=== PATIENT | male | born 1945 | race Caucasian/White ===

== ENCOUNTER → 2018-01-29 08:01 | Outpatient (CLI) | payer MEDICARE, SELFPAY ==
[2018-01-29 08:28] LABS: Basophils % 0.7 % (0.1-2.0); Eosinophils # 0.2 K/mm3 (0.0-0.4); Eosinophils % 2.9 % (0.1-12.0); Hematocrit 43.2 % (42.0-52.0); Hemoglobin 14.4 g/dL (14.1-18.0); Lymphocytes # 2.5 K/mm3 (0.7-4.5); Lymphocytes % 45.7 K/mm3 (10-50); Mean Corpuscular HGB Conc 33.2 g/dL (31.8-35.4); Mean Corpuscular Hemoglobin 32.6 pg (27.0-31.2); Mean Platelet Volume 9.5 fl (7.4-10.4); Monocytes # 0.4 K/mm3 (0.1-1.0); Monocytes % 7.8 % (1.7-9.3); Neutrophils # 2.3 K/mm3 (1.8-7.8); Neutrophils % 42.8 % (37.0-80.0); Platelet Count 121 K/mm3 (142-424); Red Cell Distribution Width 12.7 % (11.5-17.5); White Blood Count 5.4 K/mm3 (4.8-10.8)
[2018-01-29 08:35] LABS: INR 0.96 (0.9-1.1); Prothrombin Time 10.4 seconds (9.4-11.8)
[2018-01-29 08:54] LABS: Ammonia < 10 umol/L (19-54)
[2018-01-29 10:23] LABS: Alanine Aminotransferase 22 U/L (12-78); Albumin Level 3.1 gm/dL (3.4-5.0); Albumin/Globulin Ratio 0.9 (1.1-1.8); Alkaline Phosphatase 100 U/L (46-116); Anion Gap 10.4 mEq/L (5-15); Aspartate Amino Transferase 27 U/L (15-37); Bilirubin,Total 0.5 mg/dL (0.2-1.0); Blood Urea Nitrogen 23 mg/dL (7-18); Calcium 9.2 mg/dL (8.5-10.1); Carbon Dioxide 29 mmol/L (21.0-32.0); Chloride 108 mmol/L (98-107); Creatinine,Serum 1.61 mg/dL (0.70-1.30); Estimated Glomerular Filt Rate 42 ml/min (>60); GFR (African American) 51 ML/MIN (>60); Globulin 3.5 gm/dl (1.3-3.2); Glucose 66 mg/dL (74-106); Potassium 4.4 mmoL/L (3.5-5.1); Sodium 143 mmol/L (136-145); Total Protein,Serum 6.6 gm/dL (6.4-8.2)
[2018-01-30 14:50] LABS: AFP, Tumor Marker 1.3 ng/mL (0.0-8.3)
== END ==
PROVIDERS: Visit Provider Nurse Practitioner Acute Care
DX: K74.3 Primary biliary cirrhosis (principal); K74.69 Other cirrhosis of liver
CPT/HCPCS: 36415; 80053; 82105; 82140; 85025; 85610

== ENCOUNTER → 2018-02-03 09:59 | Outpatient (POV) | payer MEDICARE, SELFPAY | PROVIDERS: Visit Provider Nurse Practitioner Acute Care | DX: Z00.00 Encounter for general adult medical examination without abnormal findings (principal) ==

== ENCOUNTER → 2018-06-07 08:34 | Outpatient (CLI) | payer MEDICARE, SELFPAY ==
--- NOTE | 2018-06-07 08:56 | XR_ITS ---
XR foot LT min 3V HISTORY: ITS.REASON: LEFT FOOT PAIN - ARCH ORDERING PHYSICIAN: Lorenzo Bird MD PATIENT AGE: 73 years COMPARISON: 11/23/2014 FINDINGS: No fracture or dislocation. No lytic or blastic change. There is normal mineralization.. The joint spaces are well-preserved. No significant degenerative/arthritic changes. No erosive changes evident. IMPRESSION: Negative, no change with no acute finding
== END ==
PROVIDERS: PCP Family Medicine; Visit Provider Family Medicine
DX: M79.672 Pain in left foot (principal)
CPT/HCPCS: 73630

== ENCOUNTER → 2018-08-04 09:03 | Outpatient (CLI) | payer MEDICARE, SELFPAY ==
[2018-08-04 09:28] LABS: INR 0.97 (0.9-1.1)
[2018-08-04 09:35] LABS: Ammonia 2 umol/L (19-54)
[2018-08-04 09:45] LABS: Basophils # 0.1 K/mm3 (0-0.2); Basophils % 1.3 % (0.1-2.0); Eosinophils # 0.2 K/mm3 (0.0-0.4); Hematocrit 45.3 % (42.0-52.0); Hemoglobin 14.5 g/dL (14.1-18.0); Lymphocytes # 2.4 K/mm3 (0.7-4.5); Mean Corpuscular Hemoglobin 32.8 pg (27.0-31.2); Mean Corpuscular Volume 102.5 fl (80-94); Mean Platelet Volume 9.3 fl (7.4-10.4); Monocytes # 0.3 K/mm3 (0.1-1.0); Monocytes % 5.8 % (1.7-9.3); Neutrophils # 2.2 K/mm3 (1.8-7.8); Neutrophils % 42.9 % (37.0-80.0); Platelet Count 128 K/mm3 (142-424); Red Blood Count 4.42 M/mm3 (4.60-6.20); Red Cell Distribution Width 13.4 % (11.5-17.5); White Blood Count 5.2 K/mm3 (4.8-10.8)
[2018-08-04 10:42] LABS: Alanine Aminotransferase 18 U/L (12-78); Albumin/Globulin Ratio 0.9 (1.1-1.8); Alkaline Phosphatase 94 U/L (46-116); Aspartate Amino Transferase 21 U/L (15-37); Bilirubin,Total 0.4 mg/dL (0.2-1.0); Blood Urea Nitrogen 22 mg/dL (7-18); Calcium 8.8 mg/dL (8.5-10.1); Carbon Dioxide 28 mmol/L (21.0-32.0); Chloride 107 mmol/L (98-107); Creatinine,Serum 1.61 mg/dL (0.70-1.30); Estimated Glomerular Filt Rate 42 ml/min (>60); GFR (African American) 51 ML/MIN (>60); Globulin 3.5 gm/dl (1.3-3.2); Glucose 81 mg/dL (74-106); Sodium 142 mmol/L (136-145); Total Protein,Serum 6.5 gm/dL (6.4-8.2)
[2018-08-06 12:37] LABS: AFP, Tumor Marker 1.1 ng/mL (0.0-8.3)
== END ==
PROVIDERS: Visit Provider Nurse Practitioner Acute Care
DX: K74.69 Other cirrhosis of liver (principal)
CPT/HCPCS: 36415; 80053; 82105; 82140; 85025; 85610

== ENCOUNTER → 2018-08-11 10:05 | Outpatient (POV) | payer MEDICARE, SELFPAY | PROVIDERS: Visit Provider Nurse Practitioner Acute Care | DX: Z00.00 Encounter for general adult medical examination without abnormal findings (principal) ==

== ENCOUNTER → 2018-08-19 07:41 | Outpatient (CLI) | payer MEDICARE, SELFPAY ==
--- NOTE | 2018-08-19 07:44 | US_ITS ---
US abdomen limited History:Cirrhosis Ordering Physician:Soha Vang Patient Age: 73 years Comparison:None Findings: Pancreas:Unremarkable. No obvious mass or abnormal fluid collection. No ductal dilatation Liver:The liver has a cirrhotic appearance with an irregular border with heterogeneous echogenicity. There is appropriate direction of blood flow within a nondilated portal vein. Right Kidney:There is cortical thinning with no evidence of hydronephrosis or renal mass. 16 mm right renal cyst Gallbladder:Status post cholecystectomy. Common bile duct is normal at 3 mm. Impression: 1. The findings are in keeping with cirrhosis. Normal sized portal vein appropriate direction of blood flow 2. Cortical scarring of the right kidney, right renal cyst
== END ==
PROVIDERS: PCP Family Medicine; Visit Provider Nurse Practitioner Acute Care
DX: K74.60 Unspecified cirrhosis of liver (principal); K74.3 Primary biliary cirrhosis
CPT/HCPCS: 76705

== ENCOUNTER → 2019-02-05 07:23 | Outpatient (CLI) | payer MEDICARE, SELFPAY ==
[2019-02-05 07:49] LABS: INR 0.98 (0.9-1.1); Prothrombin Time 10.1 seconds (9.4-11.8)
[2019-02-05 07:54] LABS: Ammonia < 10 umol/L (19-54)
--- NOTE | 2019-02-05 08:00 | US_ITS ---
US abdomen limited History: Ordering Physician:Jose Manuel Cruz MD Patient Age: 74 years Comparison:08/19/2018 Findings: Pancreas:Unremarkable. No obvious mass or abnormal fluid collection. No ductal dilatation Liver:There is coarse echogenicity of the liver with irregular liver margin consistent with(. There is appropriate direction of blood flow within a nondilated portal vein and portal vein which measures 12 mm. Right Kidney:Unremarkable. Normal size and echogenicity. No hydronephrosis. There is a 14 mm cyst in the upper pole the right kidney Gallbladder:Prior cholecystectomy Impression: Cirrhotic appearing liver with appropriate direction of blood flow within the portal vein which is nondilated
[2019-02-05 08:27] LABS: Basophils # 0.1 K/mm3 (0-0.2); Eosinophils # 0.2 K/mm3 (0.0-0.4); Eosinophils % 4.1 % (0.1-12.0); Hematocrit 40.1 % (42.0-52.0); Hemoglobin 13.3 g/dL (14.1-18.0); Lymphocytes # 2.6 K/mm3 (0.7-4.5); Lymphocytes % 51.5 % (10-50); Mean Corpuscular HGB Conc 33.3 g/dL (31.8-35.4); Mean Corpuscular Hemoglobin 32.4 pg (27.0-31.2); Mean Corpuscular Volume 97.3 fl (80-94); Mean Platelet Volume 9.4 fl (7.4-10.4); Monocytes # 0.4 K/mm3 (0.1-1.0); Neutrophils # 1.9 K/mm3 (1.8-7.8); Neutrophils % 36.3 % (37.0-80.0); Platelet Count 108 K/mm3 (142-424); Red Blood Count 4.12 M/mm3 (4.60-6.20); Red Cell Distribution Width 12.8 % (11.5-17.5); White Blood Count 5.1 K/mm3 (4.8-10.8)
[2019-02-05 08:29] LABS: MANUAL DIFFERENTIAL MANUAL DIFFERENTIAL (MANUAL DIFF)
[2019-02-05 09:00] LABS: Alanine Aminotransferase 20 U/L (12-78); Albumin Level 3.2 gm/dL (3.4-5.0); Albumin/Globulin Ratio 0.9 (1.1-1.8); Alkaline Phosphatase 99 U/L (46-116); Anion Gap 11.5 mEq/L (5-15); Aspartate Amino Transferase 21 U/L (15-37); Bilirubin,Total 0.5 mg/dL (0.2-1.0); Blood Urea Nitrogen 28 mg/dL (7-18); Calcium 8.8 mg/dL (8.5-10.1); Carbon Dioxide 27 mmol/L (21.0-32.0); Chloride 108 mmol/L (98-107); Creatinine,Serum 2.06 mg/dL (0.70-1.30); Estimated Glomerular Filt Rate 32 ml/min (>60); GFR (African American) 38 ML/MIN (>60); Globulin 3.7 gm/dl (1.3-3.2); Glucose 89 mg/dL (74-106); Potassium 4.5 mmoL/L (3.5-5.1); Sodium 142 mmol/L (136-145); Total Protein,Serum 6.9 gm/dL (6.4-8.2)
[2019-02-05 11:01] LABS: Eosinophils % 4 % (0-3); Lymphocytes % 53 % (10-50); Monocytes % 6 % (2-9); Neutrophils % 37 % (42-76); Total Cells Counted 100
[2019-02-05 11:02] LABS: Platelet Estimate Moderate Decrease
== END ==
PROVIDERS: Nurse Practitioner Acute Care; Visit Provider Internal Medicine Gastroenterology
DX: K74.60 Unspecified cirrhosis of liver (principal)
CPT/HCPCS: 36415; 76705; 80053; 82140; 85007; 85025; 85610

== ENCOUNTER → 2019-06-12 09:26 | Outpatient (CLI) | payer MEDICARE, SELFPAY ==
[2019-06-12 11:02] LABS: Ferritin 252 ng/mL (8-388)
[2019-06-13 08:13] LABS: Iron 92 ug/dL (38-169); Iron Saturation 33 % (15-55); UIBC 189 ug/dL (111-343)
[2019-06-14 04:21] LABS: Folate 15.6 ng/mL (>3.0)
== END ==
PROVIDERS: Visit Provider Nurse Practitioner Family
DX: D64.9 Anemia, unspecified (principal); K74.60 Unspecified cirrhosis of liver
CPT/HCPCS: 36415; 82652; 82728; 82746; 83540; 83550

== ENCOUNTER → 2019-07-27 07:52 | Outpatient (CLI) | payer MEDICARE, SELFPAY ==
--- NOTE | 2019-07-27 08:09 | US_ITS ---
PROCEDURE: US ABDOMEN LIMITED CLINICAL INDICATION: BILIARY CHOLANGITIS,CIRRHOSIS,ANEMIA Enciso COMPARISON: [facility] US abdomen limited from 02/05/2019 FINDINGS: PANCREAS: Unremarkable. No obvious mass or abnormal fluid collection. No ductal dilatation LIVER: Cirrhotic appearing liver once again noted. There is appropriate direction of blood flow within non dilated portal vein. No obvious hepatic mass or biliary dilatation. RIGHT KIDNEY: There is a small right renal cyst at 14 mm GALLBLADDER: Post cholecystectomy. Common bile duct is normal at 5 mm IMPRESSION: 1. No change in the cirrhotic appearing liver with heterogeneous coarse echogenicity 2. Post cholecystectomy with normal common bile duct Dictated by: Andres Garcia MD 07/27/2019 16:16 Electronically signed by Andres Garcia MD in [place] 07/27/2019 16:16
[2019-07-27 08:33] LABS: Basophils # 0.1 K/mm3 (0-0.2); Basophils % 1.1 % (0.1-2.0); Eosinophils # 0.2 K/mm3 (0.0-0.4); Hematocrit 40.6 % (42.0-52.0); Hemoglobin 13.3 g/dL (14.1-18.0); Lymphocytes # 2.5 K/mm3 (0.7-4.5); Lymphocytes % 46.9 % (10-50); Mean Corpuscular HGB Conc 32.8 g/dL (31.8-35.4); Mean Corpuscular Hemoglobin 32.7 pg (27.0-31.2); Mean Corpuscular Volume 99.9 fl (80-94); Mean Platelet Volume 9.1 fl (7.4-10.4); Monocytes # 0.4 K/mm3 (0.1-1.0); Monocytes % 6.6 % (1.7-9.3); Neutrophils # 2.2 K/mm3 (1.8-7.8); Neutrophils % 41.2 % (37.0-80.0); Platelet Count 130 K/mm3 (142-424); Red Blood Count 4.07 M/mm3 (4.60-6.20); White Blood Count 5.4 K/mm3 (4.8-10.8)
[2019-07-27 08:36] LABS: INR 0.96 (0.9-1.1)
[2019-07-27 11:12] LABS: Alanine Aminotransferase 15 U/L (12-78); Albumin Level 3.2 gm/dL (3.4-5.0); Albumin/Globulin Ratio 0.8 (1.1-1.8); Alkaline Phosphatase 107 U/L (46-116); Anion Gap 11.4 mEq/L (5-15); Aspartate Amino Transferase 16 U/L (15-37); Bilirubin,Total 0.5 mg/dL (0.2-1.0); Blood Urea Nitrogen 26 mg/dL (7-18); Calcium 9.1 mg/dL (8.5-10.1); Carbon Dioxide 27 mmol/L (21.0-32.0); Chloride 108 mmol/L (98-107); Creatinine,Serum 1.75 mg/dL (0.70-1.30); Estimated Glomerular Filt Rate 38 ml/min (>60); Ferritin 242 ng/mL (8-388); GFR (African American) 46 ML/MIN (>60); Globulin 3.8 gm/dl (1.3-3.2); Glucose 80 mg/dL (74-106); Potassium 4.4 mmoL/L (3.5-5.1); Sodium 142 mmol/L (136-145)
[2019-07-27 11:57] LABS: Ammonia < 10 umol/L (19-54)
[2019-07-28 04:15] LABS: Iron 99 ug/dL (38-169); UIBC 153 ug/dL (111-343)
[2019-07-28 13:00] LABS: AFP, Tumor Marker 0.9 ng/mL (0.0-8.3); Iron Saturation 39 % (15-55)
[2019-07-28 13:01] LABS: Vitamin B12 >2000 pg/mL (232-1245)
== END ==
PROVIDERS: Nurse Practitioner Family; PCP Family Medicine; Visit Provider Internal Medicine Gastroenterology
DX: K74.3 Primary biliary cirrhosis (principal); K74.60 Unspecified cirrhosis of liver; D64.9 Anemia, unspecified
CPT/HCPCS: 36415; 76705; 80053; 82105; 82140; 82607; 82728; 83540; 83550; 85025; 85610

== ENCOUNTER → 2019-08-03 09:58 | Outpatient (POV) | payer MEDICARE, SELFPAY | PROVIDERS: PCP Family Medicine; Visit Provider Nurse Practitioner Family | DX: Z00.00 Encounter for general adult medical examination without abnormal findings (principal) ==

== ENCOUNTER → 2020-01-26 07:45 | Outpatient (CLI) | payer MEDICARE, SELFPAY ==
--- NOTE | 2020-01-26 07:54 | US_ITS ---
PROCEDURE: US ABDOMEN LIMITED CLINICAL INDICATION: CIRRHOSIS,ANEMIA,BILLARY CHOLANGITIS COMPARISON: US ABDOMEN LIMITED from 07/27/2019 FINDINGS: PANCREAS: Unremarkable. No obvious mass or abnormal fluid collection. No ductal dilatation LIVER: Liver has a cirrhotic appearance with irregularity of the liver surface and heterogeneous echogenicity. Appropriate direction blood flow noted within non dilated portal vein. RIGHT KIDNEY: There is a 14 mm right renal cyst along the upper pole and there are scattered hyperechoic a colic foci with posterior acoustical shadowing consistent with kidney stones. No hydronephrosis. GALLBLADDER: Prior cholecystectomy. Common bile duct is normal at 2 mm. IMPRESSION: Prior cholecystectomy. Cirrhotic appearance of the liver not significantly changed Right nephrolithiasis with small right renal cyst Dictated by: Andres Garcia MD 01/26/2020 15:27 Electronically signed by Andres Garcia MD in [place] 01/26/2020 15:27
== END ==
PROVIDERS: PCP Family Medicine; Visit Provider Nurse Practitioner Family
DX: K74.3 Primary biliary cirrhosis (principal); K74.60 Unspecified cirrhosis of liver; D64.9 Anemia, unspecified
CPT/HCPCS: 76705

== ENCOUNTER → 2020-02-09 11:36 | Outpatient (CLI) | payer MEDICARE, SELFPAY ==
[2020-02-09 11:42] LABS: MANUAL DIFFERENTIAL MANUAL DIFFERENTIAL (MANUAL DIFF)
[2020-02-09 12:20] LABS: Ammonia < 9 umol/L (9-30)
[2020-02-09 12:38] LABS: Chloride 108 mmol/L (98-107); Potassium 4.6 mmoL/L (3.5-5.1)
[2020-02-09 12:39] LABS: Basophils # 0.1 K/mm3 (0-0.2); Basophils % 1.2 % (0.1-2.0); Eosinophils # 0.2 K/mm3 (0.0-0.4); Eosinophils % 3.6 % (0.1-12.0); Hematocrit 41.5 % (42.0-52.0); Hemoglobin 13.3 g/dL (14.1-18.0); Lymphocytes # 2.5 K/mm3 (0.7-4.5); Lymphocytes % 44.6 % (10-50); Mean Corpuscular HGB Conc 32.1 g/dL (31.8-35.4); Mean Corpuscular Hemoglobin 31.2 pg (27.0-31.2); Mean Corpuscular Volume 97.4 fl (80-94); Mean Platelet Volume 9.5 fl (7.4-10.4); Monocytes # 0.3 K/mm3 (0.1-1.0); Monocytes % 5.5 % (1.7-9.3); Neutrophils # 2.6 K/mm3 (1.8-7.8); Neutrophils % 45.1 % (37.0-80.0); Platelet Count 123 K/mm3 (142-424); Red Blood Count 4.26 M/mm3 (4.60-6.20); Red Cell Distribution Width 13.7 % (11.5-17.5); White Blood Count 5.7 K/mm3 (4.8-10.8)
[2020-02-09 12:40] LABS: Blood Urea Nitrogen 23 mg/dl (9-20); Estimated Glomerular Filt Rate 35 ml/min (>60); GFR (African American) 42 ML/MIN (>60)
[2020-02-09 12:41] LABS: Alanine Aminotransferase 17 U/L (12-78); Alkaline Phosphatase 99 U/L (38-126); Aspartate Amino Transferase 34 U/L (17-59); Bilirubin,Total 0.6 mg/dl (0.2-1.3); INR 0.98 (0.9-1.1); Prothrombin Time 10.2 seconds (9.4-11.8)
[2020-02-09 13:04] LABS: Anion Gap 9.6 mEq/L (5-15); Carbon Dioxide 25 mmol/L (22.0-30.0)
[2020-02-09 13:08] LABS: Sodium 138 mmol/L (136-145)
[2020-02-09 14:18] LABS: Glucose 127 mg/dl (74-100)
[2020-02-09 14:31] LABS: Calcium 9.3 mg/dl (8.4-10.2)
[2020-02-09 14:32] LABS: Albumin Level 3.7 g/dl (3.5-5.0); Albumin/Globulin Ratio 1.1 (1.1-1.8); Ferritin 143 ng/ml (17.9-464); Globulin 3.3 g/dL (1.3-3.2)
[2020-02-09 16:18] LABS: Eosinophils % 1 % (0-3); Lymphocytes % 39 % (10-50); Monocytes % 12 % (2-9); Neutrophils % 47 % (42-76); Platelet Estimate Normal; RBC Morphology Normal; Total Cells Counted 100
[2020-02-10 08:47] LABS: Iron 86 ug/dL (38-169); Iron Saturation 33 % (15-55); UIBC 171 ug/dL (111-343)
== END ==
PROVIDERS: PCP Family Medicine; Visit Provider Nurse Practitioner Family
DX: K74.3 Primary biliary cirrhosis (principal); K74.60 Unspecified cirrhosis of liver; D64.9 Anemia, unspecified
CPT/HCPCS: 36415; 80053; 82105; 82140; 82728; 83540; 83550; 85007; 85014; 85018; 85048; 85049; 85610

== ENCOUNTER → 2020-08-05 07:58 | Outpatient (CLI) | payer MEDICARE, SELFPAY ==
[2020-08-05 08:32] LABS: Ammonia < 9 umol/L (9-30)
[2020-08-05 08:58] LABS: Basophils % 0.7 % (0.1-2.0); Eosinophils # 0.2 K/mm3 (0.0-0.4); Hematocrit 44.5 % (42.0-52.0); Hemoglobin 14.5 g/dL (14.1-18.0); Lymphocytes # 2.2 K/mm3 (0.7-4.5); Lymphocytes % 38.7 % (10-50); Mean Corpuscular HGB Conc 32.5 g/dL (31.8-35.4); Mean Corpuscular Hemoglobin 32.3 pg (27.0-31.2); Mean Corpuscular Volume 99.3 fl (80-94); Mean Platelet Volume 9.6 fl (7.4-10.4); Monocytes # 0.4 K/mm3 (0.1-1.0); Monocytes % 6.5 % (1.7-9.3); Neutrophils # 2.9 K/mm3 (1.8-7.8); Neutrophils % 50.1 % (37.0-80.0); Platelet Count 114 K/mm3 (142-424); Red Blood Count 4.48 M/mm3 (4.60-6.20); Red Cell Distribution Width 13.8 % (11.5-17.5); White Blood Count 5.8 K/mm3 (4.8-10.8)
[2020-08-05 09:09] LABS: Chloride 108 mmol/L (98-107); Sodium 140 mmol/L (136-145)
[2020-08-05 09:10] LABS: Potassium 4.2 mmoL/L (3.5-5.1)
[2020-08-05 09:12] LABS: Alanine Aminotransferase 14 U/L (12-78); Albumin Level 3.6 g/dl (3.5-5.0); Albumin/Globulin Ratio 1.1 (1.1-1.8); Alkaline Phosphatase 98 U/L (38-126); Anion Gap 9.2 mEq/L (5-15); Aspartate Amino Transferase 31 U/L (17-59); Bilirubin,Total 0.7 mg/dl (0.2-1.3); Blood Urea Nitrogen 29 mg/dl (9-20); Calcium 9.2 mg/dl (8.4-10.2); Carbon Dioxide 27 mmol/L (22.0-30.0); Estimated Glomerular Filt Rate 33 ml/min (>60); GFR (African American) 40 ML/MIN (>60); Globulin 3.2 g/dL (1.3-3.2); Glucose 127 mg/dl (74-100); Iron 86 ug/dL (49-181); Total Protein,Serum 6.8 g/dl (6.3-8.2)
[2020-08-05 09:22] LABS: Total Iron Binding Capacity 294 ug/dL (261-462)
[2020-08-05 09:24] LABS: INR 0.98 (0.9-1.1); Prothrombin Time 10.8 seconds (9.4-11.8)
[2020-08-05 09:48] LABS: Ferritin 158 ng/ml (17.9-464)
== END ==
PROVIDERS: Visit Provider Nurse Practitioner Family
DX: K74.3 Primary biliary cirrhosis (principal); K74.60 Unspecified cirrhosis of liver; D64.9 Anemia, unspecified
CPT/HCPCS: 36415; 80053; 82105; 82140; 82728; 83540; 83550; 85025; 85610

== ENCOUNTER → 2020-08-08 08:58 | Outpatient (POV) | payer MEDICARE, SELFPAY | PROVIDERS: Visit Provider Nurse Practitioner Family | DX: Z00.00 Encounter for general adult medical examination without abnormal findings (principal) ==

== ENCOUNTER → 2021-01-24 07:41 | Outpatient (CLI) | payer MEDICARE, SELFPAY ==
--- NOTE | 2021-01-24 07:45 | US_ITS ---
PROCEDURE: US ABDOMEN LIMITED CLINICAL INDICATION: CIRRHOSIS,ANEMIA,FATIGUE,BRADYCARDIA,CHOLANGITIS COMPARISON: US US ABDOMEN LIMITED from 01/26/2020 FINDINGS: PANCREAS: Unremarkable. No obvious mass or abnormal fluid collection. No ductal dilatation LIVER: Liver margin is irregular with mild coarse echogenicity of the liver suggesting cirrhosis. Similar when compared to the previous exam. Appropriate direction of blood flow is noted within a non dilated portal vein. Common duct is normal 2 mm. RIGHT KIDNEY: 16 mm right renal cyst upper pole. 10 mm right renal cyst lower pole. Multiple right renal calculi are noted. No hydronephrosis GALLBLADDER: Prior cholecystectomy. Common bile duct normal at 2 mm. IMPRESSION: Findings compatible with cirrhosis overall not significantly changed. Appropriate direction of blood flow within non dilated portal vein. Right nephrolithiasis. Dictated by: Anrdes Garcia MD 01/24/2021 13:24 Andres Garcia MD in [place] 01/24/2021 13:24
== END ==
PROVIDERS: PCP Family Medicine; Visit Provider Nurse Practitioner Family
DX: R10.11 Right upper quadrant pain (principal); K74.60 Unspecified cirrhosis of liver; K74.3 Primary biliary cirrhosis; D64.9 Anemia, unspecified; R53.83 Other fatigue; R00.1 Bradycardia, unspecified
CPT/HCPCS: 76705

== ENCOUNTER → 2021-01-25 13:53 | Outpatient (POV) | payer MEDICARE, SELFPAY | DX: Z00.00 Encounter for general adult medical examination without abnormal findings (principal) ==

== ENCOUNTER → 2021-01-28 08:20 | Outpatient (CLI) | payer MEDICARE, SELFPAY ==
[2021-01-28 08:57] LABS: Basophils # 0.1 K/mm3 (0-0.2); Basophils % 1.1 % (0.1-2.0); Eosinophils # 0.3 K/mm3 (0.0-0.4); Eosinophils % 5.8 % (0.1-12.0); Hemoglobin 13.8 g/dL (14.1-18.0); Lymphocytes # 2.2 K/mm3 (0.7-4.5); Lymphocytes % 39.7 % (10-50); Mean Corpuscular HGB Conc 32.8 g/dL (31.8-35.4); Mean Corpuscular Hemoglobin 31.8 pg (27.0-31.2); Mean Corpuscular Volume 97.1 fl (80-94); Mean Platelet Volume 8.7 fl (7.4-10.4); Monocytes # 0.3 K/mm3 (0.1-1.0); Monocytes % 5.9 % (1.7-9.3); Neutrophils # 2.6 K/mm3 (1.8-7.8); Neutrophils % 47.4 % (37.0-80.0); Platelet Count 154 K/mm3 (142-424); Red Blood Count 4.32 M/mm3 (4.60-6.20); Red Cell Distribution Width 13.6 % (11.5-17.5); White Blood Count 5.5 K/mm3 (4.8-10.8)
[2021-01-28 09:09] LABS: INR 0.89 (0.9-1.1); Prothrombin Time 10.6 seconds (10.1-12.5)
[2021-01-28 09:37] LABS: Ammonia < 9 umol/L (9-30)
[2021-01-28 10:13] LABS: Chloride 108 mmol/L (98-107); Sodium 142 mmol/L (136-145)
[2021-01-28 10:16] LABS: Alanine Aminotransferase 14 U/L (12-78); Albumin Level 3.8 g/dl (3.5-5.0); Albumin/Globulin Ratio 1.1 (1.1-1.8); Alkaline Phosphatase 147 U/L (38-126); Aspartate Amino Transferase 35 U/L (17-59); Bilirubin,Total 0.6 mg/dl (0.2-1.3); Blood Urea Nitrogen 33 mg/dl (9-20); Calcium 9.7 mg/dl (8.4-10.2); Carbon Dioxide 24 mmol/L (22.0-30.0); Estimated Glomerular Filt Rate 29 ml/min (>60); GFR (African American) 35 ML/MIN (>60); Globulin 3.5 g/dL (1.3-3.2); Glucose 115 mg/dl (74-100); Iron 99 ug/dL (49-181); Total Protein,Serum 7.3 g/dl (6.3-8.2)
[2021-01-28 10:27] LABS: Total Iron Binding Capacity 274 ug/dL (261-462)
[2021-01-28 10:52] LABS: Ferritin 179 ng/ml (17.9-464)
[2021-01-29 16:39] LABS: AFP, Tumor Marker <0.9 ng/mL (0.0-8.3)
== END ==
PROVIDERS: Visit Provider Nurse Practitioner Family
DX: K74.60 Unspecified cirrhosis of liver (principal); K74.3 Primary biliary cirrhosis; D64.9 Anemia, unspecified; R53.83 Other fatigue; R00.1 Bradycardia, unspecified
CPT/HCPCS: 36415; 80053; 82105; 82140; 82728; 83540; 83550; 85025; 85610

== ENCOUNTER → 2021-01-30 08:07 | Outpatient (POV) | payer MEDICARE, SELFPAY | PROVIDERS: Visit Provider Nurse Practitioner Family | DX: Z00.00 Encounter for general adult medical examination without abnormal findings (principal) ==

== ENCOUNTER → 2021-06-16 13:29 | Outpatient (CLI) | payer MEDICARE, SELFPAY ==
--- NOTE | 2021-06-16 | CA_ITS ---
APPROVED REPORT Jacquard Loom Heddles Tier: CHELY Laterality: Bilateral Study Quality: Good Indications: santos-near syncope Risk Factors Diabetes History of smoking Doppler Spectral Velocity Analysis ECA (R) 68.10/9.70 cm/s ECA (L) 65.80/12.00 cm/s dICA (R) 66.80/21.80 cm/s dICA (L) 69.60/26.20 cm/s Glen (R) 62.30/17.30 cm/s Glen (L) 72.60/23.20 cm/s pICA (R) 82.30/13.50 cm/s pICA (L) 57.60/16.50 cm/s dCCA (R) 70.30/14.20 cm/s dCCA (L) 83.80/21.00 cm/s pCCA (R) 75.40/12.90 cm/s pCCA (L) 78.60/17.20 cm/s Vert (R) 31.00/6.40 cm/s Vert (L) 41.20/16.00 cm/s ICA/CCA 1.17 ICA/CCA 0.87 Findings Study suggests less than 20% stenosis of the right internal carotid artery. Study suggests less than 20% stenosis of the left internal carotid artery. Duplex evaluation demonstrates antegrade flow of the bilateral vertebral arteries. Conclusion Study suggests less than 20% stenosis of the right internal carotid artery. Study suggests less than 20% stenosis of the left internal carotid artery. Duplex evaluation demonstrates antegrade flow of the bilateral vertebral arteries. Electronically signed by : Andres Garcia MD 06/19/2021 16:22:04
--- NOTE | 2021-06-16 | CA_ITS ---
APPROVED REPORT EXAM: Comprehensive 2D, Doppler, and color-flow Echocardiogram Human Resources Representative: Marcelle Rob, RT(R) Ht: 5 ft 10 in Wt: 174lbs BSA: 1.97 BP: 130/84 mmHg Indications: murmur, ex smoker, syncope, HTN, MARLEY, chest tightness with exertion, hx CVA 2D Dimensions LVOT 2.03 cm (M/F) 1.5-2.5 LA Volume 87.60 mL LA Volume Index 44.69 mL/m2 (M/F) 16-34 M-Mode Dimensions RVDd 3.59 cm (0.9-2.6) LA Diam 3.54 cm (1.9-4.0) LVDd 5.66 cm (3.5-5.7) Ao Diam 2.64 cm (2.0-3.7) LVDs 4.35 cm (3.5-5.7) IVSd 0.85 cm (0.6-1.1) PWd 0.97 cm (0.6-1.1) EF (Teich) 45.80% FS 23.10% EDV (Teich) 157.50 mL ESV (Teich) 85.40 mL LV Diastology E Decel Time 317.00 (160-240 msec) E/A Ratio 1.0 MED E' 9.20 (< 7 cm/sec) E'/MED E' Ratio 5.07 (>14) LAT E' 6.90 (<10 cm/sec) E/LAT E' Ratio 6.75 (>14) Aortic Valve LVOT Max 84.00 (70-110 cm/s) LVOT VTI 22.95 cm AoV Peak Myron. 462.00 (50-130 cm/s) AO Peak GR. 85.40 mmHg AO Mean GR. 41.90 (<5 mmHg) AO VTI 105.47 (18-25 cm) RAMANA (VTI) 0.70 (2.5-4.5 cm2) Mitral Valve MV E Max Myron. 47.00 (40-130 cm/s) MV A Velocity 48.00 (40-130 cm/s) E/A Ratio 0.96 MV Decel. Time 317.00 (160-240 ms) MV PHT 93.00 ms Tricuspid Valve TR P. Velocity 308.00 cm/s Left Ventricle Left atrium is mildly enlarged, left ventricle is normal size, mild concentric left ventricular hypertrophy, visually estimated ejection fraction 55% with no regional wall motion abnormality, Doppler evidence of impaired LV relaxation seen, tissue Doppler is inconclusive. Right Ventricle Right atrium and right ventricle mildly enlarged with normal contractility. Aortic Valve Aortic valve is thickened and calcified with severe restriction in the leaflet mobility, the mean gradient across valve is 42 mmHg, valve area is 0.7 cm??? represents severe aortic stenosis, there is mild aortic insufficiency. Mitral Valve Mitral valve has mitral annular calcification, there is no mitral stenosis, there is mild mitral regurgitation. Tricuspid Valve Tricuspid valve is grossly normal, there is mild tricuspid regurgitation, calculated right ventricular systolic pressure 38 mmHg. Pulmonic Valve Pulmonic valve is poorly visualized. Great Vessels Aortic root is normal size. Inferior vena cava is poorly visualized. Pericardium No significant pericardial effusion noted. Conclusion 1. Biatrial enlargement, normal left ventricular size, mild concentric left ventricular hypertrophy, visually estimated ejection fraction 55% with no regional wall motion abnormality, Doppler evidence of impaired LV relaxation seen, tissue Doppler is inconclusive for left atrial pressure. 2. Thickened and calcified aortic valve is severe aortic stenosis, the valve area is 0.7 cm???, there is mild aortic insufficiency. 3. Mild mitral and tricuspid regurgitation, calculated right ventricular systolic pressure 38 mmHg. 4. No significant pericardial effusion noted. Electronically signed by : Eric Zurita MD 06/16/2021 18:55:08
== END ==
PROVIDERS: PCP Family Medicine; Visit Provider Family Medicine
DX: R55 Syncope and collapse (principal)
CPT/HCPCS: 93306; 93880

== ENCOUNTER → 2021-07-07 07:20 | Outpatient (CLI) | payer MEDICARE, SELFPAY ==
[2021-07-07 07:39] LABS: Basophils # 0.1 K/mm3 (0-0.2); Basophils % 1.1 % (0.1-2.0); Eosinophils # 0.3 K/mm3 (0.0-0.4); Eosinophils % 5.1 % (0.1-12.0); Hematocrit 41.9 % (42.0-52.0); Hemoglobin 13.4 g/dL (14.1-18.0); Lymphocytes # 2.7 K/mm3 (0.7-4.5); Lymphocytes % 41.2 % (10-50); Mean Corpuscular Hemoglobin 33.1 pg (27.0-31.2); Mean Corpuscular Volume 103.5 fl (80-94); Mean Platelet Volume 9.6 fl (7.4-10.4); Monocytes # 0.4 K/mm3 (0.1-1.0); Monocytes % 5.7 % (1.7-9.3); Neutrophils % 46.8 % (37.0-80.0); Platelet Count 159 K/mm3 (142-424); Red Blood Count 4.05 M/mm3 (4.60-6.20); Red Cell Distribution Width 14.1 % (11.5-17.5); White Blood Count 6.4 K/mm3 (4.8-10.8)
[2021-07-07 08:26] LABS: Chloride 107 mmol/L (98-107); Potassium 4.8 mmoL/L (3.5-5.1); Sodium 140 mmol/L (136-145)
[2021-07-07 08:29] LABS: Anion Gap 10.8 mEq/L (5-15); Blood Urea Nitrogen 27 mg/dl (9-20); Carbon Dioxide 27 mmol/L (22.0-30.0); Estimated Glomerular Filt Rate 33 ml/min (>60); GFR (African American) 39 ML/MIN (>60); Glucose 138 mg/dl (74-100)
== END ==
PROVIDERS: Visit Provider Nurse Practitioner Family
DX: I20.9 Angina pectoris, unspecified (principal); Z01.810 Encounter for preprocedural cardiovascular examination; R06.00 Dyspnea, unspecified; Z11.52 Encounter for screening for COVID-19
CPT/HCPCS: 36415; 80048; 85025; C9803; U0003; U0005

== ENCOUNTER 2021-07-10 08:22 | Day surgery (SDC) | payer MEDICARE, SELFPAY ==
[2021-07-10] VITALS (11 sets, daily range): BP systolic 110–167; BP diastolic 62–85; PULSE 44–53; RESP 18–20; TEMP 36.6; O2SAT 92–98; BMI 25.1
--- NOTE | 2021-07-10 07:24 | IR_ITS ---
APPROVED REPORT Patient Location: Outpatient [place] Operator: NIMESH Moon RT (R) PROCEDURES Selective coronary angiogram INDICATION Severe aortic stenosis, Preoperative evaluation for impending cardiac surgery Informed consent was obtained prior to the procedure. COMPLICATIONS NONE Estimated Blood Loss: LESS THAN 10 ML TECHNIQUE One percent lidocaine used to anesthetize the right anterior aspect of the wrist. The right radial artery was accessed via the Seldinger technique. A 6 Latvian sheath was placed in the right radial artery. 2.5 mg of verapamil, 800 mcg of nitroglycerin, 1mg Lidocaine and 5000 U Heparin were given through the arterial sheath. The trap catheter was also used to perform left heart catheterization, left ventriculogram and selective coronary angiogram. At the end of the procedure the sheath was removed good hemostasis was achieved using Traclet band, patient was transferred to the postop holding area in stable condition. ANGIOGRAPHIC RESULTS The left main artery Normal The left anterior descending artery Has proximal and mid vessel 20 to 30% calcified stenoses. A large first diagonal artery has a smooth ostial proximal 40 to 50% stenosis The circumflex artery Gives rise to a large ramus intermedius which has mild 10% luminal irregularities. The circumflex artery itself is a large nondominant has mild 10% luminal irregularities The right coronary artery Is a dominant vessel and has proximal eccentric 30% tandem stenoses The GLASS ventriculogram reveals Not performed The left ventricular end-diastolic pressure Not measured IMPRESSION Mild to moderate nonflow limiting coronary disease as described above PLAN 1. Plans for aortic valve replacement per primary cardiology team Electronically signed by : Franck Lopez MD 07/10/2021 11:31:47
== END 2021-07-10 13:34 | disposition home or self-care (01) ==
LOC: CATHLAB 08:24
PROVIDERS: PCP Family Medicine; Visit Provider Internal Medicine
DX: Z01.810 Encounter for preprocedural cardiovascular examination (principal); I35.0 Nonrheumatic aortic (valve) stenosis; I20.9 Angina pectoris, unspecified; Z79.899 Other long term (current) drug therapy; I10 Essential (primary) hypertension; Z82.49 Family history of ischemic heart disease and other diseases of the circulatory system
CPT/HCPCS: 93458; 99152; C1769; J1644; Q9967

== ENCOUNTER → 2021-07-25 07:16 | Outpatient (CLI) | payer MEDICARE, SELFPAY ==
--- NOTE | 2021-07-25 07:32 | US_ITS ---
PROCEDURE: US ABDOMEN LIMITED CLINICAL INDICATION: CIRRHOSIS..PORTAL HYPERTENSION..PRIMARY BILIARY CHOLANGITIS COMPARISON: US US ABDOMEN LIMITED from 01/24/2021 FINDINGS: Visualized extent of the pancreas appears unremarkable. There is nodular hepatic contour consistent with cirrhosis. There is coarse hepatic echogenicity consistent with cirrhosis. Hepatic veins are patent. Main right and left portal veins are patent with appropriate direction of flow. The kidneys are poorly visualized. Both kidneys appear echogenic with significant renal cortical thinning consistent with chronic medical renal disease. IMPRESSION: 1. Nodular hepatic contour and coarse hepatic echogenicity consistent with cirrhosis. 2. Appropriate direction of flow in the portal veins. 3. No definite hepatic lesions visualized. 4. Chronic medical renal disease. Dictated by: Zandra Buckner MD 07/25/2021 10:41 Zandra Buckner MD in [place] 07/25/2021 10:41
[2021-07-25 07:45] LABS: Basophils # 0.1 K/mm3 (0-0.2); Basophils % 1.4 % (0.1-2.0); Eosinophils # 0.3 K/mm3 (0.0-0.4); Eosinophils % 6.5 % (0.1-12.0); Hematocrit 42.4 % (42.0-52.0); Hemoglobin 13.9 g/dL (14.1-18.0); Lymphocytes # 2.5 K/mm3 (0.7-4.5); Lymphocytes % 49.7 % (10-50); Mean Corpuscular HGB Conc 32.8 g/dL (31.8-35.4); Mean Corpuscular Hemoglobin 33.1 pg (27.0-31.2); Mean Corpuscular Volume 100.9 fl (80-94); Mean Platelet Volume 9.3 fl (7.4-10.4); Monocytes # 0.3 K/mm3 (0.1-1.0); Monocytes % 5.7 % (1.7-9.3); Neutrophils # 1.8 K/mm3 (1.8-7.8); Neutrophils % 36.7 % (37.0-80.0); Platelet Count 140 K/mm3 (142-424); Red Cell Distribution Width 13.3 % (11.5-17.5)
[2021-07-25 07:58] LABS: Ammonia < 9 umol/L (9-30)
[2021-07-25 07:59] LABS: INR 0.95 (0.9-1.1); Prothrombin Time 10.8 seconds (10.1-12.5)
[2021-07-25 08:01] LABS: Chloride 106 mmol/L (98-107)
[2021-07-25 08:02] LABS: Potassium 4.5 mmoL/L (3.5-5.1); Sodium 142 mmol/L (136-145)
[2021-07-25 08:04] LABS: Alanine Aminotransferase 13 U/L (12-78); Alkaline Phosphatase 112 U/L (38-126); Aspartate Amino Transferase 33 U/L (17-59); Bilirubin,Total 0.5 mg/dl (0.2-1.3); Blood Urea Nitrogen 24 mg/dl (9-20); Estimated Glomerular Filt Rate 33 ml/min (>60); GFR (African American) 39 ML/MIN (>60)
[2021-07-25 08:05] LABS: Albumin Level 3.6 g/dl (3.5-5.0); Anion Gap 13.5 mEq/L (5-15); Calcium 9.1 mg/dl (8.4-10.2); Carbon Dioxide 27 mmol/L (22.0-30.0); Globulin 3.6 g/dL (1.3-3.2); Glucose 92 mg/dl (74-100); Iron 105 ug/dL (49-181); Total Protein,Serum 7.2 g/dl (6.3-8.2)
[2021-07-25 08:14] LABS: Total Iron Binding Capacity 288 ug/dL (261-462)
[2021-07-25 08:40] LABS: Ferritin 159 ng/ml (17.9-464)
[2021-07-26 10:12] LABS: AFP, Tumor Marker <0.9 ng/mL (0.0-8.3)
== END ==
PROVIDERS: PCP Family Medicine; Visit Provider Nurse Practitioner Family
DX: K74.3 Primary biliary cirrhosis (principal); K74.60 Unspecified cirrhosis of liver; K76.6 Portal hypertension; R00.1 Bradycardia, unspecified; R53.83 Other fatigue
CPT/HCPCS: 36415; 76705; 80053; 82105; 82140; 82728; 83540; 83550; 85025; 85610

== ENCOUNTER → 2021-09-04 08:18 | Outpatient (CLI) | payer MEDICARE, SELFPAY | PROVIDERS: PCP Family Medicine; Visit Provider Nurse Practitioner | DX: Z20.822 Contact with and (suspected) exposure to COVID-19 (principal) | CPT/HCPCS: C9803; U0003; U0005 ==

== ENCOUNTER → 2021-11-15 07:17 | Outpatient (CLI) | payer MEDICARE, SELFPAY ==
--- NOTE | 2021-11-15 07:33 | CT_ITS ---
FINAL REPORT CLINICAL HISTORY: HEMAATURIA,H/O KIDNEY STONES FINDINGS: Axial CT images of the abdomen and pelvis were obtained without intravenous contrast. Coronal reformatted images were also obtained.This study was performed with techniques to keep radiation doses as low as reasonably achievable (ALARA). Individualized dose reduction techniques using automated exposure control or adjustment of mA and/or kV according to the patient's size were employed. Abdomen: There is a small right pleural effusion. There is mild bibasilar atelectasis or scarring. There are numerous stones throughout both kidneys. One of the largest in the right kidney is in the upper pole measuring 12 mm. The largest in the mid left kidney measures 17 mm. There is no hydronephrosis. There are bilateral low-attenuation renal masses which cannot be accurately characterized without contrast. At least 1 mass in the left kidney does not appear to be simple cyst. The liver has a lobular contour consistent with cirrhosis. There are postoperative changes from cholecystectomy. The spleen and pancreas have an unremarkable, unenhanced appearance. No adenopathy is seen. No inflammatory process is identified. Pelvis: The appendix is normal. There is no evidence of ureteral dilation or ureteral stone. There are several diverticula without diverticulitis. There is a small left inguinal hernia containing fat. There are multiple phleboliths in pelvis. IMPRESSION: Bilateral nephrolithiasis measuring up to 12 mm on the right and up to 17 mm on the left. Bilateral renal masses which cannot be accurately characterized without contrast. Reviewed, Interpreted and Dictated by Vicente Linn III, MD Transcribed by Asia Epperson Authenticated by Vicente Linn III, MD on 11/15/2021 09:35:17 AM [facility]
== END ==
PROVIDERS: PCP Family Medicine; Visit Provider Family Medicine
DX: R31.9 Hematuria, unspecified (principal); Z87.442 Personal history of urinary calculi
CPT/HCPCS: 74176

== ENCOUNTER → 2021-11-27 07:49 | Outpatient (CLI) | payer MEDICARE, SELFPAY | PROVIDERS: Visit Provider Obstetrics & Gynecology Gynecology | DX: Z01.812 Encounter for preprocedural laboratory examination (principal); Z11.52 Encounter for screening for COVID-19 | CPT/HCPCS: C9803; U0003; U0005 ==

== ENCOUNTER → 2021-12-22 08:13 | Outpatient (CLI) | payer MEDICARE, SELFPAY ==
--- NOTE | 2021-12-22 08:16 | US_ITS ---
FINAL REPORT CLINICAL HISTORY: cirrhosis FINDINGS: Sonographic images of the abdomen were obtained. The liver has a coarsened echotexture which may be due to underlying cirrhosis. The gallbladder is surgically absent. There is no evidence of biliary ductal dilatation. The common hepatic duct is within normal limits. Limited images of the pancreas are unremarkable. The spleen size is normal. The right kidney measures 9.5 cm in length. The left kidney measures 10.2 cm in length. There are multiple echogenic shadowing stones present in both kidneys measuring up to 7 mm. There are a multitude of benign-appearing cysts in both kidneys measuring up to 2.1 cm. There is no evidence of hydronephrosis. The aorta has an unremarkable appearance. Limited images of the inferior vena cava are unremarkable. IMPRESSION: Liver has a coarsened echotexture which may be due to underlying cirrhosis. Multiple bilateral renal stones. Multiple bilateral benign-appearing renal cysts Reviewed, Interpreted and Dictated by Alexandru Maya MD Transcribed by Asia Epperson Authenticated by Alexandru Maya MD on 12/22/2021 10:56:32 AM [facility]
== END ==
PROVIDERS: PCP Family Medicine; Visit Provider Family Medicine
DX: K74.3 Primary biliary cirrhosis (principal)
CPT/HCPCS: 93975

== ENCOUNTER → 2022-02-09 11:12 | Outpatient (CLI) | payer MEDICARE, SELFPAY ==
[2022-02-09 11:50] LABS: Basophils # 0.2 K/mm3 (0-0.2); Basophils % 2.2 % (0.1-2.0); Eosinophils # 0.2 K/mm3 (0.0-0.4); Eosinophils % 3.1 % (0.1-12.0); Hematocrit 42.7 % (42.0-52.0); Hemoglobin 13.6 g/dL (14.1-18.0); Lymphocytes # 2.4 K/mm3 (0.7-4.5); Mean Corpuscular HGB Conc 31.9 g/dL (31.8-35.4); Mean Corpuscular Hemoglobin 32.2 pg (27.0-31.2); Mean Corpuscular Volume 100.9 fl (80-94); Monocytes # 0.5 K/mm3 (0.1-1.0); Neutrophils # 3.4 K/mm3 (1.8-7.8); Neutrophils % 51.7 % (37.0-80.0); Platelet Count 141 K/mm3 (142-424); Red Blood Count 4.23 M/mm3 (4.60-6.20); Red Cell Distribution Width 14.3 % (11.5-17.5); White Blood Count 6.6 K/mm3 (4.8-10.8)
[2022-02-09 12:54] LABS: Free Thyroxine Index 3.9 ug/dL (5.93-13.13); T4 (Thyroxine) 10.7 ug/dl (5.53-11.0); Triiodothryronine (T3) Uptake 36 % (23.5-40.5)
[2022-02-09 13:07] LABS: Thyroid Stimulating Hormone 3.05 uIU/mL (0.465-4.68)
== END ==
PROVIDERS: PCP Family Medicine; Visit Provider Internal Medicine Cardiovascular Disease
DX: I10 Essential (primary) hypertension (principal); I25.10 Atherosclerotic heart disease of native coronary artery without angina pectoris; I35.0 Nonrheumatic aortic (valve) stenosis; I48.0 Paroxysmal atrial fibrillation; R00.1 Bradycardia, unspecified; R06.00 Dyspnea, unspecified; Z95.2 Presence of prosthetic heart valve
CPT/HCPCS: 36415; 84436; 84443; 84479; 85025; 93225

== ENCOUNTER → 2022-08-25 08:03 | Outpatient (CLI) | payer MEDICARE, SELFPAY ==
[2022-08-25 08:11] LABS: Microscopic, Urine URINE MICROSCOPIC (MICROSCOPIC)
[2022-08-25 08:36] LABS: Basophils # 0.1 K/mm3 (0-0.2); Basophils % 0.9 % (0.1-2.0); Eosinophils # 0.3 K/mm3 (0.0-0.4); Eosinophils % 5.5 % (0.1-12.0); Hematocrit 38.4 % (42.0-52.0); Hemoglobin 12.5 g/dL (14.1-18.0); Lymphocytes % 37.4 % (10-50); Mean Corpuscular HGB Conc 32.5 g/dL (31.8-35.4); Mean Corpuscular Hemoglobin 31.9 pg (27.0-31.2); Mean Corpuscular Volume 98.3 fl (80-94); Mean Platelet Volume 9.3 fl (7.4-10.4); Monocytes # 0.4 K/mm3 (0.1-1.0); Monocytes % 6.9 % (1.7-9.3); Neutrophils # 2.6 K/mm3 (1.8-7.8); Neutrophils % 49.4 % (37.0-80.0); Platelet Count 140 K/mm3 (142-424); Red Blood Count 3.91 M/mm3 (4.60-6.20); Red Cell Distribution Width 13.7 % (11.5-17.5); White Blood Count 5.4 K/mm3 (4.8-10.8)
[2022-08-25 09:40] LABS: Appearance,Urine CLEAR (Clear); Bilirubin,Urine Negative (Negative); Blood, Urine 3+ (Negative); Color,Urine YELLOW (Yellow); Glucose,Urine (UA) Negative (Negative); Ketones,Urine Negative (Negative); Leukocyte Esterase,Urine Negative (Negative); Nitrate,Urine Negative (Negative); Protein,Urine 2+ (Negative); Specific Gravity, Urine 1.025 (1.005-1.030); Urobilinogen,Urine 0.2 EU/dl (0.2)
[2022-08-25 09:43] LABS: Albumin Level 3.6 g/dl (3.5-5.0); Anion Gap 18.8 mEq/L (5-15); Blood Urea Nitrogen 39 mg/dl (9-20); Calcium 9.3 mg/dl (8.4-10.2); Carbon Dioxide 26 mmol/L (22.0-30.0); Chloride 100 mmol/L (98-107); Estimated Glomerular Filt Rate 18 ml/min (>60); GFR (African American) 21 ML/MIN (>60); Glucose 94 mg/dl (74-100); Phosphorous 3.6 mg/dl (2.5-4.5); Potassium 3.8 mmoL/L (3.5-5.1); Sodium 141 mmol/L (136-145)
[2022-08-25 09:55] LABS: Intact Parathyroid Hormone 132.6 pg/mL (7.5-53.5)
[2022-08-25 10:01] LABS: 25-OH Vitamin D, Total 33.3 ng/mL (30-100)
[2022-08-25 10:19] LABS: Creatinine,Urine Random 176 mg/dL (Not Estab.)
[2022-08-25 11:15] LABS: Bacteria,Urine Trace /lpf; RBC,Urine 20-50 #/hpf (0-3); Squamous Epithelial Cell,Urine Occasional #/hpf (0-5)
== END ==
PROVIDERS: PCP Family Medicine; Visit Provider Internal Medicine Nephrology
DX: N28.9 Disorder of kidney and ureter, unspecified (principal); E55.9 Vitamin D deficiency, unspecified
CPT/HCPCS: 36415; 80069; 81001; 82306; 82570; 83970; 84155; 85025

== ENCOUNTER → 2022-08-30 14:56 | Outpatient (POV) | payer MEDICARE, SELFPAY | PROVIDERS: Visit Provider Internal Medicine Nephrology | DX: Z00.00 Encounter for general adult medical examination without abnormal findings (principal) ==

== ENCOUNTER → 2022-09-01 08:13 | Outpatient (CLI) | payer MEDICARE, SELFPAY ==
[2022-09-02 09:20] LABS: Complement C3 124 mg/dL (82-167)
[2022-09-03 17:32] LABS: Albumin 3.2 g/dL (2.9-4.4); Alpha-1-Globulin 0.2 g/dL (0.0-0.4); Alpha-2-Globulin 0.8 g/dL (0.4-1.0); Gamma Globulin 1.2 g/dL (0.4-1.8); Immunoglobulin A, Qn 513 mg/dL (61-437); Immunoglobulin G, Qn 972 mg/dL (603-1613); Immunoglobulin M, Qn 209 mg/dL (15-143); Protein, Total 6.4 g/dL (6.0-8.5)
[2022-09-15 22:17] LABS: Free Kappa Lt Chains 108.2; Free Lambda Lt Chains 77.9; Hep A Ab, IgM NEGATIVE; Hepatitis B Core Antibody IgM NEGATIVE; Hepatitis B Surface Antigen NEGATIVE; Hepatitis C Antibody <0.1
== END ==
PROVIDERS: PCP Family Medicine; Visit Provider Internal Medicine Nephrology
DX: N28.9 Disorder of kidney and ureter, unspecified (principal); Z79.899 Other long term (current) drug therapy; K74.60 Unspecified cirrhosis of liver
CPT/HCPCS: 36415; 80074; 82784; 83883; 84155; 84165; 86038; 86161; 86334

== ENCOUNTER → 2022-09-22 09:15 | Outpatient (CLI) | payer MEDICARE, SELFPAY ==
[2022-09-22 09:50] LABS: Microscopic, Urine URINE MICROSCOPIC (MICROSCOPIC)
[2022-09-22 10:11] LABS: Hematocrit 37.4 % (42.0-52.0); Hemoglobin 12.2 g/dL (14.1-18.0); Mean Corpuscular HGB Conc 32.7 g/dL (31.8-35.4); Mean Corpuscular Hemoglobin 32.4 pg (27.0-31.2); Mean Corpuscular Volume 99.1 fl (80-94); Platelet Count 137 K/mm3 (142-424); Red Blood Count 3.78 M/mm3 (4.60-6.20); Red Cell Distribution Width 14.1 % (11.5-17.5); White Blood Count 5.3 K/mm3 (4.8-10.8)
[2022-09-22 12:13] LABS: Chloride 108 mmol/L (98-107)
[2022-09-22 12:14] LABS: Albumin Level 3.7 g/dl (3.5-5.0); Potassium 4.8 mmoL/L (3.5-5.1); Sodium 140 mmol/L (136-145)
[2022-09-22 12:16] LABS: Blood Urea Nitrogen 31 mg/dl (9-20); Estimated Glomerular Filt Rate 20 ml/min (>60); GFR (African American) 24 ML/MIN (>60)
[2022-09-22 12:17] LABS: Anion Gap 11.8 mEq/L (5-15); Calcium 9.2 mg/dl (8.4-10.2); Carbon Dioxide 25 mmol/L (22.0-30.0); Glucose 75 mg/dl (74-100); Phosphorous 3.4 mg/dl (2.5-4.5)
[2022-09-22 14:09] LABS: Creatinine,Urine Random 162 mg/dL (Not Estab.)
[2022-09-22 15:40] LABS: Appearance,Urine CLEAR (Clear); Bilirubin,Urine Negative (Negative); Blood, Urine 2+ (Negative); Color,Urine YELLOW (Yellow); Glucose,Urine (UA) Negative (Negative); Ketones,Urine Negative (Negative); Leukocyte Esterase,Urine Negative (Negative); Nitrate,Urine Negative (Negative); PH,Urine 6.5 (5.0-8.5); Protein,Urine 2+ (Negative); Urobilinogen,Urine 0.2 EU/dl (0.2)
[2022-09-22 16:16] LABS: RBC,Urine Occasional #/hpf (0-3); Squamous Epithelial Cell,Urine Occasional #/hpf (0-5)
[2022-10-01 21:42] LABS: Myeloperoxidase Antibody <0.2
[2022-10-01 21:43] LABS: Antiproteinase 3 (PR-3) Abs <0.2
== END ==
PROVIDERS: PCP Family Medicine; Visit Provider Internal Medicine Nephrology
DX: N17.9 Acute kidney failure, unspecified (principal); R80.9 Proteinuria, unspecified; R31.29 Other microscopic hematuria
CPT/HCPCS: 36415; 80069; 81001; 82570; 83520; 84155; 85014; 85018; 85048; 85049

== ENCOUNTER → 2022-10-08 15:01 | Outpatient (POV) | payer MEDICARE, SELFPAY | PROVIDERS: Visit Provider Internal Medicine Nephrology | DX: Z00.00 Encounter for general adult medical examination without abnormal findings (principal) ==

== ENCOUNTER → 2022-12-10 08:04 | Outpatient (CLI) | payer MEDICARE, SELFPAY ==
--- NOTE | 2022-12-10 08:09 | US_ITS ---
FINAL REPORT CLINICAL HISTORY: CIRRHOSIS FINDINGS: ABDOMINAL ULTRASOUND COMPLETE: TECHNIQUE: Ultrasound images of the abdomen were obtained. FINDINGS: The liver has a coarsened echotexture with a lobular contour consistent with history of cirrhosis. The portal vein is patent with normal directional flow. The gallbladder is normal. The common duct is normal. The pancreas is partially obscured. The kidneys are somewhat small measuring 8.9 cm on the right and 8.8 cm on the left. There is increased renal echogenicity likely medical renal disease. Bilateral renal cysts measure up to 2.1 cm on the right and 1.4 cm on the left. There are presumed bilateral renal stones. If indicated, renal stone protocol CT. The spleen is unremarkable. The aorta is normal in caliber. The vena cava is unremarkable. IMPRESSION: Somewhat small kidneys with increased echogenicity consistent with medical renal disease. Presumed bilateral nephrolithiasis. If indicated, renal stone protocol CT. Cirrhosis. Bilateral renal cysts. Reviewed, Interpreted and Dictated by Vicente Linn III, MD Transcribed by Fredis Noel Authenticated and [facility]
== END ==
PROVIDERS: PCP Family Medicine; Visit Provider Family Medicine
DX: K74.3 Primary biliary cirrhosis (principal)
CPT/HCPCS: 76700

== ENCOUNTER 2022-12-27 10:34 | Day surgery (SDC) | payer MEDICARE, SELFPAY ==
[2022-12-24 09:01] VITALS: BMI 25.8
[2022-12-27 10:52] VITALS: BP 162/83; PULSE 61; RESP 18; TEMP 36.6; O2SAT 99
--- NOTE | 2022-12-27 11:50 | P.PN_ITS ---
[facility] Disclaimer: The information contained in this section may have been updated after the patient was seen, as this information can be updated by other users. Medical History PAF (paroxysmal atrial fibrillation) Surgical History History of heart valve replacement Hx of cardiac cath Family History Other No significant family history Social History Smoking Status: Former smoker alcohol intake: never substance use type: denies use current occupational status: retired Travel in the last 8 weeks: None household members: spouse housing: house marital status: current occupational exposures/hazards: No caffeine: Yes special alf needs: No agree to transfusion: No do you feel safe at home: Yes victim of physical abuse: No victim of emotional abuse: No victim of sexual abuse: No would you like helpful sources: No [facility] Anesthesia Checklist Patient Identification Patient Identification: Arm Band Structural Data Admitted From: Home Planned Operative Procedure/s: EGD Consent for Planned Operative Procedure(s) Verified: Yes Verified Documents: Surgical Consent and History and Physical NPO Status Verified Time NPO: 00:00 Additional verifications Anesthesia Reactions: No Airway Assessment C-Spine Mobility Assessed: Yes TMJ Mobility Assessed: Yes Dentition: Edentulous Neurological Assessment Level of Consciousness: Awake and Alert Anesthesia Plan Anesthesia Risk discussed: Yes Anesthesia Plan: Verified ASA Class: III Anesthesia Type: MAC
[2022-12-27 11:53] VITALS: O2SAT 99
--- NOTE | 2022-12-27 12:06 | HMH.SCOPE ---
Procedure: Date: 12/27/22 Patient Date of :: 1945 Procedure Performed:: Diagnostic EGD Indications:: Melena, Guaiac+ stools Performing Provider:: Sterling Araujo MD Referring Provider:: Solo Bird MD Sedation:: Propofol Procedure:: The gastroscope was gently passed through the incisoral orifice into the oral cavity and under direct visualization the esophagus was intubated. The endoscope was passed down the esophagus, through the stomach, and into the duodenum. Color, texture, mucosa, and anatomy of the esophagus, stomach, and duodenum were carefully examined with the scope. Findings:: Oropharynx: normal Esophagus: Grade B distal esophageal varices w/o evidence of recent bleed EG Junction: intact at 40 cm Cardia: normal Fundus: normal Body: normal Antrum: normal, mild gastritis Duodenal bulb: normal Duodenum (second and third portion): normal Impression: Grade B distal esophageal varices No current evidence of GI bleed Blood loss most likely related to use of anticoagulants Recommendations:: Consider brief medication holiday from anticoagulants if clinically stable Complications:: None Estimated blood obtained (mL): 0
[2022-12-27 12:07] VITALS: BP 123/78; PULSE 62; RESP 17; TEMP 36.1; O2SAT 95
[2022-12-27 12:17] VITALS: BP 126/72; PULSE 64; RESP 18; O2SAT 96
[2022-12-27 12:27] VITALS: BP 123/80; PULSE 61; RESP 17; O2SAT 97
[2022-12-27 12:37] VITALS: BP 132/77; PULSE 68; RESP 18; O2SAT 97
== END 2022-12-27 10:37 | disposition home or self-care (01) ==
PROVIDERS: PCP Family Medicine; Visit Provider Internal Medicine Gastroenterology
PROC: 0DJ08ZZ Inspection of Upper Intestinal Tract, Via Natural or Artificial Opening Endoscopic (ICD-10-PCS; CPT 43235; principal; 2022-12-27 12:00)
DX: K92.1 Melena (principal); Z79.899 Other long term (current) drug therapy; K29.70 Gastritis, unspecified, without bleeding
CPT/HCPCS: 43235

== ENCOUNTER → 2022-12-29 08:23 | Outpatient (CLI) | payer MEDICARE, SELFPAY ==
[2022-12-29 08:40] LABS: Microscopic, Urine URINE MICROSCOPIC (MICROSCOPIC)
[2022-12-29 09:08] LABS: Basophils # 0.1 K/mm3 (0-0.2); Basophils % 1.1 % (0.1-2.0); Eosinophils # 0.3 K/mm3 (0.0-0.4); Eosinophils % 5.5 % (0.1-12.0); Hematocrit 32.4 % (42.0-52.0); Hemoglobin 9.6 g/dL (14.1-18.0); Lymphocytes % 40.9 % (10-50); Mean Corpuscular HGB Conc 29.8 g/dL (31.8-35.4); Mean Corpuscular Hemoglobin 30.2 pg (27.0-31.2); Mean Corpuscular Volume 101.6 fl (80-94); Mean Platelet Volume 9.1 fl (7.4-10.4); Monocytes # 0.3 K/mm3 (0.1-1.0); Monocytes % 5.9 % (1.7-9.3); Neutrophils # 2.2 K/mm3 (1.8-7.8); Neutrophils % 46.5 % (37.0-80.0); Platelet Count 154 K/mm3 (142-424); Red Blood Count 3.19 M/mm3 (4.60-6.20); White Blood Count 4.8 K/mm3 (4.8-10.8)
[2022-12-29 09:24] LABS: Appearance,Urine CLEAR (Clear); Bilirubin,Urine Negative (Negative); Blood, Urine 3+ (Negative); Color,Urine YELLOW (Yellow); Glucose,Urine (UA) Negative (Negative); Ketones,Urine Negative (Negative); Leukocyte Esterase,Urine Negative (Negative); Nitrate,Urine Negative (Negative); Protein,Urine 3+ (Negative); Specific Gravity, Urine 1.025 (1.005-1.030); Urobilinogen,Urine 0.2 EU/dl (0.2)
[2022-12-29 09:41] LABS: Creatinine,Urine Random 157 mg/dL (Not Estab.)
[2022-12-29 09:46] LABS: Chloride 111 mmol/L (98-107)
[2022-12-29 09:47] LABS: Albumin Level 3.1 g/dl (3.5-5.0); Potassium 4.6 mmoL/L (3.5-5.1); Sodium 141 mmol/L (136-145)
[2022-12-29 09:49] LABS: Blood Urea Nitrogen 31 mg/dl (9-20); Estimated Glomerular Filt Rate 18 ml/min (>60); GFR (African American) 22 ML/MIN (>60)
[2022-12-29 09:50] LABS: Anion Gap 10.6 mEq/L (5-15); Calcium 8.2 mg/dl (8.4-10.2); Carbon Dioxide 24 mmol/L (22.0-30.0); Glucose 127 mg/dl (74-100); Phosphorous 3.8 mg/dl (2.5-4.5)
[2022-12-29 10:15] LABS: Squamous Epithelial Cell,Urine Occasional #/hpf (0-5); WBC,Urine Occasional #/hpf (0-3)
== END ==
PROVIDERS: PCP Family Medicine; Visit Provider Internal Medicine Nephrology
DX: N28.9 Disorder of kidney and ureter, unspecified (principal); R80.9 Proteinuria, unspecified
CPT/HCPCS: 36415; 80069; 81001; 82570; 84155; 85025

== ENCOUNTER → 2023-01-03 13:01 | Outpatient (POV) | payer MEDICARE, SELFPAY | PROVIDERS: Visit Provider Internal Medicine Nephrology | DX: Z00.00 Encounter for general adult medical examination without abnormal findings (principal) ==

== ENCOUNTER → 2023-01-25 07:46 | Outpatient (CLI) | payer MEDICARE, SELFPAY | PROVIDERS: PCP Family Medicine; Visit Provider Physician Assistant | DX: I10 Essential (primary) hypertension (principal); I25.10 Atherosclerotic heart disease of native coronary artery without angina pectoris; I35.0 Nonrheumatic aortic (valve) stenosis; I48.0 Paroxysmal atrial fibrillation; R00.1 Bradycardia, unspecified; Z95.2 Presence of prosthetic heart valve | CPT/HCPCS: 93306 ==

== ENCOUNTER 2023-02-05 07:16 | Day surgery (SDC) | payer MEDICARE, SELFPAY ==
[2023-02-05 07:32] VITALS: BMI 27.2
[2023-02-05 07:51] VITALS: BP 160/121; PULSE 109; RESP 14; TEMP 36.9; O2SAT 98
[2023-02-05 07:58] VITALS: PULSE 117
--- NOTE | 2023-02-05 08:17 | ECG_ITS ---
APPROVED REPORT Exam: Resting ECG HR:46 bpm ECG Measurements Heart Rate 46 AXES NJ 250 P 72 QRSd 97 QRS 20 QT 477 T 24 QTc 435 Conclusion SINUS BRADYCARDIA WITH FIRST DEGREE AV BLOCK MINIMAL ST DEPRESSION [0.025+ mV ST DEPRESSION] ABNORMAL ECG UNCONFIRMED REPORT Electronically signed by : Agustín Peterson MD 02/05/2023 22:04:09
[2023-02-05 08:18] VITALS: BP 117/81; PULSE 46; RESP 16; TEMP 37; O2SAT 96
--- NOTE | 2023-02-05 08:22 | P.PN_ITS ---
[facility] Disclaimer: The information contained in this section may have been updated after the patient was seen, as this information can be updated by other users. Medical History PAF (paroxysmal atrial fibrillation) Surgical History History of heart valve replacement Hx of cardiac cath Family History Other No significant family history Social History Smoking Status: Former smoker alcohol intake: never substance use type: denies use current occupational status: retired Travel in the last 8 weeks: None household members: spouse housing: house marital status: current occupational exposures/hazards: No caffeine: Yes special alf needs: No agree to transfusion: No do you feel safe at home: Yes victim of physical abuse: No victim of emotional abuse: No victim of sexual abuse: No would you like helpful sources: No [facility] Anesthesia Checklist Patient Identification Patient Identification: Arm Band and Verbal (Name & ) Structural Data Admitted From: Home Planned Operative Procedure/s: Cardioversion Consent for Planned Operative Procedure(s) Verified: Yes Verified Documents: Surgical Consent NPO Status Verified Time NPO: 00:00 Chart Verification Results Verified: CBC and BMP Additional verifications Anesthesia Reactions: No Airway Assessment C-Spine Mobility Assessed: Yes TMJ Mobility Assessed: Yes Dentition: Edentulous Neurological Assessment Level of Consciousness: Awake, Alert and Appropriate Anesthesia Plan Anesthesia Risk discussed: Yes ASA Class: III Anesthesia Type: MAC
[2023-02-05 08:24] VITALS: BP 112/77; PULSE 45; RESP 16; O2SAT 100
--- NOTE | 2023-02-05 08:33 | EXP.CARDIOVE ---
[facility] Cardioversion Cardioversion Date: 02/05/23 Provider:: BENSON Crenshaw Procedure Performed:: Synchronized electrical cardioversion Diagnosis:: Atrial fibrillation Procedure Summary:: Patient was brought to the cardiac [employer] Technician as an outpatient. After informed consent was obtained, anesthesia provided sedation during which the patient received a single 200 J synchronized shock which converted him from atrial fibrillation to sinus bradycardia. There were several seconds of asystole prior to return of sinus rhythm. Patient tolerated procedure without complications. Complications:: None Conculsion:: Successful electrical cardioversion from atrial fibrillation to sinus bradycardia
[2023-02-05 08:53] VITALS: BP 120/79; PULSE 45; RESP 16; O2SAT 95
== END 2023-02-05 10:28 | disposition home or self-care (01) ==
PROVIDERS: PCP Family Medicine; Visit Provider Internal Medicine
DX: I48.0 Paroxysmal atrial fibrillation (principal); I25.10 Atherosclerotic heart disease of native coronary artery without angina pectoris; I35.0 Nonrheumatic aortic (valve) stenosis; I11.0 Hypertensive heart disease with heart failure; E03.9 Hypothyroidism, unspecified; Z79.899 Other long term (current) drug therapy; Z79.01 Long term (current) use of anticoagulants; Z95.2 Presence of prosthetic heart valve
CPT/HCPCS: 92960; 93005

== ENCOUNTER → 2023-02-07 11:14 | Outpatient (CLI) | payer MEDICARE, SELFPAY ==
--- NOTE | 2023-02-07 11:21 | XR_ITS ---
FINAL REPORT CLINICAL HISTORY: acute cough FINDINGS: There is no evidence of effusion or other pleural disease. There are changes from emphysema. The mediastinum has a normal appearance. The cardiac silhouette is unremarkable. Postoperative changes are seen from aortic valve repair IMPRESSION: No acute process. Reviewed, Interpreted and Dictated by Santos Perez MD Transcribed by Belle Dcikens Authenticated and [facility]
== END ==
PROVIDERS: PCP Family Medicine; Visit Provider Family Medicine
DX: R05.9 Cough, unspecified (principal)
CPT/HCPCS: 71046

== ENCOUNTER → 2023-04-11 07:27 | Outpatient (CLI) | payer MEDICARE, SELFPAY ==
[2023-04-11 08:02] LABS: Microscopic, Urine URINE MICROSCOPIC (MICROSCOPIC)
[2023-04-11 08:06] LABS: Appearance,Urine CLEAR (Clear); Bilirubin,Urine Negative (Negative); Blood, Urine 3+ (Negative); Color,Urine YELLOW (Yellow); Glucose,Urine (UA) Negative (Negative); Ketones,Urine Negative (Negative); Leukocyte Esterase,Urine TRACE (Negative); Nitrate,Urine Negative (Negative); PH,Urine 5.5 (5.0-8.5); Protein,Urine 3+ (Negative); Specific Gravity, Urine 1.025 (1.005-1.030); Urobilinogen,Urine 0.2 EU/dl (0.2)
[2023-04-11 08:06] LABS: Hematocrit 34.8 % (42.0-52.0); Hemoglobin 10.9 g/dL (14.1-18.0); Mean Corpuscular HGB Conc 31.2 g/dL (31.8-35.4); Mean Corpuscular Hemoglobin 30.1 pg (27.0-31.2); Mean Corpuscular Volume 96.3 fl (80-94); Platelet Count 99 K/mm3 (142-424); Red Blood Count 3.61 M/mm3 (4.60-6.20); White Blood Count 5.6 K/mm3 (4.8-10.8)
[2023-04-11 09:05] LABS: Creatinine,Urine Random 202 mg/dL (Not Estab.)
[2023-04-11 11:16] LABS: Albumin Level 3.3 g/dl (3.5-5.0); Anion Gap 11.8 mEq/L (5-15); Blood Urea Nitrogen 40 mg/dl (9-20); Calcium 8.4 mg/dl (8.4-10.2); Carbon Dioxide 23 mmol/L (22.0-30.0); Chloride 109 mmol/L (98-107); Estimated Glomerular Filt Rate 21 ml/min (>60); GFR (African American) 26 ML/MIN (>60); Glucose 159 mg/dl (74-100); Potassium 4.8 mmoL/L (3.5-5.1); Sodium 139 mmol/L (136-145)
== END ==
PROVIDERS: PCP Family Medicine; Visit Provider Internal Medicine Nephrology
DX: N18.4 Chronic kidney disease, stage 4 (severe) (principal)
CPT/HCPCS: 36415; 80069; 81001; 82570; 84155; 85014; 85018; 85048; 85049

== ENCOUNTER → 2023-04-15 15:35 | Outpatient (POV) | payer MEDICARE, SELFPAY | PROVIDERS: Visit Provider Internal Medicine Nephrology | DX: Z00.00 Encounter for general adult medical examination without abnormal findings (principal) ==

== ENCOUNTER → 2023-07-26 07:19 | Outpatient (CLI) | payer MEDICARE, SELFPAY ==
[2023-07-26 07:27] LABS: Microscopic, Urine URINE MICROSCOPIC (MICROSCOPIC)
[2023-07-26 07:54] LABS: Hematocrit 29.2 % (42.0-52.0); Hemoglobin 9.4 g/dL (14.1-18.0); Mean Corpuscular HGB Conc 32.3 g/dL (31.8-35.4); Mean Corpuscular Hemoglobin 33.3 pg (27.0-31.2); Mean Corpuscular Volume 103.3 fl (80-94); Platelet Count 93 K/mm3 (142-424); Red Blood Count 2.83 M/mm3 (4.60-6.20); Red Cell Distribution Width 14.4 % (11.5-17.5); White Blood Count 4.6 K/mm3 (4.8-10.8)
[2023-07-26 09:48] LABS: Appearance,Urine CLEAR (Clear); Bilirubin,Urine Negative (Negative); Blood, Urine 2+ (Negative); Color,Urine YELLOW (Yellow); Glucose,Urine (UA) Negative (Negative); Ketones,Urine Negative (Negative); Leukocyte Esterase,Urine TRACE (Negative); Nitrate,Urine Negative (Negative); Protein,Urine 2+ (Negative); Urobilinogen,Urine 0.2 EU/dl (0.2)
[2023-07-26 10:15] LABS: Creatinine,Urine Random 96 mg/dL (Not Estab.)
[2023-07-26 10:41] LABS: Bacteria,Urine Trace /lpf; Squamous Epithelial Cell,Urine Occasional #/hpf (0-5)
[2023-07-26 11:06] LABS: Chloride 109 mmol/L (98-107)
[2023-07-26 11:07] LABS: Albumin Level 3.3 g/dl (3.5-5.0); Potassium 4.3 mmoL/L (3.5-5.1); Sodium 139 mmol/L (136-145)
[2023-07-26 11:09] LABS: Blood Urea Nitrogen 33 mg/dl (9-20); Estimated Glomerular Filt Rate 21 ml/min (>60); GFR (African American) 26 ML/MIN (>60)
[2023-07-26 11:10] LABS: Anion Gap 9.3 mEq/L (5-15); Calcium 8.2 mg/dl (8.4-10.2); Carbon Dioxide 25 mmol/L (22.0-30.0); Glucose 141 mg/dl (74-100); Phosphorous 3.3 mg/dl (2.5-4.5)
[2023-07-26 12:12] LABS: Intact Parathyroid Hormone 135.3 pg/mL (7.5-53.5)
[2023-07-26 12:16] LABS: 25-OH Vitamin D, Total 44.7 ng/mL (30-100)
== END ==
PROVIDERS: PCP Family Medicine; Visit Provider Internal Medicine Nephrology
DX: N18.4 Chronic kidney disease, stage 4 (severe) (principal)
CPT/HCPCS: 36415; 80069; 81001; 82306; 82570; 83970; 84155; 85014; 85018; 85048; 85049

== ENCOUNTER → 2023-08-01 15:49 | Outpatient (POV) | payer MEDICARE, SELFPAY | PROVIDERS: Visit Provider Internal Medicine Nephrology | DX: Z00.00 Encounter for general adult medical examination without abnormal findings (principal) ==

== ENCOUNTER 2023-08-13 07:41 | Day surgery (SDC) | payer MEDICARE, SELFPAY ==
[2023-08-09 13:21] VITALS: BMI 25.5
[2023-08-13 08:05] VITALS: BP 189/100; PULSE 55; RESP 18; TEMP 36.3; O2SAT 98
== END 2023-08-13 09:59 | disposition home or self-care (01) ==
LOC: OUTP 07:43
PROVIDERS: PCP Family Medicine; Visit Provider Ophthalmology
PROC: (CPT 66821; principal; 2023-08-13 11:00)
DX: H26.40 Unspecified secondary cataract (principal)
CPT/HCPCS: 66821; 71046

== ENCOUNTER → 2023-08-13 14:52 | Outpatient (CLI) | payer MEDICARE, SELFPAY ==
--- NOTE | 2023-08-13 14:57 | XR_ITS ---
FINAL REPORT CLINICAL HISTORY: DYSPNEA COMPARISON: 02/07/2023 FINDINGS: TWO-VIEW CHEST There is mild cardiomegaly. The mediastinum is normal. There is minimal basilar atelectasis. The lungs are otherwise clear. There is no pneumothorax. IMPRESSION: Minimal basilar atelectasis. Reviewed, Interpreted and Dictated by Alexandru Maya MD Transcribed by Mera Castillo Authenticated and [facility]
== END ==
PROVIDERS: PCP Family Medicine; Visit Provider Family Medicine
DX: R06.00 Dyspnea, unspecified (principal)
CPT/HCPCS: 71046

== ENCOUNTER → 2023-09-04 09:03 | Outpatient (CLI) | payer MEDICARE, SELFPAY ==
--- NOTE | 2023-09-04 09:03 | CA_ITS ---
APPROVED REPORT EXAM: Comprehensive 2D, Doppler, and color-flow Echocardiogram [employer]or: Marcelle Rob, RT(R) Ht: 5 ft 10 in Wt: 178lbs BSA: 1.99 BP: 190/110 mmHg Indications: SOB, HTN, PAF, AVR bioprosthetic 2 years ago, ASCVD, hx of 2D Dimensions Left Atrium 5.45 cm M: 3.0 - 4.0 LA Volume 82.90 mL LVOT 2.01 cm (M/F) 1.5-2.5 LA Volume Index 41.66 mL/m2 (M/F) 16-34 EF AP4 30.10 % GL Strain -11.8 % M-Mode Dimensions RVDd 3.30 cm (0.9-2.6) LVDd 6.31 cm (3.5-5.7) Ao Diam 2.56 cm (2.0-3.7) LVDs 5.55 cm (3.5-5.7) IVSd 0.85 cm (0.6-1.1) PWd 1.02 cm (0.6-1.1) EF (Teich) 25.50% FS 12.00% EDV (Teich) 201.90 mL ESV (Teich) 150.50 mL Aortic Valve LVOT Max 157.0 (70-110 cm/s) RAMANA Index 1.21 cm2/m2 LVOT VTI 24.20 cm AoV Peak Myron. 191.0 (50-130 cm/s) AO Mean GR. 7.20 (<5 mmHg) AO VTI 31.8 (18-25 cm) RAMANA (VTI) 2.41 (2.5-4.5 cm2) Tricuspid Valve TR P. Velocity 426.00 cm/s RAP Estimate 15.00 mmHg RVSP 87.50 mmHg Left Ventricle The left ventricle is normal size. Left ventricular systolic function is mildly decreased. Proximal septal thickening is noted. There is mild global hypokinesis present. There is severe hypokinesis of the septal and anteroseptal LV alba. Grade 3 diastolic dysfunction is present. LVEF is 45%. Right Ventricle The right ventricle is normal in size. Right ventricle is mildly hypokinetic. There is a device lead present in the right ventricle. Atria The left atrium is moderately dilated. The right atrium is moderately dilated. There is no Doppler evidence of interatrial shunt. Aortic Valve s/p bioprosthetic AVR. The AVR is well-seated. Peak velocity 1.9 m/s. Mean AV gradient 8 mmHg. Max AV gradient 14 mmHg. Trace central aortic regurgitation. No paravalvular regurgitation. Mitral Valve There is moderate mitral annular calcification. The mitral valve leaflets are mildly thickened. No evidence of mitral valve stenosis. Moderate mitral regurgitation. Tricuspid Valve The tricuspid valve leaflets are thin and mobile. Moderate tricuspid regurgitation. RVSP > 60 mmHg. Pulmonic Valve The pulmonary valve is normal in structure. Mild pulmonic regurgitation. Great Vessels The aortic root is normal in size. The ascending aorta is normal in size. IVC is normal in size and collapses >50% with inspiration. Pericardium There is no pericardial effusion. Other Information Study Quality: Fair Conclusion Mild reduction in LV systolic function (LVEF 45%). Severe hypokinesis of the basal septal and anterior septal LV alba. Grade 3 diastolic dysfunction. Mild reduction in LV systolic function. Moderate MR. Moderate TR. s/p AVR. No significant AVR stenosis or regurgitation. Markedly elevated RVSP > 60 mmHg. Electronically signed by : Rosio Garcia MD 09/07/2023 21:55:48
== END ==
PROVIDERS: PCP Family Medicine; Visit Provider Physician Assistant
DX: I10 Essential (primary) hypertension (principal); I25.10 Atherosclerotic heart disease of native coronary artery without angina pectoris; I35.0 Nonrheumatic aortic (valve) stenosis; I48.0 Paroxysmal atrial fibrillation; R06.00 Dyspnea, unspecified; Z95.2 Presence of prosthetic heart valve
CPT/HCPCS: 93306

== ENCOUNTER → 2023-09-11 10:14 | Outpatient (CLI) | payer MEDICARE, SELFPAY ==
--- NOTE | 2023-09-11 10:41 | CT_ITS ---
FINAL REPORT TECHNIQUE: Axial images were obtained from the lung apex to the mid abdomen by computed tomography. Coronal and sagittal reformatted images were obtained. This study was performed with techniques to keep radiation doses as low as reasonably achievable, (ALARA). Individualized dose reduction techniques using automated exposure control or adjustment of mA and/or kV according to the patient''s size were employed. CLINICAL HISTORY: Shortness of breath, cough COMPARISON: None FINDINGS: There is no axillary adenopathy. There are small scattered mediastinal lymph nodes. Individual nodes measure up to 1.4 cm in greatest dimension. Heart size is normal. There are dense coronary artery calcifications. There is a prosthetic aortic valve. Pericardial effusion layers to a depth of 1.3 cm. There is a small right pleural effusion layering to a depth of 1.9 cm. There is scarring in the right mid lung, lingula, and both lower lobes. Limited images of the upper abdomen demonstrate marked nodularity and cirrhosis of the liver. There are bulky large bilateral nonobstructing kidney stones measuring up to 2.0 cm. IMPRESSION: Nonspecific mediastinal adenopathy. Follow-up CT recommended in 3-6 months. Pericardial effusion right pleural effusion. Cirrhosis. Extensive bilateral kidney stones. Reviewed, Interpreted and Dictated by Alexandru Maay MD Transcribed by Catherine Whatley Authenticated and [facility]
[2023-09-11 12:01] LABS: Chloride 111 mmol/L (98-107); Sodium 140 mmol/L (136-145)
[2023-09-11 12:02] LABS: Potassium 5.1 mmoL/L (3.5-5.1)
[2023-09-11 12:04] LABS: Blood Urea Nitrogen 53 mg/dl (9-20); Estimated Glomerular Filt Rate 14 ml/min (>60); GFR (African American) 17 ML/MIN (>60)
[2023-09-11 12:05] LABS: Anion Gap 9.1 mEq/L (5-15); Calcium 8.1 mg/dl (8.4-10.2); Carbon Dioxide 25 mmol/L (22.0-30.0); Glucose 123 mg/dl (74-100)
== END ==
PROVIDERS: PCP Family Medicine; Visit Provider Physician Assistant
DX: I10 Essential (primary) hypertension (principal); I25.10 Atherosclerotic heart disease of native coronary artery without angina pectoris; I35.0 Nonrheumatic aortic (valve) stenosis; I48.0 Paroxysmal atrial fibrillation; R06.00 Dyspnea, unspecified; Z95.2 Presence of prosthetic heart valve
CPT/HCPCS: 36415; 71250; 80048

== ENCOUNTER → 2023-09-13 08:17 | Outpatient (CLI) | payer MEDICARE, SELFPAY ==
[2023-09-13 09:33] LABS: Chloride 110 mmol/L (98-107); Potassium 4.6 mmoL/L (3.5-5.1); Sodium 140 mmol/L (136-145)
[2023-09-13 09:36] LABS: Anion Gap 11.6 mEq/L (5-15); Blood Urea Nitrogen 51 mg/dl (9-20); Carbon Dioxide 23 mmol/L (22.0-30.0); Estimated Glomerular Filt Rate 15 ml/min (>60); GFR (African American) 19 ML/MIN (>60)
[2023-09-13 09:37] LABS: Calcium 7.9 mg/dl (8.4-10.2); Glucose 119 mg/dl (74-100)
[2023-09-16 13:11] LABS: Anti-Centromere B Antibodies <0.2 AI (0.0-0.9); Anti-DNA (DS) Ab Qn <1 IU/mL (0-9); Anti-Jo-1 <0.2 AI (0.0-0.9); Antichromatin Antibodies 1.6 AI (0.0-0.9); Antiscleroderma-70 Antibodies <0.2 AI (0.0-0.9); RNP Antibodies >8.0 AI (0.0-0.9); Sjogren's Anti-SS-A <0.2 AI (0.0-0.9); Sjogren's Anti-SS-B <0.2 AI (0.0-0.9)
[2023-09-17 23:21] LABS: Anti-Centromere B Abs Charge YES; Anti-DNA (DS) Ab Charge YES; Anti-Jo-1 Charge YES; Antichromatin Abs Charge YES; Antinuclear Antibodies (ANA) Positive; Antiscleroderma-70 Abs Charge YES; RNP Antibodies Charge YES; Sjogren's Anti-SS-A Ab Charge YES; Sjogren's Anti-SS-B Ab Charge YES; Smith Antibodies Charge YES
== END ==
PROVIDERS: PCP Family Medicine; Visit Provider Physician Assistant
DX: N17.9 Acute kidney failure, unspecified (principal); N18.9 Chronic kidney disease, unspecified; R07.89 Other chest pain
CPT/HCPCS: 36415; 80048; 86038; 86225; 86235

== ENCOUNTER 2023-10-03 10:46 | Observation (INO) | payer MEDICARE, SELFPAY ==
[2023-10-03] VITALS (9 sets, daily range): BP systolic 131–160; BP diastolic 84–117; PULSE 71–140; RESP 16–21; TEMP 36.5–36.9; O2SAT 96–100; BMI 27.8
--- NOTE | 2023-10-03 11:15 | PC.NURSE ---
pt admitted as direct admit via wheelchair
--- NOTE | 2023-10-03 11:54 | PC.NURSE ---
after completed admission and placed pt's IV, notified MD Yang that pt is here in room 217 and needs orders placed
--- NOTE | 2023-10-03 12:05 | PC.NURSE ---
pt with afib on tele monitor, switches from controlled to uncontrolled moment to moment, HR 80's-120's
--- NOTE | 2023-10-03 12:13 | PC.NURSE ---
notified BRONSON Grande on unit of pt's arrival to [facility] and no orders currently in place and that this RN has notified MD Yang of need for orders, BRONSON Grande stated pt was seen in office today and is on eliquis
--- NOTE | 2023-10-03 12:15 | XR_ITS ---
FINAL REPORT CLINICAL HISTORY: SOA, CHF COMPARISON: 08/13/2023 FINDINGS: SINGLE-VIEW CHEST There is cardiomegaly with mild pulmonary vascular congestion. The mediastinum is normal. There are mild bibasilar opacities, favor atelectasis. There is no pneumothorax. IMPRESSION: Mild bibasilar atelectasis. Reviewed, Interpreted and Dictated by Vicente Linn III, MD Transcribed by Mera Castillo Authenticated and [facility]
--- NOTE | 2023-10-03 12:16 | PC.NURSE ---
pt not actually allergic to coreg, but pt and told this RN thought what was happening to him with the swelling and not feeling well over the last several days was due to the coreg so pt did not take it today/prior to arrival
--- NOTE | 2023-10-03 12:19 | CA_ITS ---
APPROVED REPORT EXAM: Comprehensive 2D, Doppler, and color-flow Echocardiogram [employer] Supervisor: JERICA Torres, RVS Ht: 5 ft 10 in Wt: 194lbs BSA: 2.06 BP: 143/117 mmHg Indications: CM, PAF, CHF, Pedal edema, SOA 2D Dimensions LVDd 4.71 cm M: 4.2 - 5.9 LVEF (Visual) 17.00 % LVDs 4.35 cm M: 2.5 - 4.0 LA Volume 153.00 mL LA Volume Index 74.002002 mL/m2 (M/F) 16-34 M-Mode Dimensions RVDd 2.70 cm (0.9-2.6) LVDd 6.08 cm (3.5-5.7) LVDs 5.15 cm (3.5-5.7) IVSd 0.97 cm (0.6-1.1) PWd 1.09 cm (0.6-1.1) EF (Teich) 31.80% FS 15.30% EDV (Teich) 185.50 mL ESV (Teich) 126.60 mL Other Information Study Quality: Fair Conclusion This is a limited TTE to evaluate for LVEF. Limited windows were obtained. The left ventricle is normal in size. There is increased LV wall thickness. Proximal septal thickening is noted. There is severe hypokineiss of the septal, anteroseptal, and inferoseptal LV alba. LVEF is 35-40%. The RV is mildly dilated with mild reduction in RV systolic function. A small-sized pericardial effusion is present, mostly noted posteriorly and along the distal RV free wall anteriorly. No echo indications of tamponade. Compared to prior study from 08/2023, the LVEF is now worse. The pericardial effusion is new. Electronically signed by : Rosio Garcia MD 10/05/2023 17:11:14
[2023-10-03] MEDS: FUROSEMIDE 100MG/10ML VIAL 80 MG IV (12:45)
--- NOTE | 2023-10-03 12:46 | P.HP_ITS ---
History of Present Illness *Admission Date: 10/03/23 *Reason for visit:: SOA *History of present illness: Mr. Glass is a 78yo male with a history of CHF and A-fib with RVR. He did see Dr. Bird on 09/26/2023 due to increasing dyspnea on exertion and decreased stamina. He had developed some fluid pockets under both eyes and had gained 14 pounds since his previous office visit. He had recently been seen by cardiology and his diuretic was discontinued because of further elevation of his creatinine. Dr. Bird wanted him to restart his Lasix 20 mg every other day and monitor labs. The patient was seen in the cardiology office today and was felt to have a CHF exacerbation and also had atrial fib with RVR. He was admitted for further evaluation and treatment. [facility] Disclaimer: The information contained in this section may have been updated after the patient was seen, as this information can be updated by other users. Medical History (Updated 10/03/23 @ 13:24 by BENSON Sinha) Aortic stenosis Atrial fibrillation with RVR Cirrhosis CKD (chronic kidney disease) Coronary artery disease GERD (gastroesophageal reflux disease) HTN (hypertension) Hypothyroidism Kidney stones PAF (paroxysmal atrial fibrillation) Surgical History (Updated 10/03/23 @ 13:24 by BENSON Sinha) History of cataract surgery History of cholecystectomy History of colonoscopy History of esophagogastroduodenoscopy (EGD) History of heart valve replacement Hx of aortic valve replacement Hx of cardiac cath Family History (Updated 10/03/23 @ 13:21 by BENSON Sinha) No significant family history Cancer Hypertension Social History (Updated 10/03/23 @ 11:49 by Yovana Quezada RN) Smoking Status: Former smoker alcohol intake: never substance use type: denies use current occupational status: retired Travel in the last 8 weeks: None household members: spouse housing: house marital status: current occupational exposures/hazards: No caffeine: Yes special alf needs: No agree to transfusion: No do you feel safe at home: Yes victim of physical abuse: No victim of emotional abuse: No victim of sexual abuse: No would you like helpful sources: No Review of Systems Constitutional Constitutional: Denies body ache(s), Denies chills, Reports fatigue, Denies fever(s), Denies headache(s) and Reports weakness Eyes Eyes: Denies blurry vision and Denies diplopia ENT Ears, Nose, Mouth, and Throat: Denies headache(s), Denies nasal congestion, Denies sore throat and Reports vertigo *Cardiovascular Cardiovascular: Denies chest pain, Reports dyspnea, Reports dyspnea on exertion, Reports leg edema and Reports palpitations *Respiratory Respiratory: Reports dyspnea and Reports dyspnea on exertion *Gastrointestinal Gastrointestinal: Denies abdominal pain, Denies loose stools, Denies nausea and Denies vomiting *Genitourinary Genitourinary: Denies difficulty urinating and Denies dysuria *Musculoskeletal Musculoskeletal: Denies arthralgias and Denies myalgias *Neurologic Neurologic: Denies headache(s), Reports vertigo and Reports weakness Endocrine Endocrine: Reports fatigue and Reports palpitations Meds Home Medications and Allergies Home Medications Medication Instructions Recorded Confirmed Type metoclopramide HCl 10 mg tablet 10 mg PO DAILY 07/03/21 10/03/23 History (Reglan) [id number] acid-vit 1 tab PO DAILY Supplement 07/03/21 10/03/23 History K-lycop 400 mcg-20 mcg-370 mcg tablet (One-A-Day Men's 50 Plus (with vitamin K)) psyllium seed (sugar) oral powder 1 tbsp PO DAILY . 07/03/21 10/03/23 History (Metamucil (sugar) oral powder) ursodiol 500 mg tablet 500 mg PO BID . 07/03/21 10/03/23 History apixaban 5 mg tablet (Eliquis) 5 mg PO BID Blood thinner 02/07/22 10/03/23 History cyclobenzaprine 10 mg tablet 10 mg PO DAILYP PRN Muscle Pain 02/11/23 10/03/23 History levothyroxine 50 mcg tablet 50 mcg PO DAILY 02/11/23 10/03/23 History sacubitril 97 mg-valsartan 103 mg 1 tab PO BID #60 tabs 09/04/23 10/03/23 Rx tablet (Entresto) carvedilol 12.5 mg tablet 12.5 mg PO BID #60 tabs 09/17/23 10/03/23 Rx furosemide 20 mg tablet 20 mg PO NEEDED PRN Edema 10/03/23 10/03/23 History polyethylene glycol 3350 17 gram 17 g PO DAILY 10/03/23 10/03/23 History oral powder packet (Miralax) vitamins A,C,D-hpni-plykfe 2,148 1 tab PO BID 10/03/23 10/03/23 History mcg-113 mg-45 mg-17.4 mg tablet (PreserVision AREDS) New Prescriptions to Start Prescriptions: Allergies Allergy/AdvReac Type Severity Reaction Status Date / Time No Known Allergies Allergy Unverified 10/03/23 14:33 Exam Data for Last 24 hours Vital signs and Labs for Last 24 Hours: Pulse Resp BP Pulse Ox O2 Del Method 109 H 19 160/102 H 100 Room Air 10/03/23 11:25 10/03/23 11:25 10/03/23 11:25 10/03/23 11:59 10/03/23 11:59 I & O for Last 24 hours: Intake & Output 10/01/23 10/02/23 10/03/23 10/04/23 11:59 11:59 11:59 11:59 Weight 194 lb 6 oz Constitutional Constitutional: no acute distress *Routine HEENT Exam Head: Present normocephalic and atraumatic Eye: Present EOMI, PERRL and other (fluid pockets under each eye) ENT: Present mucous membranes moist *Routine Neck Exam Neck: Present supple and full ROM *Routine Respiratory Exam Respiratory: Present CTA bilaterally *Routine Cardiovascular Exam Cardiovascular: Present tachycardia and irregularly irregular *Routine Abdominal Exam Abdominal: Present soft and normoactive bowel sounds; Absent tenderness *Routine Rectal Exam Rectal:: deferred *Routine Genitalia Exam Genitalia:: deferred *Routine Extremities Exam Extremities: Present edema (2+ edema bilaterally); Absent cyanosis or clubbing *Routine Skin Exam Skin: Present intact; Absent erythema *Routine Neurological Exam Neurological: Present alert and oriented X3 Assessment and Plan *Assessment and plan (1) Acute on chronic left systolic heart failure: Status: Acute Category: Medical Code(s): I50.23 - Acute on chronic systolic (congestive) heart failure (2) Atrial fibrillation with RVR: Status: Acute Category: Medical Code(s): I48.91 - Unspecified atrial fibrillation (3) Coronary artery disease: Status: Chronic Qualifiers: Associated angina: without angina Coronary Disease-Associated Artery/Lesion type: [place] artery [place] vs. transplanted heart: [place] heart Qualified Code(s): I25.10 - Atherosclerotic heart disease of [place] coronary artery without angina pectoris Category: Medical Code(s): I25.10 - Atherosclerotic heart disease of [place] coronary artery without angina pectoris (4) HTN (hypertension): Status: Chronic Qualifiers: Hypertension type: primary hypertension Qualified Code(s): I10 - Essential (primary) hypertension Category: Medical Code(s): I10 - Essential (primary) hypertension (5) Hx of aortic valve replacement: Status: Chronic Category: Surgical Code(s): Z95.2 - Presence of prosthetic heart valve (6) Aortic stenosis: Status: Chronic Qualifiers: Cardiac valve disease etiology: etiology unspecified Qualified Code(s): I35.0 - Nonrheumatic aortic (valve) stenosis Category: Medical Code(s): I35.0 - Nonrheumatic aortic (valve) stenosis (7) CKD (chronic kidney disease): Status: Chronic Category: Medical Code(s): N18.9 - Chronic kidney disease, unspecified (8) Cirrhosis: Status: Chronic Category: Medical Code(s): K74.60 - Unspecified cirrhosis of liver (9) PAF (paroxysmal atrial fibrillation): Status: Chronic Category: Medical Code(s): I48.0 - Paroxysmal atrial fibrillation Plan Patient is currently getting an echo. Strict I&O's. Will start on diuretics. Cardiology to follow. Dr. Doty entry - Saw patient, agree with above note.
[2023-10-03] MEDS: METOCLOPRAMIDE 10MG TABLET 10 MG PO ×3 (12:48→20:33)
[2023-10-03 13:00] LABS: Alanine Aminotransferase 16 U/L (12-78); Albumin Level 3.6 g/dl (3.5-5.0); Alkaline Phosphatase 96 U/L (38-126); Aspartate Amino Transferase 31 U/L (17-59); Basophils % 0.7 % (0.1-2.0); Bilirubin,Direct 0.1 mg/dl (0.0-0.4); Bilirubin,Indirect 0.3 mg/dL (0.0-0.9); Bilirubin,Total 0.4 mg/dl (0.2-1.3); Bilirubin,Unconjugated 0.3 mg/dL (0.0-1.1); Blood Urea Nitrogen 55 mg/dl (9-20); Calcium 8.1 mg/dl (8.4-10.2); Carbon Dioxide 22 mmol/L (22.0-30.0); Chloride 111 mmol/L (98-107); Creatinine Clearance Estimated 16 mL/min (50-200); Eosinophils # 0.2 K/mm3 (0.0-0.4); Eosinophils % 3.8 % (0.1-12.0); Estimated Glomerular Filt Rate 12 ml/min (>60); GFR (African American) 15 ML/MIN (>60); Glucose 90 mg/dl (74-100); Hematocrit 27.2 % (42.0-52.0); Hemoglobin 8.2 g/dL (14.1-18.0); Lymphocytes # 1.4 K/mm3 (0.7-4.5); Lymphocytes % 36.1 % (10-50); Mean Corpuscular HGB Conc 30.2 g/dL (31.8-35.4); Mean Corpuscular Hemoglobin 31.2 pg (27.0-31.2); Mean Corpuscular Volume 103.2 fl (80-94); Mean Platelet Volume 10.2 fl (7.4-10.4); Monocytes # 0.3 K/mm3 (0.1-1.0); Monocytes % 6.9 % (1.7-9.3); Neutrophils # 2.1 K/mm3 (1.8-7.8); Neutrophils % 52.5 % (37.0-80.0); Platelet Count 121 K/mm3 (142-424); Red Blood Count 2.64 M/mm3 (4.60-6.20); Red Cell Distribution Width 15.3 % (11.5-17.5); Sodium 137 mmol/L (136-145); Total Protein,Serum 6.7 g/dl (6.3-8.2)
--- NOTE | 2023-10-03 13:06 | EXP.ACUTE.PN ---
Subjective *Date: 10/03/23 *Time: 13:06 Interval history: Called today to admit patient from [facility] cardiology office due to shortness of breath, peripheral edema/chf exacerbation Medical Exam Vital signs and Labs for Last 24 Hours: Vital Signs Pulse Resp BP Pulse Ox O2 Del Method 10/03/23 11:59 100 Room Air 10/03/23 11:50 Room Air 10/03/23 11:19 118 H 21 160/102 H 100 Room Air 10/03/23 11:25 109 H 19 160/102 H 100 Room Air Intake and Output 10/02/23 10/03/23 10/03/23 23:59 07:59 15:59 Other: Weight 194 lb 6 oz Patient Weight 10/03/23 23:59 Weight 194 lb 6 oz Laboratory Results - last 24 hr 10/03/23 12:30: WBC 4.0 L, RBC 2.64 L, Hgb 8.2 L, Hct 27.2 L, MCV 103.2 H, MCH 31.2, MCHC 30.2 L, RDW 15.3, Plt Count 121 L, MPV 10.2, Neut % (Auto) 52.5, Lymph % (Auto) 36.1, [place] % (Auto) 6.9, Eos % (Auto) 3.8, Baso % (Auto) 0.7, Neut # (Auto) 2.1, Lymph # (Auto) 1.4, [place] # (Auto) 0.3, Eos # (Auto) 0.2, Baso # (Auto) 0.0 I & O for Labs for Last 24 Hours: Intake & Output 09/30/23 10/01/23 10/02/23 10/03/23 23:59 23:59 23:59 23:59 Weight 194 lb 6 oz Constitutional: Present no acute distress Extremities: Present edema Assessment and Plan *Assessment and plan (1) Acute on chronic left systolic heart failure: Status: Acute Category: Medical Code(s): I50.23 - Acute on chronic systolic (congestive) heart failure (2) Cirrhosis: Status: Acute Category: Medical Code(s): K74.60 - Unspecified cirrhosis of liver (3) CKD (chronic kidney disease): Status: Acute Category: Medical Code(s): N18.9 - Chronic kidney disease, unspecified (4) Acute on chronic renal failure: Status: Acute Category: Medical Code(s): N17.9 - Acute kidney failure, unspecified; N18.9 - Chronic kidney disease, unspecified (5) Hx of aortic valve replacement: Status: Acute Category: Surgical Code(s): Z95.2 - Presence of prosthetic heart valve (6) HTN (hypertension): Status: Chronic Qualifiers: Hypertension type: primary hypertension Qualified Code(s): I10 - Essential (primary) hypertension Category: Medical Code(s): I10 - Essential (primary) hypertension (7) Dyspnea: Status: Acute Qualifiers: Dyspnea type: dyspnea on exertion Qualified Code(s): R06.00 - Dyspnea, unspecified Category: Medical Code(s): R06.00 - Dyspnea, unspecified (8) Coronary artery disease: Status: Chronic Qualifiers: Coronary Disease-Associated Artery/Lesion type: [place] artery [place] vs. transplanted heart: [place] heart Associated angina: without angina Qualified Code(s): I25.10 - Atherosclerotic heart disease of [place] coronary artery without angina pectoris Category: Medical Code(s): I25.10 - Atherosclerotic heart disease of [place] coronary artery without angina pectoris (9) PAF (paroxysmal atrial fibrillation): Status: Acute Category: Medical Code(s): I48.0 - Paroxysmal atrial fibrillation Plan See Admission orders, H&P to follow, echo being done now, strict I/O's
[2023-10-03 13:09] LABS: NT Pro Brain Natriuretic Pep. 25000 pg/mL (0-450)
[2023-10-03 13:55] LABS: Triiodothryronine (T3) Uptake 42 % (23.5-40.5)
[2023-10-03 14:10] LABS: Thyroid Stimulating Hormone 4.85 uIU/mL (0.465-4.68)
--- NOTE | 2023-10-03 14:42 | HMH.PHAINT1 ---
Pharmacy Intervention Comments: Home med list verified with patient and spouse at bedside who brought Rx bottles into room, and external pharmacy list.
[2023-10-03 14:56] LABS: Free Thyroxine Index 3.4 ug/dL (5.93-13.13); T4 (Thyroxine) 8.2 ug/dl (5.53-11.0)
[2023-10-03] MEDS: CARVEDILOL 12.5MG TABLET 12.5 MG PO ×2 (15:05→20:33)
[2023-10-03] MEDS: MULTIVITAMIN TABLET 1 EACH PO (16:36)
--- NOTE | 2023-10-03 16:56 | EXP.CARD.PN ---
Subjective Subjective Date: 10/03/23 Time: 16:56 Principal diagnosis: CHF Interval history: Patient seen in the office today admitted for congestive heart failure Office note today: Pt is here for reaction to meds 78-year-old white male with extensive past medical history including nonobstructive CAD, ischemic cardiomyopathy EF 45%, grade 3 diastolic dysfunction, status post aortic valve replacement, atrial fibrillation, recent mild pericardial effusion, CKD 3?4, BEST cirrhosis. Baseline functional capacity was good. States early part of this year he was building a house with his son. In late June he received COVID shot and states that approximately 10 days later began developing worsening shortness of breath and mild fluid retention. This is continued for the past 2 months. He is now [address] chest showed scattered mediastinal adenopathy but no mention of masses. He has bilateral 2 cm kidney stones and severe cirrhosis. He is awaiting cardiac MRI tomorrow. Last visit we changed nadolol to carvedilol. Patient called yesterday stating his tongue was swollen and his symptoms were worsening. In clinic today he states that he is dying. He does not have energy to even get out of the car much less walk through his house without severe dyspnea. He has pitting edema thigh-high bilaterally and severe periorbital edema. He is short of breath at rest, O2 is 93%. Blood pressure 153/117. EKG shows A-fib RVR 120 bpm. CAD-Medical mgt JUN 2021. Hypertension-BP elevated. weight is 197lbs; 7lbs more than last visit Pulmonary HTN-RVSP>60mmHG (AUG 2023) HFrEF-ECHO preliminary showed EF 45% (AUG 2023) Cardiac MRI pending 10/04/22 PAF after AVR, rapid ventricular response 120 bpm today,a/c eliquis , denies bleeding. Diastolic dysfunction-Grade 3, dyspnea,edema, worsening. Aortic valve replacement in 08/2021. 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 Hyperlipidemia-LDL goal is < 100. No readings in chart. Managed by PCP. CKD III-IV with anemia Creatinine 3.8 (AUG 2023), down from 4.20 Hgb 9-10 chronically Followed by nephrology BEST Cirrhosis, follows GI. Former smoker, stopped [address] chest showing adenopathy, recommend repeat scan 3-6 months, large bilateral 2cm kidney stones.(AUG 2023) Plan: Acute on chronic heart failure with 20lb weight gain, severe periorbital edema, A-fib RVR in setting of stage III-IV CKD and severe cirrhosis. Recommend inpatient admission for dieuresis. close monitoring of labs/vitals, and further diagnostic workup. Pt and his agreeable. Exam Data for Last 24 hours Vital signs and Labs for Last 24 Hours: Pulse Resp BP Pulse Ox O2 Del Method 90 19 160/102 H 100 Room Air 10/03/23 12:00 10/03/23 11:25 10/03/23 11:25 10/03/23 11:59 10/03/23 11:59 Laboratory Results - last 24 hr 10/03/23 12:30: WBC 4.0 L, RBC 2.64 L, Hgb 8.2 L, Hct 27.2 L, MCV 103.2 H, MCH 31.2, MCHC 30.2 L, RDW 15.3, Plt Count 121 L, MPV 10.2, Neut % (Auto) 52.5, Lymph % (Auto) 36.1, [place] % (Auto) 6.9, Eos % (Auto) 3.8, Baso % (Auto) 0.7, Neut # (Auto) 2.1, Lymph # (Auto) 1.4, [place] # (Auto) 0.3, Eos # (Auto) 0.2, Baso # (Auto) 0.0, Sodium 137, Potassium 5.0, Chloride 111 H, Carbon Dioxide 22, Anion Gap 9.0, BUN 55 H, Creatinine 4.60 H, Estimated Creat Clear 16, Estimated GFR 12 L*, Est GFR ( Amer) 15 L*, Glucose 90, Calcium 8.1 L, Total Bilirubin 0.4, Direct Bilirubin 0.1, Conjugated Bilirubin 0.0, Indirect Bilirubin 0.3, Unconjugated Bilirubin 0.3, AST 31, ALT 16, Alkaline Phosphatase 96, NT-Pro-B Natriuret Pep 19689 H, Total Protein 6.7, Albumin 3.6, TSH 4.85 H, Free T4 Index 3.4 L, Thyroxine (T4) 8.2, T3 Uptake 42 H I & O for Last 24 hours: Intake & Output 10/01/23 10/02/23 10/03/23/05/24 11:59 11:59 11:59 11:59 Intake Total 360 / 360 Output Total 400 / 400 Balance -40 / -40 Weight 194 lb 6 oz Constitutional Constitutional: no acute distress *Routine HEENT Exam Eye: Present periorbital swelling *Routine Respiratory Exam Respiratory: Present decreased breath sounds and rales *Routine Cardiovascular Exam Cardiovascular: Present tachycardia and irregularly irregular *Routine Extremities Exam Extremities: Present edema *Routine Neurological Exam Neurological: Present alert and oriented X3 Progress Note: A&P Assessment and plan (1) Acute on chronic left systolic heart failure: Status: Acute (2) Atrial fibrillation with RVR: Status: Acute (3) Coronary artery disease: Status: Chronic (4) HTN (hypertension): Status: Chronic (5) Hx of aortic valve replacement: Status: Chronic (6) Aortic stenosis: Status: Chronic (7) CKD (chronic kidney disease): Status: Chronic (8) Cirrhosis: Status: Chronic (9) PAF (paroxysmal atrial fibrillation): Status: Chronic (10) Dyspnea: Status: Acute (11) Acute on chronic renal failure: Status: Acute Assessment and Plan Assessment and Plan for All Diagnoses:: Admitted for IV diuresis. Will give IV iron in setting of CHF and anemia. Increase coreg to 12.5 mg BID for increased HR and BP.
[2023-10-03] MEDS: SACUBITRIL/VALSARTAN 24-26MG TABLET 4 EACH PO (20:33)
[2023-10-03] MEDS: ursodioL 300 MG CAPSULE PO (20:33)
[2023-10-03] MEDS: APIXABAN 5MG TABLET 5 MG PO (20:33)
[2023-10-04] VITALS (34 sets, daily range): BP systolic 133–166; BP diastolic 74–116; PULSE 74–144; RESP 18–24; TEMP 36.4–36.9; O2SAT 92–99; BMI 27.4
--- NOTE | 2023-10-04 05:08 | PC.NURSE ---
Shift summary: Pt AOx4, awake for most of night, able to shift independently in bed. VSS with mild hypertension, on RA. pt remains in afib (70-130's) throughout shift, denies any S/Sx. Updated pt on current POC. No acute events or issues overnight. Fall precautions in place, call light within reach.
[2023-10-04] MEDS: METOCLOPRAMIDE 10MG TABLET 10 MG PO ×4 (05:49→20:35)
[2023-10-04] MEDS: LEVOTHYROXINE 50MCG (0.05MG) TAB 50 MCG PO (06:00)
[2023-10-04 06:53] LABS: Basophils % 0.6 % (0.1-2.0); Eosinophils # 0.2 K/mm3 (0.0-0.4); Eosinophils % 4.2 % (0.1-12.0); Hematocrit 24.7 % (42.0-52.0); Hemoglobin 7.5 g/dL (14.1-18.0); Lymphocytes # 1.4 K/mm3 (0.7-4.5); Lymphocytes % 35.4 % (10-50); Mean Corpuscular HGB Conc 30.5 g/dL (31.8-35.4); Mean Corpuscular Volume 101.5 fl (80-94); Mean Platelet Volume 9.7 fl (7.4-10.4); Monocytes # 0.3 K/mm3 (0.1-1.0); Monocytes % 7.7 % (1.7-9.3); Neutrophils % 52.1 % (37.0-80.0); Platelet Count 99 K/mm3 (142-424); Red Blood Count 2.43 M/mm3 (4.60-6.20); Red Cell Distribution Width 15.3 % (11.5-17.5); White Blood Count 3.9 K/mm3 (4.8-10.8)
--- NOTE | 2023-10-04 06:59 | PC.NURSE ---
Called radiology to discuss cardiac MRI. Radiology stated pt already on schedule, needed to verify a.m. labs and with care management. Radiology stated they will call when MRI scheduled.
[2023-10-04 07:18] LABS: Anion Gap 11.9 mEq/L (5-15); Blood Urea Nitrogen 58 mg/dl (9-20); Calcium 7.9 mg/dl (8.4-10.2); Carbon Dioxide 20 mmol/L (22.0-30.0); Chloride 110 mmol/L (98-107); Creatinine Clearance Estimated 15 mL/min (50-200); Estimated Glomerular Filt Rate 12 ml/min (>60); GFR (African American) 14 ML/MIN (>60); Glucose 83 mg/dl (74-100); Potassium 4.9 mmoL/L (3.5-5.1); Sodium 137 mmol/L (136-145)
--- NOTE | 2023-10-04 08:49 | EXP.ACUTE.PN ---
Subjective *Date: 10/04/23 *Time: 09:00 Interval history: Patient is feeling a little better this am. His swelling has improved. He is still weak and SOA. He denies any pain. Medical Exam Vital signs and Labs for Last 24 Hours: Vital Signs Temp Pulse Pulse Pulse Resp BP Pulse Ox 10/04/23 08:00 97.9 F 10/04/23 06:44 10/04/23 06:00 120 H 18 155/113 H 97 10/04/23 04:00 110 H 10/04/23 00:00 110 H 10/04/23 05:00 74 152/99 H 10/04/23 05:00 10/04/23 04:00 98.2 F 102 H 18 145/105 H 99 10/04/23 04:00 102 H 98 10/04/23 03:00 10/04/23 02:00 88 18 147/77 H 94 L 10/04/23 01:00 10/04/23 00:00 98.5 F 114 H 18 144/110 H 96 10/03/23 23:00 10/03/23 22:00 120 H 18 133/86 99 10/03/23 20:00 120 H 10/03/23 21:00 10/03/23 20:00 98.4 F 88 18 157/84 H 100 10/03/23 20:00 80 100 10/03/23 16:00 97.7 F 10/03/23 18:55 10/03/23 18:00 72 18 131/86 96 10/03/23 16:00 71 16 145/105 H 99 10/03/23 16:00 100 H 10/03/23 16:00 100 10/03/23 14:00 140 H 17 143/103 H 100 10/03/23 12:00 96 H 16 143/117 H 99 10/03/23 17:00 10/03/23 15:00 10/03/23 13:00 10/03/23 12:00 90 10/03/23 11:59 100 10/03/23 11:50 10/03/23 11:19 118 H 21 160/102 H 100 10/03/23 11:25 109 H 19 160/102 H 100 O2 Del Method 10/04/23 08:00 10/04/23 06:44 Room Air 10/04/23 06:00 Room Air 10/04/23 04:00 10/04/23 00:00 10/04/23 05:00 10/04/23 05:00 Room Air 10/04/23 04:00 Room Air 10/04/23 04:00 Room Air 10/04/23 03:00 Room Air 10/04/23 02:00 Room Air 10/04/23 01:00 Room Air 10/04/23 00:00 Room Air 10/03/23 23:00 Room Air 10/03/23 22:00 Room Air 10/03/23 20:00 10/03/23 21:00 Room Air 10/03/23 20:00 Room Air 10/03/23 20:00 Room Air 10/03/23 16:00 10/03/23 18:55 Room Air 10/03/23 18:00 Room Air 10/03/23 16:00 Room Air 10/03/23 16:00 10/03/23 16:00 Room Air 10/03/23 14:00 Room Air 10/03/23 12:00 Room Air 10/03/23 17:00 Room Air 10/03/23 15:00 Room Air 10/03/23 13:00 Room Air 10/03/23 12:00 10/03/23 11:59 Room Air 10/03/23 11:50 Room Air 10/03/23 11:19 Room Air 10/03/23 11:25 Room Air Intake and Output 10/03/23 10/04/23 10/04/23 19:59 03:59 11:59 Intake Total 990 / 1040 50 / 1040 Output Total 825 / 1700 700 / 1700 175 / 1700 Balance 165 / -660 -650 / -660 -175 / -660 Intake: Intake, Oral Amount 990 / 1040 50 / 1040 Output: Output, Urine Amount 825 / 1700 700 / 1700 175 / 1700 Other: Number of Unmeasured Voids 1 Number of Bowel Movements 1 1 Weight 191 lb 12.8 oz Patient Weight 10/04/23 11:59 Weight 191 lb 12.8 oz Laboratory Results - last 24 hr 10/03/23 12:30: WBC 4.0 L, RBC 2.64 L, Hgb 8.2 L, Hct 27.2 L, MCV 103.2 H, MCH 31.2, MCHC 30.2 L, RDW 15.3, Plt Count 121 L, MPV 10.2, Neut % (Auto) 52.5, Lymph % (Auto) 36.1, [place] % (Auto) 6.9, Eos % (Auto) 3.8, Baso % (Auto) 0.7, Neut # (Auto) 2.1, Lymph # (Auto) 1.4, [place] # (Auto) 0.3, Eos # (Auto) 0.2, Baso # (Auto) 0.0, Sodium 137, Potassium 5.0, Chloride 111 H, Carbon Dioxide 22, Anion Gap 9.0, BUN 55 H, Creatinine 4.60 H, Estimated Creat Clear 16, Estimated GFR 12 L*, Est GFR ( Amer) 15 L*, Glucose 90, Calcium 8.1 L, Total Bilirubin 0.4, Direct Bilirubin 0.1, Conjugated Bilirubin 0.0, Indirect Bilirubin 0.3, Unconjugated Bilirubin 0.3, AST 31, ALT 16, Alkaline Phosphatase 96, NT-Pro-B Natriuret Pep 77948 H, Total Protein 6.7, Albumin 3.6, TSH 4.85 H, Free T4 Index 3.4 L, Thyroxine (T4) 8.2, T3 Uptake 42 H 10/04/23 05:50: WBC 3.9 L, RBC 2.43 L, Hgb 7.5 L, Hct 24.7 L, MCV 101.5 H, MCH 31.0, MCHC 30.5 L, RDW 15.3, Plt Count 99 L, MPV 9.7, Neut % (Auto) 52.1, Lymph % (Auto) 35.4, [place] % (Auto) 7.7, Eos % (Auto) 4.2, Baso % (Auto) 0.6, Neut # (Auto) 2.0, Lymph # (Auto) 1.4, [place] # (Auto) 0.3, Eos # (Auto) 0.2, Baso # (Auto) 0.0, Sodium 137, Potassium 4.9, Chloride 110 H, Carbon Dioxide 20 L, Anion Gap 11.9, BUN 58 H, Creatinine 4.80 H, Estimated Creat Clear 15, Estimated GFR 12 L*, Est GFR ( Amer) 14 L*, Glucose 83, Calcium 7.9 L 10/04/23 07:23: Blood Type O Negative, Antibody Screen Negative, Crossmatch (AHG) See Detail I & O for Labs for Last 24 Hours: Intake & Output 10/01/23 10/02/23 10/03/23 10/04/23 11:59 11:59 11:59 11:59 Intake Total 1040 / 1040 Output Total 1700 / 1700 Balance -660 / -660 Weight 194 lb 6 oz 191 lb 12.8 oz Constitutional: Present no acute distress Respiratory: Present decreased breath sounds and CTA bilaterally Cardiac: Present Irregularly Regular and Tachycardia GI: Present soft; Absent distention or tenderness Extremities: Present edema (improved LE edema) Skin: Present intact Neuro: Present alert, awake and oriented x 3 Assessment and Plan *Assessment and plan (1) Acute on chronic left systolic heart failure: Status: Acute Category: Medical Code(s): I50.23 - Acute on chronic systolic (congestive) heart failure (2) Atrial fibrillation with RVR: Status: Acute Category: Medical Code(s): I48.91 - Unspecified atrial fibrillation (3) Coronary artery disease: Status: Chronic Qualifiers: Associated angina: without angina Coronary Disease-Associated Artery/Lesion type: [place] artery [place] vs. transplanted heart: [place] heart Qualified Code(s): I25.10 - Atherosclerotic heart disease of [place] coronary artery without angina pectoris Category: Medical Code(s): I25.10 - Atherosclerotic heart disease of [place] coronary artery without angina pectoris (4) HTN (hypertension): Status: Chronic Qualifiers: Hypertension type: primary hypertension Qualified Code(s): I10 - Essential (primary) hypertension Category: Medical Code(s): I10 - Essential (primary) hypertension (5) Hx of aortic valve replacement: Status: Chronic Category: Surgical Code(s): Z95.2 - Presence of prosthetic heart valve (6) Aortic stenosis: Status: Chronic Qualifiers: Cardiac valve disease etiology: etiology unspecified Qualified Code(s): I35.0 - Nonrheumatic aortic (valve) stenosis Category: Medical Code(s): I35.0 - Nonrheumatic aortic (valve) stenosis (7) CKD (chronic kidney disease): Status: Chronic Qualifiers: Chronic kidney disease stage: stage 4 (severe) Qualified Code(s): N18.4 - Chronic kidney disease, stage 4 (severe) Category: Medical Code(s): N18.9 - Chronic kidney disease, unspecified (8) Cirrhosis: Status: Chronic Category: Medical Code(s): K74.60 - Unspecified cirrhosis of liver (9) PAF (paroxysmal atrial fibrillation): Status: Chronic Category: Medical Code(s): I48.0 - Paroxysmal atrial fibrillation (10) EUGENIO (acute kidney injury): Status: Acute Category: Medical Code(s): N17.9 - Acute kidney failure, unspecified (11) Anemia: Status: Acute Category: Medical Code(s): D64.9 - Anemia, unspecified Plan Has diuresed well. Prelim Echo report shows EF of 25%. Cardiology has discussed the possibility of dialysis with the patient. He is still in afib with a rapid rate. Cardiology to follow. Dr. Doty entry - Saw patient, agree with above note. Will give blood today, monitor labs and HR.
[2023-10-04] MEDS: PSYLLIUM UD PACKET 1 EACH PO (08:54)
[2023-10-04] MEDS: APIXABAN 5MG TABLET 5 MG PO ×2 (08:55→20:35)
[2023-10-04] MEDS: CYCLOBENZAPRINE 10MG TABLET 10 MG PO (08:55)
[2023-10-04] MEDS: CARVEDILOL 12.5MG TABLET 12.5 MG PO ×2 (08:55→15:36)
[2023-10-04] MEDS: SACUBITRIL/VALSARTAN 24-26MG TABLET 4 EACH PO ×2 (08:56→20:35)
[2023-10-04] MEDS: IRON SUCROSE COMPLEX 200 MG in 0.9 % SODIUM CHLORIDE 100 ML 220 MG IV (08:57)
[2023-10-04] MEDS: ursodioL 300 MG CAPSULE PO ×2 (09:03→20:35)
--- NOTE | 2023-10-04 09:57 | EXP.CARD.PN ---
Subjective Subjective Date: 10/04/23 Time: 09:57 Principal diagnosis: CHF Interval history: 78 yo WM in bed in NAD. Periorbital edema has resolved. Patient put out about 2 and half liters of fluid last evening in response to 80 mg of Lasix IV. Despite significant diuresis patient's hemoglobin dropped from 8.2-7.5 this morning Telemetry continues to show atrial fibrillation with variable rate up to the 120 bpm range Creatinine is increased from 4.6-4.[address] Garcia and in light of increasing creatinine and inability to give contrast with the MRI we will cancel it for now. Exam Data for Last 24 hours Vital signs and Labs for Last 24 Hours: Temp Pulse Resp BP Pulse Ox O2 Del Method 97.8 F 120 H 20 135/74 96 Room Air 10/04/23 09:53 10/04/23 09:53 10/04/23 09:53 10/04/23 09:53 10/04/23 09:53 10/04/23 06:44 Laboratory Results - last 24 hr 10/03/23 12:30: WBC 4.0 L, RBC 2.64 L, Hgb 8.2 L, Hct 27.2 L, MCV 103.2 H, MCH 31.2, MCHC 30.2 L, RDW 15.3, Plt Count 121 L, MPV 10.2, Neut % (Auto) 52.5, Lymph % (Auto) 36.1, [place] % (Auto) 6.9, Eos % (Auto) 3.8, Baso % (Auto) 0.7, Neut # (Auto) 2.1, Lymph # (Auto) 1.4, [place] # (Auto) 0.3, Eos # (Auto) 0.2, Baso # (Auto) 0.0, Sodium 137, Potassium 5.0, Chloride 111 H, Carbon Dioxide 22, Anion Gap 9.0, BUN 55 H, Creatinine 4.60 H, Estimated Creat Clear 16, Estimated GFR 12 L*, Est GFR ( Amer) 15 L*, Glucose 90, Calcium 8.1 L, Total Bilirubin 0.4, Direct Bilirubin 0.1, Conjugated Bilirubin 0.0, Indirect Bilirubin 0.3, Unconjugated Bilirubin 0.3, AST 31, ALT 16, Alkaline Phosphatase 96, NT-Pro-B Natriuret Pep 18732 H, Total Protein 6.7, Albumin 3.6, TSH 4.85 H, Free T4 Index 3.4 L, Thyroxine (T4) 8.2, T3 Uptake 42 H 10/04/23 05:50: WBC 3.9 L, RBC 2.43 L, Hgb 7.5 L, Hct 24.7 L, MCV 101.5 H, MCH 31.0, MCHC 30.5 L, RDW 15.3, Plt Count 99 L, MPV 9.7, Neut % (Auto) 52.1, Lymph % (Auto) 35.4, [place] % (Auto) 7.7, Eos % (Auto) 4.2, Baso % (Auto) 0.6, Neut # (Auto) 2.0, Lymph # (Auto) 1.4, [place] # (Auto) 0.3, Eos # (Auto) 0.2, Baso # (Auto) 0.0, Sodium 137, Potassium 4.9, Chloride 110 H, Carbon Dioxide 20 L, Anion Gap 11.9, BUN 58 H, Creatinine 4.80 H, Estimated Creat Clear 15, Estimated GFR 12 L*, Est GFR ( Amer) 14 L*, Glucose 83, Calcium 7.9 L, Blood Type Confirm O Negative 10/04/23 07:23: Blood Type O Negative, Antibody Screen Negative, Crossmatch (AHG) See Detail I & O for Last 24 hours: Intake & Output 10/01/23 10/02/23 10/03/23 10/04/23 11:59 11:59 11:59 11:59 Intake Total 1340 / 1340 Output Total 1700 / 1700 Balance -360 / -360 Weight 194 lb 6 oz 191 lb 12.8 oz Constitutional Constitutional: no acute distress *Routine Respiratory Exam Respiratory: Present decreased breath sounds and crackles *Routine Cardiovascular Exam Cardiovascular: Present irregularly irregular *Routine Extremities Exam Extremities: Present edema Progress Note: A&P Assessment and plan (1) Acute on chronic left systolic heart failure: Status: Acute (2) Atrial fibrillation with RVR: Status: Acute (3) Coronary artery disease: Status: Chronic (4) HTN (hypertension): Status: Chronic (5) Hx of aortic valve replacement: Status: Chronic (6) Aortic stenosis: Status: Chronic (7) CKD (chronic kidney disease): Status: Chronic (8) Cirrhosis: Status: Chronic (9) PAF (paroxysmal atrial fibrillation): Status: Chronic (10) EUGENIO (acute kidney injury): Status: Acute (11) Anemia: Status: Acute Assessment and Plan Assessment and Plan for All Diagnoses:: Continue IV diuresis. Will give IV iron in setting of CHF and anemia. Increased coreg to 12.5 mg BID for increased HR and BP. Transfuse due to worsening anemia in setting of CHF, CM and CAD. CKD stage 5, will need to see [employer] Intern to discuss dialysis. If continues to improve then likely ok for discharge in AM. Recommend home dose of lasix 20 mg daily with metolazone 2.5 mg twice weekly Follow up in our office next week.
[2023-10-04] MEDS: FUROSEMIDE 100MG/10ML VIAL 80 MG IV (12:21)
--- NOTE | 2023-10-04 13:18 | PC.NURSE ---
All care charting and care completed by Deloris Napier was done under the direct supervision of myself.
[2023-10-04] MEDS: MULTIVITAMIN TABLET 1 EACH PO (17:09)
--- NOTE | 2023-10-04 17:34 | PC.NURSE ---
pt stated he had a bm previously in [place]
[2023-10-04 18:24] LABS: Hemoglobin 10.2 g/dL (14.1-18.0)
[2023-10-04] MEDS: CARVEDILOL 25MG TABLET 25 MG PO (20:35)
[2023-10-05] VITALS (12 sets, daily range): BP systolic 126–167; BP diastolic 62–109; PULSE 86–130; RESP 18–20; TEMP 36.6–36.9; O2SAT 94–98; BMI 27.9
[2023-10-05] MEDS: LEVOTHYROXINE 50MCG (0.05MG) TAB 50 MCG PO (06:22)
[2023-10-05] MEDS: METOCLOPRAMIDE 10MG TABLET 10 MG PO (06:22)
[2023-10-05 06:57] LABS: Anion Gap 10.7 mEq/L (5-15); Blood Urea Nitrogen 60 mg/dl (9-20); Calcium 8.3 mg/dl (8.4-10.2); Carbon Dioxide 23 mmol/L (22.0-30.0); Chloride 107 mmol/L (98-107); Creatinine Clearance Estimated 16 mL/min (50-200); Estimated Glomerular Filt Rate 12 ml/min (>60); GFR (African American) 14 ML/MIN (>60); Glucose 87 mg/dl (74-100); Potassium 4.7 mmoL/L (3.5-5.1); Sodium 136 mmol/L (136-145)
[2023-10-05 07:11] LABS: Basophils % 0.6 % (0.1-2.0); Eosinophils # 0.1 K/mm3 (0.0-0.4); Eosinophils % 3.4 % (0.1-12.0); Hematocrit 30.4 % (42.0-52.0); Hemoglobin 9.4 g/dL (14.1-18.0); Lymphocytes # 1.1 K/mm3 (0.7-4.5); Lymphocytes % 29.8 % (10-50); Mean Corpuscular Hemoglobin 30.2 pg (27.0-31.2); Mean Corpuscular Volume 97.7 fl (80-94); Mean Platelet Volume 9.5 fl (7.4-10.4); Monocytes # 0.3 K/mm3 (0.1-1.0); Monocytes % 6.9 % (1.7-9.3); Neutrophils # 2.3 K/mm3 (1.8-7.8); Neutrophils % 59.3 % (37.0-80.0); Platelet Count 87 K/mm3 (142-424); Red Blood Count 3.11 M/mm3 (4.60-6.20); Red Cell Distribution Width 15.6 % (11.5-17.5); White Blood Count 3.8 K/mm3 (4.8-10.8)
[2023-10-05] MEDS: ursodioL 300 MG CAPSULE PO (08:50)
[2023-10-05] MEDS: CARVEDILOL 25MG TABLET 25 MG PO (08:50)
[2023-10-05] MEDS: APIXABAN 5MG TABLET 5 MG PO (08:50)
[2023-10-05] MEDS: CYCLOBENZAPRINE 10MG TABLET 10 MG PO (08:50)
[2023-10-05] MEDS: SACUBITRIL/VALSARTAN 24-26MG TABLET 4 EACH PO (08:51)
--- NOTE | 2023-10-05 10:12 | EXP.ACUTE.PN ---
Subjective *Date: 10/05/23 *Time: 10:12 Interval history: Patient feels better today, less edema, anxious to go home. Medical Exam Vital signs and Labs for Last 24 Hours: Vital Signs Temp Pulse Pulse Pulse Pulse Resp BP 10/05/23 08:50 130 H 10/05/23 08:50 10/05/23 07:48 97.9 F 10/05/23 06:46 10/05/23 06:00 88 18 10/05/23 05:00 98 H 18 10/05/23 05:00 10/05/23 04:00 110 H 10/05/23 04:00 98.5 F 110 H 18 10/05/23 04:00 110 H 10/05/23 03:00 86 18 10/05/23 03:00 10/05/23 02:05 102 H 20 10/05/23 02:00 10/05/23 01:00 10/05/23 00:00 110 H 10/05/23 00:00 97.8 F 106 H 18 10/04/23 22:59 10/04/23 22:00 110 H 18 10/04/23 20:00 110 H 10/04/23 21:00 10/04/23 20:30 98.1 F 82 18 10/04/23 20:30 120 H 10/04/23 18:48 10/04/23 18:00 140 H 20 10/04/23 17:45 97.7 F 128 H 20 155/89 H 10/04/23 17:00 10/04/23 16:45 98.0 F 132 H 20 145/114 H 10/04/23 16:05 98.0 F 120 H 24 160/113 H 10/04/23 15:05 98.5 F 144 H 20 146/102 H 10/04/23 14:50 97.7 F 135 H 20 166/100 H 10/04/23 14:35 97.6 F 109 H 20 155/114 H 10/04/23 16:00 110 H 10/04/23 16:00 129 H 10/04/23 15:00 10/04/23 12:00 110 H 10/04/23 14:20 97.8 F 104 H 20 159/116 H 10/04/23 14:15 98.1 F 126 H 20 150/111 H 10/04/23 14:10 98.2 F 120 H 20 150/87 H 10/04/23 14:05 98.2 F 117 H 22 138/91 H 10/04/23 13:57 98.2 F 120 H 18 136/100 H 10/04/23 13:32 98.5 F 95 H 20 133/89 10/04/23 13:00 10/04/23 12:00 98.2 F 10/04/23 12:32 97.7 F 105 H 22 147/97 H 10/04/23 11:45 97.8 F 112 H 20 150/83 H 10/04/23 11:00 10/04/23 10:45 98.0 F 126 H 20 143/105 H 10/04/23 10:30 98.3 F 125 H 20 141/100 H 10/04/23 10:13 97.7 F 115 H 20 134/89 BP Pulse Ox O2 Del Method 10/05/23 08:50 94 L Room Air 10/05/23 08:50 Room Air 10/05/23 07:48 10/05/23 06:46 Room Air 10/05/23 06:00 143/95 H 96 Room Air 10/05/23 05:00 167/78 H 10/05/23 05:00 Room Air 10/05/23 04:00 10/05/23 04:00 156/109 H 98 Room Air 10/05/23 04:00 98 Room Air 10/05/23 03:00 139/62 96 Room Air 10/05/23 03:00 Room Air 10/05/23 02:05 140/109 H 97 Room Air 10/05/23 02:00 140/109 H 10/05/23 01:00 Room Air 10/05/23 00:00 10/05/23 00:00 156/95 H 96 Room Air 10/04/23 22:59 Room Air 10/04/23 22:00 133/82 94 L Room Air 10/04/23 20:00 10/04/23 21:00 Room Air 10/04/23 20:30 137/101 H 96 Room Air 10/04/23 20:30 96 Room Air 10/04/23 18:48 Room Air 10/04/23 18:00 142/93 H 97 Room Air 10/04/23 17:45 99 10/04/23 17:00 Room Air 10/04/23 16:45 97 10/04/23 16:05 98 10/04/23 15:05 95 10/04/23 14:50 96 10/04/23 14:35 96 10/04/23 16:00 10/04/23 16:00 95 Room Air 10/04/23 15:00 Room Air 10/04/23 12:00 10/04/23 14:20 97 10/04/23 14:15 97 10/04/23 14:10 97 10/04/23 14:05 97 10/04/23 13:57 98 10/04/23 13:32 96 10/04/23 13:00 Room Air 10/04/23 12:00 10/04/23 12:32 92 L 10/04/23 11:45 97 10/04/23 11:00 Room Air 10/04/23 10:45 97 10/04/23 10:30 97 10/04/23 10:13 98 Intake and Output 10/04/23 10/05/23 10/05/23 23:59 07:59 15:59 Intake Total 480 / 1536 480 / 480 Output Total 650 / 2075 200 / 400 200 / 400 Balance -170 / -539 280 / 80 -200 / 80 Intake: Intake, Oral Amount 200 / 990 480 / 480 Intake, Other Amount 30 / 46 Red Blood Cells Unit 30 / 30 [id number] Intake (Blood Product) Amt 250 / 500 Red Blood Cells Unit 250 / 250 [id number] Output: Output, Urine Amount 650 / 2075 200 / 400 200 / 400 Other: Number of Unmeasured Voids 0 1 Number of Bowel Movements 1 1 Weight 195 lb 3.509 oz Patient Weight 10/05/23 23:59 Weight 195 lb 3.509 oz Laboratory Results - last 24 hr 10/04/23 07:23: Blood Type O Negative, Antibody Screen Negative, Crossmatch (AHG) See Detail 10/04/23 17:40: Hgb 10.2 L D, Hct 32.0 L 10/05/23 06:17: WBC 3.8 L, RBC 3.11 L D, Hgb 9.4 L, Hct 30.4 L, MCV 97.7 H, MCH 30.2, MCHC 31.0 L, RDW 15.6, Plt Count 87 L, MPV 9.5, Neut % (Auto) 59.3, Lymph % (Auto) 29.8, [place] % (Auto) 6.9, Eos % (Auto) 3.4, Baso % (Auto) 0.6, Neut # (Auto) 2.3, Lymph # (Auto) 1.1, [place] # (Auto) 0.3, Eos # (Auto) 0.1, Baso # (Auto) 0.0, Sodium 136, Potassium 4.7, Chloride 107, Carbon Dioxide 23, Anion Gap 10.7, BUN 60 H, Creatinine 4.80 H, Estimated Creat Clear 16, Estimated GFR 12 L*, Est GFR ( Amer) 14 L*, Glucose 87, Calcium 8.3 L I & O for Labs for Last 24 Hours: Intake & Output 10/02/23 10/03/23 10/04/23 10/05/23 23:59 23:59 23:59 23:59 Intake Total 990 / 1040 1296 / 1536 480 / 480 Output Total 1125 / 1425 2075 / 2075 400 / 400 Balance -135 / -385 -779 / -539 80 / 80 Weight 194 lb 6 oz 191 lb 12.482 oz 195 lb 3.509 oz Constitutional: Present no acute distress Respiratory: Present decreased breath sounds and CTA bilaterally Cardiac: Present Irregularly Regular and Tachycardia GI: Present soft; Absent distention or tenderness Extremities: Present edema (improved LE edema) Skin: Present intact Neuro: Present alert, awake and oriented x 3 Assessment and Plan *Assessment and plan (1) Acute on chronic left systolic heart failure: Status: Acute Category: Medical Code(s): I50.23 - Acute on chronic systolic (congestive) heart failure (2) Atrial fibrillation with RVR: Status: Acute Category: Medical Code(s): I48.91 - Unspecified atrial fibrillation (3) Coronary artery disease: Status: Chronic Qualifiers: Coronary Disease-Associated Artery/Lesion type: [place] artery [place] vs. transplanted heart: [place] heart Associated angina: without angina Qualified Code(s): I25.10 - Atherosclerotic heart disease of [place] coronary artery without angina pectoris Category: Medical Code(s): I25.10 - Atherosclerotic heart disease of [place] coronary artery without angina pectoris (4) HTN (hypertension): Status: Chronic Qualifiers: Hypertension type: primary hypertension Qualified Code(s): I10 - Essential (primary) hypertension Category: Medical Code(s): I10 - Essential (primary) hypertension (5) Hx of aortic valve replacement: Status: Chronic Category: Surgical Code(s): Z95.2 - Presence of prosthetic heart valve (6) Aortic stenosis: Status: Chronic Qualifiers: Cardiac valve disease etiology: etiology unspecified Qualified Code(s): I35.0 - Nonrheumatic aortic (valve) stenosis Category: Medical Code(s): I35.0 - Nonrheumatic aortic (valve) stenosis (7) CKD (chronic kidney disease): Status: Chronic Qualifiers: Chronic kidney disease stage: stage 4 (severe) Qualified Code(s): N18.4 - Chronic kidney disease, stage 4 (severe) Category: Medical Code(s): N18.9 - Chronic kidney disease, unspecified (8) Cirrhosis: Status: Chronic Category: Medical Code(s): K74.60 - Unspecified cirrhosis of liver (9) PAF (paroxysmal atrial fibrillation): Status: Chronic Category: Medical Code(s): I48.0 - Paroxysmal atrial fibrillation (10) EUGENIO (acute kidney injury): Status: Acute Category: Medical Code(s): N17.9 - Acute kidney failure, unspecified (11) Anemia: Status: Acute Category: Medical Code(s): D64.9 - Anemia, unspecified Plan HR has improved with higher dose of Coreg, OK to discharge home today. He will need follow up with nephrology soon due to declining renal function.
--- NOTE | 2023-10-07 14:58 | CARE MANAGER ---
Contacted patient related to hospital discharge. He states he picked up his new medicine and has touched base with all doctors to make follow up appointments. He denies questions or concerns. JASMYN Randall
--- NOTE | 2023-10-15 21:47 | P.DS_ITS ---
General Admission date:: 10/03/23 Discharge date: 10/05/23 HPI HPI HPI: Mr. Glass is a 78yo male with a history of CHF and A-fib with RVR. He did see Dr. Bird on 09/26/2023 due to increasing dyspnea on exertion and decreased stamina. He had developed some fluid pockets under both eyes and had gained 14 pounds since his previous office visit. He had recently been seen by cardiology and his diuretic was discontinued because of further elevation of his creatinine. Dr. Bird wanted him to restart his Lasix 20 mg every other day and monitor labs. The patient was seen in the cardiology office today and was felt to have a CHF exacerbation and also had atrial fib with RVR. He was admitted for further evaluation and treatment. Hospital Course Hospital Course Hospital Course: Patient was admitted and started on diuretics. An echo was ordered. His Coreg was increased to 12.5 mg twice daily for heart rate and blood pressures. By 10/04/2023, he was feeling better and his swelling had improved. He was still weak and had shortness of air. He diuresed well and his preliminary echo showed an EF of 25%. Cardiology did discuss the possibility of dialysis with the patient. He remained in A-fib with a rapid rate. His H&H was low and he was given blood. His H&H improved with transfusion. His heart rate improved with the increased dose of Coreg. It was felt he would need to follow-up with nephrology due to declining renal function. He was stable to be discharged home and will follow-up with cardiology as well. Exam Data for Last 24 hours Vital signs and Labs for Last 24 Hours: Temp Pulse Resp BP Pulse Ox O2 Del Method 97.9 F 127 H 20 126/89 97 Room Air 10/05/23 07:48 10/05/23 10:00 10/05/23 10:00 10/05/23 10:00 10/05/23 10:00 10/05/23 10:00 Narrative: Constitutional Constitutional: no acute distress *Routine HEENT Exam Head: Present normocephalic and atraumatic Eye: Present EOMI, PERRL and other (fluid pockets under each eye) ENT: Present mucous membranes moist *Routine Neck Exam Neck: Present supple and full ROM *Routine Respiratory Exam Respiratory: Present CTA bilaterally *Routine Cardiovascular Exam Cardiovascular: Present tachycardia and irregularly irregular *Routine Abdominal Exam Abdominal: Present soft and normoactive bowel sounds; Absent tenderness *Routine Rectal Exam Rectal:: deferred *Routine Genitalia Exam Genitalia:: deferred *Routine Extremities Exam Extremities: Present edema (2+ edema bilaterally); Absent cyanosis or clubbing *Routine Skin Exam Skin: Present intact; Absent erythema *Routine Neurological Exam Neurological: Present alert and oriented X3 DS: Diagnosis Discharge Diagnosis (1) Acute on chronic left systolic heart failure: Status: Acute Code(s): I50.23 - Acute on chronic systolic (congestive) heart failure (2) Atrial fibrillation with RVR: Status: Acute Code(s): I48.91 - Unspecified atrial fibrillation (3) Coronary artery disease: Status: Chronic Code(s): I25.10 - Atherosclerotic heart disease of [place] coronary artery without angina pectoris Qualifiers: Coronary Disease-Associated Artery/Lesion type: [place] artery [place] vs. transplanted heart: [place] heart Associated angina: without angina Qualified Code(s): I25.10 - Atherosclerotic heart disease of [place] coronary artery without angina pectoris (4) HTN (hypertension): Status: Chronic Code(s): I10 - Essential (primary) hypertension Qualifiers: Hypertension type: primary hypertension Qualified Code(s): I10 - Essential (primary) hypertension (5) Hx of aortic valve replacement: Status: Chronic Code(s): Z95.2 - Presence of prosthetic heart valve (6) Aortic stenosis: Status: Chronic Code(s): I35.0 - Nonrheumatic aortic (valve) stenosis Qualifiers: Cardiac valve disease etiology: etiology unspecified Qualified Code(s): I35.0 - Nonrheumatic aortic (valve) stenosis (7) CKD (chronic kidney disease): Status: Chronic Code(s): N18.9 - Chronic kidney disease, unspecified Qualifiers: Chronic kidney disease stage: stage 4 (severe) Qualified Code(s): N18.4 - Chronic kidney disease, stage 4 (severe) (8) Cirrhosis: Status: Chronic Code(s): K74.60 - Unspecified cirrhosis of liver Qualifiers: Hepatic cirrhosis type: unspecified hepatic cirrhosis Ascites presence: unspecified Qualified Code(s): K74.60 - Unspecified cirrhosis of liver (9) PAF (paroxysmal atrial fibrillation): Status: Chronic Code(s): I48.0 - Paroxysmal atrial fibrillation (10) EUGENIO (acute kidney injury): Status: Acute Code(s): N17.9 - Acute kidney failure, unspecified (11) Anemia: Status: Acute Code(s): D64.9 - Anemia, unspecified Meds Home Medications and Allergies Home Medications Medication Instructions Recorded Confirmed Type metoclopramide HCl 10 mg tablet 10 mg PO DAILY 07/03/21 10/15/23 History (Reglan) [id number] acid-vit 1 tab PO DAILY Supplement 07/03/21 10/15/23 History K-lycop 400 mcg-20 mcg-370 mcg tablet (One-A-Day Men's 50 Plus (with vitamin K)) psyllium seed (sugar) oral powder 1 tbsp PO DAILY . 07/03/21 10/15/23 History (Metamucil (sugar) oral powder) ursodiol 500 mg tablet 500 mg PO BID . 07/03/21 10/15/23 History apixaban 5 mg tablet (Eliquis) 5 mg PO BID Blood thinner 02/07/22 10/15/23 History cyclobenzaprine 10 mg tablet 10 mg PO DAILYP PRN Muscle Pain 02/11/23 10/15/23 History levothyroxine 50 mcg tablet 50 mcg PO DAILY 02/11/23 10/15/23 History polyethylene glycol 3350 17 gram 17 g PO DAILY 10/03/23 10/15/23 History oral powder packet (Miralax) vitamins A,C,U-ysbw-rsbzri 2,148 1 tab PO BID 10/03/23 10/15/23 History mcg-113 mg-45 mg-17.4 mg tablet (PreserVision AREDS) albuterol sulfate 90 mcg/actuation 1 inh inhalation ONCE PRN 10/09/23 10/15/23 History aerosol inhaler furosemide 40 mg tablet (Lasix) 40 mg PO DAILY PRN edema #45 tabs 10/09/23 10/15/23 Rx metolazone 2.5 mg tablet 2.5 mg PO Q OTHER DAY #15 tabs 10/09/23 10/15/23 Rx carvedilol 12.5 mg tablet (Coreg) 12.5 mg PO BID #60 tabs 10/15/23 10/15/23 Rx sacubitril 49 mg-valsartan 51 mg 1 tab PO BID #60 tabs 10/15/23 10/15/23 Rx tablet (Entresto) New Prescriptions to Start Prescriptions: Allergies Allergy/AdvReac Type Severity Reaction Status Date / Time No Known Allergies Allergy Unverified 10/15/23 09:02 Discharge Plan Disposition Patient Disposition: Home, Self-Care Condition: Fair Follow up Plan Follow up with: Lorenzo Bird MD [Staff Physician] - 10/24/23 Aneudy Anand MD [Referring] - Enter time for follow up (At next clinic date at [facility]) Ravindra Garcia MD [Staff Physician] - 10/15/23 Prescriptions/Medication Reconciliation: Continued metoclopramide HCl [Reglan] 10 mg tablet 10 mg PO DAILY ursodiol 500 mg tablet 500 mg PO BID Metamucil (sugar) Powder 1 tbsp PO DAILY One-A-Day Men's 50 Plus(vit K) 400-20-370 mcg tablet 1 tab PO DAILY Eliquis 5 mg tablet 5 mg PO BID cyclobenzaprine 10 mg tablet 10 mg PO DAILYP PRN (Reason: Muscle Pain) levothyroxine 50 mcg tablet 50 mcg PO DAILY PreserVision AREDS 2,148 mcg-113 mg-45 mg-17.4mg Tablet 1 tab PO BID polyethylene glycol 3350 [Miralax] 17 gram Powder In Packet 17 g PO DAILY Discontinued carvedilol 12.5 mg tablet 12.5 mg PO BID Qty: 60 5RF Rx Instructions: must administer with a meal/food No Action Entresto 49-51 mg tablet 1 tab PO BID Qty: 60 2RF carvedilol [Coreg] 12.5 mg tablet 12.5 mg PO BID Qty: 60 2RF Rx Instructions: must administer with a meal/food albuterol sulfate 90 mcg/actuation HFA aerosol inhaler 1 inh inhalation ONCE PRN metolazone 2.5 mg tablet 2.5 mg PO Q OTHER DAY Qty: 15 2RF furosemide [Lasix] 40 mg tablet 40 mg PO DAILY PRN (Reason: edema) Qty: 45 2RF Problem Reconciliation Problems Reviewed?: Yes Patient Discharge Instructions ACTIVITY: Continue current activity DIET: low salt diet and cardiac Patient Instructions: Cirrhosis, Coronary Artery Disease, Atrial Fibrillation, Aortic Stenosis -- Adult, Anemia, Essential Hypertension, DI for Heart Failure, Chronic Kidney Disease, Low-Sodium Diet Providers Primary Care Provider: Avi Doty Admit Provider: Santos Yang Attending Provider: Avi Doty
== END 2023-10-05 11:05 | disposition home or self-care (01) ==
PROVIDERS: Physician Assistant; Admitting Provider Family Medicine; PCP Family Medicine; Visit Provider Family Medicine
DX: I50.23 Acute on chronic systolic (congestive) heart failure (principal); K74.60 Unspecified cirrhosis of liver; N17.9 Acute kidney failure, unspecified; Z95.2 Presence of prosthetic heart valve; I25.10 Atherosclerotic heart disease of native coronary artery without angina pectoris; I48.0 Paroxysmal atrial fibrillation; I35.0 Nonrheumatic aortic (valve) stenosis; N18.4 Chronic kidney disease, stage 4 (severe); D64.9 Anemia, unspecified; I13.0 Hypertensive heart and chronic kidney disease with heart failure and stage 1 through stage 4 chronic kidney disease, or unspecified chronic kidney disease; Z79.899 Other long term (current) drug therapy
CPT/HCPCS: G0379; 36415; 71045; 80048; 80076; 83880; 84436; 84443; 84479; 85014; 85018; 85025; 86850; 93308; G0378; J1756; P9016

== ENCOUNTER 2023-10-11 08:28 | Outpatient (CLI) | payer MEDICARE, SELFPAY ==
[2023-10-11 08:45] LABS: Hematocrit 30.2 % (42.0-52.0); Hemoglobin 9.6 g/dL (14.1-18.0); Mean Corpuscular HGB Conc 31.7 g/dL (31.8-35.4); Mean Corpuscular Hemoglobin 31.6 pg (27.0-31.2); Mean Corpuscular Volume 99.8 fl (80-94); Platelet Count 60 K/mm3 (142-424); Red Blood Count 3.02 M/mm3 (4.60-6.20); Red Cell Distribution Width 15.8 % (11.5-17.5); White Blood Count 3.8 K/mm3 (4.8-10.8)
[2023-10-11 09:28] LABS: Albumin Level 3.2 g/dl (3.5-5.0); Chloride 105 mmol/L (98-107); Potassium 4.6 mmoL/L (3.5-5.1); Sodium 140 mmol/L (136-145)
[2023-10-11 09:31] LABS: Anion Gap 12.6 mEq/L (5-15); Blood Urea Nitrogen 67 mg/dl (9-20); Carbon Dioxide 27 mmol/L (22.0-30.0); Estimated Glomerular Filt Rate 14 ml/min (>60); GFR (African American) 17 ML/MIN (>60)
[2023-10-11 09:32] LABS: Calcium 8.4 mg/dl (8.4-10.2); Glucose 148 mg/dl (74-100); Phosphorous 4.9 mg/dl (2.5-4.5)
== END 2023-10-11 23:59 ==
LOC: LAB 08:30
PROVIDERS: PCP Family Medicine; Visit Provider Internal Medicine Nephrology
DX: N18.4 Chronic kidney disease, stage 4 (severe) (principal)
CPT/HCPCS: 36415; 80069; 85014; 85018; 85048; 85049

== ENCOUNTER 2023-10-25 08:16 | Outpatient (CLI) | payer MEDICARE, SELFPAY ==
[2023-10-25 08:29] LABS: Microscopic, Urine URINE MICROSCOPIC (MICROSCOPIC)
[2023-10-25 08:55] LABS: Hematocrit 29.6 % (42.0-52.0); Hemoglobin 9.8 g/dL (14.1-18.0); Mean Corpuscular HGB Conc 33.2 g/dL (31.8-35.4); Mean Corpuscular Hemoglobin 31.9 pg (27.0-31.2); Mean Corpuscular Volume 96.1 fl (80-94); Platelet Count 86 K/mm3 (142-424); Red Blood Count 3.08 M/mm3 (4.60-6.20); Red Cell Distribution Width 15.6 % (11.5-17.5); White Blood Count 3.8 K/mm3 (4.8-10.8)
[2023-10-25 09:19] LABS: Albumin Level 3.2 g/dl (3.5-5.0); Anion Gap 12.4 mEq/L (5-15); Blood Urea Nitrogen 68 mg/dl (9-20); Carbon Dioxide 25 mmol/L (22.0-30.0); Chloride 107 mmol/L (98-107); Estimated Glomerular Filt Rate 15 ml/min (>60); GFR (African American) 18 ML/MIN (>60); Glucose 132 mg/dl (74-100); Phosphorous 3.7 mg/dl (2.5-4.5); Potassium 4.4 mmoL/L (3.5-5.1); Sodium 140 mmol/L (136-145)
[2023-10-25 13:38] LABS: Appearance,Urine CLEAR (Clear); Bilirubin,Urine Negative (Negative); Blood, Urine 1+ (Negative); Color,Urine YELLOW (Yellow); Glucose,Urine (UA) Negative (Negative); Ketones,Urine Negative (Negative); Leukocyte Esterase,Urine 1+ (Negative); Nitrate,Urine Negative (Negative); Protein,Urine 1+ (Negative); Urobilinogen,Urine 0.2 EU/dl (0.2)
[2023-10-25 15:31] LABS: Bacteria,Urine Trace /lpf
[2023-10-25 15:34] LABS: Creatinine,Urine Random 121 mg/dL (Not Estab.)
== END 2023-10-25 23:59 ==
LOC: LAB 08:18
PROVIDERS: PCP Family Medicine; Visit Provider Internal Medicine Nephrology
DX: N18.4 Chronic kidney disease, stage 4 (severe) (principal); R82.90 Unspecified abnormal findings in urine
CPT/HCPCS: 36415; 80069; 81001; 82570; 84155; 85014; 85018; 85048; 85049; 87086

== ENCOUNTER 2023-11-29 07:42 | Outpatient (CLI) | payer MEDICARE, SELFPAY ==
[2023-11-29 07:58] LABS: Microscopic, Urine URINE MICROSCOPIC (MICROSCOPIC)
[2023-11-29 08:13] LABS: Hematocrit 28.8 % (42.0-52.0); Hemoglobin 8.8 g/dL (14.1-18.0); Mean Corpuscular HGB Conc 30.4 g/dL (31.8-35.4); Mean Corpuscular Hemoglobin 31.4 pg (27.0-31.2); Mean Corpuscular Volume 103.2 fl (80-94); Platelet Count 95 K/mm3 (142-424); Red Blood Count 2.79 M/mm3 (4.60-6.20); Red Cell Distribution Width 17.1 % (11.5-17.5); White Blood Count 4.6 K/mm3 (4.8-10.8)
[2023-11-29 08:42] LABS: Appearance,Urine CLEAR (Clear); Bilirubin,Urine Negative (Negative); Blood, Urine 1+ (Negative); Color,Urine YELLOW (Yellow); Glucose,Urine (UA) Negative (Negative); Ketones,Urine Negative (Negative); Leukocyte Esterase,Urine 1+ (Negative); Nitrate,Urine Negative (Negative); PH,Urine 6.5 (5.0-8.5); Protein,Urine 1+ (Negative); Urobilinogen,Urine 0.2 EU/dl (0.2)
[2023-11-29 09:33] LABS: Albumin Level 3.2 g/dl (3.5-5.0); Anion Gap 13.3 mEq/L (5-15); Blood Urea Nitrogen 71 mg/dl (9-20); Calcium 8.8 mg/dl (8.4-10.2); Carbon Dioxide 23 mmol/L (22.0-30.0); Chloride 108 mmol/L (98-107); Estimated Glomerular Filt Rate 12 ml/min (>60); GFR (African American) 15 ML/MIN (>60); Glucose 138 mg/dl (74-100); Phosphorous 4.4 mg/dl (2.5-4.5); Potassium 5.3 mmoL/L (3.5-5.1); Sodium 139 mmol/L (136-145)
[2023-11-29 11:45] LABS: RBC,Urine Occasional #/hpf (0-3); Squamous Epithelial Cell,Urine Occasional #/hpf (0-5); WBC,Urine Occasional #/hpf (0-3)
[2023-11-29 13:36] LABS: Creatinine,Urine Random 116 mg/dL (Not Estab.)
== END 2023-11-29 23:59 ==
LOC: LAB 07:43
PROVIDERS: PCP Family Medicine; Visit Provider Internal Medicine Nephrology
DX: N18.4 Chronic kidney disease, stage 4 (severe) (principal); R82.90 Unspecified abnormal findings in urine
CPT/HCPCS: 36415; 80069; 81001; 82570; 84155; 85014; 85018; 85048; 85049; 87086

== ENCOUNTER 2023-12-05 15:54 | Outpatient (POV) | payer MEDICARE, SELFPAY | END 2023-12-05 23:59 | disposition home or self-care (01) | LOC: SC 15:55 | PROVIDERS: Visit Provider Internal Medicine Nephrology | DX: Z00.00 Encounter for general adult medical examination without abnormal findings (principal) ==

== ENCOUNTER 2023-12-10 08:11 | Outpatient (CLI) | payer MEDICARE, SELFPAY ==
[2023-12-10 08:18] LABS: Microscopic, Urine URINE MICROSCOPIC (MICROSCOPIC)
[2023-12-10 08:48] LABS: Appearance,Urine CLEAR (Clear); Bilirubin,Urine Negative (Negative); Blood, Urine 1+ (Negative); Color,Urine YELLOW (Yellow); Glucose,Urine (UA) Negative (Negative); Ketones,Urine Negative (Negative); Leukocyte Esterase,Urine 1+ (Negative); Nitrate,Urine Negative (Negative); Protein,Urine 1+ (Negative); Specific Gravity, Urine 1.015 (1.005-1.030); Urobilinogen,Urine 0.2 EU/dl (0.2)
[2023-12-10 08:51] LABS: Hemoglobin 9.4 g/dL (14.1-18.0); Mean Corpuscular HGB Conc 31.5 g/dL (31.8-35.4); Mean Corpuscular Hemoglobin 32.8 pg (27.0-31.2); Mean Corpuscular Volume 104.2 fl (80-94); Platelet Count 129 K/mm3 (142-424); Red Blood Count 2.88 M/mm3 (4.60-6.20); Red Cell Distribution Width 17.2 % (11.5-17.5); White Blood Count 4.1 K/mm3 (4.8-10.8)
[2023-12-10 10:01] LABS: Albumin Level 3.5 g/dl (3.5-5.0); Blood Urea Nitrogen 71 mg/dl (9-20); Calcium 8.9 mg/dl (8.4-10.2); Carbon Dioxide 23 mmol/L (22.0-30.0); Chloride 107 mmol/L (98-107); Estimated Glomerular Filt Rate 11 ml/min (>60); GFR (African American) 13 ML/MIN (>60); Glucose 115 mg/dl (74-100); Phosphorous 4.9 mg/dl (2.5-4.5); Sodium 139 mmol/L (136-145)
[2023-12-10 10:16] LABS: Bacteria,Urine Trace /lpf; Squamous Epithelial Cell,Urine Occasional #/hpf (0-5)
[2023-12-10 10:49] LABS: Creatinine,Urine Random 111 mg/dL (Not Estab.)
[2023-12-10 12:37] LABS: Iron 51 ug/dL (49-181)
[2023-12-10 12:46] LABS: Total Iron Binding Capacity 321 ug/dL (261-462)
[2023-12-10 15:13] LABS: Ferritin 39.2 ng/ml (17.9-464)
== END 2023-12-10 23:59 ==
LOC: LAB 08:13
PROVIDERS: PCP Family Medicine; Visit Provider Internal Medicine Nephrology
DX: N18.4 Chronic kidney disease, stage 4 (severe) (principal); B95.2 Enterococcus as the cause of diseases classified elsewhere; Z79.899 Other long term (current) drug therapy
CPT/HCPCS: 36415; 80069; 81001; 82570; 82728; 83540; 83550; 84155; 85014; 85018; 85048; 85049; 87086

== ENCOUNTER 2023-12-25 08:17 | Outpatient (CLI) | payer MEDICARE, SELFPAY ==
[2023-12-25 08:25] LABS: Microscopic, Urine URINE MICROSCOPIC (MICROSCOPIC)
[2023-12-25 08:41] LABS: Hematocrit 30.2 % (42.0-52.0); Hemoglobin 9.1 g/dL (14.1-18.0); Mean Corpuscular Hemoglobin 31.9 pg (27.0-31.2); Mean Corpuscular Volume 106.1 fl (80-94); Platelet Count 88 K/mm3 (142-424); Red Blood Count 2.85 M/mm3 (4.60-6.20); Red Cell Distribution Width 17.7 % (11.5-17.5); White Blood Count 3.9 K/mm3 (4.8-10.8)
[2023-12-25 08:49] LABS: Appearance,Urine CLEAR (Clear); Bilirubin,Urine Negative (Negative); Blood, Urine TRACE-I (Negative); Color,Urine YELLOW (Yellow); Glucose,Urine (UA) Negative (Negative); Ketones,Urine Negative (Negative); Leukocyte Esterase,Urine 1+ (Negative); Nitrate,Urine Negative (Negative); Protein,Urine 1+ (Negative); Specific Gravity, Urine 1.015 (1.005-1.030); Urobilinogen,Urine 0.2 EU/dl (0.2)
[2023-12-25 09:02] LABS: Creatinine,Urine Random 115 mg/dL (Not Estab.)
[2023-12-25 09:41] LABS: WBC,Urine 20-50 #/hpf (0-3)
[2023-12-25 09:42] LABS: Bacteria,Urine Trace /lpf; Squamous Epithelial Cell,Urine Occasional #/hpf (0-5)
[2023-12-25 10:24] LABS: Chloride 110 mmol/L (98-107); Sodium 140 mmol/L (136-145)
[2023-12-25 10:25] LABS: Albumin Level 3.4 g/dl (3.5-5.0); Potassium 4.7 mmoL/L (3.5-5.1)
[2023-12-25 10:27] LABS: Blood Urea Nitrogen 78 mg/dl (9-20); Estimated Glomerular Filt Rate 12 ml/min (>60); GFR (African American) 14 ML/MIN (>60)
[2023-12-25 10:28] LABS: Anion Gap 12.7 mEq/L (5-15); Carbon Dioxide 22 mmol/L (22.0-30.0); Glucose 133 mg/dl (74-100); Phosphorous 5.4 mg/dl (2.5-4.5)
== END 2023-12-25 23:59 ==
LOC: LAB 08:18
PROVIDERS: PCP Family Medicine; Visit Provider Internal Medicine Nephrology
DX: N18.5 Chronic kidney disease, stage 5 (principal); B95.2 Enterococcus as the cause of diseases classified elsewhere; Z79.899 Other long term (current) drug therapy
CPT/HCPCS: 36415; 80069; 81001; 82570; 84156; 85014; 85018; 85048; 85049; 87086

== ENCOUNTER 2023-12-26 08:43 | Day surgery (SDC) | payer MEDICARE, SELFPAY ==
[2023-12-26] VITALS (11 sets, daily range): BP systolic 159–181; BP diastolic 94–141; PULSE 95–124; RESP 17–24; TEMP 36.8; O2SAT 90–100; BMI 25.0
--- NOTE | 2023-12-26 07:13 | IR_ITS ---
APPROVED REPORT Patient Location: Outpatient PROCEDURES Right heart catheterization INDICATION Pulmonary hypertension Informed consent was obtained prior to the procedure. COMPLICATIONS NONE Estimated Blood Loss: LESS THAN 10 ML TECHNIQUE One percent lidocaine was used to anesthetize the right anterior aspect of the neck. A orthopedics teacher needle was used to identify the right internal jugular vein. Following this a larger cannulation needle was used to cannulate the right internal jugular vein and a wire was passed into the vein. Prior to the 7 [place] sheath being inserted the wire was confirmed under fluoroscopic guidance to be in the inferior vena cava. A 7 [place] sheath was introduced and a [place] catheter was floated using hemodynamic waveforms in the pulmonary artery, right ventricle , and right atrium. Saturations were obtained in the pulmonary artery and the right atrium. At the end of the procedure the patient was transferred to the postop holding area in stable condition for sheath removal. ANGIOGRAPHIC RESULTS Right atrial pressure 20 mmHg Pulmonary artery pressure 50/35 mmHg Pulmonary artery occlusion pressure 27 mmHg Right atrial saturation 53% Pulmonary artery saturation 52% Aortic saturation 98% Hemoglobin 10.1 Cardiac output 3.9 L/min IMPRESSION Elevated left-sided filling pressures accompanied by moderate pulmonary hypertension PLAN 1. Recommend increasing the removal of free water from patient during dialysis. Dry weight needs to be lower Electronically signed by : Franck Lopez MD 12/26/2023 11:01:28
[2023-12-26 09:16] LABS: Basophils # 0.1 K/mm3 (0-0.2); Basophils % 1.1 % (0.1-2.0); Eosinophils # 0.2 K/mm3 (0.0-0.4); Eosinophils % 4.5 % (0.1-12.0); Hematocrit 34.3 % (42.0-52.0); Hemoglobin 10.1 g/dL (14.1-18.0); Lymphocytes # 1.2 K/mm3 (0.7-4.5); Lymphocytes % 25.9 % (10-50); Mean Corpuscular HGB Conc 29.5 g/dL (31.8-35.4); Mean Corpuscular Hemoglobin 32.1 pg (27.0-31.2); Mean Corpuscular Volume 108.6 fl (80-94); Mean Platelet Volume 9.9 fl (7.4-10.4); Monocytes # 0.2 K/mm3 (0.1-1.0); Monocytes % 5.3 % (1.7-9.3); Neutrophils # 2.9 K/mm3 (1.8-7.8); Neutrophils % 63.2 % (37.0-80.0); Platelet Count 107 K/mm3 (142-424); Red Blood Count 3.16 M/mm3 (4.60-6.20); Red Cell Distribution Width 17.7 % (11.5-17.5); White Blood Count 4.6 K/mm3 (4.8-10.8)
[2023-12-26 09:26] LABS: Anion Gap 18.4 mEq/L (5-15); Blood Urea Nitrogen 75 mg/dl (9-20); Calcium 9.1 mg/dl (8.4-10.2); Carbon Dioxide 20 mmol/L (22.0-30.0); Chloride 106 mmol/L (98-107); Creatinine Clearance Estimated 13 mL/min (50-200); Estimated Glomerular Filt Rate 11 ml/min (>60); GFR (African American) 13 ML/MIN (>60); Glucose 93 mg/dl (74-100); Potassium 4.4 mmoL/L (3.5-5.1); Sodium 140 mmol/L (136-145)
[2023-12-26] MEDS: diphenhydrAMINE 50MG/ML VIAL 50 MG IV (10:40)
[2023-12-26] MEDS: HEPARIN 1,000 UNITS/500ML NS (CATH LAB) 3000 UNIT IV (10:40)
[2023-12-26] MEDS: LIDOCAINE 1% 10ML MDV 20 ML IJ (10:40)
[2023-12-26] MEDS: NITROGLYCERIN 800MCG/8ML SYR (CATH LAB) 800 MCG IA (10:40)
[2023-12-26] MEDS: 0.9 % SODIUM CHLORIDE 500 ML 25 ML IV (10:40)
[2023-12-26] MEDS: MIDAZOLAM HCL 1MG/1ML 5ML VIAL 1 MG IV (10:58)
[2023-12-26] MEDS: FENTANYL 100MCG/2ML VIAL 50 MCG IV (10:59)
[2023-12-26 12:05] LABS: CATHL Arterial O2 SAT 52.6 % (90-100); CATHL Venous O2 SAT 53.2 % (75-80)
== END 2023-12-26 13:08 | disposition home or self-care (01) ==
PROVIDERS: PCP Family Medicine; Visit Provider Internal Medicine
DX: I50.23 Acute on chronic systolic (congestive) heart failure (principal); N18.4 Chronic kidney disease, stage 4 (severe); I48.0 Paroxysmal atrial fibrillation; I42.9 Cardiomyopathy, unspecified; Z95.2 Presence of prosthetic heart valve; N17.9 Acute kidney failure, unspecified; I13.0 Hypertensive heart and chronic kidney disease with heart failure and stage 1 through stage 4 chronic kidney disease, or unspecified chronic kidney disease; Z79.899 Other long term (current) drug therapy; Z79.01 Long term (current) use of anticoagulants; Z87.891 Personal history of nicotine dependence; I35.0 Nonrheumatic aortic (valve) stenosis; K74.60 Unspecified cirrhosis of liver; I27.20 Pulmonary hypertension, unspecified
CPT/HCPCS: 80048; 82810; 85025; 93451; 99152; C1894; J1644

== ENCOUNTER 2023-12-27 06:38 | Day surgery (SDC) | payer MEDICARE, SELFPAY ==
[2023-12-27 07:13] VITALS: BMI 25.0
[2023-12-27 07:22] VITALS: BP 160/106; PULSE 107; RESP 17; TEMP 36.7; O2SAT 94
[2023-12-27] MEDS: HEPARIN 1,000 UNITS/500ML NS (CATH LAB) 3000 UNIT IV (08:33)
[2023-12-27] MEDS: LIDOCAINE 1% W/EPI 1:100,000 20ML VIAL 20 ML SQ (08:33)
[2023-12-27] MEDS: 0.9 % SODIUM CHLORIDE 500 ML 25 ML IV (08:33)
[2023-12-27] MEDS: diphenhydrAMINE 50MG/ML VIAL 50 MG IV (08:54)
[2023-12-27] MEDS: FENTANYL 100MCG/2ML VIAL 50 MCG IV (09:09)
[2023-12-27] MEDS: MIDAZOLAM HCL 1MG/1ML 5ML VIAL 1 MG IV (09:09)
[2023-12-27 09:20] VITALS: BP 153/89; PULSE 115; RESP 15; TEMP 36.6; O2SAT 96
[2023-12-27 09:30] VITALS: BP 147/112; PULSE 113; RESP 18; O2SAT 100
[2023-12-27 09:45] VITALS: BP 155/101; PULSE 119; RESP 18; O2SAT 100
[2023-12-27 10:00] VITALS: BP 185/92; PULSE 117; RESP 17; O2SAT 100
[2023-12-27 10:07] VITALS: BP 185/92; PULSE 92; RESP 17; O2SAT 100
== END 2023-12-27 10:21 | disposition home or self-care (01) ==
PROVIDERS: PCP Family Medicine; Visit Provider Internal Medicine
DX: I13.0 Hypertensive heart and chronic kidney disease with heart failure and stage 1 through stage 4 chronic kidney disease, or unspecified chronic kidney disease (principal); N18.4 Chronic kidney disease, stage 4 (severe); Z49.01 Encounter for fitting and adjustment of extracorporeal dialysis catheter; I48.0 Paroxysmal atrial fibrillation; I50.23 Acute on chronic systolic (congestive) heart failure; K74.60 Unspecified cirrhosis of liver; Z79.899 Other long term (current) drug therapy; I27.20 Pulmonary hypertension, unspecified
CPT/HCPCS: 36558; 99152; C1750; J1644

== ENCOUNTER 2023-12-30 10:59 | Outpatient (CLI) | payer MEDICARE, SELFPAY ==
[2023-12-30 11:05] VITALS: BMI 24.0
[2023-12-30 11:24] LABS: Eosinophils # 0.2 K/mm3 (0.0-0.4); Eosinophils % 4.6 % (0.1-12.0); Hematocrit 32.1 % (42.0-52.0); Hemoglobin 9.7 g/dL (14.1-18.0); Lymphocytes # 1.4 K/mm3 (0.7-4.5); Lymphocytes % 30.6 % (10-50); Mean Corpuscular HGB Conc 30.3 g/dL (31.8-35.4); Mean Corpuscular Hemoglobin 31.4 pg (27.0-31.2); Mean Corpuscular Volume 103.7 fl (80-94); Mean Platelet Volume 9.6 fl (7.4-10.4); Monocytes # 0.4 K/mm3 (0.1-1.0); Monocytes % 8.5 % (1.7-9.3); Neutrophils # 2.5 K/mm3 (1.8-7.8); Neutrophils % 55.3 % (37.0-80.0); Platelet Count 100 K/mm3 (142-424); White Blood Count 4.5 K/mm3 (4.8-10.8)
[2023-12-30] MEDS: ferumoxytoL 510 MG in 0.9 % SODIUM CHLORIDE 50 ML 268 MG IV (11:30)
[2023-12-30] MEDS: 0.9 % SODIUM CHLORIDE 50 ML 25 ML IV (11:30)
[2023-12-30 11:47] VITALS: BP 109/69; PULSE 80; RESP 16; TEMP 36.3
== END 2023-12-30 11:56 | disposition home or self-care (01) ==
LOC: INF 11:00
PROVIDERS: PCP Family Medicine; Visit Provider Internal Medicine Nephrology
DX: N18.4 Chronic kidney disease, stage 4 (severe) (principal); D63.1 Anemia in chronic kidney disease
CPT/HCPCS: 85025; 96374; Q0138

== ENCOUNTER 2023-12-30 13:01 | Outpatient (POV) | payer MEDICARE, SELFPAY | END 2023-12-30 23:59 | disposition home or self-care (01) | LOC: SC 13:01 | PROVIDERS: Visit Provider Internal Medicine Nephrology | DX: Z00.00 Encounter for general adult medical examination without abnormal findings (principal) ==

== ENCOUNTER 2023-12-31 07:52 | Outpatient (CLI) | payer MEDICARE, SELFPAY ==
[2023-12-31 10:43] LABS: Microscopic, Urine URINE MICROSCOPIC (MICROSCOPIC)
[2023-12-31 10:58] LABS: Appearance,Urine CLEAR (Clear); Bilirubin,Urine Negative (Negative); Blood, Urine 1+ (Negative); Color,Urine YELLOW (Yellow); Glucose,Urine (UA) Negative (Negative); Hematocrit 29.6 % (42.0-52.0); Ketones,Urine Negative (Negative); Leukocyte Esterase,Urine 1+ (Negative); Mean Corpuscular Hemoglobin 31.2 pg (27.0-31.2); Nitrate,Urine Negative (Negative); Platelet Count 98 K/mm3 (142-424); Protein,Urine Negative (Negative); Red Blood Count 2.84 M/mm3 (4.60-6.20); Specific Gravity, Urine 1.015 (1.005-1.030); Urobilinogen,Urine 0.2 EU/dl (0.2); White Blood Count 4.2 K/mm3 (4.8-10.8)
[2023-12-31 11:08] LABS: Hemoglobin 8.9 g/dL (14.1-18.0)
[2023-12-31 11:44] LABS: Albumin Level 3.2 g/dl (3.5-5.0); Anion Gap 12.5 mEq/L (5-15); Bacteria,Urine Trace /lpf; Blood Urea Nitrogen 72 mg/dl (9-20); Calcium 9.1 mg/dl (8.4-10.2); Carbon Dioxide 24 mmol/L (22.0-30.0); Chloride 106 mmol/L (98-107); Estimated Glomerular Filt Rate 12 ml/min (>60); GFR (African American) 15 ML/MIN (>60); Glucose 124 mg/dl (74-100); Phosphorous 4.7 mg/dl (2.5-4.5); Potassium 4.5 mmoL/L (3.5-5.1); Sodium 138 mmol/L (136-145); Squamous Epithelial Cell,Urine Occasional #/hpf (0-5); WBC,Urine TNTC #/hpf (0-3)
[2024-01-01 06:12] LABS: Hep B Surface Ab, Qual Non Reactive (.)
[2024-01-01 07:34] LABS: HBsAg Screen Negative (Negative); HCV Ab Non Reactive (Non Reactive); Hep A Ab, IGM Negative (Negative); Hep B Core Ab, IgM Negative (Negative)
[2024-01-02 21:08] LABS: QuantiFERON-TB Gold Plus Negative (Negative)
== END 2023-12-31 23:59 ==
LOC: LAB 07:53
PROVIDERS: PCP Family Medicine; Visit Provider Internal Medicine Nephrology
DX: N18.5 Chronic kidney disease, stage 5 (principal); K74.60 Unspecified cirrhosis of liver; Z79.899 Other long term (current) drug therapy; B95.2 Enterococcus as the cause of diseases classified elsewhere
CPT/HCPCS: 36415; 80069; 80074; 81001; 85014; 85018; 85048; 85049; 86480; 86706; 87086

== ENCOUNTER 2024-01-02 12:39 | Outpatient (CLI) | payer MEDICARE, SELFPAY ==
--- NOTE | 2024-01-02 12:40 | CA_ITS ---
APPROVED REPORT EXAM: Limited 2D Echocardiogram Pharmacovigilance Specialist: Charlette Cotton RVT Ht: 5 ft 10 in Wt: 174lbs BSA: 1.97 BP: 130/96 mmHg Indications: EF CHECK, EF OF 45% 09/04/23,RECHECK PERICARDIAL EFFUSION,A-FIB,HTN,MARLEY,CIRRHOSIS,CKD 2D Dimensions IVSd 1.94 cm M: 0.6-1.2 PWd 1.15 cm M: 0.6 - 1.2 LVDd 4.67 cm M: 4.2 - 5.9 M-Mode Dimensions RVDd 3.68 cm (0.9-2.6) LA Diam 6.77 cm (1.9-4.0) LVDd 4.94 cm (3.5-5.7) LVDs 4.17 cm (3.5-5.7) IVSd 1.31 cm (0.6-1.1) PWd 1.03 cm (0.6-1.1) EF (Teich) 32.80% FS 15.60% EDV (Teich) 115.00 mL ESV (Teich) 77.30 mL Other Information Study Quality: Technically Difficult Conclusion This is a limited TTE to evaluate pericardial effusion. Limited windows were obtained. Technically difficult study. The left ventricle is normal in size. There is increased LV wall thickness. There is severe global hypokinesis present. The septal and inferoseptal LV alba are nearly akinetic. LVEF is 25%. The RV is mildly dilated with mild reduction in RV function. Severe biatrial dilation. There is a small-sized, circumferential pericardial effusion present. The 2 largest pockets are noted posteriorly, as well as anteriorly along the RV free wall, and each measuring 0.6 cm in diastole. No echo indications of tamponade. Compared to prior study from 10/03/2023, the pericardial effusion is unchanged. The LVEF is further reduced now. Electronically signed by : Rosio Garcia MD 01/05/2024 16:52:27
== END 2024-01-02 23:59 ==
LOC: RT 12:40
PROVIDERS: PCP Family Medicine; Visit Provider Physician Assistant
DX: I11.0 Hypertensive heart disease with heart failure (principal); I50.23 Acute on chronic systolic (congestive) heart failure; I48.91 Unspecified atrial fibrillation; Z95.2 Presence of prosthetic heart valve; I42.8 Other cardiomyopathies; I31.39 Other pericardial effusion (noninflammatory); Z87.891 Personal history of nicotine dependence
CPT/HCPCS: 93308

== ENCOUNTER 2024-01-03 11:07 | Outpatient (CLI) | payer MEDICARE, SELFPAY ==
--- NOTE | 2024-01-03 11:13 | XR_ITS ---
FINAL REPORT CLINICAL HISTORY: LT FOOT PAIN; states left foot pain x 5 days nki FINDINGS: Left foot Three views were obtained. There is no acute fracture or dislocation. There are mild degenerative changes. No soft tissue abnormality is identified. IMPRESSION: Mild degenerative changes. Reviewed, Interpreted and Dictated by Vicente Linn III, MD Transcribed by Mera Castillo Authenticated and [facility]
== END 2024-01-03 23:59 ==
LOC: RAD 11:08
PROVIDERS: PCP Family Medicine; Visit Provider Family Medicine
DX: M79.672 Pain in left foot (principal)
CPT/HCPCS: 73630

== ENCOUNTER 2024-01-06 09:39 | Outpatient (CLI) | payer MEDICARE, SELFPAY ==
[2024-01-06 10:12] VITALS: BP 122/93; PULSE 120; O2SAT 100
[2024-01-06] MEDS: ferumoxytoL 510 MG in 0.9 % SODIUM CHLORIDE 50 ML 268 MG IV (10:12)
[2024-01-06] MEDS: 0.9 % SODIUM CHLORIDE 50 ML 260 ML IV (10:32)
[2024-01-06 10:40] VITALS: BP 122/77; PULSE 110; O2SAT 97
== END 2024-01-06 10:40 | disposition home or self-care (01) ==
LOC: INF 09:40
PROVIDERS: PCP Family Medicine; Visit Provider Internal Medicine Nephrology
DX: N18.4 Chronic kidney disease, stage 4 (severe) (principal); D63.1 Anemia in chronic kidney disease
CPT/HCPCS: 96374; Q0138

== ENCOUNTER 2024-01-22 07:16 | Outpatient (CLI) | payer MEDICARE, SELFPAY ==
--- NOTE | 2024-01-22 07:22 | US_ITS ---
FINAL REPORT CLINICAL HISTORY: CIRRHOSIS COMPARISON: 07/25/2021 FINDINGS: Sonographic images of the right upper quadrant were obtained. The pancreas is partially obscured. There is a nodular contour and coarsened appearance of the liver consistent with the clinical diagnosis of cirrhosis. The gallbladder is not seen on this examination and likely has been surgically resected. There is no evidence of biliary ductal dilatation.The common duct measures 4mm. Limited images of the right kidney are remarkable for 2 renal cysts, 1.4 cm and 2.2 cm in diameter. IMPRESSION: Nodular contour and coarsened appearance of the liver consistent with cirrhosis. Reviewed, Interpreted and Dictated by Alexandru Maya MD Transcribed by Aleshia Lunsford Authenticated and [facility]
== END 2024-01-22 23:59 | disposition home or self-care (01) ==
LOC: RAD 07:17
PROVIDERS: PCP Family Medicine; Visit Provider Family Medicine
DX: K74.3 Primary biliary cirrhosis (principal)
CPT/HCPCS: 76705

== ENCOUNTER 2024-02-01 08:03 | Emergency (ER) | payer MEDICARE, SELFPAY ==
[2024-02-01] VITALS (14 sets, daily range): BP systolic 108–139; BP diastolic 72–104; PULSE 76–128; RESP 18–25; TEMP 37.2–38; O2SAT 93–98; BMI 24.5
--- NOTE | 2024-02-01 08:14 | ECG_ITS ---
APPROVED REPORT Exam: Resting ECG HR:140 bpm ECG Measurements Heart Rate 140 AXES QRSd 101 QRS -35 QT 285 T 162 QTc 367 Conclusion ATRIAL FIBRILLATION WITH RAPID VENTRICULAR RESPONSE LEFT AXIS DEVIATION [QRS AXIS < -30] NONSPECIFIC ST & T-WAVE ABNORMALITY Electronically signed by : ALYSSIA PICHARDO, 02/01/2024 16:17:35
--- NOTE | 2024-02-01 08:18 | XR_ITS ---
PROCEDURE INFORMATION: Exam: XR Chest Exam date and time: 02/01/2024 8:28 AM Age: 79 years old Clinical indication: Shortness of breath; Additional info: SOB TECHNIQUE: Imaging protocol: Radiologic exam of the chest. Views: 1 view. COMPARISON: CR XR CHEST PORTABLE 10/03/2023 12:45 PM FINDINGS: Tubes, catheters and devices: Dialysis catheter now present whose tip projects over the cavoatrial junction. Lungs: Small bandlike opacity left lung base likely secondary to subsegmental atelectasis otherwise lung luna are clear. Pleural spaces: Unremarkable. No pleural effusion. No pneumothorax. Heart/Mediastinum: Heart is significantly enlarged. Pulmonary vascular distribution indicating elevated central venous pressure. Bones/joints: Unremarkable for age. IMPRESSION: 1. Cardiomegaly with elevated central venous pressure. 2. Minor subsegmental atelectasis left lung base.
[2024-02-01] MEDS: METOPROLOL TARTRATE 5MG/5ML VIAL 5 MG IV ×3 (08:30→08:44)
[2024-02-01 08:31] LABS: Basophils # 0.1 K/mm3 (0-0.2); Basophils % 0.7 % (0.1-2.0); Eosinophils # 0.1 K/mm3 (0.0-0.4); Hematocrit 31.3 % (42.0-52.0); Hemoglobin 9.6 g/dL (14.1-18.0); Lymphocytes # 0.7 K/mm3 (0.7-4.5); Lymphocytes % 8.5 % (10-50); Mean Corpuscular HGB Conc 30.6 g/dL (31.8-35.4); Mean Corpuscular Hemoglobin 33.1 pg (27.0-31.2); Mean Corpuscular Volume 107.9 fl (80-94); Mean Platelet Volume 9.9 fl (7.4-10.4); Monocytes # 0.3 K/mm3 (0.1-1.0); Neutrophils # 7.1 K/mm3 (1.8-7.8); Neutrophils % 85.9 % (37.0-80.0); Platelet Count 93 K/mm3 (142-424); Red Cell Distribution Width 18.2 % (11.5-17.5); White Blood Count 8.3 K/mm3 (4.8-10.8)
--- NOTE | 2024-02-01 08:32 | PC.NURSE ---
fsbs 94
[2024-02-01 08:33] LABS: MANUAL DIFFERENTIAL MANUAL DIFFERENTIAL (MANUAL DIFF)
[2024-02-01] MEDS: ONDANSETRON 4MG/2ML VIAL 4 MG IV (08:35)
[2024-02-01 08:39] LABS: Lactate Venous 2.5 mmol/L (0.4-2.0); VBG Base Excess -2.9 mmol/L (-2.4-2.3); VBG HCO3 22.6 mmol/L (23-30); VBG Oxygen Saturation 57.3 % (50-70); VBG PCO2 40.9 mmol/L (35-51); VBG PH 7.36 mmol/L (7.31-7.41); VBG PO2 33.7 mmol/L (28-40); VBG Total CO2 23.8 mmol/L (23-27)
--- NOTE | 2024-02-01 08:40 | HMH.EDGENADL ---
Discharge Plan Disposition Patient Disposition: Xfer Other Condition: Fair Prescriptions Prescriptions: No Action furosemide 20 mg tablet 20 mg PO DAILY Entresto 24-26 mg tablet 1 tab PO BID Qty: 60 3RF metoprolol succinate 50 mg tablet extended release 24 hr 50 mg PO BID Qty: 60 5RF metoclopramide HCl [Reglan] 10 mg tablet 10 mg PO DAILY ursodiol 500 mg tablet 500 mg PO BID Metamucil (sugar) Powder 1 tbsp PO DAILY One-A-Day Men's 50 Plus(vit K) 400-20-370 mcg tablet 1 tab PO DAILY Eliquis 5 mg tablet 5 mg PO BID cyclobenzaprine 10 mg tablet 10 mg PO DAILYP PRN (Reason: Muscle Pain) levothyroxine 50 mcg tablet 50 mcg PO DAILY albuterol sulfate 90 mcg/actuation HFA aerosol inhaler 1 inh inhalation ONCE PRN (Reason: copd) metolazone 2.5 mg tablet 2.5 mg PO Q OTHER DAY Qty: 15 2RF PreserVision AREDS 2,148 mcg-113 mg-45 mg-17.4mg Tablet 1 tab PO BID polyethylene glycol 3350 [Miralax] 17 gram Powder In Packet 17 g PO DAILY Referrals Follow up/Referrals: Lorenzo Bird MD [Primary Care Provider] - See instructions Clinical Impressions Clinical Impression: Atrial fibrillation with RVR, Fever, Acute kidney injury superimposed on chronic kidney disease, Generalized weakness, Elevated brain natriuretic peptide (BNP) level Stand Alone Forms Stand Alone Forms: Transfer Record - ED Instructions Patient Instructions: DI for Diarrhea and Traveler's Diarrhea -- Adult, DI for Nausea -- Adult Discharge ED Provider: Erwin Mir Adult HPI General Chief complaint: Nausea/Vomiting/Diarrhea Stated complaint: weakness fever Time Seen by Provider: 02/01/24 08:10 Mode of Arrival: Wheelchair Source of Information: Spouse Limitations: No Limitations Description of Symptoms (Recalled from ER Triage Doc. by RN): pt has beenthrowing up since 0500. dialysis pt for the last three weeks. elevated temp. per @ home was 102. History of Present Illness HPI narrative: 79-year-old male with past medical history significant for hypothyroidism, GERD, cirrhosis, CKD on hemodialysis Saturday and Saturdays, atrial fibrillation on Eliquis and 50 mg metoprolol twice daily, CAD, HTN, presents today with spouse for evaluation concerning nausea and vomiting, generalized weakness as well as fever of 102 ?F that was noted at home. Patient was going to have dialysis however due to his symptoms was sent to the ED for further management. He has had shortness of breath but denies having any chest pain, abdominal pain, dysuria, hematuria. No further complaints. Related Data Home Medications Medication Instructions Recorded Confirmed metoclopramide HCl 10 mg tablet 10 mg PO DAILY 07/03/21 01/02/24 (Reglan) epbulazspmky-dxq-talxs acid-vit 1 tab PO DAILY Supplement 07/03/21 01/02/24 K-lycop 400 mcg-20 mcg-370 mcg tablet (One-A-Day Men's 50 Plus (with vitamin K)) psyllium seed (sugar) oral powder 1 tbsp PO DAILY . 07/03/21 01/02/24 (Metamucil (sugar) oral powder) ursodiol 500 mg tablet 500 mg PO BID . 07/03/21 01/02/24 apixaban 5 mg tablet (Eliquis) 5 mg PO BID Blood thinner 02/07/22 01/02/24 cyclobenzaprine 10 mg tablet 10 mg PO DAILYP PRN Muscle Pain 02/11/23 01/02/24 levothyroxine 50 mcg tablet 50 mcg PO DAILY 02/11/23 01/02/24 polyethylene glycol 3350 17 gram 17 g PO DAILY 10/03/23 01/02/24 oral powder packet (Miralax) vitamins A,C,E-icov-cmkwcx 2,148 1 tab PO BID 10/03/23 01/02/24 mcg-113 mg-45 mg-17.4 mg tablet (PreserVision AREDS) albuterol sulfate 90 mcg/actuation 1 inh inhalation ONCE PRN copd 10/09/23 01/02/24 aerosol inhaler furosemide 20 mg tablet 20 mg PO DAILY 11/19/23 01/02/24 Previous Rx's Medication Instructions Recorded sacubitril 24 mg-valsartan 26 mg 1 tab PO BID #60 tabs 11/19/23 tablet (Entresto) metoprolol succinate 50 mg 50 mg PO BID #60 tabs 12/05/23 tablet,extended release 24 hr metolazone 2.5 mg tablet 2.5 mg PO Q OTHER DAY #15 tabs 01/09/24 Allergies Allergy/AdvReac Type Severity Reaction Status Date / Time No Known Allergies Allergy Verified 01/02/24 13:23 [facility] Disclaimer: The information contained in this section may have been updated after the patient was seen, as this information can be updated by other users. Medical History Hypothyroidism Kidney stones GERD (gastroesophageal reflux disease) Cirrhosis CKD (chronic kidney disease) Atrial fibrillation with RVR PAF (paroxysmal atrial fibrillation) Coronary artery disease HTN (hypertension) Aortic stenosis Surgical History History of colonoscopy History of esophagogastroduodenoscopy (EGD) History of cataract surgery History of cholecystectomy Hx of aortic valve replacement Hx of cardiac cath History of heart valve replacement Family History Other Cancer Hypertension No significant family history Social History Smoking Status: Never smoker alcohol intake: never substance use type: denies use current occupational status: retired Travel in the last 8 weeks: None household members: spouse housing: house marital status: current occupational exposures/hazards: No caffeine: Yes special alf needs: No agree to transfusion: No do you feel safe at home: Yes victim of physical abuse: No victim of emotional abuse: No victim of sexual abuse: No would you like helpful sources: No ROS Obtained: Yes All systems reviewed & no additional complaints except as documented Physical Exam General General appearance: alert and in no apparent distress Head Head exam: atraumatic and normocephalic Eye Eye exam: Present normal appearance, PERRL and EOMI ENT ENT exam: Present normal oropharynx and mucous membranes moist Neck Neck exam: Present full ROM; Absent meningismus Respiratory Respiratory exam: Absent respiratory distress, wheezes, stridor or accessory muscle use Cardiovascular Cardiovascular exam: Present tachycardia and irregular rhythm; Absent normal rhythm Abdominal Exam Abdominal exam: Present soft; Absent distention, tenderness, guarding, rebound or rigidity Neurological Exam Neurological exam: Present alert, oriented X3 and CN II-XII intact; Absent motor sensory deficit Psychiatric Psychiatric exam: Present normal affect and normal mood Skin Skin exam: Present warm and dry Medical Decision Making Medical Records Medical records reviewed: Yes I reviewed the patient's medical records. Roberto Inquiry Pt receiving controlled substance: No Roberto was queried for this patient: No Vital Signs: 02/01/24 08:04 02/01/24 08:34 02/01/24 09:01 Temperature 100.4 F H Temperature Source Oral Pulse Rate 105 H 107 H Pulse Rate [Left] 120 H Respiratory Rate 18 20 25 H Blood Pressure 139/82 118/72 Blood Pressure [Left Arm] 132/88 Blood Pressure Mean 101 Blood Pressure Mean [Left Arm] 102 02 Sat by Pulse Oximetry 97 94 L 95 Oxygen Delivery Method Room Air Room Air 02/01/24 09:31 02/01/24 10:00 02/01/24 10:31 Temperature Temperature Source Pulse Rate 125 H 121 H 99 H Pulse Rate [Left] Respiratory Rate 19 24 21 Blood Pressure 132/94 H 128/80 108/77 L Blood Pressure [Left Arm] Blood Pressure Mean Blood Pressure Mean [Left Arm] 02 Sat by Pulse Oximetry 93 L 94 L 93 L Oxygen Delivery Method Room Air Room Air Room Air 02/01/24 11:01 Temperature Temperature Source Pulse Rate 111 H Pulse Rate [Left] Respiratory Rate 18 Blood Pressure 123/93 H Blood Pressure [Left Arm] Blood Pressure Mean 100 Blood Pressure Mean [Left Arm] 02 Sat by Pulse Oximetry 98 Oxygen Delivery Method Lab Data Lab Results 02/01/24 08:18: VBG pH 7.36, VBG pCO2 40.9, VBG pO2 33.7, VBG HCO3 22.6 L, VBG Total CO2 23.8, VBG O2 Saturation 57.3, VBG Base Excess -2.9 L, VBG Lactic Acid 2.5 H 02/01/24 08:22: WBC 8.3, RBC 2.90 L, Hgb 9.6 L, Hct 31.3 L, MCV 107.9 H, MCH 33.1 H, MCHC 30.6 L, RDW 18.2 H, Plt Count 93 L, MPV 9.9, Neut % (Auto) 85.9 H, Lymph % (Auto) 8.5 L, [place] % (Auto) 4.0, Eos % (Auto) 1.0, Baso % (Auto) 0.7, Neut # (Auto) 7.1, Lymph # (Auto) 0.7, [place] # (Auto) 0.3, Eos # (Auto) 0.1, Baso # (Auto) 0.1, Total Counted 100, Neutrophils % (Manual) 80 H, Band Neutrophils % 10.0 H, Lymphocytes % (Manual) 6 L, Monocytes % (Manual) 4, Platelet Estimate Slight decrease, Hypochromasia 1+, Anisocytosis 1+, Macrocytosis 2+, Sodium 137, Potassium 4.8, Chloride 103, Carbon Dioxide 27, Anion Gap 11.8, BUN 69 H, Creatinine 6.20 H, Estimated Creat Clear 10, Estimated GFR 9 L*, Est GFR ( Amer) 11 L*, Glucose 99, Calcium 8.9, Total Bilirubin 1.0, AST 35, ALT 18, Alkaline Phosphatase 110, Troponin I 0.13 H, NT-Pro-B Natriuret Pep 400481 H, Total Protein 7.1, Albumin 3.4 L, Globulin 3.7 H, Albumin/Globulin Ratio 0.9 L, Lipase 363 H 02/01/24 08:30: SARS-CoV-2 (PCR) Not detected, Influenza A Untype (PCR) Not detected, Influenza Type B (PCR) Not detected 02/01/24 11:55: Troponin I 0.16 H 02/01/24 08:22 02/01/24 08:22 Orders (Tests/Meds): ED MEDICATIONS Generic Name Dose Route Start Last Admin Trade Name Freq PRN Reason Stop Dose Admin Diltiazem HCl 100 mg/ Sodium 100 mls @ 10 mls/hr 02/01/24 12:01 02/01/24 12:22 Chloride IV 03/02/24 12:00 10 mg/hr .Q10H BRANDEN 10 mls/hr Administration Protocol 10 MG/HR Discontinued Medications Generic Name Dose Route Start Last Admin Trade Name Freq PRN Reason Stop Dose Admin Acetaminophen 1,000 mg 02/01/24 08:46 02/01/24 08:48 Acetaminophen 1,000mg/100ml Vial IV 02/01/24 08:47 1,000 mg ONCE ONE Administration Furosemide 80 mg 02/01/24 12:00 02/01/24 12:10 Furosemide 100mg/10ml Vial IV 02/01/24 12:01 80 mg ONCE ONE Administration Lactated Ringer's 500 mls @ 500 mls/hr 02/01/24 10:00 02/01/24 10:09 Lactated Ringer's 500ml IV 02/01/24 10:59 500 mls/hr .Q1H ONE Administration Ceftriaxone Sodium 2 gm/ 100 mls @ 200 mls/hr 02/01/24 11:40 Sodium Chloride IV 02/01/24 12:09 ONCE ONE Metoprolol Succinate 50 mg 02/01/24 08:23 02/01/24 08:52 Metoprolol Succinate Xl 50mg Tablet PO 02/01/24 08:24 50 mg ONCE ONE Administration Metoprolol Tartrate 5 mg 02/01/24 08:23 02/01/24 08:44 Metoprolol Tartrate 5mg/5ml Vial IV 5 mg Q5MINP PRN Administration HR>100 Ondansetron HCl 4 mg 02/01/24 08:33 02/01/24 08:35 Ondansetron 4mg/2ml Vial IV 02/01/24 08:34 4 mg ONCE ONE Administration ORDERS Category Date Time Status XR chest portable Stat Exams 02/01/24 08:18 Completed BNP [NT Pro Brain Natriuretic Pep.] Stat Lab 02/01/24 08:22 Completed CBC w/Auto Diff [Complete Blood Count Auto Diff] Stat Lab 02/01/24 08:22 Completed CMP [Comprehensive Metabolic Panel] Stat Lab 02/01/24 08:22 Completed Lactic Acid Follow Up (RFLX 1) Stat Lab 02/01/24 12:40 Ordered Lipase Stat Lab 02/01/24 08:22 Completed Rapid PCR Covid and Flu A/B Stat Lab 02/01/24 08:30 Completed Trop I [Troponin I] Stat Lab 02/01/24 08:22 Completed Troponin I Q3H Lab 02/01/24 11:55 Completed Troponin I Q3H Lab 02/01/24 14:30 Ordered UA [Urinalysis and Microscopic] Stat Lab 02/01/24 11:41 Ordered Blood Culture Stat Micro 02/01/24 11:55 Received VBG [Venous Blood Gas] Stat RT 02/01/24 08:18 Completed ECG Data Tracing #1: I reviewed this ECG and interpreted as documented below: EKG personally inter by me. Atrial fibrillation with RVR with a rate of 140 bpm. HEART Score History (anamnesis): Slightly suspicious ECG: Non-specific disturbance Age: >65 years Risk factors: Atherosclerosis history Troponin: 1-3x normal limit HEART Score: 6 Medical Decision Narrative: 79-year-old male with past medical history significant for hypothyroidism, GERD, cirrhosis, CKD on hemodialysis Saturday and Saturdays, atrial fibrillation on Eliquis and 50 mg metoprolol twice daily, CAD, HTN, CHF presents today with spouse for evaluation concerning nausea and vomiting, generalized weakness as well as fever of 102 ?F that was noted at home. Patient was going to have dialysis however due to his symptoms was sent to the ED for further management. He has had shortness of breath On assessment he was well-appearing. Atrial fibrillation with RVR on the monitor with heart rates in the 130s and 140s at bedside. Chest clear to auscultation bilaterally. Abdomen soft nondistended nontender palpation. No significant peripheral edema noted. Differential diagnoses include but not limited to ACS, pneumonia, pleural effusion, CHF exacerbation, viral syndrome, electrolyte disturbance, hypo-/hyperglycemia, among others. Patient's lab work today shows a WBC of 8.3. Stable anemia with a hemoglobin of 9.6. VBG with no acidosis or CO2 retention. Lactic acid at 2.5. His creatinine is 6.2 today which is elevated from his baseline, consistent with EUGENIO on CKD. Anion gap within range at 11.8. His initial troponin was elevated at 0.13. Second opponent elevated at 0.16. As patient is not having chest pain and does not have any ischemic changes on EKG, this could be due to patient's CKD. I discussed this with cardiology and they agreed that this is likely due to patient's CKD and not cardiac event. BNP elevated at 114,000. I did order for 80 mg of IV Lasix. Lipase elevated at 363. Negative COVID/influenza swab. On reassessment he remains medically stable and in no acute distress. He was resting in bed asleep and was noted to be 88% on room air. He was placed on 2 L for oxygen support with improvement. His chest x-ray did show cardiomegaly with elevated central venous pressure. Minor subsegmental atelectasis at the left lung base per radiology report. I discussed ED workup and current results with family as well as recommendation for admission in the setting of patient's fever, EUGENIO on CKD and atrial fibrillation with RVR. Of note, patient has received IV metoprolol 5 mg x 3 and has also received his morning dose of 50 mg metoprolol and his heart rate is in the 120s and 130s still. I did consult with Dr. Mercedes at [facility] and discussed management and he has recommended admission and has agreed to accept. Did recommend starting patient on Cardizem drip at this time. I discussed ED workup and plan and family was agreeable. Critical Care Critical Care Time Critical Care Time: No
[2024-02-01] MEDS: ACETAMINOPHEN 1,000MG/100ML VIAL 1000 MG IV (08:48)
[2024-02-01 08:52] LABS: Alanine Aminotransferase 18 U/L (12-78); Albumin Level 3.4 g/dl (3.5-5.0); Albumin/Globulin Ratio 0.9 (1.1-1.8); Alkaline Phosphatase 110 U/L (38-126); Anion Gap 11.8 mEq/L (5-15); Aspartate Amino Transferase 35 U/L (17-59); Blood Urea Nitrogen 69 mg/dl (9-20); Calcium 8.9 mg/dl (8.4-10.2); Carbon Dioxide 27 mmol/L (22.0-30.0); Chloride 103 mmol/L (98-107); Creatinine Clearance Estimated 10 mL/min (50-200); Estimated Glomerular Filt Rate 9 ml/min (>60); GFR (African American) 11 ML/MIN (>60); Globulin 3.7 g/dL (1.3-3.2); Glucose 99 mg/dl (74-100); Lipase 363 U/L (23-300); Potassium 4.8 mmoL/L (3.5-5.1); Sodium 137 mmol/L (136-145); Total Protein,Serum 7.1 g/dl (6.3-8.2)
[2024-02-01] MEDS: METOPROLOL SUCCINATE XL 50MG TABLET 50 MG PO (08:52)
--- NOTE | 2024-02-01 08:58 | PC.NURSE ---
dr archer speaking with dr sebastian
[2024-02-01 09:04] LABS: Troponin I 0.13 ng/ml (0.00-0.034)
--- NOTE | 2024-02-01 09:33 | PC.NURSE ---
critical lab received from shasha in lab, creat 6.2, pt name and r/v. dr archer notified. no new orders
--- NOTE | 2024-02-01 09:43 | PC.NURSE ---
s/w lab to ensure they had swab
[2024-02-01 09:46] LABS: Coronavirus 19, PCR Not Detected (NotDetected); Influenza A, PCR Not Detected (NotDetected); Influenza B, PCR Not Detected (NotDetected)
[2024-02-01 09:54] LABS: Lymphocytes % 6 % (10-50); Monocytes % 4 % (2-9); Neutrophils % 80 % (42-76); Total Cells Counted 100
[2024-02-01 09:55] LABS: Anisocytosis 1+; Macrocytosis 2+; Platelet Estimate Slight Decrease
[2024-02-01 09:57] LABS: Hypochromasia 1+
--- NOTE | 2024-02-01 09:58 | PC.NURSE ---
ERMD @ bedside at this time
[2024-02-01] MEDS: RINGERS SOLUTION,LACTATED 500 ML IV (10:09)
--- NOTE | 2024-02-01 10:22 | PC.NURSE ---
called [facility] for transfer for dialysis services
--- NOTE | 2024-02-01 10:26 | PC.NURSE ---
Dr. Mir speaking with Dr. Yang
--- NOTE | 2024-02-01 10:32 | PC.NURSE ---
[facility] declined transfer due to no nephrology coverage. They are reaching out to [facility] at this time
--- NOTE | 2024-02-01 10:38 | PC.NURSE ---
DR CARREON AT BEDSIDE TO UPDATE PT AND FAMILY
[2024-02-01 11:14] LABS: NT Pro Brain Natriuretic Pep. 114000 pg/mL (0-450)
--- NOTE | 2024-02-01 11:18 | PC.NURSE ---
[facility] relayed that they were trying beka reg MD to MD at this time
--- NOTE | 2024-02-01 11:41 | PC.NURSE ---
Pt accepted to [facility] by Dr. Gannon. Waiting for a call back about bed assignment. Face sheet faxed.
--- NOTE | 2024-02-01 11:43 | PC.NURSE ---
DR CARREON AT BEDSIDE TO UPDATE PT AND FAMILY
--- NOTE | 2024-02-01 11:44 | PC.NURSE ---
LAB CALLED FOR 2ND SET OF CULTURES
--- NOTE | 2024-02-01 11:45 | PC.NURSE ---
Dr. Mir at BS to update pt/family on results and POC
--- NOTE | 2024-02-01 11:54 | PC.NURSE ---
LAB at to draw cultures
[2024-02-01] MEDS: FUROSEMIDE 100MG/10ML VIAL 80 MG IV (12:10)
[2024-02-01] MEDS: dilTIAZem HCL 100 MG in 0.9 % SODIUM CHLORIDE 100 ML 10 MG IV (12:22)
--- NOTE | 2024-02-01 12:23 | PC.NURSE ---
LUNCH TRAY SET-UP FOR PT, NO NEEDS AT THIS TIME. CALL LIGHT WITHIN REACH
[2024-02-01 12:36] LABS: Troponin I 0.16 ng/ml (0.00-0.034)
[2024-02-01 12:40] LABS: Reflex Lactic Add Lactic Reflex
--- NOTE | 2024-02-01 13:25 | PC.NURSE ---
Dr. Lopez paged
--- NOTE | 2024-02-01 13:26 | PC.NURSE ---
Dr. Mir speaking with Dr. Lopez
[2024-02-01] MEDS: CEFTRIAXONE SODIUM 2 GM in 0.9 % SODIUM CHLORIDE 100 ML IV (13:51)
[2024-02-01 14:00] LABS: Lactic Acid Follow Up (RFLX 1) 1.4 mmol/L (0.7-2.1)
[2024-02-01 14:12] LABS: Troponin I 0.17 ng/ml (0.00-0.034)
--- NOTE | 2024-02-01 14:21 | PC.NURSE ---
assisted pt with use of urinal at bedside. Collected urine sample @ 2801. Urine appeared cloudy , dark yellow and smelt strong
[2024-02-01 14:24] LABS: Microscopic, Urine URINE MICROSCOPIC (MICROSCOPIC)
[2024-02-01 14:30] LABS: Appearance,Urine CLOUDY (Clear); Bilirubin,Urine Negative (Negative); Blood, Urine 3+ (Negative); Color,Urine YELLOW (Yellow); Glucose,Urine (UA) Negative (Negative); Ketones,Urine Negative (Negative); Leukocyte Esterase,Urine 3+ (Negative); Nitrate,Urine Negative (Negative); Protein,Urine 3+ (Negative); Specific Gravity, Urine 1.025 (1.005-1.030)
[2024-02-01 15:00] LABS: Bacteria,Urine 4+ /lpf; RBC,Urine 20-50 #/hpf (0-3); WBC,Urine TNTC #/hpf (0-3)
--- NOTE | 2024-02-01 15:08 | PC.NURSE ---
Updated [facility] that pt has an ICU bed ready at [facility]. Rm [id number]. Report was called to Mera VINES
== END 2024-02-01 15:53 | disposition other institution (70) ==
PROVIDERS: Emergency Provider Emergency Medicine; PCP Family Medicine
DX: N39.0 Urinary tract infection, site not specified (principal); B96.29 Other Escherichia coli [E. coli] as the cause of diseases classified elsewhere; I48.91 Unspecified atrial fibrillation; R50.9 Fever, unspecified; R79.89 Other specified abnormal findings of blood chemistry; N17.9 Acute kidney failure, unspecified; R11.2 Nausea with vomiting, unspecified; R53.1 Weakness; N18.9 Chronic kidney disease, unspecified; E03.9 Hypothyroidism, unspecified; K21.9 Gastro-esophageal reflux disease without esophagitis; K74.60 Unspecified cirrhosis of liver; I25.10 Atherosclerotic heart disease of native coronary artery without angina pectoris; Z95.5 Presence of coronary angioplasty implant and graft; Z99.2 Dependence on renal dialysis; I11.0 Hypertensive heart disease with heart failure; I50.23 Acute on chronic systolic (congestive) heart failure
CPT/HCPCS: 71045; 80053; 81001; 82803; 83605; 83690; 83880; 84484; 85007; 85025; 87040; 87086; 87636; 93005; 96365; 96366; 96375; 99285; J0131; J0696; J2405

== ENCOUNTER 2024-03-26 10:24 | Observation (INO) | payer MEDICARE, SELFPAY ==
[2024-03-26] VITALS (13 sets, daily range): BP systolic 103–147; BP diastolic 64–103; PULSE 85–143; RESP 13–24; TEMP 36.4–38.2; O2SAT 89–98; BMI 27.9; BMI 24.1
--- NOTE | 2024-03-26 10:26 | XR_ITS ---
FINAL REPORT CLINICAL HISTORY: cough, hypoxia, fever COMPARISON: 02/01/2024 FINDINGS: There is an airspace opacity in the right lung base, new since the prior film of January 31, worrisome for pneumonia. There is left basilar atelectasis. A right-sided dialysis catheter is noted. Mild cardiomegaly is stable since the prior exam. There is no evidence of effusion or pneumothorax. Mediastinum is unremarkable. IMPRESSION: New airspace opacity in the right lung base, worrisome for pneumonia. Reviewed, Interpreted and Dictated by Santos Perez MD Transcribed by Aleshia Lunsford Authenticated and [facility]
--- NOTE | 2024-03-26 10:27 | CT_ITS ---
FINAL REPORT CLINICAL HISTORY: AMS COMPARISON: None FINDINGS: Mild age-appropriate atrophy and chronic ischemic white matter changes are noted. No cortical edema is present. There is no mass or hemorrhage. Ventricles are normal. Bone windows show no skull fracture or obvious obstructive lesion. IMPRESSION: 1. No acute intracranial abnormality or obvious mass. 2. Mild age-appropriate atrophy and chronic ischemic white matter changes as above. Reviewed, Interpreted and Dictated by Santos Perez MD Transcribed by Aleshia Lunsford Authenticated and [facility]
--- NOTE | 2024-03-26 10:27 | ECG_ITS ---
APPROVED REPORT Exam: Resting ECG HR:118 bpm ECG Measurements Heart Rate 118 AXES QRSd 93 QRS -76 QT 294 T 120 QTc 364 Conclusion ATRIAL FIBRILLATION WITH RAPID VENTRICULAR RESPONSE WITH ABERRANT CONDUCTION OR VENTRICULAR PREMATURE COMPLEXES INDETERMINATE AXIS LEFT ANTERIOR FASCICULAR BLOCK [QRS AXIS <= -45, QR IN I, RS IN II] NONSPECIFIC ST & T-WAVE ABNORMALITY Electronically signed by : MARIFER OSBORNE, 03/27/2024 16:00:32
--- NOTE | 2024-03-26 10:34 | ED_ITS ---
Discharge Plan Disposition Patient Disposition: Admitted Condition: Good Clinical Impressions Clinical Impression: Sepsis, Atrial fibrillation with RVR, AMS (altered mental status), Acute UTI, Hyperkalemia, Pneumonia, Acute hypoxemic respiratory failure, Chronic pericardial effusion, Colitis, ESRD (end stage renal disease) on dialysis, Elevated troponin Discharge ED Provider: Rosie Cota General Adult HPI General Chief complaint: Altered Mental Status Stated complaint: altered mental Time Seen by Provider: 03/26/24 10:26 History of Present Illness HPI narrative: This patient is an 79-year-old male with a history of end-stage renal disease on Saturday/Saturday dialysis, history of kidney stones, history of hypothyroidism, hypertension, CAD, atrial fibrillation, CHF, anemia, hypothyroidism, prior urinary tract infection presenting to the emergency department for evaluation with concerns for fever and altered mental status. According to EMS, they were called to the patient's home because he was confused and had a fever and cough. They noted that the patient was hypoxic on room air upon arrival with an O2 saturation of 85%. They then placed him on 3 L nasal cannula with good improvement in his oxygen saturation. He does not contribute much to history given confusion, but he does state that he feels like he is going to be sick. According to his , he was okay Saturday when he had dialysis, but symptoms started last night. He was up all night vomiting and coughing with confusion and fever that started today. He has a dialysis catheter in his right chest. Related Data Home Medications Medication Instructions Recorded Confirmed metoclopramide HCl 10 mg tablet 10 mg PO DAILY 07/03/21 03/09/24 (Reglan) qllesgchydeq-rqk-mztpu acid-vit 1 tab PO DAILY Supplement 07/03/21 03/09/24 K-lycop 400 mcg-20 mcg-370 mcg tablet (One-A-Day Men's 50 Plus (with vitamin K)) psyllium seed (sugar) oral powder 1 tbsp PO DAILY . 07/03/21 03/09/24 (Metamucil (sugar) oral powder) ursodiol 500 mg tablet 500 mg PO BID . 07/03/21 03/09/24 apixaban 5 mg tablet (Eliquis) 5 mg PO BID Blood thinner 02/07/22 03/09/24 cyclobenzaprine 10 mg tablet 10 mg PO DAILYP PRN Muscle Pain 02/11/23 03/09/24 levothyroxine 50 mcg tablet 50 mcg PO DAILY 02/11/23 03/09/24 polyethylene glycol 3350 17 gram 17 g PO DAILY 10/03/23 03/09/24 oral powder packet (Miralax) vitamins A,C,U-aiox-qbisia 2,148 1 tab PO BID 10/03/23 03/09/24 mcg-113 mg-45 mg-17.4 mg tablet (PreserVision AREDS) albuterol sulfate 90 mcg/actuation 1 inh inhalation ONCE PRN copd 10/09/23 03/09/24 aerosol inhaler Previous Rx's Medication Instructions Recorded sacubitril 24 mg-valsartan 26 mg 1 tab PO BID #60 tabs 11/19/23 tablet (Entresto) metoprolol succinate 50 mg 50 mg PO BID #60 tabs 12/05/23 tablet,extended release 24 hr furosemide 40 mg tablet (Lasix) 40 mg PO DAILY #30 tabs 02/10/24 metolazone 2.5 mg tablet 2.5 mg PO Q OTHER DAY PRN dyspnea 02/10/24 #15 tabs Allergies Allergy/AdvReac Type Severity Reaction Status Date / Time No Known Allergies Allergy Verified 03/09/24 13:31 [facility] Disclaimer: The information contained in this section may have been updated after the patient was seen, as this information can be updated by other users. Medical History Hypothyroidism Kidney stones GERD (gastroesophageal reflux disease) Cirrhosis CKD (chronic kidney disease) Atrial fibrillation with RVR PAF (paroxysmal atrial fibrillation) Coronary artery disease HTN (hypertension) Aortic stenosis Surgical History History of colonoscopy History of esophagogastroduodenoscopy (EGD) History of cataract surgery History of cholecystectomy Hx of aortic valve replacement Hx of cardiac cath History of heart valve replacement Family History Other Cancer Hypertension No significant family history Social History Smoking Status: Never smoker alcohol intake: never substance use type: denies use current occupational status: retired Travel in the last 8 weeks: None household members: spouse housing: house marital status: current occupational exposures/hazards: No caffeine: Yes special alf needs: No agree to transfusion: No do you feel safe at home: Yes victim of physical abuse: No victim of emotional abuse: No victim of sexual abuse: No would you like helpful sources: No ROS Obtained: Yes unobtainable due to mental status Physical Exam General General appearance: alert and in no apparent distress Comment: Lying in bed in no acute distress, but is confused Head Head exam: atraumatic and normocephalic Eye Eye exam: Present normal appearance, PERRL and EOMI ENT ENT exam: Present mucous membranes dry and normal external ear exam Neck Neck exam: Present normal inspection, full ROM and trachea midline; Absent tenderness Chest Chest inspection: Present normal inspection, symmetric chest wall rise and other (Dialysis catheter in right chest); Absent tenderness Respiratory Respiratory exam: Present other (Rhonchi, right greater than left.); Absent respiratory distress, wheezes, stridor or accessory muscle use Cardiovascular Cardiovascular exam: Present tachycardia and irregular rhythm Abdominal Exam Abdominal exam: Present soft; Absent distention, tenderness, guarding or rebound Extremities Exam Extremities exam: Present full ROM and normal capillary refill; Absent tenderness or edema Back Exam Back exam: Present normal inspection and full ROM; Absent tenderness Neurological Exam Neurological exam: Present alert and CN II-XII intact; Absent oriented X3 Skin Skin exam: Present warm, dry and rash (Petechial type rash to the bilateral lower legs) Medical Decision Making Medical Records Medical records reviewed: Yes I reviewed the patient's medical records. Roberto Inquiry Pt receiving controlled substance: No Vital Signs: 03/26/24 10:25 03/26/24 11:01 03/26/24 11:31 Temperature 100.8 F H Temperature Source Rectal Pulse Rate 143 H 104 H Pulse Rate [Radial] 140 H Respiratory Rate 24 20 23 Blood Pressure 146/99 H 121/73 Blood Pressure [Right Arm] 147/103 H Blood Pressure Mean Blood Pressure Mean [Right Arm] 117 Blood Pressure Source [Right Arm] Automatic Cuff Blood Pressure Position [Right Arm] Sitting 02 Sat by Pulse Oximetry 89 L 98 96 Oxygen Delivery Method Room Air Nasal Cannula Nasal Cannula 03/26/24 12:00 03/26/24 12:30 03/26/24 13:00 Temperature Temperature Source Pulse Rate 136 H 102 H 122 H Pulse Rate [Radial] Respiratory Rate 16 16 Blood Pressure 123/77 129/74 114/64 Blood Pressure [Right Arm] Blood Pressure Mean 87 81 Blood Pressure Mean [Right Arm] Blood Pressure Source [Right Arm] Blood Pressure Position [Right Arm] 02 Sat by Pulse Oximetry 98 98 94 L Oxygen Delivery Method Nasal Cannula 03/26/24 13:31 03/26/24 14:00 Temperature Temperature Source Pulse Rate 124 H 119 H Pulse Rate [Radial] Respiratory Rate Blood Pressure 120/79 117/72 Blood Pressure [Right Arm] Blood Pressure Mean Blood Pressure Mean [Right Arm] Blood Pressure Source [Right Arm] Blood Pressure Position [Right Arm] 02 Sat by Pulse Oximetry 98 98 Oxygen Delivery Method Nasal Cannula Nasal Cannula Lab Data Lab results reviewed: Yes I reviewed the patient's lab results. Lab Results 03/26/24 10:27: VBG pH 7.41, VBG pCO2 39.4, VBG pO2 48.2 H, VBG HCO3 24.4, VBG Total CO2 25.6, VBG O2 Saturation 81.9 H, VBG Base Excess -0.3, VBG Lactic Acid 2.7 H 03/26/24 10:35: WBC 6.2, RBC 2.67 L, Hgb 9.5 L, Hct 29.9 L, MCV 111.9 H, MCH 35.6 H, MCHC 31.8, RDW 17.4, Plt Count 72 L, MPV 10.0, Neut % (Auto) 77.7, Lymph % (Auto) 15.0, Wharton % (Auto) 5.9, Eos % (Auto) 1.0, Baso % (Auto) 0.4, Neut # (Auto) 4.8, Lymph # (Auto) 0.9, Wharton # (Auto) 0.4, Eos # (Auto) 0.1, Baso # (Auto) 0.0, PT 13.3 H, INR 1.21 H, APTT 31.3 H, D-Dimer 1.05 H, Sodium 138, P otassium 5.4 H, Chloride 101, Carbon Dioxide 26, Anion Gap 16.4 H, BUN 47 H, C reatinine 4.60 H, Estimated Creat Clear 16, Estimated GFR 12 L*, Est GFR ( Amer) 15 L*, Glucose 82, Calcium 9.1, Total Bilirubin 1.0, AST 41, ALT 16, Alkaline Phosphatase 115, Troponin I 0.14 H, NT-Pro-B Natriuret Pep 84891 H, Total Protein 7.0, Albumin 3.4 L, Globulin 3.6 H, Albumin/Globulin Ratio 0.9 L, Lipase 316 H, Procalcitonin 0.653, TSH 2.54, Thyroxine (T4) 7.2 03/26/24 10:45: SARS-CoV-2 (PCR) Not detected, Influenza A Untype (PCR) Not detected, Influenza Type B (PCR) Not detected 03/26/24 11:02: Urine Color Yellow, Urine Appearance Clear, Urine pH 6.5, Ur Specific [place] 1.020, Urine Protein 2+, Urine Glucose (UA) Negative, Urine Ketones Negative, Urine Blood 2+, Urine Nitrate Positive, Urine Bilirubin Negative, Urine Urobilinogen 1.0, Ur Leukocyte Esterase 2+ A, Urine RBC 5-10, Urine WBC 5-10, Ur Squamous Epith Cells Occasional, Urine Bacteria 1+ 03/26/24 13:19: Troponin I 0.29 H 03/26/24 10:35 03/26/24 10:35 Orders (Tests/Meds): ED MEDICATIONS Generic Name Dose Route Start Last Admin Trade Name Freq PRN Reason Stop Dose Admin Sodium Chloride 10 ml 03/26/24 11:55 03/26/24 11:56 Sodium Chloride 0.9% 10ml Syr (Rad Only) IV 04/25/24 11:54 10 ml NEEDED PRN Administration Maintain IV Site Discontinued Medications Generic Name Dose Route Start Last Admin Trade Name Freq PRN Reason Stop Dose Admin Acetaminophen 1,000 mg 03/26/24 10:27 03/26/24 10:57 Acetaminophen 1,000mg/100ml Vial IV 03/26/24 10:28 1,000 mg ONCE ONE Administration Diltiazem HCl 15 mg 03/26/24 10:55 03/26/24 10:58 Diltiazem 25mg/5ml Vial IV 03/26/24 10:56 15 mg ONCE ONE Administration Diltiazem HCl 120 mg 03/26/24 11:14 03/26/24 11:19 Diltiazem Er 120mg Capsule PO 03/26/24 11:15 120 mg ONCE ONE Administration Lactated Ringer's 1,000 mls @ 999 mls/hr 03/26/24 10:26 03/26/24 10:57 Lactated Ringer's 1000 Ml Bag IV 03/26/24 11:26 999 mls/hr .Q1H1M ONE Administration Piperacillin Sod/Tazobactam 50 mls @ 100 mls/hr 03/26/24 11:18 03/26/24 11:39 Sod 3.375 gm/ Sodium Chloride IV 03/26/24 11:47 100 mls/hr ONCE ONE Administration Vancomycin/PEG/NADA/Lysine/Water 1.25 gm in 250 mls @ 125 mls/hr 03/26/24 11:30 03/26/24 12:22 Vancomycin 1.25gm/250ml (Peg) Premix IV 03/26/24 13:29 125 mls/hr ONCE ONE Administration Iopamidol 100 ml 03/26/24 11:55 03/26/24 11:56 Iopamidol-370 (76%);100ml Bottle IV 03/26/24 11:56 100 ml ONCE ONE Administration Miscellaneous 1 each 03/26/24 11:30 Vancomycin Consult Request NOTAPPLIC 04/25/24 11:29 CONSULT PHARMACY [facility] Ondansetron HCl 4 mg 03/26/24 10:27 03/26/24 10:58 Ondansetron 4mg/2ml Vial IV 03/26/24 10:28 4 mg ONCE ONE Administration Ondansetron HCl 4 mg 03/26/24 10:30 03/26/24 11:43 Ondansetron 4mg/2ml Vial IV 03/26/24 10:31 4 mg ONCE ONE Administration Sodium Chloride 50 ml 03/26/24 11:55 03/26/24 11:56 0.9 % Sodium Chloride 50 Ml Vial IV 03/26/24 11:56 50 ml ONCE ONE Administration ORDERS Category Date Time Status CT abdomen pelvis w con Stat Cat Scan 03/26/24 11:[address] head/brain wo con Stat Cat Scan 03/26/24 10:27 Completed CTA Chest [CT angio chest PE protocol] Stat Cat Scan 03/26/24 11:19 Completed Cardiology Consult [Consult to Cardiology] [CONS] Cons 03/26/24 14:13 Active Routine Cardiology Consult [Consult to Cardiology] [CONS] Cons 03/26/24 14:13 Active Routine CXR --portable [XR chest portable] Stat Exams 03/26/24 10:26 Completed Activated Partial Thrombo Time Stat Lab 03/26/24 10:35 Completed BNP [NT Pro Brain Natriuretic Pep.] Stat Lab 03/26/24 10:35 Completed Complete Blood Count Auto Diff Stat Lab 03/26/24 10:35 Completed Comprehensive Metabolic Panel Stat Lab 03/26/24 10:35 Completed D-Dimer Stat Lab 03/26/24 10:35 Completed Full Resp Panel w/COVID ([facility]) Routine Lab 03/26/24 10:45 Received Lipase Stat Lab 03/26/24 10:35 Completed Procalcitonin Stat Lab 03/26/24 10:35 Completed Prothrombin Time INR Stat Lab 03/26/24 10:35 Completed Rapid PCR Covid and Flu A/B Stat Lab 03/26/24 10:45 Completed T4 (Thyroxine) Stat Lab 03/26/24 10:35 Completed TSH [Thyroid Stimulating Hormone] Stat Lab 03/26/24 10:35 Completed Trop I [Troponin I] Stat Lab 03/26/24 10:35 Completed Troponin I Q3H Lab 03/26/24 13:19 Completed Troponin I Q3H Lab 03/26/24 16:30 Ordered UA [Urinalysis and Microscopic] Stat Lab 03/26/24 11:02 Completed Urine Culture Stat Micro 03/26/24 11:03 Received VBG [Venous Blood Gas] Stat RT 03/26/24 10:27 Completed ECG Data Tracing #1: I reviewed this ECG and interpreted as documented below: Atrial fibrillation with RVR with a ventricular rate of [address] changes concerning for ischemia. No significant changes noted from prior ECG. ECG initial impression date: 03/26/24 ECG initial impression time: 10:28 Tracing #2: I reviewed this ECG and interpreted as documented below: Atrial fibrillation with a ventricular rate of [address] changes concerning for ischemia. No significant changes noted from prior ECG. ECG initial impression date: 03/26/24 ECG initial impression time: 14:14 Medical Decision Narrative: In summary, this patient is a 79-year-old male presenting to the Emergency Department for evaluation of fever, cough, altered mental status, and hypoxia noted by EMS. Differential diagnoses considered include but are not limited to sepsis, pneumonia, respiratory failure, urinary tract infection, volume overload, ACS. Ruling out the most morbid conditions drove assessment. It should be noted patient's history includes ESRD on dialysis, atrial fibrillation which are not at goal therapy. This complicates all aspects of care by increasing patient's risk for morbidity. I reviewed patient's past medical records and noted previous evaluation here in January for similar concerns. He was transferred to [place] at that time for further evaluation and management given that he had acute renal failure, volume overload, A-fib with RVR, and we do not have nephrology here. On exam, the patient is lying in bed in no acute distress. He is febrile. He is tachycardic with irregular rhythm. He was hypoxic on room air, requiring 3 L nasal cannula to maintain oxygen saturation greater than 93%. Workup included broad lab evaluation including metabolic, cardiac, and infectious workup as well as CT head without contrast, chest x-ray, CT chest, abdomen, and pelvis. He was given 1 L bolus of fluids, as he appears intravascularly depleted on clinical exam, but he was not given full sepsis bolus as he is currently on dialysis and volume overload could be detrimental to him. He was given IV acetaminophen and IV Zofran as well. Upon return from CT scan, patient was tachycardic with A-fib with RVR with a rate in the 150s to 160s. His reports that he has not had his morning medications for rate control given his vomiting at home. He was given 15 mg of IV diltiazem with rate control in the 90s. To maintain this, he was given 120 mg of oral diltiazem. I independently interpreted [] prior to the radiologist read and noted []. Please see their read for final interpretation. Labs were obtained that demonstrated elevated D-dimer. Patient also has an elevated lactic acid. Urinalysis is concerning for infection. Given source of infection, elevated lactic acid, tachycardia, and fever, patient meets sepsis criteria. Against, full sepsis bolus not given given that he is on dialysis and I do not want to volume overload him. He also has mild hyperkalemia without significant EKG changes associated. Given elevated D-dimer, respiratory failure, and sepsis with recurrent UTI, decision was made to order CT chest, abdomen, and pelvis with IV contrast to further assess. I feel that the benefit outweighs the risk in the setting of his nephropathy. He is already on dialysis. Given sepsis, he was given IV vancomycin and Zosyn. On reassessment, patient had good improvement after administration of diltiazem as well as a small bolus of fluids. He is alert, conversational, and is much more participate in exam than previous. Vitals have improved. Perfusion is improved. CT scans demonstrated pneumonia as well as colitis without other acutely concerning abnormalities at this time. He has a chronic pericardial effusion that slightly enlarged. No evidence of tamponade on exam. Second troponin did come back elevated, however patient does not have any changes on EKG. Feel this is likely stress/demand related to his atrial fibrillation as well as sepsis. I did consult cardiology for management of this. I had an interactive discussion with Una Bunch who advised that they would come by to see the patient. At this time, patient was deemed to be appropriate for admission for management of respiratory failure, pneumonia, sepsis, urinary tract infection, colitis, pericardial effusion, atrial fibrillation, elevated troponins. I had an interactive discussion with Dr. Yang to determine whether or not the patient would be appropriate for admission here given that he is on dialysis. He is not scheduled for dialysis again until Saturday, as he just had dialysis Saturday and is only scheduled twice a week. Given this, Dr. Yang advised that we could admit him here for management of these issues. Family understands that should things change and he need dialysis, he would have to be transferred since we do not do that here. They prefer admission here as opposed to transfer. Patient was admitted in stable condition. Critical Care Critical Care Time Critical Care Time: Yes Attestation: On 03/26/24, the high probability of a clinically significant, sudden or life threatening deterioration of the following system(s) required my full and direct attention, intervention and personal management. The time I documented below is in addition to time spent performing reported procedures but includes the following listed in this critical care notation. Total Time Total Critical Care Time: 50
--- NOTE | 2024-03-26 10:42 | PC.NURSE ---
pt to ct via stretcher
--- NOTE | 2024-03-26 10:44 | PC.NURSE ---
DR OSBORNE AT BEDSIDE
[2024-03-26 10:50] LABS: Basophils % 0.4 % (0.1-2.0); Eosinophils # 0.1 K/mm3 (0.0-0.4); Hematocrit 29.9 % (42.0-52.0); Hemoglobin 9.5 g/dL (14.1-18.0); Lymphocytes # 0.9 K/mm3 (0.7-4.5); Mean Corpuscular HGB Conc 31.8 g/dL (31.8-35.4); Mean Corpuscular Hemoglobin 35.6 pg (27.0-31.2); Mean Corpuscular Volume 111.9 fl (80-94); Monocytes # 0.4 K/mm3 (0.1-1.0); Monocytes % 5.9 % (1.7-9.3); Neutrophils # 4.8 K/mm3 (1.8-7.8); Neutrophils % 77.7 % (37.0-80.0); Platelet Count 72 K/mm3 (142-424); Red Blood Count 2.67 M/mm3 (4.60-6.20); Red Cell Distribution Width 17.4 % (11.5-17.5); White Blood Count 6.2 K/mm3 (4.8-10.8)
--- NOTE | 2024-03-26 10:50 | PC.NURSE ---
pt arrived back to room from ct
[2024-03-26 10:51] LABS: VBG Base Excess -0.3 mmol/L (-2.4-2.3); VBG HCO3 24.4 mmol/L (23-30); VBG Oxygen Saturation 81.9 % (50-70); VBG PCO2 39.4 mmol/L (35-51); VBG PH 7.41 mmol/L (7.31-7.41); VBG PO2 48.2 mmol/L (28-40); VBG Total CO2 25.6 mmol/L (23-27)
--- NOTE | 2024-03-26 10:51 | PC.NURSE ---
PT RETURNED FROM CT
--- NOTE | 2024-03-26 10:53 | PC.NURSE ---
COVID/FLU SWAB SENT AT 10:52
[2024-03-26 10:54] LABS: Coronavirus 19, PCR Not Detected (NotDetected); Influenza A, PCR Not Detected (NotDetected); Influenza B, PCR Not Detected (NotDetected)
[2024-03-26 10:56] LABS: Lactate Venous 2.7 mmol/L (0.4-2.0)
[2024-03-26] MEDS: LACTATED RINGERS 1000ML 1,000 ML 999 ML IV (10:57)
[2024-03-26] MEDS: ACETAMINOPHEN 1,000MG/100ML VIAL 1000 MG IV (10:57)
[2024-03-26] MEDS: ONDANSETRON 4MG/2ML VIAL 4 MG IV ×2 (10:58→11:43)
[2024-03-26] MEDS: dilTIAZem 25MG/5ML VIAL 15 MG IV (10:58)
[2024-03-26 11:00] LABS: Activated Partial Thrombo Time 31.3 seconds (22.8-30.6); INR 1.21 (0.9-1.1); Prothrombin Time 13.3 seconds (10.1-12.5)
[2024-03-26 11:09] LABS: Microscopic, Urine URINE MICROSCOPIC (MICROSCOPIC)
[2024-03-26 11:12] LABS: D-Dimer 1.05 ug/mL (0.0-0.5)
[2024-03-26 11:13] LABS: Appearance,Urine CLEAR (Clear); Bilirubin,Urine Negative (Negative); Blood, Urine 2+ (Negative); Color,Urine YELLOW (Yellow); Glucose,Urine (UA) Negative (Negative); Ketones,Urine Negative (Negative); Leukocyte Esterase,Urine 2+ (Negative); Nitrate,Urine POSITIVE (Negative); PH,Urine 6.5 (5.0-8.5); Protein,Urine 2+ (Negative)
[2024-03-26 11:16] LABS: Alanine Aminotransferase 16 U/L (12-78); Albumin Level 3.4 g/dl (3.5-5.0); Albumin/Globulin Ratio 0.9 (1.1-1.8); Alkaline Phosphatase 115 U/L (38-126); Anion Gap 16.4 mEq/L (5-15); Aspartate Amino Transferase 41 U/L (17-59); Blood Urea Nitrogen 47 mg/dl (9-20); Calcium 9.1 mg/dl (8.4-10.2); Carbon Dioxide 26 mmol/L (22.0-30.0); Chloride 101 mmol/L (98-107); Creatinine Clearance Estimated 16 mL/min (50-200); Estimated Glomerular Filt Rate 12 ml/min (>60); GFR (African American) 15 ML/MIN (>60); Globulin 3.6 g/dL (1.3-3.2); Glucose 82 mg/dl (74-100); Lipase 316 U/L (23-300); Potassium 5.4 mmoL/L (3.5-5.1); Sodium 138 mmol/L (136-145)
[2024-03-26] MEDS: dilTIAZem ER 120MG CAPSULE 120 MG PO (11:19)
--- NOTE | 2024-03-26 11:19 | CT_ITS ---
FINAL REPORT TECHNIQUE: Postcontrast axial images through the abdomen and pelvis were performed. This study was performed with techniques to keep radiation doses as low as reasonably achievable, (ALARA). Individualized dose reduction techniques using automated exposure control or adjustment of mA and/or kV according to the patient's size were employed. CLINICAL HISTORY: fever/cough, vomiting, recurrent UTI, AMS COMPARISON: 11/15/2021 FINDINGS: Abdomen: There is extensive bilateral nephrolithiasis without hydronephrosis. There is a cirrhotic appearance of the liver. The remaining solid organs are unremarkable. There is a small amount of ascites in the upper abdomen. No bowel obstruction is present. There is no free air. No fluid collection is seen. There is abnormal circumferential wall thickening involving the ascending colon, could be colitis or related to underlying liver disease. There is no adenopathy. Pelvis: The appendix is not identified. There is minimal ascites within the pelvis. There is mild bladder wall thickening which is nonspecific. The prostate is unremarkable. There is a tiny left inguinal hernia containing fat. IMPRESSION: Cirrhosis with minimal ascites, likely related to liver disease. Long segment circumferential wall thickening of the ascending colon, may represent colitis or underlying liver disease. Extensive nephrolithiasis. Reviewed, Interpreted and Dictated by Santos Perez MD Transcribed by Mera Castillo Authenticated and [facility]
--- NOTE | 2024-03-26 11:19 | CT_ITS ---
FINAL REPORT TECHNIQUE: Thin section axial CT with contrast with multiplanar reconstruction. This study was performed with techniques to keep radiation doses as low as reasonably achievable (ALARA). Individualized dose reduction techniques using automated exposure control or adjustment of mA and/or kV according to the patient's size were employed. CLINICAL HISTORY: resp failure, elevated d-dimer, fever/cough COMPARISON: 09/11/2023 FINDINGS: Pulmonary vessels enhance in normal fashion without evidence of embolism. Thoracic aorta shows no dissection or aneurysm. There has been interval development of bibasilar airspace opacities in the lower lobes, lingula, and right middle lobe, pneumonia is favored over edema. The upper lobes are clear. There is a moderate to large pericardial effusion measuring 18 mm along the left ventricle, previously measured 13 mm. Trace bilateral effusions are identified. There is stable mild adenopathy, likely reactive. IMPRESSION: No evidence of pulmonary embolism. Interval development of bibasilar lung disease, favor pneumonia over edema. Enlarging pericardial effusion. Reviewed, Interpreted and Dictated by Santos Perez MD Transcribed by Mera Castillo Authenticated and [facility]
--- NOTE | 2024-03-26 11:21 | EXP.PHA.CONS ---
Pharmacy Consult Date: 03/26/24 Time: 11:21 Referring provider: DR. OSBORNE Reason for Consult:: VANCOMYCIN DOSING Allergies Allergy/AdvReac Type Severity Reaction Status Date / Time No Known Allergies Allergy Verified 03/09/24 13:31 Home Medications Medication Instructions Recorded Confirmed Type metoclopramide HCl 10 mg tablet 10 mg PO DAILY 07/03/21 03/09/24 History (Reglan) detiyrfywilu-jrl-lybsr acid-vit 1 tab PO DAILY Supplement 07/03/21 03/09/24 History K-lycop 400 mcg-20 mcg-370 mcg tablet (One-A-Day Men's 50 Plus (with vitamin K)) psyllium seed (sugar) oral powder 1 tbsp PO DAILY . 07/03/21 03/09/24 History (Metamucil (sugar) oral powder) ursodiol 500 mg tablet 500 mg PO BID . 07/03/21 03/09/24 History apixaban 5 mg tablet (Eliquis) 5 mg PO BID Blood thinner 02/07/22 03/09/24 History cyclobenzaprine 10 mg tablet 10 mg PO DAILYP PRN Muscle Pain 02/11/23 03/09/24 History levothyroxine 50 mcg tablet 50 mcg PO DAILY 02/11/23 03/09/24 History polyethylene glycol 3350 17 gram 17 g PO DAILY 10/03/23 03/09/24 History oral powder packet (Miralax) vitamins A,C,J-rjbj-vyhxel 2,148 1 tab PO BID 10/03/23 03/09/24 History mcg-113 mg-45 mg-17.4 mg tablet (PreserVision AREDS) albuterol sulfate 90 mcg/actuation 1 inh inhalation ONCE PRN copd 10/09/23 03/09/24 History aerosol inhaler sacubitril 24 mg-valsartan 26 mg 1 tab PO BID #60 tabs 11/19/23 03/09/24 Rx tablet (Entresto) metoprolol succinate 50 mg 50 mg PO BID #60 tabs 12/05/23 03/09/24 Rx tablet,extended release 24 hr furosemide 40 mg tablet (Lasix) 40 mg PO DAILY #30 tabs 02/10/24 03/09/24 Rx metolazone 2.5 mg tablet 2.5 mg PO Q OTHER DAY PRN dyspnea 02/10/24 03/09/24 Rx #15 tabs New Prescriptions to Start Prescriptions: Height: 1.78 m Weight: 88.451 kg Laboratory Results:: Laboratory Results - last 24 hr 03/26/24 10:27: VBG pH 7.41, VBG pCO2 39.4, VBG pO2 48.2 H, VBG HCO3 24.4, VBG Total CO2 25.6, VBG O2 Saturation 81.9 H, VBG Base Excess -0.3, VBG Lactic Acid 2.7 H 03/26/24 10:35: WBC 6.2, RBC 2.67 L, Hgb 9.5 L, Hct 29.9 L, MCV 111.9 H, MCH 35.6 H, MCHC 31.8, RDW 17.4, Plt Count 72 L, MPV 10.0, Neut % (Auto) 77.7, Lymph % (Auto) 15.0, [place] % (Auto) 5.9, Eos % (Auto) 1.0, Baso % (Auto) 0.4, Neut # (Auto) 4.8, Lymph # (Auto) 0.9, [place] # (Auto) 0.4, Eos # (Auto) 0.1, Baso # (Auto) 0.0, PT 13.3 H, INR 1.21 H, APTT 31.3 H, D-Dimer 1.05 H, Sodium 138, Potassium 5.4 H, Chloride 101, Carbon Dioxide 26, Anion Gap 16.4 H, BUN 47 H, Creatinine 4.60 H, Estimated Creat Clear 16, Estimated GFR 12 L*, Est GFR ( Amer) 15 L*, Glucose 82, Calcium 9.1, Total Bilirubin 1.0, AST 41, ALT 16, Alkaline Phosphatase 115, Total Protein 7.0, Albumin 3.4 L, Globulin 3.6 H, Albumin/Globulin Ratio 0.9 L, Lipase 316 H 03/26/24 11:02: Urine Color Yellow, Urine Appearance Clear, Urine pH 6.5, Ur Specific [place] 1.020, Urine Protein 2+, Urine Glucose (UA) Negative, Urine Ketones Negative, Urine Blood 2+, Urine Nitrate Positive, Urine Bilirubin Negative, Urine Urobilinogen 1.0, Ur Leukocyte Esterase 2+ A Medical History: Medical History (Updated 03/26/24 @ 11:19 by LIVAN Jay Hypothyroidism Kidney stones GERD (gastroesophageal reflux disease) Cirrhosis CKD (chronic kidney disease) Atrial fibrillation with RVR PAF (paroxysmal atrial fibrillation) Coronary artery disease HTN (hypertension) Aortic stenosis Assessment and Plan Assessment and plan all Dx Assessment and Plan for all problems:: Pharmacokinetic dosing service Objective: Patient: Floor: Age: 79 yo Serum creatinine: 4.6 mg/dL Height: 70.0 Inches Weight (kg): 88.45 Assessment: IBW (kg): 73.00 Dosing wt(kg): 88.45 Estimated Creatinine clearance (ml/min): 13.2 CRCL method: Cockcroft and Gault using ibw(default). Drug selected: Vancomycin Loading dose (mg): 0 Vd (liters): 70.8 (factor used: 0.8 L/kg) Tunde (hr-1): 0.015 Half life (hrs): 46.21 Recommended dose: 1250 mg Interval: 48 hrs Infusion time (hrs): 2.0 Predicted peak (mcg/mL): 33.9 Predicted trough (mcg/mL): 17.00 Total body weight is being used for vancomycin dosing. Recommendations: Give Vancomycin 1250 mg q 48 hrs with an expected Cpeak of 33.9 mcg/ml and an expected Ctrough of 17.00 mcg/ml. PLACED ORDER FOR 1X DOSE OF VANCOMYCIN 1250 MG WHILE IN ER. ----Vanco only - ignore for aminoglycosides----- CLvanco= 1.06 L/hr AUC 0-24 /SOURAV Data: SOURAV 0.5 mcg/mL: AUC/SOURAV: 1179.2 SOURAV 1.0 mcg/mL: AUC/SOURAV: 589.6 --------- SOURAV 1.5 mcg/mL: AUC/SOURAV: 393.1 SOURAV 2.0 mcg/mL: AUC/SOURAV: 294.8
[2024-03-26 11:33] LABS: Procalcitonin 0.653 ng/mL (0.0-2.0)
[2024-03-26 11:34] LABS: T4 (Thyroxine) 7.2 ug/dl (5.53-11.0)
[2024-03-26] MEDS: PIPERACILLIN/TAZO 3.375 GM in 0.9 % SODIUM CHLORIDE 50 ML IV (11:39)
--- NOTE | 2024-03-26 11:40 | PC.NURSE ---
CRITICAL CREATININE 4.60 RECEIVED FROM GEOVANNA IN LAB. PT NAME AND R/V. DR OSBORNE NOTIFIED. NO NEW ORDERS
--- NOTE | 2024-03-26 11:44 | PC.NURSE ---
PT TO CT
[2024-03-26 11:46] LABS: Thyroid Stimulating Hormone 2.54 uIU/mL (0.465-4.68)
[2024-03-26 11:48] LABS: Troponin I 0.14 ng/ml (0.00-0.034)
[2024-03-26 11:51] LABS: Adenovirus,PCR Not Detected (NotDetected); Bordetella Pertussis Not Detected (NotDetected); Chlamydophila Pneumoniae, PCR Not Detected (NotDetected); Coronavirus 19, PCR Not Detected (NotDetected); Coronavirus 229E Not Detected (NotDetected); Coronavirus NL63 Not Detected (NotDetected); Coronavirus OC43 Not Detected (NotDetected); Coronovirus HKU1,PCR Not Detected (NotDetected); Human Metapneumovirus Not Detected (NotDetected); Influenza A, PCR Not Detected (NotDetected); Influenza AH1, 2009 Not Detected (NotDetected); Influenza AH1, PCR Not Detected (NotDetected); Influenza AH3,PCR Not Detected (NotDetected); Influenza B, PCR Not Detected (NotDetected); Mycoplasma Pneumoniae, PCR Not Detected (NotDetected); Parainfluenza 1, PCR Not Detected (NotDetected); Parainfluenza 2, PCR Not Detected (NotDetected); Parainfluenza 3, PCR Not Detected (NotDetected); Parainfluenza 4, PCR Not Detected (NotDetected); Respiratory Syncytial Virus Not Detected (NotDetected); Rhinovirus/Enterovirus Not Detected (NotDetected)
[2024-03-26] MEDS: SODIUM CHLORIDE 0.9% 10ML SYR (RAD ONLY) 10 ML IV (11:56)
[2024-03-26] MEDS: IOPAMIDOL-370 (76%);100ML BOTTLE 100 ML IV (11:56)
[2024-03-26] MEDS: 0.9 % SODIUM CHLORIDE 50 ML VIAL IV (11:56)
--- NOTE | 2024-03-26 11:58 | PC.NURSE ---
PT RETURNED FROM CT
--- NOTE | 2024-03-26 12:00 | HMH.ITSTN ---
GFR completion/results were overrode for the use of contrast media by the Physician on a risk vs. benefit situation with this patient.
[2024-03-26 12:03] LABS: Bacteria,Urine 1+ /lpf; Squamous Epithelial Cell,Urine Occasional #/hpf (0-5)
--- NOTE | 2024-03-26 12:20 | PC.NURSE ---
DR OSBORNE AT BEDSIDE TO UPDATE FAMILY
[2024-03-26] MEDS: VANCOMYCIN/WATER FOR INJ (PEG) 1.25 GM/250 ML PIGGYBACK IV (12:22)
[2024-03-26 12:35] LABS: NT Pro Brain Natriuretic Pep. 87600 pg/mL (0-450)
--- NOTE | 2024-03-26 13:07 | PC.NURSE ---
CHECKED ON PT HE IS ASLEEP IN BED VISITORS STATES THEY ARE GOOD AND NO NEEDS AT THIS TIME,CALL LIGHT IN REACH
--- NOTE | 2024-03-26 13:13 | PC.NURSE ---
PAGED DR CLARK CATHODE RAY TUBE ASSEMBLER FOR DR PEDROZA
--- NOTE | 2024-03-26 13:14 | PC.NURSE ---
DR OSBORNE IS SPEAKING TO DR CLARK AT THIS TIME
[2024-03-26 14:09] LABS: Troponin I 0.29 ng/ml (0.00-0.034)
--- NOTE | 2024-03-26 14:09 | PC.NURSE ---
DR OSBORNE SPEAKING WITH DR CLARK FOR ADMISSION
--- NOTE | 2024-03-26 14:10 | PC.NURSE ---
CRITICAL TROP RECEIVED FROM [facility] IN LAB 0.29. PT NAME AND R/V. DR OSBORNE NOTIFIED
--- NOTE | 2024-03-26 14:10 | PC.NURSE ---
call made to house steward/stewardess for bed placement
--- NOTE | 2024-03-26 14:12 | PC.NURSE ---
DR OSBORNE AT BEDSIDE TO UPDATE PT AND FAMILY
--- NOTE | 2024-03-26 14:13 | ECG_ITS ---
APPROVED REPORT Exam: Resting ECG HR:106 bpm ECG Measurements Heart Rate 106 AXES QRSd 98 QRS -57 QT 352 T 0 QTc 414 Conclusion ATRIAL FIBRILLATION WITH RAPID VENTRICULAR RESPONSE LEFT ANTERIOR FASCICULAR BLOCK [QRS AXIS <= -45, QR IN I, RS IN II] ST DEVIATION AND MODERATE T-WAVE ABNORMALITY, CONSIDER LATERAL ISCHEMIA [-0.1+ mV T-WAVE IN I/aVL/V5/V6] Electronically signed by : MARIFER OSBORNE, 03/27/2024 15:58:41
--- NOTE | 2024-03-26 14:14 | PC.NURSE ---
CARDIOLOGY IS AWARE OF CONSULT.
--- NOTE | 2024-03-26 14:16 | PC.NURSE ---
DR OSBORNE IS SPEAKING TO [facility].
--- NOTE | 2024-03-26 14:20 | PC.NURSE ---
one attempt made to call report to second floor, no answer from nurse. will try again.
--- NOTE | 2024-03-26 14:22 | CA_ITS ---
APPROVED REPORT EXAM: Limited 2D Echocardiogram Beamer Helper: Richelle Morales CRT Ht: 5 ft 10 in Wt: 195lbs BSA: 2.07 BP: 117/72 mmHg Indications: Pericardial effusion, ef 25% on echo 01/02/24, sob M-Mode Dimensions RVDd 4.95 cm (0.9-2.6) LVDd 4.99 cm (3.5-5.7) LVDs 4.10 cm (3.5-5.7) IVSd 1.63 cm (0.6-1.1) PWd 0.97 cm (0.6-1.1) EF (Teich) 37.00% FS 17.80% EDV (Teich) 117.70 mL ESV (Teich) 74.20 mL Other Information Study Quality: Fair Conclusion This is a limited TTE to evaluate for pericardial effusion. Limited windows were obtained. The left ventricle is normal in size. There is increased LV wall thickness. There is severe global hypokinesis present. LVEF is 25%. The right ventricle is moderately dilated with moderate reduction in RV function. Severe biatrial dilation is present. There is a small sized, circumferential pericardial effusion. The largest pocket is noted posteriorly and measures approximately 0.5 cm in diastole. The IVC is dilated and not collapsible. No evidence of chamber collapse (note the chamber collapse may not be present in the setting of RV dilation). Overall, compared to prior study from 12/2023, the size and location of the pericardial effusion is unchanged. Electronically signed by : Rosio Garcia MD 03/26/2024 17:33:38
--- NOTE | 2024-03-26 14:24 | PC.NURSE ---
report called to ben on the second floor
--- NOTE | 2024-03-26 14:27 | HMH.PHAINT1 ---
Pharmacy Intervention Comments: MEDICATION RECONCILIATION COMPLETED ON PATIENT USING EXTERNAL FILL HISTORY FROM PHARMACY AND LIST FROM CARDIOLOGY OFFICE. -VIDA MONTANEZ, ANAYELID
--- NOTE | 2024-03-26 14:33 | PC.NURSE ---
CARDIOLOGY AT BEDSIDE
--- NOTE | 2024-03-26 14:39 | P.CONCA_ITS ---
History of Present Illness History of Present Illness Consult date: 03/26/24 Requesting physician: Rosie Cota Chief complaint: fever, cough, AMS History of present illness: This is an 79-year-old white gentleman who presented to the emergency department with complaints of fever, cough and altered mental status. He has end-stage renal disease on dialysis on Tuesdays and Saturdays., Coronary artery disease, paroxysmal atrial fibrillation, HFrEF, hypertension and hyperlipidemia. The patient's family reports that he has been having a fever with altered mental status. EMS was called to the home because he was confused with a fever and cough. This started today. The patient was hypoxic on room air requiring oxygen. He was placed on 3 L nasal cannula with improvement in his oxygen saturations. The patient denied any chest pain or pressure. He denies any shortness of breath. He denies any lower extremity edema. He denies any chills, nausea, vomiting, diarrhea, PND orthopnea. On exam of the patient he is lying flat and does not appear to be in any distress. Upon arrival to the emergency department he was found to be in atrial fibrillation with RVR, his rate was in the 150s to 160s. He was given 15 mg of IV push diltiazem and he rate controlled to the 90s. He was then started on oral diltiazem and remains rate controlled with a heart rate around 84. He does have a significantly elevated BNP and creatinine level. His potassium is also elevated. His initial troponin was 0.14 and a second troponin was 0.29. Radiology reports are concerning for worsening of his pericardial effusion. He is septic with pne umonia, UTI and colitis. [facility] Disclaimer: The information contained in this section may have been updated after the patient was seen, as this information can be updated by other users. Medical History (Updated 03/26/24 @ 14:47 by Una Bunch APRN) HFrEF (heart failure with reduced ejection fraction) Pericardial effusion Hypothyroidism Kidney stones GERD (gastroesophageal reflux disease) Cirrhosis CKD (chronic kidney disease) Atrial fibrillation with RVR PAF (paroxysmal atrial fibrillation) Coronary artery disease HTN (hypertension) Aortic stenosis Surgical History History of colonoscopy History of esophagogastroduodenoscopy (EGD) History of cataract surgery History of cholecystectomy Hx of aortic valve replacement Hx of cardiac cath History of heart valve replacement Family History Other Cancer Hypertension No significant family history Social History Smoking Status: Never smoker alcohol intake: never substance use type: denies use current occupational status: retired Travel in the last 8 weeks: None household members: spouse housing: house marital status: current occupational exposures/hazards: No caffeine: Yes special alf needs: No agree to transfusion: No do you feel safe at home: Yes victim of physical abuse: No victim of emotional abuse: No victim of sexual abuse: No would you like helpful sources: No Review of Systems Review of Systems Review of systems:: pertinent systems reviewed and negative unless documented below Constitutional Constitutional: Reports system reviewed and no additional complaints, except as documented, Reports fatigue, Reports fever(s), Reports lethargy and Reports weakness Eyes Eyes: Reports system reviewed and no additional complaints, except as documented ENT Ears, Nose, Mouth, and Throat: Reports system reviewed and no additional complaints, except as documented *Cardiovascular Cardiovascular: Reports system reviewed and no additional complaints, except as documented, Denies chest pain and Denies dyspnea *Respiratory Respiratory: Reports system reviewed and no additional complaints, except as documented, Reports cough and Denies dyspnea *Gastrointestinal Gastrointestinal: Reports system reviewed and no additional complaints, except as documented *Genitourinary Genitourinary: Reports system reviewed and no additional complaints, except as documented *Musculoskeletal Musculoskeletal: Reports system reviewed and no additional complaints, except as documented Integumentary/Breasts Skin/Breast: Reports system reviewed and no additional complaints, except as documented *Neurologic Neurologic: Reports system reviewed and no additional complaints, except as documented and Reports weakness Comments: Altered mental status Psychiatric Psychiatric: Reports system reviewed and no additional complaints, except as documented Endocrine Endocrine: Reports system reviewed and no additional complaints, except as documented and Reports fatigue Hematologic/Lymphatic Hematologic/Lymphatic: Reports system reviewed and no additional complaints, except as documented Allergic/Immunologic Allergic/Immunologic: Reports system reviewed and no additional complaints, except as documented Exam Data for Last 24 hours Vital signs and Labs for Last 24 Hours: Temp Pulse Resp BP Pulse Ox O2 Del Method 100.8 F H 119 H 16 117/72 98 Nasal Cannula 03/26/24 10:25 03/26/24 14:00 03/26/24 12:30 03/26/24 14:00 03/26/24 14:00 03/26/24 14:00 Laboratory Results - last 24 hr 03/26/24 10:27: VBG pH 7.41, VBG pCO2 39.4, VBG pO2 48.2 H, VBG HCO3 24.4, VBG Total CO2 25.6, VBG O2 Saturation 81.9 H, VBG Base Excess -0.3, VBG Lactic Acid 2.7 H 03/26/24 10:35: WBC 6.2, RBC 2.67 L, Hgb 9.5 L, Hct 29.9 L, MCV 111.9 H, MCH 35.6 H, MCHC 31.8, RDW 17.4, Plt Count 72 L, MPV 10.0, Neut % (Auto) 77.7, Lymph % (Auto) 15.0, [place] % (Auto) 5.9, Eos % (Auto) 1.0, Baso % (Auto) 0.4, Neut # (Auto) 4.8, Lymph # (Auto) 0.9, [place] # (Auto) 0.4, Eos # (Auto) 0.1, Baso # (Auto) 0.0, PT 13.3 H, INR 1.21 H, APTT 31.3 H, D-Dimer 1.05 H, Sodium 138, Potassium 5.4 H, Chloride 101, Carbon Dioxide 26, Anion Gap 16.4 H, BUN 47 H, Creatinine 4.60 H, Estimated Creat Clear 16, Estimated GFR 12 L*, Est GFR ( Amer) 15 L*, Glucose 82, Calcium 9.1, Total Bilirubin 1.0, AST 41, ALT 16, Alkaline Phosphatase 115, Troponin I 0.14 H, NT-Pro-B Natriuret Pep 18629 H, Total Protein 7.0, Albumin 3.4 L, Globulin 3.6 H, Albumin/Globulin Ratio 0.9 L, Lipase 316 H, Procalcitonin 0.653, TSH 2.54, Thyroxine (T4) 7.2 03/26/24 10:45: SARS-CoV-2 (PCR) Not detected, Influenza A Untype (PCR) Not detected, Influenza Type B (PCR) Not detected 03/26/24 11:02: Urine Color Yellow, Urine Appearance Clear, Urine pH 6.5, Ur Specific [place] 1.020, Urine Protein 2+, Urine Glucose (UA) Negative, Urine Ketones Negative, Urine Blood 2+, Urine Nitrate Positive, Urine Bilirubin Negative, Urine Urobilinogen 1.0, Ur Leukocyte Esterase 2+ A, Urine RBC 5-10, Urine WBC 5-10, Ur Squamous Epith Cells Occasional, Urine Bacteria 1+ 03/26/24 13:19: Troponin I 0.29 H I & O for Last 24 hours: Intake & Output 03/23/24 03/24/24 03/25/24 03/26/24 23:59 23:59 23:59 23:59 Weight 195 lb Constitutional Constitutional: no acute distress and average body habitus *Routine HEENT Exam Head: Present normocephalic and atraumatic ENT: Present mucous membranes moist *Routine Neck Exam Neck: Present supple, full ROM and normal carotid upstroke; Absent JVD, carotid bruit or lymphadenopathy *Routine Respiratory Exam Respiratory: Present rhonchi, normal respiratory effort, able to speak in complete sentences and symmetric chest movement *Routine Cardiovascular Exam Cardiovascular: Present Normal S1, Normal S2 and irregularly irregular; Absent murmur or gallop *Routine Abdominal Exam Abdominal: Present soft and normoactive bowel sounds; Absent tenderness, distended or organomegaly *Routine Extremities Exam Extremities: Present full ROM, pulses intact and normal capillary refill; Absent cyanosis, clubbing or edema *Routine Skin Exam Skin: Present intact and warm; Absent erythema *Routine Neurological Exam Neurological: Present alert, oriented X3 and CN II-XII intact; Absent sensory deficit or motor deficit Routine Psychiatric Exam Psychiatric: Present normal affect Meds Home Medications and Allergies Home Medications Medication Instructions Recorded Confirmed Type psyllium seed (sugar) oral powder 1 tbsp PO DAILY 07/03/21 03/26/24 History (Metamucil (sugar) oral powder) ursodiol 500 mg tablet 500 mg PO BID 07/03/21 03/26/24 History apixaban 5 mg tablet (Eliquis) 5 mg PO BID 02/07/22 03/26/24 History cyclobenzaprine 10 mg tablet 10 mg PO DAILYP PRN Muscle Pain 02/11/23 03/26/24 History levothyroxine 50 mcg tablet 50 mcg PO DAILY 02/11/23 03/26/24 History polyethylene glycol 3350 17 gram 17 g PO DAILY 10/03/23 03/26/24 History oral powder packet (Miralax) vitamins A,C,J-prrk-ucylok 2,148 1 tab PO BID 10/03/23 03/26/24 History mcg-113 mg-45 mg-17.4 mg tablet (PreserVision AREDS) albuterol sulfate 90 mcg/actuation 1 inh inhalation Q4HP PRN 10/09/23 03/26/24 History aerosol inhaler Shortness Of Breath sacubitril 24 mg-valsartan 26 mg 1 tab PO BID #60 tabs 11/19/23 03/26/24 Rx tablet (Entresto) metoprolol succinate 50 mg 50 mg PO BID #60 tabs 12/05/23 03/26/24 Rx tablet,extended release 24 hr furosemide 40 mg tablet (Lasix) 40 mg PO DAILY #30 tabs 02/10/24 03/26/24 Rx colchicine 0.6 mg tablet 0.6 mg PO DAILY 03/26/24 03/26/24 History metolazone 2.5 mg tablet 2.5 mg PO Q48H 03/26/24 03/26/24 History New Prescriptions to Start Prescriptions: Allergies Allergy/AdvReac Type Severity Reaction Status Date / Time No Known Allergies Allergy Verified 03/09/24 13:31 Assessment and Plan *Assessment and plan (1) Atrial fibrillation with RVR: Status: Acute Category: Medical Code(s): I48.91 - Unspecified atrial fibrillation (2) HFrEF (heart failure with reduced ejection fraction): Status: Acute Category: Medical Code(s): I50.20 - Unspecified systolic (congestive) heart failure (3) Sepsis: Status: Acute Qualifiers: Sepsis type: sepsis due to unspecified organism Sepsis acute organ dysfunction status: unspecified Qualified Code(s): A41.9 - Sepsis, unspecified organism Category: Medical Code(s): A41.9 - Sepsis, unspecified organism (4) UTI (urinary tract infection): Status: Acute Qualifiers: Urinary tract infection type: site unspecified Hematuria presence: without hematuria Qualified Code(s): N39.0 - Urinary tract infection, site not specified Category: Medical Code(s): N39.0 - Urinary tract infection, site not specified (5) AMS (altered mental status): Status: Acute Qualifiers: Altered mental status type: unspecified Qualified Code(s): R41.82 - Altered mental status, unspecified Category: Medical Code(s): R41.82 - Altered mental status, unspecified (6) Hyperkalemia: Status: Acute Category: Medical Code(s): E87.5 - Hyperkalemia (7) Pneumonia: Status: Acute Qualifiers: Pneumonia type: due to unspecified organism Laterality: unspecified laterality Lung location: unspecified part of lung Qualified Code(s): J18.9 - Pneumonia, unspecified organism Category: Medical Code(s): J18.9 - Pneumonia, unspecified organism (8) Pericardial effusion: Status: Acute Category: Medical Code(s): I31.39 - Other pericardial effusion (noninflammatory) (9) Cardiomyopathy: Status: Acute Qualifiers: Cardiomyopathy type: unspecified Qualified Code(s): I42.9 - Cardiomyopathy, unspecified Category: Medical Code(s): I42.9 - Cardiomyopathy, unspecified (10) Elevated troponin: Status: Acute Category: Medical Code(s): R79.89 - Other specified abnormal findings of blood chemistry (11) ESRD (end stage renal disease) on dialysis: Status: Acute Category: Medical Code(s): N18.6 - End stage renal disease; Z99.2 - Dependence on renal dialysis (12) Colitis: Status: Acute Category: Medical Code(s): K52.9 - Noninfective gastroenteritis and colitis, unspecified (13) Elevated brain natriuretic peptide (BNP) level: Status: Acute Category: Medical Code(s): R79.89 - Other specified abnormal findings of blood chemistry Plan Plan: 1. The patient presented to the emergency department with fever, cough and a ltered mental status. He is found to be septic with pneumonia, colitis and UTI. Will defer this to his primary care team. 2. The patient also was in atrial fibrillation with RVR. He was treated with a diltiazem IV push of 15 mg and did rate control to the 90s. He was giving long- acting diltiazem and remains in atrial fibrillation with a rate in the 80s. However, if the patient's EF is still 45% or less then diltiazem would not be a good option for him. If his EF is 45% or less then we will need to increase his beta-alma. If his EF has improved then we can continue diltiazem. 3. Continue apixaban for long-term anticoagulation. 4. The patient does have a known pericardial effusion. CT shows that he has had worsening in this pericardial effusion. Will repeat echocardiogram at this time to reevaluate his pericardial effusion. If his pericardial effusion has worsened then transfer to a tertiary care facility will need to be considered so he can undergo dialysis for fluid management and diuresis. 5. The patient did have an elevated troponin on admission. His initial troponin is 0.14 and a second troponin is 0.29. His troponin appears to be chronically elevated which is most likely from his chronic kidney disease and now the elevation is likely from his atrial fibrillation with RVR. No plans for left cardiac catheterization in this septic patient with a fever. This is most likely a type II non-STEMI. Recommend a statin. 6. Coronary artery disease is present but is likely stable at this time. No plans for invasive left cardiac catheterization as mentioned above. 7. His blood pressure is well-controlled. 8. His LDL goal is less than 55. Will start him on Lipitor 40 mg p.o. nightly. Will obtain a lipid panel in the morning. 9. End-stage renal disease is present on dialysis. He gets dialyzed on Tuesdays and Saturdays. 10. Continue metoprolol and Entresto for HFrEF. 11. Consider [facility] also as an outpatient when he is in a euvolemic state. 12. Further recommendations will be made pending the patient's response to treatment and the results of his echocardiogram today. Thank you for the opportunity to help her to spend the care of this patient. All recommendations and orders are per Dr. Garcia.
[2024-03-26 14:56] LABS: Reflex Lactic Add Lactic Reflex
[2024-03-26 15:46] LABS: Lactic Acid Follow Up (RFLX 1) 1.7 mmol/L (0.7-2.1)
--- NOTE | 2024-03-26 16:39 | P.HP_ITS ---
History of Present Illness *Admission Date: 03/26/24 *Reason for visit:: nausea, vomiting, SOA *History of present illness: This patient is an 79-year-old male with a history of end-stage renal disease on Saturday/Saturday dialysis, history of kidney stones, history of hypothyroidism, hypertension, CAD, atrial fibrillation, CHF, anemia, hypothyroidism, prior urinary tract infection presenting to the emergency department for evaluation with concerns for fever and altered mental status. According to EMS, they were called to the patient's home because he was confused and had a fever and cough. They noted that the patient was hypoxic on room air upon arrival with an O2 saturation of 85%. They then placed him on 3 L nasal cannula with good improvement in his oxygen saturation. He does not contribute much to history given confusion, but he does state that he feels like he is going to be sick. According to his , he was okay Saturday when he had dialysis, but symptoms started last night. He was up all night vomiting and coughing with confusion and fever that started today. He has a dialysis catheter in his right chest. (above as per ER Physician) The patient was evaluated in the emergency room and was given a liter bolus of fluid but was not given the full sepsis bolus due to hx of dialysis and risk of volume overload. He was also given IV Tylenol and Zofran. When he returned from his CT scan, he was in A-fib with RVR and was given 15 mg of IV diltiazem. He was then given 120 mg of oral diltiazem and cardiology was consulted. His urinalysis was concerning for infection and his D-dimer was elevated as was his lactic acid. The decision was made to order a CT of the chest with contrast and he was given IV vancomycin and Zosyn. His CT showed pneumonia and colitis he was admitted for management of respiratory failure, pneumonia, sepsis, UTI, colitis, pericardial effusion, atrial fib, and elevated troponins. [facility] Disclaimer: The information contained in this section may have been updated after the patient was seen, as this information can be updated by other users. Medical History (Updated 03/26/24 @ 14:47 by Una Bunch APRN) HFrEF (heart failure with reduced ejection fraction) Pericardial effusion Hypothyroidism Kidney stones GERD (gastroesophageal reflux disease) Cirrhosis CKD (chronic kidney disease) Atrial fibrillation with RVR PAF (paroxysmal atrial fibrillation) Coronary artery disease HTN (hypertension) Aortic stenosis Surgical History History of colonoscopy History of esophagogastroduodenoscopy (EGD) History of cataract surgery History of cholecystectomy Hx of aortic valve replacement Hx of cardiac cath History of heart valve replacement Family History No significant family history Cancer Hypertension Social History Smoking Status: Never smoker alcohol intake: never substance use type: denies use current occupational status: retired Travel in the last 8 weeks: None household members: spouse housing: house marital status: current occupational exposures/hazards: No caffeine: Yes special alf needs: No agree to transfusion: No do you feel safe at home: Yes victim of physical abuse: No victim of emotional abuse: No victim of sexual abuse: No would you like helpful sources: No Review of Systems Constitutional Constitutional: Reports chills, Reports fatigue, Reports fever(s), Reports headache(s) and Reports weakness Eyes Eyes: Denies blurry vision and Denies diplopia ENT Ears, Nose, Mouth, and Throat: Reports headache(s) *Cardiovascular Cardiovascular: Denies chest pain, Reports dyspnea and Reports palpitations *Respiratory Respiratory: Reports cough and Reports dyspnea *Gastrointestinal Gastrointestinal: Denies abdominal pain, Reports loose stools, Reports nausea and Reports vomiting *Genitourinary Genitourinary: Denies dysuria and Denies oliguria *Musculoskeletal Musculoskeletal: Denies arthralgias and Denies myalgias *Neurologic Neurologic: Reports system reviewed and no additional complaints, except as documented, Reports headache(s) and Reports weakness Endocrine Endocrine: Reports fatigue and Reports palpitations Meds Home Medications and Allergies Home Medications Medication Instructions Recorded Confirmed Type psyllium seed (sugar) oral powder 1 tbsp PO DAILY 07/03/21 03/26/24 History (Metamucil (sugar) oral powder) ursodiol 500 mg tablet 500 mg PO BID 07/03/21 03/26/24 History apixaban 5 mg tablet (Eliquis) 5 mg PO BID 02/07/22 03/26/24 History cyclobenzaprine 10 mg tablet 10 mg PO DAILYP PRN Muscle Pain 02/11/23 03/26/24 History levothyroxine 50 mcg tablet 50 mcg PO DAILY 02/11/23 03/26/24 History polyethylene glycol 3350 17 gram 17 g PO DAILY 10/03/23 03/26/24 History oral powder packet (Miralax) vitamins A,C,P-iewj-uskczc 2,148 1 tab PO BID 10/03/23 03/26/24 History mcg-113 mg-45 mg-17.4 mg tablet (PreserVision AREDS) albuterol sulfate 90 mcg/actuation 1 inh inhalation Q4HP PRN 10/09/23 03/26/24 History aerosol inhaler Shortness Of Breath sacubitril 24 mg-valsartan 26 mg 1 tab PO BID #60 tabs 11/19/23 03/26/24 Rx tablet (Entresto) metoprolol succinate 50 mg 50 mg PO BID #60 tabs 12/05/23 03/26/24 Rx tablet,extended release 24 hr furosemide 40 mg tablet (Lasix) 40 mg PO DAILY #30 tabs 02/10/24 03/26/24 Rx colchicine 0.6 mg tablet 0.6 mg PO DAILY 03/26/24 03/26/24 History metolazone 2.5 mg tablet 2.5 mg PO Q48H 03/26/24 03/26/24 History New Prescriptions to Start Prescriptions: Allergies Allergy/AdvReac Type Severity Reaction Status Date / Time No Known Allergies Allergy Verified 03/09/24 13:31 Exam Data for Last 24 hours Vital signs and Labs for Last 24 Hours: Temp Pulse Resp BP Pulse Ox O2 Del Method O2 Flow Rate 97.6 F 85 19 117/80 98 Nasal Cannula 2 03/26/24 16:12 03/26/24 16:12 03/26/24 16:12 03/26/24 16:12 03/26/24 16:12 03/26/24 16:12 03/26/24 16:12 Laboratory Results - last 24 hr 03/26/24 10:27: VBG pH 7.41, VBG pCO2 39.4, VBG pO2 48.2 H, VBG HCO3 24.4, VBG Total CO2 25.6, VBG O2 Saturation 81.9 H, VBG Base Excess -0.3, VBG Lactic Acid 2.7 H 03/26/24 10:35: WBC 6.2, RBC 2.67 L, Hgb 9.5 L, Hct 29.9 L, MCV 111.9 H, MCH 35.6 H, MCHC 31.8, RDW 17.4, Plt Count 72 L, MPV 10.0, Neut % (Auto) 77.7, Lymph % (Auto) 15.0, [place] % (Auto) 5.9, Eos % (Auto) 1.0, Baso % (Auto) 0.4, Neut # (Auto) 4.8, Lymph # (Auto) 0.9, [place] # (Auto) 0.4, Eos # (Auto) 0.1, Baso # (Auto) 0.0, PT 13.3 H, INR 1.21 H, APTT 31.3 H, D-Dimer 1.05 H, Sodium 138, Potassium 5.4 H, Chloride 101, Carbon Dioxide 26, Anion Gap 16.4 H, BUN 47 H, Creatinine 4.60 H, Estimated Creat Clear 16, Estimated GFR 12 L*, Est GFR ( Amer) 15 L*, Glucose 82, Calcium 9.1, Total Bilirubin 1.0, AST 41, ALT 16, Alkaline Phosphatase 115, Troponin I 0.14 H, NT-Pro-B Natriuret Pep 80166 H, Total Protein 7.0, Albumin 3.4 L, Globulin 3.6 H, Albumin/Globulin Ratio 0.9 L, Lipase 316 H, Procalcitonin 0.653, TSH 2.54, Thyroxine (T4) 7.2 03/26/24 10:45: Chlamy pneumoniae PCR Not detected, Adenovirus (PCR) Not detected, B. pertussis DNA (PCR) Not detected, Coronavirus OC43 (PCR) Not detected, Coronavirus HKU1 (PCR) Not detected, Coronavirus 229E (PCR) Not det ected, SARS-CoV-2 (PCR) Not detected 03/26/24 10:45: SARS-CoV-2 (PCR) Not detected, Coronavirus NL63 (PCR) Not detected, Human Metapneumovir PCR Not detected, Influenza A (H1) PCR Not detected, Influ A (H1N1/09) PCR Not detected, Influenza A (H3) PCR Not detected, Influenza Type A (PCR) Not detected, Influenza A Untype (PCR) Not detected, Influenza Type B (PCR) Not detected 03/26/24 10:45: Influenza Type B (PCR) Not detected, M. pneumoniae (PCR) Not detected, Parainfluenza 1 (PCR) Not detected, Parainfluenza 2 (PCR) Not detected, Parainfluenza 3 (PCR) Not detected, Parainfluenza 4 (PCR) Not detected, RSV (PCR) Not detected, Entero/Rhino (PCR) Not detected 03/26/24 11:02: Urine Color Yellow, Urine Appearance Clear, Urine pH 6.5, Ur Specific [place] 1.020, Urine Protein 2+, Urine Glucose (UA) Negative, Urine Ketones Negative, Urine Blood 2+, Urine Nitrate Positive, Urine Bilirubin Negative, Urine Urobilinogen 1.0, Ur Leukocyte Esterase 2+ A, Urine RBC 5-10, Urine WBC 5-10, Ur Squamous Epith Cells Occasional, Urine Bacteria 1+ 03/26/24 13:19: Troponin I 0.29 H 03/26/24 15:10: Lactate 1.7 I & O for Last 24 hours: Intake & Output 03/24/24 03/25/24 03/26/24 03/27/24 11:59 11:59 11:59 11:59 Output Total 0 / 0 Balance 0 / 0 Weight 195 lb 168 lb 8 oz Constitutional Constitutional: no acute distress *Routine HEENT Exam Head: Present normocephalic and atraumatic Eye: Present EOMI and PERRL ENT: Present mucous membranes moist *Routine Neck Exam Neck: Present supple and full ROM *Routine Respiratory Exam Respiratory: Present crackles (bibasilar) *Routine Cardiovascular Exam Cardiovascular: Present irregularly irregular *Routine Abdominal Exam Abdominal: Present soft and normoactive bowel sounds; Absent tenderness *Routine Rectal Exam Rectal:: deferred *Routine Genitalia Exam Genitalia:: deferred *Routine Extremities Exam Extremities: Absent cyanosis, clubbing or edema *Routine Skin Exam Skin: Present intact; Absent erythema *Routine Neurological Exam Neurological: Present alert and oriented X3 H&P: Result Impressions Chest CTA - No evidence of pulmonary embolism. Interval development of bibasilar lung disease, favor pneumonia over edema. Enlarging pericardial effusion. CXR - New airspace opacity in the right lung base, worrisome for pneumonia. Head CT - 1. No acute intracranial abnormality or obvious mass. 2. Mild age-appropriate atrophy and chronic ischemic white matter changes as above. Assessment and Plan *Assessment and plan (1) Pneumonia: Status: Acute Qualifiers: Laterality: unspecified laterality Lung location: unspecified part of lung Pneumonia type: due to unspecified organism Qualified Code(s): J18.9 - Pneumonia, unspecified organism Category: Medical Code(s): J18.9 - Pneumonia, unspecified organism (2) Acute hypoxemic respiratory failure: Status: Acute Category: Medical Code(s): J96.01 - Acute respiratory failure with hypoxia (3) Sepsis: Status: Acute Qualifiers: Sepsis acute organ dysfunction status: unspecified Sepsis type: sepsis due to unspecified organism Qualified Code(s): A41.9 - Sepsis, unspecified organism Category: Medical Code(s): A41.9 - Sepsis, unspecified organism (4) Acute UTI: Status: Acute Category: Medical Code(s): N39.0 - Urinary tract infection, site not specified (5) Elevated troponin: Status: Acute Category: Medical Code(s): R79.89 - Other specified abnormal findings of blood chemistry (6) Colitis: Status: Acute Category: Medical Code(s): K52.9 - Noninfective gastroenteritis and colitis, unspecified (7) Atrial fibrillation with RVR: Status: Acute Category: Medical Code(s): I48.91 - Unspecified atrial fibrillation (8) HFrEF (heart failure with reduced ejection fraction): Status: Acute Category: Medical Code(s): I50.20 - Unspecified systolic (congestive) heart failure (9) Pericardial effusion: Status: Acute Category: Medical Code(s): I31.39 - Other pericardial effusion (noninflammatory) (10) AMS (altered mental status): Status: Acute Qualifiers: Altered mental status type: unspecified Qualified Code(s): R41.82 - Altered mental status, unspecified Category: Medical Code(s): R41.82 - Altered mental status, unspecified (11) Hyperkalemia: Status: Acute Category: Medical Code(s): E87.5 - Hyperkalemia (12) Generalized weakness: Status: Acute Category: Medical Code(s): R53.1 - Weakness (13) Coronary artery disease: Status: Chronic Qualifiers: Associated angina: without angina Coronary Disease-Associated Artery/Lesion type: [place] artery [place] vs. transplanted heart: [place] heart Qualified Code(s): I25.10 - Atherosclerotic heart disease of [place] coronary artery without angina pectoris Category: Medical Code(s): I25.10 - Atherosclerotic heart disease of [place] coronary artery without angina pectoris (14) HTN (hypertension): Status: Chronic Qualifiers: Hypertension type: primary hypertension Qualified Code(s): I10 - Essential (primary) hypertension Category: Medical Code(s): I10 - Essential (primary) hypertension (15) ESRD (end stage renal disease) on dialysis: Status: Acute Category: Medical Code(s): N18.6 - End stage renal disease; Z99.2 - Dependence on renal dialysis (16) Chronic pericardial effusion: Status: Acute Category: Medical Code(s): I31.39 - Other pericardial effusion (noninflammatory) (17) Hx of aortic valve replacement: Status: Chronic Category: Surgical Code(s): Z95.2 - Presence of prosthetic heart valve (18) Cirrhosis: Status: Chronic Qualifiers: Ascites presence: unspecified Hepatic cirrhosis type: unspecified hepatic cirrhosis Qualified Code(s): K74.60 - Unspecified cirrhosis of liver Category: Medical Code(s): K74.60 - Unspecified cirrhosis of liver (19) PAF (paroxysmal atrial fibrillation): Status: Chronic Category: Medical Code(s): I48.0 - Paroxysmal atrial fibrillation Plan Cardiology has seen the patient and ordered an echo. He was given vanc and zosyn in the ER for UTI and pneumonia. Will discuss continued abx with Dr. Yang. Will add zofran for nausea.
[2024-03-26 17:39] LABS: Troponin I 0.45 ng/ml (0.00-0.034)
--- NOTE | 2024-03-26 18:29 | PC.NURSE ---
pt was on 4l nc when he came from ED with o2 sats 100%. weaned o2, pt currently at baseline on RA with sats 98% pt alert and oriented x3, improvement in mentation noticed since first arriving to floor.
[2024-03-26] MEDS: SACUBITRIL/VALSARTAN 24-26MG TABLET 1 EACH PO (21:20)
[2024-03-26] MEDS: ATORVASTATIN 40MG TABLET 40 MG PO (21:20)
[2024-03-26] MEDS: METOPROLOL SUCCINATE XL 50MG TABLET 50 MG PO (21:20)
[2024-03-26] MEDS: APIXABAN 5MG TABLET 2.5 MG PO (21:20)
[2024-03-26] MEDS: ALUMINUM/MAGNESIUM/SIMETHICONE 30ML UDC 30 ML PO (23:36)
--- NOTE | 2024-03-26 23:40 | PC.NURSE ---
PATIENT C/O INDIGESTION AND INABILITY TO SLEEP. DR CLARK NOTIFIED AND ORDER RECEIVED FOR MYLANTA 30 ML PO X 1 DOSE. DID NOT WANT TO PRESCRIBE SLEEPING MED AT THIS TIME.
[2024-03-27] VITALS: BP 92/60; PULSE 74; PULSE 92; RESP 16; TEMP 36.6; O2SAT 97
[2024-03-27 04:00] VITALS: BP 105/71; PULSE 69; PULSE 80; RESP 16; TEMP 36.8; O2SAT 94; BMI 25.2
--- NOTE | 2024-03-27 04:13 | PC.NURSE ---
PATIENT IS A/O X 4. PLEASANT AND COOPERATIVE. HAS H/O INSOMNIA. HAS BEEN UP MOST OF THE NIGHT. AT BEDSIDE. DIALYSIS CATH INTACT TO RIGHT UPPER CHEST. VOIDS SMALL AMTS OF CLOUDY URINE THICK WITH SEDIMENT. 02 SATS 96-97% ON ROOM AIR. DENIES PAIN OR DISCOMFORT AT THIS TIME. RECEIVED MYLANTA 30 ML PO AT 2336 WITH GOOD RESULTS.
[2024-03-27 06:32] LABS: Chloride 101 mmol/L (98-107); Potassium 4.6 mmoL/L (3.5-5.1); Sodium 135 mmol/L (136-145)
[2024-03-27 06:35] LABS: Alanine Aminotransferase 13 U/L (12-78); Albumin Level 3.1 g/dl (3.5-5.0); Albumin/Globulin Ratio 0.9 (1.1-1.8); Alkaline Phosphatase 107 U/L (38-126); Anion Gap 13.6 mEq/L (5-15); Aspartate Amino Transferase 32 U/L (17-59); Bilirubin,Total 0.8 mg/dl (0.2-1.3); Blood Urea Nitrogen 56 mg/dl (9-20); Carbon Dioxide 25 mmol/L (22.0-30.0); Creatinine Clearance Estimated 12 mL/min (50-200); Estimated Glomerular Filt Rate 10 ml/min (>60); GFR (African American) 12 ML/MIN (>60); Globulin 3.5 g/dL (1.3-3.2); Total Protein,Serum 6.6 g/dl (6.3-8.2)
[2024-03-27 06:36] LABS: Calcium 8.9 mg/dl (8.4-10.2); Glucose 85 mg/dl (74-100)
[2024-03-27 08:00] VITALS: BP 108/66; PULSE 67; PULSE 70; RESP 17; TEMP 36.4; O2SAT 96
[2024-03-27 08:05] LABS: Basophils % 0.3 % (0.1-2.0); Eosinophils # 0.1 K/mm3 (0.0-0.4); Eosinophils % 1.2 % (0.1-12.0); Hematocrit 28.2 % (42.0-52.0); Hemoglobin 8.8 g/dL (14.1-18.0); Lymphocytes # 1.1 K/mm3 (0.7-4.5); Lymphocytes % 17.6 % (10-50); Mean Corpuscular HGB Conc 31.4 g/dL (31.8-35.4); Mean Corpuscular Hemoglobin 35.3 pg (27.0-31.2); Mean Corpuscular Volume 112.6 fl (80-94); Mean Platelet Volume 13.5 fl (7.4-10.4); Monocytes # 0.6 K/mm3 (0.1-1.0); Monocytes % 9.1 % (1.7-9.3); Neutrophils # 4.3 K/mm3 (1.8-7.8); Neutrophils % 71.7 % (37.0-80.0); Red Cell Distribution Width 17.4 % (11.5-17.5); White Blood Count 6.1 K/mm3 (4.8-10.8)
--- NOTE | 2024-03-27 08:19 | P.PN_ITS ---
Subjective *Date: 03/27/24 *Time: 08:19 Interval history: Patient is feeling much better today. He has been off of his oxygen since last night. He did not rest well but ate all of his breakfast this am. He states he is ready to go home. Medical Exam Vital signs and Labs for Last 24 Hours: Vital Signs Temp Pulse Pulse Resp BP BP Pulse Ox 03/27/24 08:00 97.6 F 67 17 108/66 L 96 03/27/24 06:29 03/27/24 05:00 03/27/24 04:00 80 03/27/24 04:00 98.3 F 69 16 105/71 L 94 L 03/27/24 03:00 03/27/24 00:39 03/27/24 00:00 92 H 03/27/24 00:00 97.9 F 74 16 92/60 L 97 03/26/24 23:00 03/26/24 21:00 03/26/24 20:00 96 03/26/24 20:00 90 03/26/24 20:00 97.9 F 107 H 16 103/75 L 96 03/26/24 18:11 03/26/24 17:00 03/26/24 16:12 97.6 F 85 19 117/80 98 03/26/24 16:00 90 03/26/24 15:35 98 F 97 H 19 121/81 97 03/26/24 14:45 98.0 F 89 13 121/81 03/26/24 14:00 119 H 117/72 98 03/26/24 13:31 124 H 120/79 98 03/26/24 13:00 122 H 114/64 94 L 03/26/24 12:30 102 H 16 129/74 98 03/26/24 12:00 136 H 16 123/77 98 03/26/24 11:31 104 H 23 121/73 96 03/26/24 11:01 143 H 20 146/99 H 98 03/26/24 10:25 100.8 F H 140 H 24 147/103 H 89 L O2 Del Method O2 Flow Rate 03/27/24 08:00 Room Air 03/27/24 06:29 Room Air 03/27/24 05:00 Room Air 03/27/24 04:00 03/27/24 04:00 Room Air 03/27/24 03:00 Room Air 03/27/24 00:39 Room Air 03/27/24 00:00 03/27/24 00:00 Room Air 03/26/24 23:00 Room Air 03/26/24 21:00 Room Air 03/26/24 20:00 Room Air 03/26/24 20:00 03/26/24 20:00 Room Air 03/26/24 18:11 Room Air 03/26/24 17:00 Room Air 03/26/24 16:12 Nasal Cannula 2 03/26/24 16:00 03/26/24 15:35 Nasal Cannula 4 03/26/24 14:45 03/26/24 14:00 Nasal Cannula 03/26/24 13:31 Nasal Cannula 03/26/24 13:00 Nasal Cannula 03/26/24 12:30 03/26/24 12:00 03/26/24 11:31 Nasal Cannula 03/26/24 11:01 Nasal Cannula 03/26/24 10:25 Room Air Intake and Output 03/26/24 03/27/24 03/27/24 19:59 03:59 11:59 Intake Total 270 / 990 240 / 990 480 / 990 Output Total 125 / 400 175 / 400 100 / 400 Balance 145 / 590 65 / 590 380 / 590 Intake: Intake, Oral Amount 270 / 990 240 / 990 480 / 990 Output: Output, Urine Amount 125 / 400 175 / 400 100 / 400 Other: Number of Voids 0 Number of Unmeasured Voids 1 1 Weight 168 lb 8 oz 176 lb 4.8 oz Patient Weight 03/27/24 11:59 Weight 176 lb 4.8 oz Laboratory Results - last 24 hr 03/26/24 10:27: VBG pH 7.41, VBG pCO2 39.4, VBG pO2 48.2 H, VBG HCO3 24.4, VBG Total CO2 25.6, VBG O2 Saturation 81.9 H, VBG Base Excess -0.3, VBG Lactic Acid 2.7 H 03/26/24 10:35: WBC 6.2, RBC 2.67 L, Hgb 9.5 L, Hct 29.9 L, MCV 111.9 H, MCH 35.6 H, MCHC 31.8, RDW 17.4, Plt Count 72 L, MPV 10.0, Neut % (Auto) 77.7, Lymph % (Auto) 15.0, [place] % (Auto) 5.9, Eos % (Auto) 1.0, Baso % (Auto) 0.4, Neut # (Auto) 4.8, Lymph # (Auto) 0.9, [place] # (Auto) 0.4, Eos # (Auto) 0.1, Baso # (Auto) 0.0, PT 13.3 H, INR 1.21 H, APTT 31.3 H, D-Dimer 1.05 H, Sodium 138, Potassium 5.4 H, Chloride 101, Carbon Dioxide 26, Anion Gap 16.4 H, BUN 47 H, Creatinine 4.60 H, Estimated Creat Clear 16, Estimated GFR 12 L*, Est GFR ( Amer) 15 L*, Glucose 82, Calcium 9.1, Total Bilirubin 1.0, AST 41, ALT 16, Alkaline Phosphatase 115, Troponin I 0.14 H, NT-Pro-B Natriuret Pep 95480 H, Total Protein 7.0, Albumin 3.4 L, Globulin 3.6 H, Albumin/Globulin Ratio 0.9 L, Lipase 316 H, Procalcitonin 0.653, TSH 2.54, Thyroxine (T4) 7.2 03/26/24 10:45: Chlamy pneumoniae PCR Not detected, Adenovirus (PCR) Not detected, B. pertussis DNA (PCR) Not detected, Coronavirus OC43 (PCR) Not detected, Coronavirus HKU1 (PCR) Not detected, Coronavirus 229E (PCR) Not detected, SARS-CoV-2 (PCR) Not detected 03/26/24 10:45: SARS-CoV-2 (PCR) Not detected, Coronavirus NL63 (PCR) Not detected, Human Metapneumovir PCR Not detected, Influenza A (H1) PCR Not detected, Influ A (H1N1/09) PCR Not detected, Influenza A (H3) PCR Not detected, Influenza Type A (PCR) Not detected, Influenza A Untype (PCR) Not detected, Influenza Type B (PCR) Not detected 03/26/24 10:45: Influenza Type B (PCR) Not detected, M. pneumoniae (PCR) Not detected, Parainfluenza 1 (PCR) Not detected, Parainfluenza 2 (PCR) Not detected, Parainfluenza 3 (PCR) Not detected, Parainfluenza 4 (PCR) Not detected, RSV (PCR) Not detected, Entero/Rhino (PCR) Not detected 03/26/24 11:02: Urine Color Yellow, Urine Appearance Clear, Urine pH 6.5, Ur Specific [place] 1.020, Urine Protein 2+, Urine Glucose (UA) Negative, Urine Ketones Negative, Urine Blood 2+, Urine Nitrate Positive, Urine Bilirubin Negative, Urine Urobilinogen 1.0, Ur Leukocyte Esterase 2+ A, Urine RBC 5-10, Urine WBC 5-10, Ur Squamous Epith Cells Occasional, Urine Bacteria 1+ 03/26/24 13:19: Troponin I 0.29 H 03/26/24 15:10: Lactate 1.7 03/26/24 16:39: Troponin I 0.45 H 03/27/24 05:38: Sodium 135 L, Potassium 4.6, Chloride 101, Carbon Dioxide 25, Anion Gap 13.6, BUN 56 H, Creatinine 5.40 H, Estimated Creat Clear 12, Estimated GFR 10 L*, Est GFR ( Amer) 12 L*, Glucose 85, Calcium 8.9, Total Bilirubin 0.8, AST 32, ALT 13, Alkaline Phosphatase 107, Total Protein 6.6, Albumin 3.1 L, Globulin 3.5 H, Albumin/Globulin Ratio 0.9 L I & O for Labs for Last 24 Hours: Intake & Output 03/24/24 03/25/24 03/26/24 03/27/24 11:59 11:59 11:59 11:59 Intake Total 990 / 990 Output Total 400 / 400 Balance 590 / 590 Weight 195 lb 176 lb 4.8 oz Constitutional: Present no acute distress Respiratory: Present CTA bilaterally Cardiac: Present Other (irregular rhythm, controlled rate) GI: Present soft; Absent distention or tenderness Extremities: Absent edema Skin: Present intact Neuro: Present alert, awake and oriented x 3 Assessment and Plan *Assessment and plan (1) Pneumonia: Status: Acute Qualifiers: Laterality: unspecified laterality Lung location: unspecified part of lung Pneumonia type: due to unspecified organism Qualified Code(s): J18.9 - Pneumonia, unspecified organism Category: Medical Code(s): J18.9 - Pneumonia, unspecified organism (2) Acute hypoxemic respiratory failure: Status: Acute Category: Medical Code(s): J96.01 - Acute respiratory failure with hypoxia (3) Sepsis: Status: Acute Qualifiers: Sepsis acute organ dysfunction status: unspecified Sepsis type: sepsis due to unspecified organism Qualified Code(s): A41.9 - Sepsis, unspecified organism Category: Medical Code(s): A41.9 - Sepsis, unspecified organism (4) Acute UTI: Status: Acute Category: Medical Code(s): N39.0 - Urinary tract infection, site not specified (5) Elevated troponin: Status: Acute Category: Medical Code(s): R79.89 - Other specified abnormal findings of blood chemistry (6) Colitis: Status: Acute Category: Medical Code(s): K52.9 - Noninfective gastroenteritis and colitis, unspecified (7) Atrial fibrillation with RVR: Status: Acute Category: Medical Code(s): I48.91 - Unspecified atrial fibrillation (8) HFrEF (heart failure with reduced ejection fraction): Status: Acute Category: Medical Code(s): I50.20 - Unspecified systolic (congestive) heart failure (9) Pericardial effusion: Status: Acute Category: Medical Code(s): I31.39 - Other pericardial effusion (noninflammatory) (10) AMS (altered mental status): Status: Acute Qualifiers: Altered mental status type: unspecified Qualified Code(s): R41.82 - Altered mental status, unspecified Category: Medical Code(s): R41.82 - Altered mental status, unspecified (11) Hyperkalemia: Status: Acute Category: Medical Code(s): E87.5 - Hyperkalemia (12) Generalized weakness: Status: Acute Category: Medical Code(s): R53.1 - Weakness (13) Coronary artery disease: Status: Chronic Qualifiers: Coronary Disease-Associated Artery/Lesion type: [place] artery [place] vs. transplanted heart: [place] heart Associated angina: without angina Qualified Code(s): I25.10 - Atherosclerotic heart disease of [place] coronary artery without angina pectoris Category: Medical Code(s): I25.10 - Atherosclerotic heart disease of [place] coronary artery without angina pectoris (14) HTN (hypertension): Status: Chronic Qualifiers: Hypertension type: primary hypertension Qualified Code(s): I10 - Essential (primary) hypertension Category: Medical Code(s): I10 - Essential (primary) hypertension (15) ESRD (end stage renal disease) on dialysis: Status: Acute Category: Medical Code(s): N18.6 - End stage renal disease; Z99.2 - Dependence on renal dialysis (16) Chronic pericardial effusion: Status: Acute Category: Medical Code(s): I31.39 - Other pericardial effusion (noninflammatory) (17) Hx of aortic valve replacement: Status: Chronic Category: Surgical Code(s): Z95.2 - Presence of prosthetic heart valve (18) Cirrhosis: Status: Chronic Qualifiers: Hepatic cirrhosis type: unspecified hepatic cirrhosis Ascites presence: unspecified Qualified Code(s): K74.60 - Unspecified cirrhosis of liver Category: Medical Code(s): K74.60 - Unspecified cirrhosis of liver (19) PAF (paroxysmal atrial fibrillation): Status: Chronic Category: Medical Code(s): I48.0 - Paroxysmal atrial fibrillation Plan Patient is much better this morning. Will discuss further abx with Dr. Yang. He was given abx in the ER but they have not been continued. Awaiting am labs. Echo showed the following: The left ventricle is normal in size. There is increased LV wall thickness. There is severe global hypokinesis present. LVEF is 25%. The right ventricle is moderately dilated with moderate reduction in RV function. Severe biatrial dilation is present. There is a small sized, circumferential pericardial effusion. The largest pocket is noted posteriorly and measures approximately 0.5 cm in diastole. The IVC is dilated and not collapsible. No evidence of chamber collapse (note the chamber collapse may not be present in the setting of RV dilation). Overall, compared to prior study from 12/2023, the size and location of the pericardial effusion is unchanged. Cardiology to follow.
[2024-03-27 08:50] LABS: Platelet Count 30 K/mm3 (142-424)
[2024-03-27] MEDS: FUROSEMIDE 40 MG TABLET PO (08:55)
[2024-03-27] MEDS: METOPROLOL SUCCINATE XL 50MG TABLET 50 MG PO (08:55)
[2024-03-27] MEDS: SACUBITRIL/VALSARTAN 24-26MG TABLET 1 EACH PO (08:55)
[2024-03-27] MEDS: LEVOTHYROXINE 50MCG (0.05MG) TAB 50 MCG PO (09:23)
[2024-03-27] MEDS: ursodioL 300 MG CAPSULE PO (09:23)
[2024-03-27] MEDS: PIPERACILLIN/TAZO 2.25 GM in 0.9 % SODIUM CHLORIDE 50 ML IV (09:24)
--- NOTE | 2024-03-27 09:24 | PC.NURSE ---
pt. states he will take his own eliquis at home.
--- NOTE | 2024-03-27 10:30 | P.PN_ITS ---
Subjective Subjective Date: 03/27/24 Time: 09:30 Principal diagnosis: afib with RVR Interval history: This is an 79-year-old gentleman who was admitted to the hospital with sepsis, pneumonia, UTI and atrial fibrillation with RVR. He did rate control after being given IV diltiazem and oral dose of diltiazem. He remains rate controlled this morning. He denies any chest pain or pressure. He denies any shortness of breath or edema today. He denies any fever, chills, nausea, vomiting, diarrhea, PND orthopnea. He states that he is feeling much better. Exam Data for Last 24 hours Vital signs and Labs for Last 24 Hours: Temp Pulse Resp BP Pulse Ox O2 Del Method O2 Flow Rate 97.6 F 67 17 108/66 L 96 Room Air 2 03/27/24 08:00 03/27/24 08:00 03/27/24 08:00 03/27/24 08:00 03/27/24 08:00 03/27/24 09:10 03/26/24 16:12 Laboratory Results - last 24 hr 03/26/24 10:27: VBG pH 7.41, VBG pCO2 39.4, VBG pO2 48.2 H, VBG HCO3 24.4, VBG Total CO2 25.6, VBG O2 Saturation 81.9 H, VBG Base Excess -0.3, VBG Lactic Acid 2.7 H 03/26/24 10:35: WBC 6.2, RBC 2.67 L, Hgb 9.5 L, Hct 29.9 L, MCV 111.9 H, MCH 35.6 H, MCHC 31.8, RDW 17.4, Plt Count 72 L, MPV 10.0, Neut % (Auto) 77.7, Lymph % (Auto) 15.0, [place] % (Auto) 5.9, Eos % (Auto) 1.0, Baso % (Auto) 0.4, Neut # (Auto) 4.8, Lymph # (Auto) 0.9, [place] # (Auto) 0.4, Eos # (Auto) 0.1, Baso # (Auto) 0.0, PT 13.3 H, INR 1.21 H, APTT 31.3 H, D-Dimer 1.05 H, Sodium 138, Potassium 5.4 H, Chloride 101, Carbon Dioxide 26, Anion Gap 16.4 H, BUN 47 H, Creatinine 4.60 H, Estimated Creat Clear 16, Estimated GFR 12 L*, Est GFR ( Amer) 15 L*, Glucose 82, Calcium 9.1, Total Bilirubin 1.0, AST 41, ALT 16, Alkaline Phosphatase 115, Troponin I 0.14 H, NT-Pro-B Natriuret Pep 86202 H, Total Protein 7.0, Albumin 3.4 L, Globulin 3.6 H, Albumin/Globulin Ratio 0.9 L, Lipase 316 H, Procalcitonin 0.653, TSH 2.54, Thyroxine (T4) 7.2 03/26/24 10:45: Chlamy pneumoniae PCR Not detected, Adenovirus (PCR) Not detected, B. pertussis DNA (PCR) Not detected, Coronavirus OC43 (PCR) Not detected, Coronavirus HKU1 (PCR) Not detected, Coronavirus 229E (PCR) Not detected, SARS-CoV-2 (PCR) Not detected 03/26/24 10:45: SARS-CoV-2 (PCR) Not detected, Coronavirus NL63 (PCR) Not detected, Human Metapneumovir PCR Not detected, Influenza A (H1) PCR Not detected, Influ A (H1N1/09) PCR Not detected, Influenza A (H3) PCR Not detected, Influenza Type A (PCR) Not detected, Influenza A Untype (PCR) Not detected, Influenza Type B (PCR) Not detected 03/26/24 10:45: Influenza Type B (PCR) Not detected, M. pneumoniae (PCR) Not detected, Parainfluenza 1 (PCR) Not detected, Parainfluenza 2 (PCR) Not detected, Parainfluenza 3 (PCR) Not detected, Parainfluenza 4 (PCR) Not detected, RSV (PCR) Not detected, Entero/Rhino (PCR) Not detected 03/26/24 11:02: Urine Color Yellow, Urine Appearance Clear, Urine pH 6.5, Ur Specific [place] 1.020, Urine Protein 2+, Urine Glucose (UA) Negative, Urine Ketones Negative, Urine Blood 2+, Urine Nitrate Positive, Urine Bilirubin Negative, Urine Urobilinogen 1.0, Ur Leukocyte Esterase 2+ A, Urine RBC 5-10, Urine WBC 5-10, Ur Squamous Epith Cells Occasional, Urine Bacteria 1+ 03/26/24 13:19: Troponin I 0.29 H 03/26/24 15:10: Lactate 1.7 03/26/24 16:39: Troponin I 0.45 H 03/27/24 05:38: WBC 6.1, RBC 2.50 L, Hgb 8.8 L, Hct 28.2 L, MCV 112.6 H, MCH 35.3 H, MCHC 31.4 L, RDW 17.4, Plt Count 30 L* D, MPV 13.5 H, Neut % (Auto) 71.7, Lymph % (Auto) 17.6, [place] % (Auto) 9.1, Eos % (Auto) 1.2, Baso % (Auto) 0.3, Neut # (Auto) 4.3, Lymph # (Auto) 1.1, [place] # (Auto) 0.6, Eos # (Auto) 0.1, Baso # (Auto) 0.0, Sodium 135 L, Potassium 4.6, Chloride 101, Carbon Dioxide 25, Anion Gap 13.6, BUN 56 H, Creatinine 5.40 H, Estimated Creat Clear 12, Estimated GFR 10 L*, Est GFR ( Amer) 12 L*, Glucose 85, Calcium 8.9, Total Bilirubin 0.8, AST 32, ALT 13, Alkaline Phosphatase 107, Total Protein 6.6, Albumin 3.1 L, Globulin 3.5 H, Albumin/Globulin Ratio 0.9 L I & O for Last 24 hours: Intake & Output 03/24/24 03/25/24 03/26/24 03/27/24 23:59 23:59 23:59 23:59 Intake Total 270 / 510 770 / 770 Output Total 125 / 225 275 / 275 Balance 145 / 285 495 / 495 Weight 168 lb 8 oz 176 lb 4.8 oz Microbiology Reports for the Last 24 Hours: Microbiology 03/26/24 11:03 Urine,Catheterized Urine Culture - Preliminary Gram Negative Rods Constitutional Constitutional: no acute distress and average body habitus *Routine HEENT Exam Head: Present normocephalic and atraumatic ENT: Present mucous membranes moist *Routine Neck Exam Neck: Present supple, full ROM and normal carotid upstroke; Absent JVD, carotid bruit or lymphadenopathy *Routine Respiratory Exam Respiratory: Present rhonchi, normal respiratory effort, able to speak in complete sentences and symmetric chest movement *Routine Cardiovascular Exam Cardiovascular: Present Normal S1, Normal S2 and irregularly irregular; Absent murmur or gallop *Routine Abdominal Exam Abdominal: Present soft and normoactive bowel sounds; Absent tenderness, distended or organomegaly *Routine Extremities Exam Extremities: Present full ROM, pulses intact and normal capillary refill; Absent cyanosis, clubbing or edema *Routine Skin Exam Skin: Present intact and warm; Absent erythema *Routine Neurological Exam Neurological: Present alert, oriented X3 and CN II-XII intact; Absent sensory deficit or motor deficit Routine Psychiatric Exam Psychiatric: Present normal affect Progress Note: A&P Assessment and plan (1) Atrial fibrillation with RVR: Status: Acute (2) Elevated troponin: Status: Acute (3) Pneumonia: Status: Acute (4) Acute hypoxemic respiratory failure: Status: Acute (5) Sepsis: Status: Acute (6) Acute UTI: Status: Acute (7) Colitis: Status: Acute (8) HFrEF (heart failure with reduced ejection fraction): Status: Acute (9) Pericardial effusion: Status: Acute (10) AMS (altered mental status): Status: Acute (11) Hyperkalemia: Status: Acute (12) Generalized weakness: Status: Acute (13) Coronary artery disease: Status: Chronic (14) HTN (hypertension): Status: Chronic (15) ESRD (end stage renal disease) on dialysis: Status: Acute (16) Chronic pericardial effusion: Status: Acute (17) Hx of aortic valve replacement: Status: Chronic (18) Cirrhosis: Status: Chronic (19) PAF (paroxysmal atrial fibrillation): Status: Chronic Assessment and Plan Assessment and Plan for All Diagnoses:: Plan: 1. The patient presented to the emergency department with fever, cough and altered mental status. He is found to be septic with pneumonia, colitis and UTI. Will defer this to his primary care team. 2. The patient also was in atrial fibrillation with RVR. He was treated with a diltiazem IV push of 15 mg and did rate control to the 90s. He was giving long- acting diltiazem. He is now rate controlled. However his ejection fraction is 25% so he is not a candidate to be on diltiazem as this does worsen cardiomyopathy. Will continue metoprolol for rate control. If he were to become tachycardic again then consider increasing the dose of his metoprolol. 3. Continue apixaban for long-term anticoagulation. 4. The patient does have a known pericardial effusion. Echocardiogram shows that his pericardial effusion is unchanged. 5. The patient did have an elevated troponin on admission. His troponin appears to be chronically elevated which is most likely from his chronic kidney disease and now the elevation is likely from his atrial fibrillation with RVR. No plans for left cardiac catheterization in this septic patient with a fever. This is most likely a type II non-STEMI. Recommend a statin. 6. Coronary artery disease is present but is likely stable at this time. No plans for invasive left cardiac catheterization as mentioned above. He would benefit from an ischemic evaluation on an outpatient basis once he is discharged from the hospital to see if his cardiomyopathy is ischemic in nature. 7. His blood pressure is well-controlled. 8. His LDL goal is less than 55. Will start him on Lipitor 40 mg p.o. nightly. Will obtain a lipid panel in the morning. 9. End-stage renal disease is present on dialysis. He gets dialyzed on Tuesdays and Saturdays. 10. Continue metoprolol and Entresto for HFrEF. 11. Consider Evaristoxiga also as an outpatient when he is in a euvolemic state. 12. The patient has severe LV dysfunction with an ejection fraction of 25%. The patient is increased risk for sudden cardiac due to the severe LV dysfunction. I did offer the patient a LifeVest but he declines at this time. He states that he needs more time to think about this and we can discuss this on an outpatient basis. He is aware of the risks and verbalizes understanding. 13. No further recommendations at this time from a cardiac standpoint. Thank you for the opportunity to help her to spend the care of this patient. All recommendations and orders are per Dr. Garcia.
--- NOTE | 2024-03-30 15:31 | SW/DCPLANNER ---
Follow up phone call: patient stated that he is doing well at home. Patient is aware of follow up appointments w/ Dr Bird and Cardiology. 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 Patient did not have any further needs/questions at this time.
--- NOTE | 2024-03-30 23:27 | EXP.DC.SUM ---
General Admission date:: 03/26/24 Discharge date: 03/27/24 HPI HPI HPI: This patient is an 79-year-old male with a history of end-stage renal disease on Saturday/Saturday dialysis, history of kidney stones, history of hypothyroidism, hypertension, CAD, atrial fibrillation, CHF, anemia, hypothyroidism, prior urinary tract infection presenting to the emergency department for evaluation with concerns for fever and altered mental status. According to EMS, they were called to the patient's home because he was confused and had a fever and cough. They noted that the patient was hypoxic on room air upon arrival with an O2 saturation of 85%. They then placed him on 3 L nasal cannula with good improvement in his oxygen saturation. He does not contribute much to history given confusion, but he does state that he feels like he is going to be sick. According to his , he was okay Saturday when he had dialysis, but symptoms started last night. He was up all night vomiting and coughing with confusion and fever that started today. He has a dialysis catheter in his right chest. (above as per ER Physician) The patient was evaluated in the emergency room and was given a liter bolus of fluid but was not given the full sepsis bolus due to hx of dialysis and risk of volume overload. He was also given IV Tylenol and Zofran. When he returned from his CT scan, he was in A-fib with RVR and was given 15 mg of IV diltiazem. He was then given 120 mg of oral diltiazem and cardiology was consulted. His urinalysis was concerning for infection and his D-dimer was elevated as was his lactic acid. The decision was made to order a CT of the chest with contrast and he was given IV vancomycin and Zosyn. His CT showed pneumonia and colitis he was admitted for management of respiratory failure, pneumonia, sepsis, UTI, colitis, pericardial effusion, atrial fib, and elevated troponins. Hospital Course Hospital Course Hospital Course: The patient's chest CTA showed no evidence of PE but it did show bibasilar lung disease favoring pneumonia over edema and an enlarging pericardial effusion. His head CT showed nothing acute. He was admitted and cardiology was consulted. They ordered an echo. He was given Vanco and Zosyn in the ER for UTI and pneumonia. Zofran was added for nausea. By 03/27/2024, he was feeling much better. He had been off of his oxygen throughout the night. He was able to tolerate breakfast and wanted to go home. His echo showed an LVEF of 25%. The right ventricle was moderately dilated with moderate reduction in RV function. There was severe biatrial dilatation. There was a small sized pericardial effusion. The patient was rate controlled on oral diltiazem, however due to his low ejection fraction, he was not a candidate to remain on diltiazem as this could worsen his cardiomyopathy. Cardiology therefore continue metoprolol for rate control. There were no plans for cardiac cath as they felt his troponins were chronically elevated due to his chronic kidney disease. They offered the patient a LifeVest but he declined. A dose of Zosyn was ordered before discharge and the patient was discharged home on Levaquin 500 mg every 48 hours. He will go to dialysis on 03/28/2024 and follow-up with Dr. Bird in the office. Exam Data for Last 24 hours Vital signs and Labs for Last 24 Hours: Temp Pulse Resp BP Pulse Ox O2 Del Method O2 Flow Rate 97.6 F 67 17 108/66 L 96 Room Air 2 03/27/24 08:00 03/27/24 08:00 03/27/24 08:00 03/27/24 08:00 03/27/24 08:00 03/27/24 09:10 03/26/24 16:12 Narrative: Constitutional Constitutional: no acute distress *Routine HEENT Exam Head: Present normocephalic and atraumatic Eye: Present EOMI and PERRL ENT: Present mucous membranes moist *Routine Neck Exam Neck: Present supple and full ROM *Routine Respiratory Exam Respiratory: Present crackles (bibasilar) *Routine Cardiovascular Exam Cardiovascular: Present irregularly irregular *Routine Abdominal Exam Abdominal: Present soft and normoactive bowel sounds; Absent tenderness *Routine Rectal Exam Rectal:: deferred *Routine Genitalia Exam Genitalia:: deferred *Routine Extremities Exam Extremities: Absent cyanosis, clubbing or edema *Routine Skin Exam Skin: Present intact; Absent erythema *Routine Neurological Exam Neurological: Present alert and oriented X3 DS: Diagnosis Discharge Diagnosis (1) Atrial fibrillation with RVR: Status: Acute Code(s): I48.91 - Unspecified atrial fibrillation (2) Elevated troponin: Status: Acute Code(s): R79.89 - Other specified abnormal findings of blood chemistry (3) Pneumonia: Status: Acute Code(s): J18.9 - Pneumonia, unspecified organism Qualifiers: Laterality: unspecified laterality Lung location: unspecified part of lung Pneumonia type: due to unspecified organism Qualified Code(s): J18.9 - Pneumonia, unspecified organism (4) Acute hypoxemic respiratory failure: Status: Acute Code(s): J96.01 - Acute respiratory failure with hypoxia (5) Sepsis: Status: Acute Code(s): A41.9 - Sepsis, unspecified organism Qualifiers: Sepsis acute organ dysfunction status: unspecified Sepsis type: sepsis due to unspecified organism Qualified Code(s): A41.9 - Sepsis, unspecified organism (6) Acute UTI: Status: Acute Code(s): N39.0 - Urinary tract infection, site not specified (7) Colitis: Status: Acute Code(s): K52.9 - Noninfective gastroenteritis and colitis, unspecified (8) HFrEF (heart failure with reduced ejection fraction): Status: Acute Code(s): I50.20 - Unspecified systolic (congestive) heart failure (9) Pericardial effusion: Status: Acute Code(s): I31.39 - Other pericardial effusion (noninflammatory) (10) AMS (altered mental status): Status: Acute Code(s): R41.82 - Altered mental status, unspecified Qualifiers: Altered mental status type: unspecified Qualified Code(s): R41.82 - Altered mental status, unspecified (11) Hyperkalemia: Status: Acute Code(s): E87.5 - Hyperkalemia (12) Generalized weakness: Status: Acute Code(s): R53.1 - Weakness (13) Coronary artery disease: Status: Chronic Code(s): I25.10 - Atherosclerotic heart disease of [place] coronary artery without angina pectoris Qualifiers: Coronary Disease-Associated Artery/Lesion type: [place] artery [place] vs. transplanted heart: [place] heart Associated angina: without angina Qualified Code(s): I25.10 - Atherosclerotic heart disease of [place] coronary artery without angina pectoris (14) HTN (hypertension): Status: Chronic Code(s): I10 - Essential (primary) hypertension Qualifiers: Hypertension type: primary hypertension Qualified Code(s): I10 - Essential (primary) hypertension (15) ESRD (end stage renal disease) on dialysis: Status: Acute Code(s): N18.6 - End stage renal disease; Z99.2 - Dependence on renal dialysis (16) Chronic pericardial effusion: Status: Acute Code(s): I31.39 - Other pericardial effusion (noninflammatory) (17) Hx of aortic valve replacement: Status: Chronic Code(s): Z95.2 - Presence of prosthetic heart valve (18) Cirrhosis: Status: Chronic Code(s): K74.60 - Unspecified cirrhosis of liver Qualifiers: Hepatic cirrhosis type: unspecified hepatic cirrhosis Ascites presence: unspecified Qualified Code(s): K74.60 - Unspecified cirrhosis of liver (19) PAF (paroxysmal atrial fibrillation): Status: Chronic Code(s): I48.0 - Paroxysmal atrial fibrillation Meds Home Medications and Allergies Home Medications Medication Instructions Recorded Confirmed Type psyllium seed (sugar) oral powder 1 tbsp PO DAILY 07/03/21 03/26/24 History (Metamucil (sugar) oral powder) ursodiol 500 mg tablet 500 mg PO BID 07/03/21 03/26/24 History apixaban 5 mg tablet (Eliquis) 5 mg PO BID 02/07/22 03/26/24 History cyclobenzaprine 10 mg tablet 10 mg PO DAILYP PRN Muscle Pain 02/11/23 03/26/24 History levothyroxine 50 mcg tablet 50 mcg PO DAILY 02/11/23 03/26/24 History polyethylene glycol 3350 17 gram 17 g PO DAILY 10/03/23 03/26/24 History oral powder packet (Miralax) vitamins A,C,P-azzk-vmbgat 2,148 1 tab PO BID 10/03/23 03/26/24 History mcg-113 mg-45 mg-17.4 mg tablet (PreserVision AREDS) albuterol sulfate 90 mcg/actuation 1 inh inhalation Q4HP PRN 10/09/23 03/26/24 History aerosol inhaler Shortness Of Breath sacubitril 24 mg-valsartan 26 mg 1 tab PO BID #60 tabs 11/19/23 03/26/24 Rx tablet (Entresto) metoprolol succinate 50 mg 50 mg PO BID #60 tabs 12/05/23 03/26/24 Rx tablet,extended release 24 hr furosemide 40 mg tablet (Lasix) 40 mg PO DAILY #30 tabs 02/10/24 03/26/24 Rx colchicine 0.6 mg tablet 0.6 mg PO DAILY 03/26/24 03/26/24 History metolazone 2.5 mg tablet 2.5 mg PO Q48H 03/26/24 03/26/24 History levofloxacin 250 mg tablet 500 mg (2 x 250 mg) PO Q48H #4 tabs 03/27/24 Rx New Prescriptions to Start Prescriptions: levofloxacin Santos Yang Allergies Allergy/AdvReac Type Severity Reaction Status Date / Time No Known Allergies Allergy Verified 03/09/24 13:31 Discharge Plan Disposition Patient Disposition: Home, Self-Care Condition: Good Follow up Plan Follow up with: Lorenzo Bird MD [Primary Care Provider] - 04/07/24 10:15 am Narayan Grande PA [Physician Sandwich Peddler] - 04/08/24 1:30 pm Prescriptions/Medication Reconciliation: New levofloxacin 250 mg tablet 500 mg PO Q48H Qty: 4 1RF Continued Entresto 24-26 mg tablet 1 tab PO BID Qty: 60 3RF metoprolol succinate 50 mg tablet extended release 24 hr 50 mg PO BID Qty: 60 5RF ursodiol 500 mg tablet 500 mg PO BID Metamucil (sugar) Powder 1 tbsp PO DAILY Eliquis 5 mg tablet 5 mg PO BID cyclobenzaprine 10 mg tablet 10 mg PO DAILYP PRN (Reason: Muscle Pain) levothyroxine 50 mcg tablet 50 mcg PO DAILY albuterol sulfate 90 mcg/actuation HFA aerosol inhaler 1 inh inhalation Q4HP PRN (Reason: Shortness Of Breath) furosemide [Lasix] 40 mg tablet 40 mg PO DAILY Qty: 30 5RF colchicine 0.6 mg tablet 0.6 mg PO DAILY metolazone 2.5 mg tablet 2.5 mg PO Q48H PreserVision AREDS 2,148 mcg-113 mg-45 mg-17.4mg Tablet 1 tab PO BID polyethylene glycol 3350 [Miralax] 17 gram Powder In Packet 17 g PO DAILY Problem Reconciliation Problems Reviewed?: Yes Patient Discharge Instructions ACTIVITY: Continue current activity DIET: renal Additional Instructions: Dialysis as scheduled Patient Instructions: DI for Heart Failure, DI for Pneumonia -- Adult, DI for Urinary Tract Infection (UTI) Providers Primary Care Provider: Lorenzo Bird Admit Provider: Santos Yang Attending Provider: Santos Yang
== END 2024-03-27 10:10 | disposition home or self-care (01) ==
LOC: ER 14:10 → 2ND 14:28
PROVIDERS: Admitting Provider Family Medicine; Emergency Provider Emergency Medicine; PCP Family Medicine; Visit Provider Family Medicine
DX: A41.9 Sepsis, unspecified organism (principal); I42.9 Cardiomyopathy, unspecified; I12.0 Hypertensive chronic kidney disease with stage 5 chronic kidney disease or end stage renal disease; N18.6 End stage renal disease; E03.9 Hypothyroidism, unspecified; I13.2 Hypertensive heart and chronic kidney disease with heart failure and with stage 5 chronic kidney disease, or end stage renal disease; I50.20 Unspecified systolic (congestive) heart failure; N39.0 Urinary tract infection, site not specified; I25.10 Atherosclerotic heart disease of native coronary artery without angina pectoris; E87.5 Hyperkalemia; Z95.2 Presence of prosthetic heart valve; K74.69 Other cirrhosis of liver; I48.0 Paroxysmal atrial fibrillation
CPT/HCPCS: 36415; 70450; 71045; 71275; 74177; 80053; 81001; 82803; 83605; 83690; 83880; 84145; 84436; 84443; 84484; 85025; 85378; 85610; 85730; 87086; 87088; 87186; 87581; 87632; 87635; 87636; 87798; 93005; 93306; 93308; 99291; G0378; J0131; J2405; J2543; J7120; Q9967

== ENCOUNTER 2024-04-16 07:46 | Outpatient (CLI) | payer MEDICARE, SELFPAY ==
[2024-04-16 08:19] LABS: Basophils % 1.4 % (0.1-2.0); Eosinophils # 0.1 K/mm3 (0.0-0.4); Eosinophils % 4.7 % (0.1-12.0); Hematocrit 27.8 % (42.0-52.0); Hemoglobin 8.6 g/dL (14.1-18.0); Lymphocytes # 0.9 K/mm3 (0.7-4.5); Lymphocytes % 28.8 % (10-50); Mean Corpuscular HGB Conc 30.7 g/dL (31.8-35.4); Mean Corpuscular Hemoglobin 35.1 pg (27.0-31.2); Mean Corpuscular Volume 114.2 fl (80-94); Mean Platelet Volume 9.8 fl (7.4-10.4); Monocytes # 0.3 K/mm3 (0.1-1.0); Monocytes % 8.4 % (1.7-9.3); Neutrophils # 1.7 K/mm3 (1.8-7.8); Neutrophils % 56.6 % (37.0-80.0); Red Blood Count 2.44 M/mm3 (4.60-6.20); Red Cell Distribution Width 16.6 % (11.5-17.5)
[2024-04-16 08:40] LABS: Platelet Count 40 K/mm3 (142-424)
[2024-04-16 11:10] LABS: Alanine Aminotransferase 10 U/L (12-78); Albumin Level 3.4 g/dl (3.5-5.0); Alkaline Phosphatase 101 U/L (38-126); Anion Gap 13.1 mEq/L (5-15); Aspartate Amino Transferase 30 U/L (17-59); Bilirubin,Direct 0.1 mg/dl (0.0-0.4); Bilirubin,Indirect 0.7 mg/dL (0.0-0.9); Bilirubin,Total 0.8 mg/dl (0.2-1.3); Bilirubin,Unconjugated 0.6 mg/dL (0.0-1.1); Blood Urea Nitrogen 42 mg/dl (9-20); Calcium 8.8 mg/dl (8.4-10.2); Carbon Dioxide 27 mmol/L (22.0-30.0); Chloride 105 mmol/L (98-107); Estimated Glomerular Filt Rate 14 ml/min (>60); GFR (African American) 17 ML/MIN (>60); Glucose 102 mg/dl (74-100); Potassium 4.1 mmoL/L (3.5-5.1); Sodium 141 mmol/L (136-145); Total Protein,Serum 6.8 g/dl (6.3-8.2)
== END 2024-04-16 23:59 | disposition home or self-care (01) ==
PROVIDERS: PCP Family Medicine; Visit Provider Physician Assistant
DX: I50.20 Unspecified systolic (congestive) heart failure (principal); E87.5 Hyperkalemia
CPT/HCPCS: 36415; 80048; 80076; 85025

== ENCOUNTER 2024-06-08 15:39 | Outpatient (CLI) | payer MEDICARE, SELFPAY ==
[2024-06-08 15:56] LABS: Eosinophils # 0.2 K/mm3 (0.0-0.4); Hematocrit 32.3 % (42.0-52.0); Hemoglobin 9.8 g/dL (14.1-18.0); Lymphocytes % 22.5 % (10-50); Mean Corpuscular HGB Conc 30.3 g/dL (31.8-35.4); Mean Corpuscular Hemoglobin 34.7 pg (27.0-31.2); Mean Corpuscular Volume 114.4 fl (80-94); Mean Platelet Volume 9.4 fl (7.4-10.4); Monocytes # 0.3 K/mm3 (0.1-1.0); Monocytes % 7.8 % (1.7-9.3); Neutrophils # 2.7 K/mm3 (1.8-7.8); Neutrophils % 64.7 % (37.0-80.0); Platelet Count 106 K/mm3 (142-424); Red Blood Count 2.82 M/mm3 (4.60-6.20); White Blood Count 4.2 K/mm3 (4.8-10.8)
[2024-06-08 16:31] LABS: Alanine Aminotransferase 14 U/L (12-78); Albumin Level 3.4 g/dl (3.5-5.0); Alkaline Phosphatase 116 U/L (38-126); Anion Gap 9.7 mEq/L (5-15); Aspartate Amino Transferase 35 U/L (17-59); Bilirubin,Direct 0.4 mg/dl (0.0-0.4); Bilirubin,Indirect 0.3 mg/dL (0.0-0.9); Bilirubin,Total 0.7 mg/dl (0.2-1.3); Bilirubin,Unconjugated 0.2 mg/dL (0.0-1.1); Blood Urea Nitrogen 47 mg/dl (9-20); Calcium 8.8 mg/dl (8.4-10.2); Carbon Dioxide 28 mmol/L (22.0-30.0); Chloride 106 mmol/L (98-107); Chol/HDL Ratio 2.9 (1-3.5); Cholesterol 88 mg/dl (140-200); Estimated Glomerular Filt Rate 15 ml/min (>60); GFR (African American) 19 ML/MIN (>60); Glucose 94 mg/dl (74-100); HDL Cholesterol 30 mg/dl (40-60); Potassium 4.7 mmoL/L (3.5-5.1); Sodium 139 mmol/L (136-145); Total Protein,Serum 7.3 g/dl (6.3-8.2); Triglycerides 76 mg/dl (30-150); VLDL Cholesterol 15 mg/dL (0-40)
[2024-06-08 16:45] LABS: Direct LDL Cholesterol 46.84 mg/dL (100-129); NT Pro Brain Natriuretic Pep. > 30000 pg/mL (0-450); Troponin I 0.06 ng/ml (0.00-0.034)
[2024-06-08 16:49] LABS: Free T4 (Free Thyroxine) 1.39 ng/dl (0.78-2.19)
[2024-06-08 17:04] LABS: Thyroid Stimulating Hormone 4.05 uIU/mL (0.465-4.68)
[2024-06-08 17:51] LABS: Hemoglobin A1C 5.2 % (4.0-6.0)
== END 2024-06-08 23:59 | disposition home or self-care (01) ==
LOC: LAB 15:42
PROVIDERS: PCP Family Medicine; Visit Provider Nurse Practitioner Family
DX: D64.9 Anemia, unspecified (principal); E78.5 Hyperlipidemia, unspecified; I50.20 Unspecified systolic (congestive) heart failure; I48.91 Unspecified atrial fibrillation; N18.9 Chronic kidney disease, unspecified; R73.9 Hyperglycemia, unspecified; E78.2 Mixed hyperlipidemia; N18.6 End stage renal disease; Z99.2 Dependence on renal dialysis; R53.1 Weakness; I25.10 Atherosclerotic heart disease of native coronary artery without angina pectoris; R94.31 Abnormal electrocardiogram [ECG] [EKG]; R06.00 Dyspnea, unspecified; Z95.2 Presence of prosthetic heart valve; I31.39 Other pericardial effusion (noninflammatory)
CPT/HCPCS: 36415; 80048; 80061; 80076; 83036; 83880; 84439; 84443; 84484; 85025

== ENCOUNTER 2024-06-09 13:18 | Outpatient (CLI) | payer MEDICARE, SELFPAY ==
--- NOTE | 2024-06-09 13:25 | CA_ITS ---
APPROVED REPORT EXAM: Limited 2D Echocardiogram Director And Professor: Charlette Cotton RVT Ht: 5 ft 9 in Wt: 176lbs BSA: 1.96 BP: 130/82 mmHg Indications: EF CHECK AND PERICARDIAL EFFUSION CHECK,SOA,CAD,CM,A-FIB,,HTN,HLD M-Mode Dimensions RVDd 4.05 cm (0.9-2.6) LA Diam 3.82 cm (1.9-4.0) LVDd 5.80 cm (3.5-5.7) LVDs 4.77 cm (3.5-5.7) IVSd 1.23 cm (0.6-1.1) PWd 0.46 cm (0.6-1.1) EF (Teich) 36.40% FS 17.80% EDV (Teich) 166.60 mL ESV (Teich) 106.00 mL Tricuspid Valve TR P. Velocity 308.00 cm/s RAP Estimate 10.00 mmHg RVSP 47.80 mmHg Other Information Study Quality: Fair Conclusion This is a limited TTE to evaluate for pericardial effusion. Limited windows were obtained. There is a large sized, circumferential pericardial effusion present. The largest pocket is noted posteriorly and measures 3.0 cm in its largest dimensions. There is also an anterior pocket noted, with up to 1.8 cm in its largest dimension in diastole. There is slight invagination of the right ventricle during diastole, but no clear evidence of chamber collapse. No RV collapse may not be present in the setting of RV dilation. The IVC is not well-visualized. Compared to prior study from 02/2024, the pericardial effusion is now larger. Clinical correlation is required. The primary team was notified of the findings at the time of image acquisition. Electronically signed by : Rosio Garcia MD 06/09/2024 14:28:20
== END 2024-06-09 23:59 | disposition home or self-care (01) ==
LOC: RT 13:19
PROVIDERS: PCP Family Medicine; Visit Provider Nurse Practitioner Family
DX: I42.8 Other cardiomyopathies (principal)
CPT/HCPCS: 93308

== ENCOUNTER 2024-06-11 11:34 | Observation (INO) | payer MEDICARE, SELFPAY ==
[2024-06-11] VITALS (21 sets, daily range): BP systolic 136–171; BP diastolic 83–119; PULSE 80–112; RESP 16–22; TEMP 36.7; O2SAT 84–100; BMI 25.9; BMI 24.5
--- NOTE | 2024-06-11 | CA_ITS ---
APPROVED REPORT EXAM: Limited 2D Echocardiogram Environment Coordinator: Marcelle Rob RT(R) Ht: 5 ft 9 in Wt: 176lbs BSA: 1.96 BP: 142/85 mmHg Indications: Pericardial effusion, DM, HTN, history of AV replacement, CKD, on dialysis, HLD, CAD. Pericardiocentesis images pre and post. Other Information Study Quality: Technically Difficult Conclusion This is a limited TTE to evaluate for pericardial effusion and planned pericardiocentesis. Limited windows were obtained. Technically difficult study. Pre-pericardiocentesis, there is a large-sized, circumferential pericardial effusion present. Post-pericardiocentesis, the images are difficult, but grossly there is a residual smaller-sized circumferential effusion present. The drain remained in place. Serial limited TTEs are suggested to evaluate for further drainage of the effusion. The above findings were relayed to the primary team in real-time at the time of image acquisition. Electronically signed by : Rosio Garcia MD 06/14/2024 11:58:58
--- NOTE | 2024-06-11 11:09 | IR_ITS ---
APPROVED REPORT Patient Location: [facility] Manager: NIMESH Moon RT (R) PROCEDURES Therapeutic pericardiocentesis INDICATION Large pericardial effusion, Cardiac tamponade Informed consent was obtained prior to the procedure. COMPLICATIONS None TECHNIQUE Patient was taken the Supervisor Powdered Sugar sterilely prepped 1% lidocaine used anesthetize the subxiphoid area. Large needle was used to cannulate the pericardial space and wire was then passed through the needle into the pericardial space as confirmed by both fluoroscopy and bedside ultrasound. The tract was dilated and a pigtail catheter was advanced to the pericardial space. Nearly 900 cc of fluid was mechanically aspirated. At the end of the procedure the pigtail catheter was sewn into place and the pericardial drain bag was placed to gravity feed. Patient tolerated the procedure well ANGIOGRAPHIC RESULTS 900 cc of straw-colored fluid was removed from the pericardial space. IMPRESSION Large pericardial effusion with successful therapeutic pericardiocentesis removing 900 cc of straw-colored pericardial fluid PLAN 1. Keep drain in overnight to gravity feed 2. Send pericardial fluid for cytology and chemical analysis 3. Supportive care Electronically signed by : Franck Lopez MD 06/11/2024 14:40:22
[2024-06-11 11:17] LABS: Basophils # 0.1 K/mm3 (0-0.2); Eosinophils # 0.2 K/mm3 (0.0-0.4); Eosinophils % 3.6 % (0.1-12.0); Hematocrit 31.2 % (42.0-52.0); Hemoglobin 9.5 g/dL (14.1-18.0); Lymphocytes % 20.6 % (10-50); Mean Corpuscular HGB Conc 30.3 g/dL (31.8-35.4); Mean Corpuscular Hemoglobin 34.1 pg (27.0-31.2); Mean Corpuscular Volume 112.6 fl (80-94); Mean Platelet Volume 9.8 fl (7.4-10.4); Monocytes # 0.4 K/mm3 (0.1-1.0); Monocytes % 9.1 % (1.7-9.3); Neutrophils # 3.1 K/mm3 (1.8-7.8); Neutrophils % 65.7 % (37.0-80.0); Platelet Count 130 K/mm3 (142-424); Red Blood Count 2.77 M/mm3 (4.60-6.20); White Blood Count 4.8 K/mm3 (4.8-10.8)
[2024-06-11 11:31] LABS: Anion Gap 10.7 mEq/L (5-15); Blood Urea Nitrogen 44 mg/dl (9-20); Calcium 8.5 mg/dl (8.4-10.2); Carbon Dioxide 29 mmol/L (22.0-30.0); Chloride 102 mmol/L (98-107); Creatinine Clearance Estimated 20 mL/min (50-200); Estimated Glomerular Filt Rate 18 ml/min (>60); GFR (African American) 21 ML/MIN (>60); Glucose 79 mg/dl (74-100); Potassium 3.7 mmoL/L (3.5-5.1); Sodium 138 mmol/L (136-145)
[2024-06-11] MEDS: LIDOCAINE 1% 10ML MDV 20 ML IJ (13:09)
[2024-06-11] MEDS: 0.9 % SODIUM CHLORIDE 500 ML 25 ML IV (13:09)
[2024-06-11] MEDS: MIDAZOLAM HCL 1MG/1ML 5ML VIAL 1 MG IV (13:26)
[2024-06-11] MEDS: FENTANYL 100MCG/2ML VIAL 50 MCG IV (13:27)
--- NOTE | 2024-06-11 14:13 | P.CONCA_ITS ---
History of Present Illness History of Present Illness Consult date: 06/11/24 Requesting physician: Santos Yang Chief complaint: s/p pericardiocentesis Additional Medical History:: 1. End-stage renal disease, on hemodialysis A. Chronic recurrent anemia with hemoglobin around 8-9 2. Coronary artery disease, medical management by [facility], June 2021 3. Paroxysmal atrial fibrillation on anticoagulation 4. HFrEF A. Echocardiogram, 01/02/2024, EF 25% with severe global hypokinesis and akinesis of the septal and inferoseptal LV alba. Mild RV dilatation with mild reduced RV function. Severe biatrial dilation. Small pericardial effusion noted. 5. Hypertension 6. Hyperlipidemia 7. Moderate to Severe aortic stenosis A. Following with 8. Pericardial fluid with possible early tamponade, 05/2024 A. Echocardiogram 06/09/2024, large circumferential pericardial effusion measuring 3 cm in its largest dimension posteriorly and anterior pocket measuring 1.8 cm in its largest dimension. Slight invagination of the right ve ntricle during diastole but no clear-cut evidence of chamber collapse. 9. Pulmonary hypertension with RVSP greater than 60 mmHg by right heart cath August 2023 10. Carotid artery stenosis with history of stroke in his left eye A. CNI, 2020, less than 20% stenosis bilaterally. 11. BEST cirrhosis, followed by GI 12. Former smoker, stopped 30 years ago History of present illness: 79-year-old white male with ESRD/dialysis was brought to the cardiac Firewall Security Engineer as an outpatient today for pericardiocentesis due to increasing shortness of breath and increase in pericardial fluid acutely over the last month. Pericardiocentesis was successful in withdrawing 900 cc of straw-colored fluid. The drain was left in place and patient was admitted overnight for observation with plans to remove the drain tomorrow. [facility] Disclaimer: The information contained in this section may have been updated after the patient was seen, as this information can be updated by other users. Medical History ESRD (end stage renal disease) on dialysis UTI (urinary tract infection) Hyperlipidemia Elevated troponin Colitis Acute hypoxemic respiratory failure Elevated brain natriuretic peptide (BNP) level Acute on chronic left systolic heart failure Atypical chest pain Dizziness Angina pectoris HFrEF (heart failure with reduced ejection fraction) Pericardial effusion Hypothyroidism Kidney stones GERD (gastroesophageal reflux disease) Cirrhosis CKD (chronic kidney disease) Atrial fibrillation with RVR PAF (paroxysmal atrial fibrillation) Coronary artery disease HTN (hypertension) Aortic stenosis Surgical History History of colonoscopy History of esophagogastroduodenoscopy (EGD) History of cataract surgery History of cholecystectomy Hx of aortic valve replacement Hx of cardiac cath History of heart valve replacement Family History (Updated 06/11/24 @ 17:22 by BENSON Sinha) Other Cancer Hypertension Social History Smoking Status: Never smoker alcohol intake: never substance use type: denies use current occupational status: retired Travel in the last 8 weeks: Inside the [place] household members: spouse housing: house marital status: current occupational exposures/hazards: No caffeine: Yes special alf needs: No agree to transfusion: No do you feel safe at home: Yes victim of physical abuse: No victim of emotional abuse: No victim of sexual abuse: No would you like helpful sources: No Review of Systems Review of Systems Review of systems:: pertinent systems reviewed and negative unless documented below *Cardiovascular Cardiovascular: Reports dyspnea and Reports irregular heart rhythm *Respiratory Respiratory: Reports dyspnea Exam Data for Last 24 hours Vital signs and Labs for Last 24 Hours: Pulse Resp BP Pulse Ox O2 Del Method 85 18 141/94 H 93 L Room Air 06/11/24 14:10 06/11/24 14:10 06/11/24 14:10 06/11/24 14:10 06/11/24 11:06 Laboratory Results - last 24 hr 06/11/24 11:05: WBC 4.8, RBC 2.77 L, Hgb 9.5 L, Hct 31.2 L, MCV 112.6 H, MCH 34.1 H, MCHC 30.3 L, RDW 16.0, Plt Count 130 L, MPV 9.8, Neut % (Auto) 65.7, Lymph % (Auto) 20.6, [place] % (Auto) 9.1, Eos % (Auto) 3.6, Baso % (Auto) 1.0, Neut # (Auto) 3.1, Lymph # (Auto) 1.0, [place] # (Auto) 0.4, Eos # (Auto) 0.2, Baso # (Auto) 0.1, Sodium 138, Potassium 3.7 D, Chloride 102, Carbon Dioxide 29, Anion Gap 10.7, BUN 44 H, Creatinine 3.40 H, Estimated Creat Clear 20, Estimated GFR 18 L*, Est GFR ( Amer) 21 L, Glucose 79, Calcium 8.5 I & O for Last 24 hours: Intake & Output 06/09/24 06/10/24 06/11/24 06/12/24 11:59 11:59 11:59 11:59 Output Total 700 / 700 Balance -700 / -700 Weight 176 lb Constitutional Constitutional: mild distress *Routine Respiratory Exam Respiratory: Present CTA bilaterally *Routine Cardiovascular Exam Cardiovascular: Present RRR and tachycardia *Routine Neurological Exam Neurological: Present alert, oriented X3 and CN II-XII intact Meds Home Medications and Allergies Home Medications ?Medication ?Instructions ?Recorded ?Confirmed ?Type ursodiol 500 mg tablet 500 mg PO BID 07/03/21 06/11/24 History cyclobenzaprine 10 mg tablet 10 mg PO DAILYP PRN Muscle Pain 02/11/23 06/11/24 History levothyroxine 50 mcg tablet 50 mcg PO DAILY 02/11/23 06/11/24 History vitamins A,C,G-jeoo-tlohzr 2,148 1 tab PO BID 10/03/23 06/11/24 History mcg-113 mg-45 mg-17.4 mg tablet (PreserVision AREDS) albuterol sulfate 90 mcg/actuation 1 inh inhalation Q4HP PRN 10/09/23 06/11/24 History aerosol inhaler Shortness Of Breath colchicine 0.6 mg tablet 0.6 mg PO DAILY PRN GOUT 03/26/24 06/11/24 History metoprolol succinate 50 mg 75 mg (1.5 x 50 mg) PO BID #60 tabs 04/30/24 06/11/24 Rx tablet,extended release 24 hr sacubitril 24 mg-valsartan 26 mg 1 tab PO BID #60 tabs 05/07/24 06/11/24 Rx tablet (Entresto) tramadol 50 mg tablet 50 mg PO HS PRN Sleep 05/07/24 06/11/24 History furosemide 20 mg tablet 20 mg PO DAILY 06/11/24 06/11/24 History New Prescriptions to Start Prescriptions: Allergies Allergy/AdvReac Type Severity Reaction Status Date / Time aspirin Allergy Other Verified 06/11/24 11:16 cephalexin Allergy Difficulty Verified 06/11/24 11:17 Breathing Assessment and Plan *Assessment and plan (1) Pericardial effusion without cardiac tamponade: Status: Acute Category: Medical Code(s): I31.39 - Other pericardial effusion (noninflammatory) (2) HFrEF (heart failure with reduced ejection fraction): Status: Acute Category: Medical Code(s): I50.20 - Unspecified systolic (congestive) heart failure (3) ESRD (end stage renal disease) on dialysis: Status: Acute Category: Medical Code(s): N18.6 - End stage renal disease; Z99.2 - Dependence on renal dialysis (4) Generalized weakness: Status: Acute Category: Medical Code(s): R53.1 - Weakness (5) Coronary artery disease: Status: Chronic Qualifiers: Associated angina: without angina Coronary Disease-Associated Artery/Lesion type: [place] artery [place] vs. transplanted heart: [place] heart Qualified Code(s): I25.10 - Atherosclerotic heart disease of [place] coronary artery without angina pectoris Category: Medical Code(s): I25.10 - Atherosclerotic heart disease of [place] coronary artery without angina pectoris (6) Aortic stenosis: Status: Chronic Qualifiers: Cardiac valve disease etiology: etiology unspecified Qualified Code(s): I35.0 - Nonrheumatic aortic (valve) stenosis Category: Medical Code(s): I35.0 - Nonrheumatic aortic (valve) stenosis Plan 1. Pericardial effusion, acute on chronic worsening with symptoms of increasing shortness of breath -Status post pericardiocentesis with 900 cc removed -Plan for drain removal tomorrow 2. HFrEF with EF 25% -Continue Bumex 1 mg twice daily and metolazone every 48 hrs -Continue metoprolol succinate 50 mg 1.5 tablets daily -Continue Entresto twice daily -No spironolactone due to end-stage renal disease 3. ESRD with dialysis twice a week -recommend increasing this to 3 times a week to help prevent collection of pe ricardial fluid -Cr 3.4 on 06/11/2024 with GFR 18 4. CAD, medical management by [facility] 2020 -chronic elevated troponin 5. Moderate to severe aortic stenosis with RAMANA of 1.1 cm2 6. Chronic anemia with hemoglobin around 9 7. Paroxysmal atrial fibrillation with history of prior stroke, chronic anticoagulation with eliquis Limited echo in AM Anticipate home in AM
--- NOTE | 2024-06-11 14:54 | HMH.PHAINT1 ---
Pharmacy Intervention Comments: HOME MEDICATION LIST VERIFIED USING LIST FROM OUTPATIENT PHARMACY AND PRIMARY CARE OFFICE
[2024-06-11] MEDS: MORPHINE 2MG/ML SYRINGE 2 MG IV ×2 (15:47→20:06)
--- NOTE | 2024-06-11 17:19 | EXP.HP ---
History of Present Illness *Admission Date: 06/11/24 *Reason for visit:: pericardial effusion *History of present illness: 79-year-old white male brought to the cardiac Web Content Writer as an outpatient today for pericardiocentesis due to increasing shortness of breath over the last month. Pericardiocentesis was successful in withdrawing 900 cc of straw-colored fluid. The drain was left in place and patient was admitted overnight for observation with plans to remove the drain tomorrow. Additional Medical History:: 1. End-stage renal disease, on hemodialysis A. Chronic recurrent anemia with hemoglobin around 8-9 2. Coronary artery disease, medical management by [facility], June 2021 3. Paroxysmal atrial fibrillation on anticoagulation 4. HFrEF A. Echocardiogram, 01/02/2024, EF 25% with severe global hypokinesis and akinesis of the septal and inferoseptal LV alba. Mild RV dilatation with mild reduced RV function. Severe biatrial dilation. Small pericardial effusion noted. 5. Hypertension 6. Hyperlipidemia 7. Moderate to Severe aortic stenosis A. Following with 8. Pericardial fluid with possible early tamponade, 05/2024 A. Echocardiogram 06/09/2024, large circumferential pericardial effusion measuring 3 cm in its largest dimension posteriorly and anterior pocket measuring 1.8 cm in its largest dimension. Slight invagination of the right ventricle during diastole but no clear-cut evidence of chamber collapse. 9. Pulmonary hypertension with RVSP greater than 60 mmHg by right heart cath August 2023 10. Carotid artery stenosis with history of stroke in his left eye A. CNI, 2020, less than 20% stenosis bilaterally. 11. BEST cirrhosis, followed by GI 12. Former smoker, stopped 30 years ago ( above as per cardiology) Patient is still having some chest soreness and mild SOA. He is resting now. [facility] Disclaimer: The information contained in this section may have been updated after the patient was seen, as this information can be updated by other users. Medical History ESRD (end stage renal disease) on dialysis UTI (urinary tract infection) Hyperlipidemia Elevated troponin Colitis Acute hypoxemic respiratory failure Elevated brain natriuretic peptide (BNP) level Acute on chronic left systolic heart failure Atypical chest pain Dizziness Angina pectoris HFrEF (heart failure with reduced ejection fraction) Pericardial effusion Hypothyroidism Kidney stones GERD (gastroesophageal reflux disease) Cirrhosis CKD (chronic kidney disease) Atrial fibrillation with RVR PAF (paroxysmal atrial fibrillation) Coronary artery disease HTN (hypertension) Aortic stenosis Surgical History History of colonoscopy History of esophagogastroduodenoscopy (EGD) History of cataract surgery History of cholecystectomy Hx of aortic valve replacement Hx of cardiac cath History of heart valve replacement Family History (Updated 06/11/24 @ 17:22 by BENSON Sinha) Other Cancer Hypertension Social History Smoking Status: Never smoker alcohol intake: never substance use type: denies use current occupational status: retired Travel in the last 8 weeks: [place] the [place] household members: spouse housing: house marital status: current occupational exposures/hazards: No caffeine: Yes special alf needs: No agree to transfusion: No do you feel safe at home: Yes victim of physical abuse: No victim of emotional abuse: No victim of sexual abuse: No would you like helpful sources: No Review of Systems Constitutional Constitutional: Denies chills, Denies fever(s), Denies headache(s) and Reports weakness Eyes Eyes: Denies blurry vision and Denies diplopia ENT Ears, Nose, Mouth, and Throat: Denies headache(s), Denies nasal congestion, Denies sore throat and Denies vertigo *Cardiovascular Cardiovascular: Reports chest pain, Reports dyspnea and Denies leg edema *Respiratory Respiratory: Denies chest congestion, Denies cough, Reports dyspnea and Denies wheezing *Gastrointestinal Gastrointestinal: Denies abdominal pain, Denies nausea and Denies vomiting *Genitourinary Genitourinary: Reports difficulty urinating (Is currently on antibiotics for a UTI) and Reports dysuria *Musculoskeletal Musculoskeletal: Denies arthralgias and Denies myalgias *Neurologic Neurologic: Denies headache(s), Denies vertigo and Reports weakness Allergic/Immunologic Allergic/Immunologic: Denies wheezing Meds Home Medications and Allergies Home Medications ?Medication ?Instructions ?Recorded ?Confirmed ?Type ursodiol 500 mg tablet 500 mg PO BID 07/03/21 06/11/24 History cyclobenzaprine 10 mg tablet 10 mg PO DAILYP PRN Muscle Pain 02/11/23 06/11/24 History levothyroxine 50 mcg tablet 50 mcg PO DAILY 02/11/23 06/11/24 History vitamins A,C,S-eapj-quhxne 2,148 1 tab PO BID 10/03/23 06/11/24 History mcg-113 mg-45 mg-17.4 mg tablet (PreserVision AREDS) albuterol sulfate 90 mcg/actuation 1 inh inhalation Q4HP PRN 10/09/23 06/11/24 History aerosol inhaler Shortness Of Breath colchicine 0.6 mg tablet 0.6 mg PO DAILY PRN GOUT 03/26/24 06/11/24 History metoprolol succinate 50 mg 75 mg (1.5 x 50 mg) PO BID #60 tabs 04/30/24 06/11/24 Rx tablet,extended release 24 hr sacubitril 24 mg-valsartan 26 mg 1 tab PO BID #60 tabs 05/07/24 06/11/24 Rx tablet (Entresto) tramadol 50 mg tablet 50 mg PO HS PRN Sleep 05/07/24 06/11/24 History furosemide 20 mg tablet 20 mg PO DAILY 06/11/24 06/11/24 History New Prescriptions to Start Prescriptions: Allergies Allergy/AdvReac Type Severity Reaction Status Date / Time aspirin Allergy Other Verified 06/11/24 11:16 cephalexin Allergy Difficulty Verified 06/11/24 11:17 Breathing Exam Data for Last 24 hours Vital signs and Labs for Last 24 Hours: Pulse Resp BP Pulse Ox O2 Del Method 96 H 20 153/108 H 95 Room Air 06/11/24 16:40 06/11/24 16:40 06/11/24 16:40 06/11/24 16:40 06/11/24 16:56 Laboratory Results - last 24 hr 06/11/24 11:05: WBC 4.8, RBC 2.77 L, Hgb 9.5 L, Hct 31.2 L, MCV 112.6 H, MCH 34.1 H, MCHC 30.3 L, RDW 16.0, Plt Count 130 L, MPV 9.8, Neut % (Auto) 65.7, Lymph % (Auto) 20.6, [place] % (Auto) 9.1, Eos % (Auto) 3.6, Baso % (Auto) 1.0, Neut # (Auto) 3.1, Lymph # (Auto) 1.0, [place] # (Auto) 0.4, Eos # (Auto) 0.2, Baso # (Auto) 0.1, Sodium 138, Potassium 3.7 D, Chloride 102, Carbon Dioxide 29, Anion Gap 10.7, BUN 44 H, Creatinine 3.40 H, Estimated Creat Clear 20, Estimated GFR 18 L*, Est GFR ( Amer) 21 L, Glucose 79, Calcium 8.5 I & O for Last 24 hours: Intake & Output 06/09/24 06/10/24 06/11/24 06/12/24 11:59 11:59 11:59 11:59 Output Total 1025 / 1025 Balance -1025 / -1025 Weight 176 lb 171 lb 5 oz Constitutional Constitutional: no acute distress *Routine HEENT Exam Head: Present normocephalic and atraumatic Eye: Present EOMI and PERRL ENT: Present mucous membranes moist *Routine Neck Exam Neck: Present supple and full ROM *Routine Respiratory Exam Respiratory: Present CTA bilaterally *Routine Cardiovascular Exam Cardiovascular: Present irregularly irregular and other (pericardial drain in place) *Routine Abdominal Exam Abdominal: Present soft and normoactive bowel sounds; Absent tenderness *Routine Rectal Exam Rectal:: deferred *Routine Genitalia Exam Genitalia:: deferred *Routine Extremities Exam Extremities: Absent cyanosis, clubbing or edema *Routine Skin Exam Skin: Present intact; Absent erythema *Routine Neurological Exam Neurological: Present alert and oriented X3 H&P: Result Impressions Pericardiocentesis IMPRESSION Large pericardial effusion with successful therapeutic pericardiocentesis removing 900 cc of straw-colored pericardial fluid PLAN 1. Keep drain in overnight to gravity feed 2. Send pericardial fluid for cytology and chemical analysis 3. Supportive care Assessment and Plan *Assessment and plan (1) Pericardial effusion without cardiac tamponade: Status: Acute Category: Medical Code(s): I31.39 - Other pericardial effusion (noninflammatory) (2) HFrEF (heart failure with reduced ejection fraction): Status: Acute Category: Medical Code(s): I50.20 - Unspecified systolic (congestive) heart failure (3) ESRD (end stage renal disease) on dialysis: Status: Acute Category: Medical Code(s): N18.6 - End stage renal disease; Z99.2 - Dependence on renal dialysis (4) Generalized weakness: Status: Acute Category: Medical Code(s): R53.1 - Weakness (5) Coronary artery disease: Status: Chronic Qualifiers: Associated angina: without angina Coronary Disease-Associated Artery/Lesion type: [place] artery [place] vs. transplanted heart: [place] heart Qualified Code(s): I25.10 - Atherosclerotic heart disease of [place] coronary artery without angina pectoris Category: Medical Code(s): I25.10 - Atherosclerotic heart disease of [place] coronary artery without angina pectoris (6) Aortic stenosis: Status: Chronic Qualifiers: Cardiac valve disease etiology: etiology unspecified Qualified Code(s): I35.0 - Nonrheumatic aortic (valve) stenosis Category: Medical Code(s): I35.0 - Nonrheumatic aortic (valve) stenosis Plan 1. Pericardial effusion, acute on chronic worsening with symptoms of increasing shortness of breath -Status post pericardiocentesis with 900 cc removed -Plan for drain removal tomorrow 2. HFrEF with EF 25% -Continue Bumex 1 mg twice daily and metolazone every 48 hrs -Continue metoprolol succinate 50 mg 1.5 tablets daily -Continue Entresto twice daily -No spironolactone due to end-stage renal disease 3. ESRD with dialysis twice a week -recommend increasing this to 3 times a week to help prevent collection of pericardial fluid -Cr 3.4 on 06/11/2024 with GFR 18 4. CAD, medical management by [facility] 2020 -chronic elevated troponin 5. Moderate to severe aortic stenosis with RAMANA of 1.1 cm2 6. Chronic anemia with hemoglobin around 9 7. Paroxysmal atrial fibrillation with history of prior stroke, chronic anticoagulation with eliquis Limited echo in AM Anticipate home in AM (above is the plan from cardiology)
[2024-06-11 18:33] LABS: Thyroid Stimulating Hormone 4.32 uIU/mL (0.465-4.68)
[2024-06-11] MEDS: SACUBITRIL/VALSARTAN 24-26MG TABLET 1 EACH PO (20:07)
[2024-06-11] MEDS: METOPROLOL SUCCINATE XL 50MG TABLET 50 MG PO (20:12)
[2024-06-12] VITALS (8 sets, daily range): BP systolic 115–138; BP diastolic 74–100; PULSE 93–116; RESP 18–25; TEMP 37.3–38.2; O2SAT 93–99; BMI 24.7
[2024-06-12] MEDS: MORPHINE 2MG/ML SYRINGE 2 MG IV ×2 (04:35→08:43)
[2024-06-12 06:34] LABS: Basophils % 0.4 % (0.1-2.0); Eosinophils # 0.1 K/mm3 (0.0-0.4); Hematocrit 32.2 % (42.0-52.0); Hemoglobin 9.8 g/dL (14.1-18.0); Lymphocytes # 1.1 K/mm3 (0.7-4.5); Mean Corpuscular HGB Conc 30.4 g/dL (31.8-35.4); Mean Corpuscular Hemoglobin 34.3 pg (27.0-31.2); Mean Corpuscular Volume 112.9 fl (80-94); Mean Platelet Volume 9.5 fl (7.4-10.4); Monocytes # 0.6 K/mm3 (0.1-1.0); Monocytes % 8.1 % (1.7-9.3); Neutrophils # 5.3 K/mm3 (1.8-7.8); Neutrophils % 75.6 % (37.0-80.0); Platelet Count 134 K/mm3 (142-424); Red Blood Count 2.85 M/mm3 (4.60-6.20)
[2024-06-12 06:44] LABS: Alanine Aminotransferase 13 U/L (12-78); Albumin/Globulin Ratio 0.9 (1.1-1.8); Alkaline Phosphatase 100 U/L (38-126); Anion Gap 9.7 mEq/L (5-15); Aspartate Amino Transferase 32 U/L (17-59); Bilirubin,Total 0.8 mg/dl (0.2-1.3); Blood Urea Nitrogen 52 mg/dl (9-20); Calcium 8.4 mg/dl (8.4-10.2); Carbon Dioxide 30 mmol/L (22.0-30.0); Chloride 104 mmol/L (98-107); Creatinine Clearance Estimated 15 mL/min (50-200); Estimated Glomerular Filt Rate 13 ml/min (>60); GFR (African American) 16 ML/MIN (>60); Globulin 3.4 g/dL (1.3-3.2); Glucose 98 mg/dl (74-100); Potassium 4.7 mmoL/L (3.5-5.1); Sodium 139 mmol/L (136-145); Total Protein,Serum 6.4 g/dl (6.3-8.2)
[2024-06-12] MEDS: ursodioL 300 MG CAPSULE PO (08:16)
[2024-06-12] MEDS: LEVOTHYROXINE 50MCG (0.05MG) TAB 50 MCG PO (08:16)
[2024-06-12] MEDS: SACUBITRIL/VALSARTAN 24-26MG TABLET 1 EACH PO (08:16)
[2024-06-12] MEDS: METOPROLOL SUCCINATE XL 50MG TABLET 75 MG PO (08:17)
--- NOTE | 2024-06-12 08:17 | EXP.ACUTE.PN ---
Subjective *Date: 06/12/24 *Time: 08:17 Interval history: Patient is feeling much better today. SOA and CP have improved. He is anxious to get his drain out and go home. Medical Exam Vital signs and Labs for Last 24 Hours: Vital Signs Temp Pulse Pulse Resp BP BP Pulse Ox 06/12/24 06:33 06/12/24 06:00 99 H 25 H 125/74 94 L 06/12/24 04:40 06/12/24 04:00 99.3 F 06/12/24 04:00 116 H 06/12/24 04:00 100.1 F H 105 H 22 121/91 H 93 L 06/12/24 03:00 06/12/24 02:00 99 H 22 115/76 94 L 06/12/24 01:53 106 H 94 L 06/12/24 01:00 06/12/24 00:00 100.7 F H 06/12/24 00:00 113 H 06/12/24 00:00 103 H 20 138/88 96 06/11/24 23:30 84 L 06/11/24 23:00 06/11/24 22:00 112 H 16 138/100 H 91 L 06/11/24 21:10 93 H 20 152/86 H 91 L 06/11/24 20:38 06/11/24 20:10 100 H 22 171/92 H 91 L 06/11/24 20:00 97 H 06/11/24 20:00 98.1 F 06/11/24 19:53 89 93 L 06/11/24 19:10 84 16 150/96 H 92 L 06/11/24 18:38 06/11/24 18:10 84 20 154/84 H 96 06/11/24 17:10 89 22 136/92 H 95 06/11/24 16:56 06/11/24 16:40 96 H 20 153/108 H 95 06/11/24 16:00 100 H 06/11/24 16:00 87 20 138/87 96 06/11/24 15:40 89 18 151/100 H 98 06/11/24 15:10 80 18 148/112 H 98 06/11/24 14:55 90 18 144/101 H 99 06/11/24 14:40 106 H 18 155/83 H 99 06/11/24 14:22 93 H 20 145/114 H 99 06/11/24 14:22 06/11/24 14:10 85 18 141/94 H 93 L 06/11/24 14:05 91 H 18 148/100 H 93 L 06/11/24 14:00 91 H 18 147/89 H 95 06/11/24 13:53 90 19 155/109 H 93 L 06/11/24 11:06 95 H 20 155/119 H 100 06/11/24 11:06 95 H O2 Del Method O2 Del Method O2 Flow Rate 06/12/24 06:33 Nasal Cannula 2 06/12/24 06:00 Nasal Cannula 2 06/12/24 04:40 Nasal Cannula 2 06/12/24 04:00 06/12/24 04:00 06/12/24 04:00 Nasal Cannula 2 06/12/24 03:00 Nasal Cannula 2 06/12/24 02:00 Nasal Cannula 2 06/12/24 01:53 Nasal Cannula 2 06/12/24 01:00 Nasal Cannula 2 06/12/24 00:00 06/12/24 00:00 06/12/24 00:00 Nasal Cannula 2 06/11/24 23:30 Room Air 06/11/24 23:00 Room Air 06/11/24 22:00 Room Air 06/11/24 21:10 Room Air 06/11/24 20:38 Room Air 06/11/24 20:10 Room Air 06/11/24 20:00 06/11/24 20:00 06/11/24 19:53 Room Air 06/11/24 19:10 Room Air 06/11/24 18:38 Room Air 06/11/24 18:10 Room Air 06/11/24 17:10 Room Air 06/11/24 16:56 Room Air 06/11/24 16:40 Room Air 06/11/24 16:00 06/11/24 16:00 Room Air 06/11/24 15:40 Room Air 06/11/24 15:10 Room Air 06/11/24 14:55 Room Air 06/11/24 14:40 Room Air 06/11/24 14:22 Room Air 06/11/24 14:22 Room Air 06/11/24 14:10 06/11/24 14:05 06/11/24 14:00 06/11/24 13:53 06/11/24 11:06 Room Air Room Air 06/11/24 11:06 Intake and Output 06/11/24 06/12/24 06/12/24 19:59 03:59 11:59 Intake Total 360 / 600 240 / 600 Output Total 1025 / 1325 175 / 1325 125 / 1325 Balance -665 / -725 -175 / -725 115 / -725 Intake: Intake, Oral Amount 360 / 600 240 / 600 Output: Output, Urine Amount 325 / 625 175 / 625 125 / 625 Output, Drainage Amount 700 / 700 Anterior Chest 700 / 700 Other: Number of Unmeasured Voids 0 1 Weight 171 lb 5 oz 172 lb 6.4 oz Patient Weight 06/12/24 11:59 Weight 172 lb 6.4 oz Laboratory Results - last 24 hr 06/11/24 11:05: WBC 4.8, RBC 2.77 L, Hgb 9.5 L, Hct 31.2 L, MCV 112.6 H, MCH 34.1 H, MCHC 30.3 L, RDW 16.0, Plt Count 130 L, MPV 9.8, Neut % (Auto) 65.7, Lymph % (Auto) 20.6, [place] % (Auto) 9.1, Eos % (Auto) 3.6, Baso % (Auto) 1.0, Neut # (Auto) 3.1, Lymph # (Auto) 1.0, [place] # (Auto) 0.4, Eos # (Auto) 0.2, Baso # (Auto) 0.1, Sodium 138, Potassium 3.7 D, Chloride 102, Carbon Dioxide 29, Anion Gap 10.7, BUN 44 H, Creatinine 3.40 H, Estimated Creat Clear 20, Estimated GFR 18 L*, Est GFR ( Amer) 21 L, Glucose 79, Uric Acid 5.0, Calcium 8.5, TSH 4.32 06/12/24 05:30: WBC 7.0 D, RBC 2.85 L, Hgb 9.8 L, Hct 32.2 L, MCV 112.9 H, MCH 34.3 H, MCHC 30.4 L, RDW 16.0, Plt Count 134 L, MPV 9.5, Neut % (Auto) 75.6, Lymph % (Auto) 15.0, [place] % (Auto) 8.1, Eos % (Auto) 1.0, Baso % (Auto) 0.4, Neut # (Auto) 5.3, Lymph # (Auto) 1.1, [place] # (Auto) 0.6, Eos # (Auto) 0.1, Baso # (Auto) 0.0, Sodium 139, Potassium 4.7 D, Chloride 104, Carbon Dioxide 30, Anion Gap 9.7, BUN 52 H, Creatinine 4.30 H D, Estimated Creat Clear 15, Estimated GFR 13 L*, Est GFR ( Amer) 16 L* D, Glucose 98 D, Calcium 8.4, Total Bilirubin 0.8, AST 32, ALT 13, Alkaline Phosphatase 100, Total Protein 6.4, Albumin 3.0 L, Globulin 3.4 H, Albumin/Globulin Ratio 0.9 L I & O for Labs for Last 24 Hours: Intake & Output 06/09/24 06/10/24 06/11/24 06/12/24 11:59 11:59 11:59 11:59 Intake Total 600 / 600 Output Total 1325 / 1325 Balance -725 / -725 Weight 176 lb 172 lb 6.4 oz Constitutional: Present no acute distress Respiratory: Present CTA bilaterally Comment:: Irregularly irregular, drain in place with only a small amount of fluid GI: Present soft; Absent distention or tenderness Extremities: Present edema (mild LE edema) Skin: Present intact Neuro: Present alert, awake and oriented x 3 Assessment and Plan *Assessment and plan (1) Pericardial effusion without cardiac tamponade: Status: Acute Category: Medical Code(s): I31.39 - Other pericardial effusion (noninflammatory) (2) HFrEF (heart failure with reduced ejection fraction): Status: Acute Category: Medical Code(s): I50.20 - Unspecified systolic (congestive) heart failure (3) ESRD (end stage renal disease) on dialysis: Status: Acute Category: Medical Code(s): N18.6 - End stage renal disease; Z99.2 - Dependence on renal dialysis (4) Generalized weakness: Status: Acute Category: Medical Code(s): R53.1 - Weakness (5) Coronary artery disease: Status: Chronic Qualifiers: Coronary Disease-Associated Artery/Lesion type: [place] artery [place] vs. transplanted heart: [place] heart Associated angina: without angina Qualified Code(s): I25.10 - Atherosclerotic heart disease of [place] coronary artery without angina pectoris Category: Medical Code(s): I25.10 - Atherosclerotic heart disease of [place] coronary artery without angina pectoris (6) Aortic stenosis: Status: Chronic Qualifiers: Cardiac valve disease etiology: etiology unspecified Qualified Code(s): I35.0 - Nonrheumatic aortic (valve) stenosis Category: Medical Code(s): I35.0 - Nonrheumatic aortic (valve) stenosis Plan Cardiology to follow today for further guidance.
--- NOTE | 2024-06-12 08:21 | CA_ITS ---
APPROVED REPORT EXAM: Limited 2D Echocardiogram Nurse Administrator: RT Parth(R) Ht: 5 ft 10 in Wt: 172lbs BSA: 1.96 BP: 127/93 mmHg Indications: Limited echo to assess pericardial effusion post pericardiocentesis yesterday 06/11/24. Tricuspid Valve TR P. Velocity 305.00 cm/s RAP Estimate 15.00 mmHg RVSP 52.30 mmHg Other Information Study Quality: Fair Conclusion This is a limited TTE to evaluate for pericardial effusion. Limited windows were obtained. There is a circumferential pericardial effusion present. A large pocket is noted posteriorly measuring up to 2.5 cm in diastole. Another anterior pocket is noted, with up to 0.5 cm in diastole. Compared to prior study prepericardiocentesis, both pockets appear smaller in size. Electronically signed by : Rosio Garcia MD 06/12/2024 11:21:15
--- NOTE | 2024-06-12 08:24 | EXP.CARD.PN ---
Subjective Subjective Date: 06/12/24 Time: 08:24 Principal diagnosis: Pericardial fluid, s/p pericardiocentesis Interval history: 79-year-old white male in bed resting comfortably. Denies any significant chest pain, pressure or tightness. The soreness that he felt yesterday has significantly improved. He is anxious to have the drain removed so he can go home. Exam Data for Last 24 hours Vital signs and Labs for Last 24 Hours: Temp Pulse Resp BP Pulse Ox O2 Del Method O2 Flow Rate 99.3 F 99 H 25 H 125/74 94 L Nasal Cannula 2 06/12/24 04:00 06/12/24 06:00 06/12/24 06:00 06/12/24 06:00 06/12/24 06:00 06/12/24 06:33 06/12/24 06:33 Laboratory Results - last 24 hr 06/11/24 11:05: WBC 4.8, RBC 2.77 L, Hgb 9.5 L, Hct 31.2 L, MCV 112.6 H, MCH 34.1 H, MCHC 30.3 L, RDW 16.0, Plt Count 130 L, MPV 9.8, Neut % (Auto) 65.7, Lymph % (Auto) 20.6, [place] % (Auto) 9.1, Eos % (Auto) 3.6, Baso % (Auto) 1.0, Neut # (Auto) 3.1, Lymph # (Auto) 1.0, [place] # (Auto) 0.4, Eos # (Auto) 0.2, Baso # (Auto) 0.1, Sodium 138, Potassium 3.7 D, Chloride 102, Carbon Dioxide 29, Anion Gap 10.7, BUN 44 H, Creatinine 3.40 H, Estimated Creat Clear 20, Estimated GFR 18 L*, Est GFR ( Amer) 21 L, Glucose 79, Uric Acid 5.0, Calcium 8.5, TSH 4.32 06/12/24 05:30: WBC 7.0 D, RBC 2.85 L, Hgb 9.8 L, Hct 32.2 L, MCV 112.9 H, MCH 34.3 H, MCHC 30.4 L, RDW 16.0, Plt Count 134 L, MPV 9.5, Neut % (Auto) 75.6, Lymph % (Auto) 15.0, [place] % (Auto) 8.1, Eos % (Auto) 1.0, Baso % (Auto) 0.4, Neut # (Auto) 5.3, Lymph # (Auto) 1.1, [place] # (Auto) 0.6, Eos # (Auto) 0.1, Baso # (Auto) 0.0, Sodium 139, Potassium 4.7 D, Chloride 104, Carbon Dioxide 30, Anion Gap 9.7, BUN 52 H, Creatinine 4.30 H D, Estimated Creat Clear 15, Estimated GFR 13 L*, Est GFR ( Amer) 16 L* D, Glucose 98 D, Calcium 8.4, Total Bilirubin 0.8, AST 32, ALT 13, Alkaline Phosphatase 100, Total Protein 6.4, Albumin 3.0 L, Globulin 3.4 H, Albumin/Globulin Ratio 0.9 L I & O for Last 24 hours: Intake & Output 06/09/24 06/10/24 06/11/24 06/12/24 11:59 11:59 11:59 11:59 Intake Total 600 / 600 Output Total 1325 / 1325 Balance -725 / -725 Weight 176 lb 172 lb 6.4 oz Constitutional Constitutional: no acute distress *Routine Respiratory Exam Respiratory: Present CTA bilaterally *Routine Cardiovascular Exam Cardiovascular: Present RRR Progress Note: A&P Assessment and plan (1) Pericardial effusion without cardiac tamponade: Status: Acute (2) HFrEF (heart failure with reduced ejection fraction): Status: Acute (3) ESRD (end stage renal disease) on dialysis: Status: Acute (4) Generalized weakness: Status: Acute (5) Coronary artery disease: Status: Chronic (6) Aortic stenosis: Status: Chronic Assessment and Plan Assessment and Plan for All Diagnoses:: 1. Pericardial effusion, acute on chronic worsening with symptoms of increasing shortness of breath -Status post pericardiocentesis with 900 cc removed -drain removal today then discharge home 2. HFrEF with EF 25% -Continue Bumex 1 mg twice daily and metolazone every 48 hrs -Continue metoprolol succinate 50 mg 1.5 tablets daily -Continue Entresto twice daily -No spironolactone due to end-stage renal disease 3. ESRD with dialysis twice a week -recommend increasing this to 3 times a week to help prevent collection of pericardial fluid -Cr 3.4 on 06/11/2024 with GFR 18 4. CAD, medical management by [facility] 2020 -chronic elevated troponin 5. Moderate to severe aortic stenosis with RAM[place] of 1.1 cm2 6. Chronic anemia with hemoglobin around 9 7. Paroxysmal atrial fibrillation with history of prior stroke, chronic anticoagulation with eliquis Limited echo this AM shows improvement in pericardial fluid. Some areas that are not reachable by pericardiocentesis still present but no evidence of tamponade. Pericardial drain removed without incident. Stable for discharge from cardiology standpoint. Home medication recommendations: Bumex 1 mg twice daily (discontinue Lasix) Eliquis 5 mg twice daily Metolazone 2.5 mg every 48 hours Metoprolol succinate 75 mg twice daily Entresto 24/26 mg twice daily Follow-up in our office in 1 to 2 weeks.
--- NOTE | 2024-06-15 15:46 | CARE MANAGER ---
Contacted patient related to hospital discharge. He states he is sore and wasn't expecting it. He doesn't have any new medications. Denies questions or concerns. JASMYN Randall
--- NOTE | 2024-06-16 09:09 | P.DS_ITS ---
General Admission date:: 06/11/24 Discharge date: 06/12/24 HPI HPI HPI: 79-year-old white male brought to the cardiac [facility] as an outpatient today for pericardiocentesis due to increasing shortness of breath over the last month. Pericardiocentesis was successful in withdrawing 900 cc of straw-colored fluid. The drain was left in place and patient was admitted overnight for observation with plans to remove the drain the following day.. Additional Medical History:: 1. End-stage renal disease, on hemodialysis A. Chronic recurrent anemia with hemoglobin around 8-9 2. Coronary artery disease, medical management by [facility], June 2021 3. Paroxysmal atrial fibrillation on anticoagulation 4. HFrEF A. Echocardiogram, 01/02/2024, EF 25% with severe global hypokinesis and akinesis of the septal and inferoseptal LV alba. Mild RV dilatation with mild reduced RV function. Severe biatrial dilation. Small pericardial effusion noted. 5. Hypertension 6. Hyperlipidemia 7. Moderate to Severe aortic stenosis A. Following with 8. Pericardial fluid with possible early tamponade, 05/2024 A. Echocardiogram 06/09/2024, large circumferential pericardial effusion measuring 3 cm in its largest dimension posteriorly and anterior pocket measuring 1.8 cm in its largest dimension. Slight invagination of the right ventricle during diastole but no clear-cut evidence of chamber collapse. 9. Pulmonary hypertension with RVSP greater than 60 mmHg by right heart cath August 2023 10. Carotid artery stenosis with history of stroke in his left eye A. CNI, 2020, less than 20% stenosis bilaterally. 11. BEST cirrhosis, followed by GI 12. Former smoker, stopped 30 years ago ( above as per cardiology) Patient was still having some chest soreness and mild SOA. He was resting after the procedure. Hospital Course Hospital Course Hospital Course: Patient had a successful pericardiocentesis on 06/11/2024. He had a drain left in place and then was admitted overnight for observation with plans to have the drain removed the following day. On admission patient was having chest soreness and mild shortness of breath after the procedure. The following day patient was feeling much better. Shortness of breath and chest pain had improved. He was anxious to have his drain out and to go home. Cardiology did pull the drain without difficulty. He also noted no significant chest pain, pressure or tightness with improvement of the soreness. Follow-up echo showed improvement in the pericardial fluid. The patirnt was then discharged home. Following is the discharge note per cardiology on 06/12/2024: Assessment and Plan for All Diagnoses:: 1. Pericardial effusion, acute on chronic worsening with symptoms of increasing shortness of breath -Status post pericardiocentesis with 900 cc removed -drain removal today then discharge home 2. HFrEF with EF 25% -Continue Bumex 1 mg twice daily and metolazone every 48 hrs -Continue metoprolol succinate 50 mg 1.5 tablets daily -Continue Entresto 24/26 twice daily -No spironolactone due to end-stage renal disease 3. ESRD with dialysis twice a week -recommend increasing this to 3 times a week to help prevent collection of pericardial fluid -Cr 3.4 on 06/11/2024 with GFR 18 4. CAD, medical management by [facility] 2020 -chronic elevated troponin 5. Moderate to severe aortic stenosis with RAM[place] of 1.1 cm2 6. Chronic anemia with hemoglobin around 9 7. Paroxysmal atrial fibrillation with history of prior stroke, chronic anticoagulation with eliquis Limited echo this AM shows improvement in pericardial fluid. Some areas that are not reachable by pericardiocentesis still present but no evidence of tamponade. Pericardial drain removed without incident. Stable for discharge from cardiology standpoint. Home medication recommendations: Bumex 1 mg twice daily (discontinue Lasix) Eliquis 5 mg twice daily Metolazone 2.5 mg every 48 hours Metoprolol succinate 75 mg twice daily Entresto 24/26 mg twice daily Follow-up in our office in 1 to 2 weeks. Exam Data for Last 24 hours Vital signs and Labs for Last 24 Hours: Temp Pulse Resp BP Pulse Ox O2 Del Method O2 Flow Rate 99.4 F 93 H 18 126/100 H 96 Room Air 2 06/12/24 12:00 06/12/24 12:00 06/12/24 12:00 06/12/24 12:06/12/24 12:06/12/24 13:06/12/24 06:33 Narrative: Constitutional: Present no acute distress Respiratory: Present CTA bilaterally Comment:: Irregularly irregular, drain in place with only a small amount of fluid GI: Present soft; Absent distention or tenderness Extremities: Present edema (mild LE edema) Skin: Present intact Neuro: Present alert, awake and oriented x 3 Results Data Completed and Pending Completed studies during hospitalization [Text1]: 06/11/24 11:05: WBC 4.8, RBC 2.77 L, Hgb 9.5 L, Hct 31.2 L, MCV 112.6 H, MCH 34.1 H, MCHC 30.3 L, RDW 16.0, Plt Count 130 L, MPV 9.8, Neut % (Auto) 65.7, Lymph % (Auto) 20.6, [place] % (Auto) 9.1, Eos % (Auto) 3.6, Baso % (Auto) 1.0, Neut # (Auto) 3.1, Lymph # (Auto) 1.0, [place] # (Auto) 0.4, Eos # (Auto) 0.2, Baso # (Auto) 0.1, Sodium 138, Potassium 3.7 D, Chloride 102, Carbon Dioxide 29, Anion Gap 10.7, BUN 44 H, Creatinine 3.40 H, Estimated Creat Clear 20, Estimated GFR 18 L*, Est GFR ( Amer) 21 L, Glucose 79, Uric Acid 5.0, Calcium 8.5, TSH 4.32 06/12/24 05:30: WBC 7.0 D, RBC 2.85 L, Hgb 9.8 L, Hct 32.2 L, MCV 112.9 H, MCH 34.3 H, MCHC 30.4 L, RDW 16.0, Plt Count 134 L, MPV 9.5, Neut % (Auto) 75.6, Lymph % (Auto) 15.0, [place] % (Auto) 8.1, Eos % (Auto) 1.0, Baso % (Auto) 0.4, Neut # (Auto) 5.3, Lymph # (Auto) 1.1, [place] # (Auto) 0.6, Eos # (Auto) 0.1, Baso # (Auto) 0.0, Sodium 139, Potassium 4.7 D, Chloride 104, Carbon Dioxide 30, Anion Gap 9.7, BUN 52 H, Creatinine 4.30 H D, Estimated Creat Clear 15, Estimated GFR 13 L*, Est GFR ( Amer) 16 L* D, Glucose 98 D, Calcium 8.4, Total Bilirubin 0.8, AST 32, ALT 13, Alkaline Phosphatase 100, Total Protein 6.4, Albumin 3.0 L, Globulin 3.4 H, Albumin/Globulin Ratio 0.9 L ECHO 06/12/2024 Conclusion This is a limited TTE to evaluate for pericardial effusion. Limited windows were obtained. There is a circumferential pericardial effusion present. A large pocket is noted posteriorly measuring up to 2.5 cm in diastole. Another anterior pocket is noted, with up to 0.5 cm in diastole. Compared to prior study prepericardiocentesis, both pockets appear smaller in size. Pericardiocentesis 06/11/2024 ANGIOGRAPHIC RESULTS 900 cc of straw-colored fluid was removed from the pericardial space. IMPRESSION Large pericardial effusion with successful therapeutic pericardiocentesis removing 900 cc of straw-colored pericardial fluid PLAN 1. Keep drain in overnight to gravity feed 2. Send pericardial fluid for cytology and chemical analysis 3. Supportive care DS: Diagnosis Discharge Diagnosis (1) Pericardial effusion without cardiac tamponade: Status: Acute Code(s): I31.39 - Other pericardial effusion (noninflammatory) (2) HFrEF (heart failure with reduced ejection fraction): Status: Acute Code(s): I50.20 - Unspecified systolic (congestive) heart failure (3) ESRD (end stage renal disease) on dialysis: Status: Acute Code(s): N18.6 - End stage renal disease; Z99.2 - Dependence on renal dialysis (4) Generalized weakness: Status: Acute Code(s): R53.1 - Weakness (5) Coronary artery disease: Status: Chronic Code(s): I25.10 - Atherosclerotic heart disease of [place] coronary artery without angina pectoris Qualifiers: Coronary Disease-Associated Artery/Lesion type: [place] artery [place] vs. transplanted heart: [place] heart Associated angina: without angina Qualified Code(s): I25.10 - Atherosclerotic heart disease of [place] coronary artery without angina pectoris (6) Aortic stenosis: Status: Chronic Code(s): I35.0 - Nonrheumatic aortic (valve) stenosis Qualifiers: Cardiac valve disease etiology: etiology unspecified Qualified Code(s): I35.0 - Nonrheumatic aortic (valve) stenosis Meds Home Medications and Allergies Home Medications ?Medication ?Instructions ?Recorded ?Confirmed ?Type ursodiol 500 mg tablet 500 mg PO BID 07/03/21 06/11/24 History cyclobenzaprine 10 mg tablet 10 mg PO DAILYP PRN Muscle Pain 05/15/23 09/12/24 History levothyroxine 50 mcg tablet 50 mcg PO DAILY 02/11/23 06/11/24 History vitamins A,C,R-nyki-hbsxgm 2,148 1 tab PO BID 10/03/23 06/11/24 History mcg-113 mg-45 mg-17.4 mg tablet (PreserVision AREDS) albuterol sulfate 90 mcg/actuation 1 inh inhalation Q4HP PRN 10/09/23 06/11/24 History aerosol inhaler Shortness Of Breath colchicine 0.6 mg tablet 0.6 mg PO DAILY PRN GOUT 03/26/24 06/11/24 History metoprolol succinate 50 mg 75 mg (1.5 x 50 mg) PO BID #60 tabs 04/30/24 06/11/24 Rx tablet,extended release 24 hr sacubitril 24 mg-valsartan 26 mg 1 tab PO BID #60 tabs 05/07/24 06/11/24 Rx tablet (Entresto) tramadol 50 mg tablet 50 mg PO HS PRN Sleep 05/07/24 06/11/24 History furosemide 20 mg tablet 20 mg PO DAILY 06/11/24 06/11/24 History New Prescriptions to Start Prescriptions: Allergies Allergy/AdvReac Type Severity Reaction Status Date / Time aspirin Allergy Other Verified 06/11/24 11:16 cephalexin Allergy Difficulty Verified 06/11/24 11:17 Breathing Discharge Plan Disposition Patient Disposition: Home, Self-Care Condition: Good Follow up Plan Follow up with: Lorenzo Bird MD [Primary Care Provider] - 06/16/24 10:30 am Ravindra Garcia MD [Staff Physician] - 06/29/24 1:00 pm Prescriptions/Medication Reconciliation: Continued tramadol 50 mg tablet 50 mg PO HS PRN (Reason: Sleep) Entresto 24-26 mg tablet 1 tab PO BID Qty: 60 3RF ursodiol 500 mg tablet 500 mg PO BID cyclobenzaprine 10 mg tablet 10 mg PO DAILYP PRN (Reason: Muscle Pain) levothyroxine 50 mcg tablet 50 mcg PO DAILY albuterol sulfate 90 mcg/actuation HFA aerosol inhaler 1 inh inhalation Q4HP PRN (Reason: Shortness Of Breath) metoprolol succinate 50 mg tablet extended release 24 hr 75 mg PO BID Qty: 60 5RF colchicine 0.6 mg tablet 0.6 mg PO DAILY PRN (Reason: GOUT) furosemide 20 mg tablet 20 mg PO DAILY PreserVision AREDS 2,148 mcg-113 mg-45 mg-17.4mg Tablet 1 tab PO BID Problem Reconciliation Problems Reviewed?: Yes Patient Discharge Instructions ACTIVITY: Limited activity DIET: advance to your usual diet Patient Instructions: Pericardiocentesis, DI for Surgical Site Infection Print Language: Greek Providers Primary Care Provider: Lorenzo Bird Admit Provider: Santos Yang Attending Provider: Santos Yang
== END 2024-06-12 14:04 | disposition home or self-care (01) ==
LOC: 2ND 11:36
PROVIDERS: Internal Medicine; Admitting Provider Family Medicine; PCP Family Medicine; Visit Provider Family Medicine
DX: I31.39 Other pericardial effusion (noninflammatory) (principal); N18.6 End stage renal disease; Z99.2 Dependence on renal dialysis; I50.20 Unspecified systolic (congestive) heart failure; D64.9 Anemia, unspecified; I48.0 Paroxysmal atrial fibrillation; Z79.899 Other long term (current) drug therapy; R53.1 Weakness; I25.10 Atherosclerotic heart disease of native coronary artery without angina pectoris; I35.0 Nonrheumatic aortic (valve) stenosis; I27.20 Pulmonary hypertension, unspecified; K75.81 Nonalcoholic steatohepatitis (NASH); Z79.01 Long term (current) use of anticoagulants; E78.5 Hyperlipidemia, unspecified
CPT/HCPCS: 33010; 33017; 36415; 76930; 80048; 80053; 84443; 84550; 85025; 93308; 99152; 99153; C1725; G0378; J2250; J2270; J3010

== ENCOUNTER 2024-07-08 07:34 | Outpatient (CLI) | payer MEDICARE, SELFPAY ==
--- NOTE | 2024-07-08 07:35 | CA_ITS ---
APPROVED REPORT EXAM: Limited 2D Echocardiogram Speech Language Pathologist Assistant: Charlette Cotton RVT Ht: 5 ft 10 in Wt: 172lbs BSA: 1.96 BP: 127/93 mmHg Indications: PERICADIAL EFFUSION F/U,PRIOR PERICARDIOCENTESIS 06/23,A-FIB,SOA,HTN M-Mode Dimensions RVDd 3.48 cm (0.9-2.6) LA Diam 5.87 cm (1.9-4.0) LVDd 4.60 cm (3.5-5.7) LVDs 4.06 cm (3.5-5.7) IVSd 1.70 cm (0.6-1.1) PWd 0.63 cm (0.6-1.1) EF (Teich) 25.50% FS 11.70% EDV (Teich) 97.30 mL ESV (Teich) 72.50 mL Other Information Study Quality: Fair Conclusion This is a limited TTE to evaluate for pericardial effusion. Limited windows were obtained.. There is a circumferential, moderate pericardial effusion present. The largest pocket is noted posteriorly measuring 1.9 cm in its largest dimension. the anterior pocket is smaller in size, and measures up to 1.4 cm in its largest dimension. No evidence of chamber collapse. The IVC is normal in size, but collapses < 50% with respirophasic variation. Overall, no clear echo indications of tamponade. When directly compared to the prior study from 05/2024, the size of the effusion is more prominent in the anterior pocket. Clinical correlation is required. Serial TTE's are recommended. Electronically signed by : Rosio Garcia MD 07/09/2024 01:20:17
== END 2024-07-08 23:59 | disposition home or self-care (01) ==
LOC: RT 07:35
PROVIDERS: PCP Family Medicine; Visit Provider Internal Medicine
DX: I31.39 Other pericardial effusion (noninflammatory) (principal)
CPT/HCPCS: 93308

== ENCOUNTER 2024-08-21 07:11 | Outpatient (CLI) | payer MEDICARE, SELFPAY ==
--- NOTE | 2024-08-21 | CA_ITS ---
APPROVED REPORT Exam: Pharmacologic Technologist: Jaimie East Ht: 5 ft 9 in Wt: 162 lbs BSA: 1.89 m2 HR: 68 bpm BP: 163/79 mmHg Rhythm: Afib, PVCs or abberantly conducted beats, rightward axis, T wave abns Medical History Medical History: HTN Medications: Albuterol, Bumetanide, Colchicine, Cyclobenzaprine, Furosemide, Levothyroxine, Toprol XL, Entresto, Tramadol, Ursodiol Allergies: Aspirin, Cephalexin Cardiac Risk Factors: HTN, FHX of CAD Stress Test Details Test: Lexiscan HR Resting HR: 68 bpm Max Heart Rate (APMHR): 140.031754 bpm Target HR (85% APMHR): 119.987672 bpm Recovery HR: 76 bpm BP Resting BP: 163.0/79.0 mmHg Max BP: 163.0/79.0 mmHg Recovery BP: 131.0/78.0 mmHg ECG Resting ECG: Afib, PVCs or abberantly conducted beats, rightward axis, T wave abns Stress ECG Conclusion Pt had head discomfort, headache, and stomach cramps No chest pain Occ PVC or abberantly conducted beats No significant changes Unremarkable lexiscan stress Electronically signed by : Rosio Garcia MD 08/24/2024 11:45:06
--- NOTE | 2024-08-21 07:11 | NM_ITS ---
APPROVED REPORT Exam: Nuclear Stress Test Indication: fm hx, fatigue, dizziness, low b/p Patient Location: Outpatient Stress Tech: Jaimie East [place] Tech:Sera OreillyNIMESH RT (R)(N)(M) Ht: 5 ft 10 in Wt: 160 lbs HR: 70 bpm BP: 163/79 mmHg BSA: 1.90 m2 TID: 1.00 BMI: 22.9 History: fm hx, fatigue, dizziness, low b/p Procedure: Patient received 0.4 mg of intravenous Lexiscan, resting heart rate 70 bpm, resting blood pressure 163/79 mmHg, with Lexiscan maximum heart rate achieved was 80 bpm which is % of the maximum predicted heart rate and blood pressure was 147/78 mmHg. With Lexiscan, patient denied any complaint of chest pain. Cardiac Stress and Resting SPECT Images: Cardiac Stress and Resting SPECT images were obtained using technetium 99m Myoview 30.1 mCi stress and 10.61 mCi at rest. Resting and stress imaging in supine and prone positions demonstrate no evidence of fixed or reversible perfusion defects. Gated imaging demonstrates mild reduction global LV systolic function. LVEF is calculated at 44%. Note that the LVEF calculation may be inaccurate in the setting of frequent PVCs at the time of image acquisition. Conclusion: No evidence of fixed or reversible perfusion defects. Gated imaging demonstrates mild reduction global LV systolic function. LVEF is calculated at 44%. Note that the LVEF calculation may be inaccurate in the setting of frequent PVCs at the time of image acquisition. Correlation with new or recent TTE is suggested. Electronically signed by : Rosio Garcia MD 08/24/2024 11:46:15
[2024-08-21] MEDS: SODIUM CHLORIDE 0.9% 10ML SYR (RAD ONLY) 10 ML IV ×2 (07:25→09:10)
[2024-08-21] MEDS: REGADENOSON 0.4MG/5ML SYRINGE 0.4 MG IV (09:10)
[2024-08-21] MEDS: ISOTOPE MYOVIEW (PER STUDY) 1 DOSE IV (09:40)
== END 2024-08-21 23:59 | disposition home or self-care (01) ==
LOC: RAD 07:11
PROVIDERS: PCP Family Medicine; Visit Provider Nurse Practitioner
DX: I25.10 Atherosclerotic heart disease of native coronary artery without angina pectoris (principal); I50.20 Unspecified systolic (congestive) heart failure
CPT/HCPCS: 78452; 93017; 93018; A9502; J2785

== ENCOUNTER 2024-08-31 09:15 | Outpatient (CLI) | payer MEDICARE, SELFPAY ==
--- NOTE | 2024-08-31 09:16 | MR_ITS ---
APPROVED REPORT Metal Pourer: CLINICAL INDICATION Cardiomyopathy evaluation. TECHNIQUE Image Acquisition: Cardiac magnetic resonance (CMR) was performed on Siemens Espree MRI 1.5T scanner. Software platform sequences were performed using the Siemens Songbird MR B19 platform. A set of three-plane, low-resolution, large [id number] localizers were initially acquired. Then axial, coronal, sagittal TrueFISP, as well as axial HASTE images, were obtained. These were followed by gated TrueFISP breathold cinematic sequences obtained in the short axis with 8 mm slices and 2 mm gaps, 2-chamber (vertical long axis), 3-chamber, 4-chamber (horizontal long axis). A bolus of contrast was injected intravenously with first-pass sequences obtained in the short axis and four-chamber planes. After approximately 10 minutes, a TI inside sales account executive sequence was performed to determine the optimal TI time. Using the optimized TI time, delayed contrast enhancement segmented inversion???recovery TurboFLASH sequences were obtained in the short axis, 2-chamber, 3-chamber, and 4-chamber projections. 2D-velocity phase mapping was performed. Functional parameters were calculated by offline analysis on an independent workstation ([employer] Platform, EGT). Contrast: ProHance??? (Gadoteridol) FINDINGS MORPHOLOGY AND FUNCTION Left ventricle: The left ventricle is normal in size. The indexed left ventricular end-diastolic volume (LVEDVi) is 57 ml/m2 (reference range 57-105 ml/m2 in males, 56-96 ml/m2 in females). There is mild to moderate reduction in left ventricular systolic function.. There is increased left ventricular wall thickness (maximum LV wall thickness 12.8 mm). There moderate hypokinesis of the lateral, inferolateral and anterior lateral LV alba.. LVEF is calculated at 40.4% (reference range 57-77%). Right ventricle: The right ventricle is normal in size. The indexed right ventricular end-diastolic volume (RVEDVi) is 64 ml/m2 (reference range 61-121 ml/m2 in males, 48-112 ml/m2 in females). There is moderate reduction in right ventricular systolic function. RVEF is calculated at 31.8% (reference range 52-72% in males, 51-71% in females). Atria: The left atrium is dilated. The maximum indexed left atrial volume is 58 ml/m2 (reference range 26-52 ml/m2 in males, 27-53 ml/m2 in females). The right atrium is dilated. The maximum indexed right atrial volume is 39 ml/m2 (reference range 18-35 ml/m2). Aorta: The diameter of the aortic annulus is normal, measuring 27 mm (coronal view reference range 21-30 mm in males, 19-27 mm in females). The diameter of the aortic sinus is normal, measuring 35 mm (coronal view reference range 25-42 mm in males, 24-36 mm in females). The diameter of the sinotubular junction is normal, measuring 28 mm (coronal view reference range 18-32 mm in males, 18-28 mm in females). The diameters of the ascending and descending thoracic aorta are normal. Main pulmonary artery: The main pulmonary artery diameter is normal. Pericardium: The pericardial thickness is normal. The pericardial thickness measures 1.5 mm (normal < 4.0 mm). There is a small sized, circumferential pericardial effusion present. The largest pocket is noted anteriorly and measures 7 mm in its largest dimension. VALVES Bioprosthetic AVR is present. Mild AI is present. Regurgitant fraction is 8%. There is no significant valvular stenosis or regurgitation of the mitral, tricuspid, or pulmonic valve noted visually. Systolic anterior motion of the mitral valve is not visualized. Ratio of pulmonary to systemic flow, Qp:Qs ratio = 1.4 (normal < or = 1.2, hemodynamically significant shunt > 1.5), demonstrating no evidence of hemodynamically significant shunt. TISSUE CHARACTERIZATION Resting Perfusion: There is resting hypoperfusion present in the lateral, inferolateral, and anterolateral LV alba. Myocardial Fibrosis and/or edema: There is subendocardial late gadolinium enhancement (LGE) present in the lateral, inferolateral and anterolateral LV alba, suggestive of underlying scar. The LGE burden relative to the total wall thickness is < 50%, suggestive of viable tissue in the corresponding region. There is also mid myocardial LGE noted in the basal septal LV wall. OTHER No other significant findings are noted. However, this exam is focused on the cardiac structure and function. IMPRESSION Normal LV size with mild to moderate reduction in LV systolic function. LVEDVi= 57 ml/m2 and LVEF= 40.4%. Increased LV wall thickness, maximum of 12.8 mm. Normal RV size with moderate reduction in RV systolic function. RVEDVi= 64 ml/m2 and RVEF= 31.8%. Biatrial dilation is present. Resting hypoperfusion present in the lateral, inferolateral, and anterolateral LV alba. Subendocardial late gadolinium enhancement (LGE) present in the lateral, inferolateral and anterolateral LV alba, suggestive of underlying scar. The LGE burden relative to the total wall thickness is < 50%, suggestive of viable tissue in the corresponding region. There is also mid myocardial LGE noted in the basal septal LV wall. Bioprosthetic AVR is present. Mild AI is present. Regurgitant fraction is 8%. Ratio of pulmonary to systemic flow, Qp:Qs ratio = 1.4 (normal < or = 1.2, hemodynamically significant shunt > 1.5), demonstrating no evidence of hemodynamically significant shunt. Small sized, circumferential pericardial effusion present. The largest pocket is noted anteriorly and measures 7 mm in its largest dimension. Overall, this CMR demonstrates cardiomyopathy with biventricular reduction in systolic function. The LGE pattern is overall suggestive of mixed ischemic and nonischemic etiology of cardiomyopathy. The pattern of resting hypoperfusion and subendocardial LGE is suggestive of underlying ischemia in the lateral, inferior lateral and anterolateral LV alba with likely presence of viable tissue. Whereas the mid-myocardial LGE pattern in the basal septal wall is suggestive of non-ischemic cardiomyopathy. COMPARISON None CRITICAL RESULT None COMMUNICATION Per this written report. The findings of this cardiac MR were reviewed, reported, and signed by Ravindra Garcia MD (Residential Program Director). Conclusion Electronically signed by : Rosio Garcia MD 09/09/2024 01:02:14
[2024-08-31 09:42] LABS: Blood Urea Nitrogen 63 mg/dl (9-20); Estimated Glomerular Filt Rate 10 ml/min (>60); GFR (African American) 12 ML/MIN (>60)
[2024-08-31] MEDS: GADOTERIDOL INJ 20ML SYRINGE 16 ML IV (11:46)
[2024-08-31] MEDS: 0.9 % SODIUM CHLORIDE 50 ML VIAL IV (11:46)
[2024-08-31] MEDS: SODIUM CHLORIDE 0.9% 10ML SYR (RAD ONLY) 10 ML IV (11:46)
== END 2024-08-31 23:59 | disposition home or self-care (01) ==
LOC: RAD 09:16
PROVIDERS: PCP Family Medicine; Visit Provider Nurse Practitioner
DX: I50.20 Unspecified systolic (congestive) heart failure (principal); I25.10 Atherosclerotic heart disease of native coronary artery without angina pectoris
CPT/HCPCS: 36415; 75561; 82565; 84520; A9576

== ENCOUNTER 2024-09-16 08:53 | Day surgery (SDC) | payer MEDICARE, SELFPAY ==
[2024-09-16] VITALS (12 sets, daily range): BP systolic 110–138; BP diastolic 64–85; PULSE 53–100; RESP 18–20; O2SAT 98–100; BMI 22.9
--- NOTE | 2024-09-16 07:01 | IR_ITS ---
APPROVED REPORT Patient Location: Outpatient PROCEDURES Left heart catheterization Left ventriculogram Selective coronary angiogram INDICATION Angina pectoris, Known coronary artery disease, Abnormal stress test Informed consent was obtained prior to the procedure. COMPLICATIONS NONE Estimated Blood Loss: LESS THAN 10 ML TECHNIQUE One percent lidocaine used to anesthetize the right anterior aspect of the wrist. The right radial artery was accessed via the Seldinger technique. A 6 Romanian sheath was placed in the right radial artery. 2.5 mg of Verapamil, 800 mcg of nitroglycerin, 1mg Lidocaine and 5000 U Heparin were given through the arterial sheath. The 6 Romanian JL 3 guide catheter was used to perform left heart catheterization left ventriculogram and selective coronary angiogram. At the end of the procedure the sheath was removed good hemostasis was achieved using Traclet band, patient was transferred to the postop holding area in stable condition. ANGIOGRAPHIC RESULTS The left main artery Normal The left anterior descending artery Has proximal calcified concentric 30 to 40% stenosis with mid vessel 30% calcified stenosis The circumflex artery Codominant with mild luminal regularities nothing greater than 10% The right coronary artery Codominant with diffuse 10% luminal regularities The GLASS ventriculogram reveals Mildly reduced and for 45 to 50% The left ventricular end-diastolic pressure 20 mmHg IMPRESSION Moderate calcified proximal and mid LAD disease which is nonflow limiting Slightly reduced ejection fraction as described above Mildly elevated LVEDP PLAN 1. Medical management Electronically signed by : Franck Lopez MD 09/16/2024 12:42:35
[2024-09-16 09:29] LABS: Chloride 104 mmol/L (98-107); Potassium 4.2 mmoL/L (3.5-5.1); Sodium 136 mmol/L (136-145)
[2024-09-16 09:30] LABS: Hematocrit 37.6 % (42.0-52.0); Hemoglobin 12.3 g/dL (14.1-18.0); Lymphocytes % 35.6 % (10-50); Mean Corpuscular HGB Conc 32.7 g/dL (31.8-35.4); Mean Corpuscular Hemoglobin 33.8 pg (27.0-31.2); Mean Corpuscular Volume 103.3 fl (80-94); Mean Platelet Volume 12.1 fl (7.4-10.4); Monocytes % 11.6 % (1.7-9.3); Neutrophils % 48.3 % (37.0-80.0); Platelet Count 59 K/mm3 (142-424); Red Blood Count 3.64 M/mm3 (4.60-6.20); Red Cell Distribution Width 13.1 % (11.5-17.5); White Blood Count 4.4 K/mm3 (4.8-10.8)
[2024-09-16 09:31] LABS: Basophils # 0.1 K/mm3 (0-0.2); Basophils % 1.4 % (0.1-2.0); Eosinophils # 0.1 K/mm3 (0.0-0.4); Eosinophils % 2.9 % (0.1-12.0); Lymphocytes # 1.6 K/mm3 (0.7-4.5); Monocytes # 0.5 K/mm3 (0.1-1.0); Neutrophils # 2.1 K/mm3 (1.8-7.8)
[2024-09-16 09:32] LABS: Anion Gap 9.2 mEq/L (5-15); Blood Urea Nitrogen 30 mg/dl (9-20); Carbon Dioxide 27 mmol/L (22.0-30.0); Creatinine Clearance Estimated 16 mL/min (50-200); Estimated Glomerular Filt Rate 15 ml/min (>60); GFR (African American) 19 ML/MIN (>60)
[2024-09-16 09:33] LABS: Calcium 8.8 mg/dl (8.4-10.2); Glucose 82 mg/dl (74-100)
[2024-09-16] MEDS: VERAPAMIL 2.5MG/ML 2ML VIAL 2.5 MG IV (10:35)
[2024-09-16] MEDS: HEPARIN 1,000 UNITS/ML 10ML VIAL (CATH LAB) 10000 UNIT IV (10:36)
[2024-09-16] MEDS: HEPARIN 1,000 UNITS/500ML NS (CATH LAB) 3000 UNIT IV (10:37)
[2024-09-16] MEDS: LIDOCAINE 1% 10ML MDV 20 ML IJ (10:37)
[2024-09-16] MEDS: diphenhydrAMINE 50MG/ML VIAL 50 MG IV (10:38)
[2024-09-16] MEDS: 0.9 % SODIUM CHLORIDE 500 ML 25 ML IV (10:38)
[2024-09-16] MEDS: FENTANYL 100MCG/2ML VIAL 50 MCG IV (10:38)
[2024-09-16] MEDS: MIDAZOLAM HCL 1MG/ML 5ML VIAL 1 MG IV (10:41)
[2024-09-16] MEDS: IOPAMIDOL-370 (76%);100ML BOTTLE 50 ML IV (13:57)
== END 2024-09-16 14:31 | disposition home or self-care (01) ==
LOC: CATHLAB 08:54
PROVIDERS: PCP Family Medicine; Visit Provider Internal Medicine
DX: I25.118 Atherosclerotic heart disease of native coronary artery with other forms of angina pectoris (principal); R93.1 Abnormal findings on diagnostic imaging of heart and coronary circulation; I13.0 Hypertensive heart and chronic kidney disease with heart failure and stage 1 through stage 4 chronic kidney disease, or unspecified chronic kidney disease; I48.91 Unspecified atrial fibrillation; Z79.899 Other long term (current) drug therapy; I50.22 Chronic systolic (congestive) heart failure; Z99.2 Dependence on renal dialysis; N18.4 Chronic kidney disease, stage 4 (severe)
CPT/HCPCS: 80048; 85025; 93458; 99152; C1725; C1769; J1200; J1644; J2250; J3010; Q9967

== ENCOUNTER 2025-05-03 07:38 | Outpatient (CLI) | payer MEDICARE, SELFPAY ==
--- OUTSIDE RECORDS SUMMARY | 2024-09-24 05:00 | XMS_ITS ---
[facility] Address [address] [place] [id number] Care Team Providers Care Security Flex Officer Name Role Phone Chelle Bird Primary Care Provider [phone] Allergies Allergen (clinical drug ingredient) Drug/Non Drug Allergy documented on EMR Reaction Allergy Type Onset Date Status cephalexin Cephalexin tongue swelling Drug Allergy Active REASON FOR VISIT cough Medications Medication SIG (Take, Route, Frequency, Duration) Notes Start Date End Date Status Ursodiol 500 MG 1 tab(s) Orally Two times a day Active Metoprolol Tartrate 50 MG 1.5 tablet wit h food Orally Twice a day Active traZODone HCl 50 MG 1/2-1 tab(s) orally qhs prn sleep Active Indomethacin 25 MG 1 capsule with food or milk Orally Twice a day prn 04/07/2024 Active Levothyroxine Sodium 50 MCG 1 tab(s) ora lly once a day; Duration: 30 days Active Doxycycline Hyclate 100 MG 1 capsule Ora lly Two times a day 09/24/2024 Active diazePAM 2 MG 1 tablet as needed Orally three times a day as needed 09/24/2024 Active Colchicine 0.6 MG 1 tablet Orally once daily; Duration: 30 days Active traMADol HCl 50 MG 1 tab(s) Orally q6h prn pain 01/16/2024 Active Entresto 49-51 MG 1 tablet Orally Twic e a day Active Albuterol Sulfate HFA 108 (90 Base) MCG/ACT INHALE 2 PUFFS BY MOUTH FOUR TIMES A DAY NEEDED; Duration: 25 Active Furosemide 20 MG 1 tab(s) orally Ever y other day Active Reglan 10 MG 1 tab(s) orally QIDA CHS prn Active Vital Signs Weight 171.0 lbs 09/24/2024 Blood pressure systolic 112 mm Hg 09/24/20 24 Blood pressure diastolic 80 mm Hg 024 Height 68 in 09/24/2024 BMI 26.00 kg/m2 09/24/2024 Encounters Encounter Location Date Provider Diagnosis [facility] [address] [place] [id number] 09/24/2024 Chelle Bird Acute sinusitis J01. 90 and Jerking movements of extremities R25.2 Assessments Encounter Date Diagnosis (ICD Code) Assessment Notes Treatment Notes Treatment Clinical Notes Section Notes 09/24/2024 Acute sinusitis (ICD-10 - J01.90) 09/24/2024 Jerking movements of extremities (ICD-10 - R25.2) Plan Of Treatment Medication Medication Name Sig Start Date Stop Date Notes Doxycycline Hyclate 100 MG 1 capsule Ora lly Two times a day 09/24/2024 diazePAM 2 MG 1 tablet as needed O rally three times a day as needed 09/24/2024 Next Appt Details Follow Up: 1 Week, prn, Reas on: Medications Administered Medication Instructions Date of Administration Dosage Notes Dexamethasone 09/24/2024 1 mL Progress Notes * DEYANIRA KWONGDOB:1945 ( 80 yo M)Acc No.[id number]:09/24/2024 Progress Notes Patient: DEYANIRA PARK Provider: Chelle Bird M.D. :1945 A ge:79 Y S ex:Male Date:09/24/2024 Address:[address] [place] [address] [id number] Subjective: * Chief Complaints: * 1 . Cough. * HPI: E NT/respiratory: 79 year old male presents with c/o cough. c/o nasal congestion. c/o Fever W hunter sts that last night his temp was over 100. c/o headache. c/o body aches. Denies : sore throat. D enies : ear pain. D enies : Chest Pain. D enies : Short of Breath. Pt sts his symptoms started yesterday. N eurology: He persists with intermittent episodes of muscle jerking in his extremities. He has been using diazepam as needed which seems to help. * ROS: D ERMATOLOGY: no R beckie. n o H orlin. G ASTROENTEROLOGY: no N ausea. n o V omiting. U ROLOGY: no D ifficulty urinating. n o B lood in urine. * Medical History: G ERD, Hypertension, Kidney Stones, Primary biliary cirrhosis - followed by Dr. Cruz, Osteo Arthritis, Hypothyroidism, Severe Aortic Stenosis, LT Retinal Artery Occlusion - 08/2021, Atrial Fibrillation, Chronic Kidney Disease, end stage, started dialysis December 2023, Cardiomyopathy - EF = 25 %, Preicardial effusion. * Surgical History: C holecystectomy , Cataract , EGD/[facility] 01/2017, C-scope/ [facility] 01/2017, TAVR -Dr. Moe/ [facility] 08/2021, Dialysis [facility] 11/2023, Pericardiocentesis/ 900 ml/ Dr. Lopez 05/2024. * Hospitalization/Major Diagno stic Procedure: H [facility] - Pericardial Effusion 06/11/2024. * Family History: F ather: , cancer, HBP. M other: . 2 brother(s) , 1 sister(s) - healthy. 1 son(s) , 1 daughter(s) - healthy. . Siblings with HBP. * Social History: C URRENT TOBACCO USE S moking Status: Patient does NOT smoke. C affeine: no. Home smoke detector use: yes. Past smoking status: no. Alcohol: no. * Medications: T aking Albuterol Sulfate HFA 108 (90 Base) MCG/ACT Aerosol Solution INHALE 2 PUFFS BY MOUTH FOUR TIMES A DAY NEEDED , Taking Reglan 10 MG Tablet 1 tab(s) orally QIDACHS prn , Taking Furosemide 20 MG Tablet 1 tab(s) orally Every other day , Taking traMADol HCl 50 MG Tablet 1 tab(s) Orally q6h prn pain , Taking Colchicine 0.6 MG Tablet 1 tablet Orally once daily , Taking Entresto 49-51 MG Tablet 1 tablet Orally Twice a day , Taking Indomethacin 25 MG Capsule 1 capsule with food or milk Orally Twice a day prn , Taking Metoprolol Tartrate 50 MG Tablet 1.5 tablet with food Orally Twice a day , Taking Ursodiol 500 MG Tablet 1 tab(s) Orally Two times a day , Taking diazePAM 2 MG Tablet 1 tablet as needed Orally three times a day as needed , Taking traZODone HCl 50 MG Tablet 1/2-1 tab(s) orally qhs prn sleep , Taking Levothyroxine Sodium 50 MCG Tablet 1 tab(s) orally once a day , Medication List reviewed and reconciled with the patient * Allergies: C ephalexin: tongue swelling - Allergy. Objective: * Vitals: W t:171.0, Temp:98.4, BP:112/80, Nurse:FABI, Ht: 68, BMI:26.00. * Examination: E NT/Respiratory: General Appearance: N AD. E ars: a uditory canals normal bilaterally, TM's WNL. N ose : congested. O ral cavity : postnasal drainage. H eart : R RR, normal S1 S2, no murmurs. L ungs: c lear to auscultation bilaterally. Assessment: * Assessment: 1. A cute sinusitis - J01.90 (Primary) 2 . J erking movements of extremities - R25.2 Plan: * Treatment: 2. J erking movements of extremities Refill diazePAM Tablet, 2 MG, 1 tablet as needed, Orally, three times a day as needed, 60, Refills 1. * Therapeutic Injections: Dexamethasone : 1 mL (Route: Intramuscular) given by NIDA Segal on right gluteus (Jerking movements of extremities) * Procedure Codes: J 1100 Dexamethasone, 05727 ADMINISTRATION OF INJECTION, G2211 Complex e/m visit add on * Follow Up: 1 Week, prn * Images: Billing Information: * Visit Code: 49446 Office Visit, Est Pt., Level 3. * Procedure Codes: J1100 Dexamethasone. 09974 ADMINISTRATION OF INJECTION. G2211 Complex e/m visit add on. * Electronic signature of Chelle Bird MD on 05/03/2025 at 07:40 AM EDT Sign off status: Pending * Provider: Chelle Bird M.D. Date: 11/25/2023 Generated for Francisco merida/Faxing/eTransmitting on: 0 05/03/2025 07:40 AM EDT History and Physical Notes * HPI (History of Present Illness) Category Sub-Category Detail Notes Category Not es ENT/respiratory sore throat Pt sts his s ymptoms started yesterday ear pain Short of Breath Chest Pain cough Fever sts that last n ight his temp was over 100 headache nasal congestion body aches Examination Category Sub-Category Detail Notes Category Not es ENT/Respiratory Oral cavity : postnasal drainage Ears: auditory canals norm al bilaterally, TM's WNL Heart : RRR, normal S1 S2, n o murmurs Lungs: clear to auscultatio n bilaterally General Appearance: NAD Nose : congested
--- OUTSIDE RECORDS SUMMARY | 2024-12-17 05:30 | XMS_ITS ---
Author Organization [facility] Address [address] [place] [id number] Care Team Providers Care Director Project Management Name Role Phone Chelle Bird Primary Care Provider Allergies Allergen (clinical drug ingredient) Drug/Non Drug Allergy documented on EMR Reaction Allergy Type Onset Date Status cephalexin Cephalexin tongue swelling Drug Allergy Active Results Component Value Reference Range Notes CBC Venipuncture (in house) Reviewed date:12/22/2024 08:45:54 AM Interpretation: Performing Lab: Notes/Report: wbc 4.7 3.5 - 10 lymph 33.1 15 - 50 mid 8.1 2 - 15 gran 58.8 35 - 80 rbc 3.62 3.5 - 5.5 hgb 12.6 11.5 - 16.5 hct 36.8 35 - 55 mcv 101.5 75 - 100 mch 34.9 25 - 35 mchc 34.4 31 - 38 platlet 73 100 - 400 P-Comprehensive Metabolic Pa marlena (CMP) Reviewed date:12/22/2024 08:45:53 AM Interpretation:creat 5.6 (on dialysis) Performing Lab: Notes/Report: Test performed by [facility], [facility] , [address], [place] [address] Alfonso rBan MD, Market Analysis Director CLIA: [id number] Sodium 138 135-145 mmol/L Potassium 5.1 3.5-5.3 mmol/L Chloride 101 97-108 mmol/L CO2 25 22-32 mmol/L Glucose 84 65-99 mg/dL BUN 52 8-23 mg/dL Creatinine 5.86 0.70-1.30 mg/dL Calcium 9.4 8.6-10.4 mg/dL eGFR by Creatinine 9 >59 mL/min/1.73m2 Protein 7.2 6.0-8.3 g/dL Albumin 3.8 3.5-5.3 g/dL Alkaline Phosphatase 181 40-129 IU/L ALT (SGPT) 23 <5-55 IU/L AST (SGOT) 37 <5-46 IU/L Bilirubin, Total 0.6 <0.2-1.2 mg/dL A/G Ratio 1.1 1.1-2.5 P-Lipid Panel Reviewed date:12/22/2024 08:45:53 AM Interpretation: Performing Lab: Notes/Report: Test performed by [facility] [address] , [place] [address] Alfonso Bran MD, Market Analysis Director CLIA: [id number] Cholesterol 113 <200 mg/dL Triglycerides 68 <150 mg/dL HDL Cholesterol 36 >39 mg/dL Cholesterol / HDL Ratio 3.14 0.00-4.99 Ratio Non-HDL Cholesterol 77 <130 mg/dL LDL Cholesterol (Calculation) 63 <130 mg/dL LDL Cholesterol Levels* Less than 100 mg/dL Optimal 100 to 129 mg/dL Near Optimal/ Above Optimal 130 to 159 mg/dL Borderline High 160 to 189 mg/dL High 190 mg/dL and above Very High * Categories as recommended by the 2004 ATPIII guidelines LDL/HDL Ratio 1.8 <3.3 Ratio LDL Cholesterol Patient History Test Date: 01/16/2024 LDL Results: 39 Units: mg/dL % Change: - Test Date: 12/17/2024 LDL Results: 63 Units: mg/dL % Change: +61% P-PSA Reviewed date:12/22/2024 08:45:53 AM Interpretation:2.05 Performing Lab: Notes/Report: Test performed by [facility] [address] [place], [place] [address] [place] , [address], [place] [address] Alfonso Bran MD, Market Analysis Director CLIA: [id number] PSA 2.05 <4.00 ng/mL Please note this is an ultrasensitive PSA assay with a lower limit of detection of 0.014 ng/mL. This test is performed by the Jalen ECLIA methodology. Values obtained with different assay methods or kits cannot be directly compared. P-TSH Reviewed date:12/22/2024 08:45:54 AM Interpretation:2.99 Performing Lab: Notes/Report: Test performed by [facility] [address] [place] [address] , [address], [place] [address] Alfonso Bran MD, Market Analysis Director CLIA: [id number] TSH 2.99 0.43-5.25 mU/L P-Uric Acid Reviewed date:12/22/2024 08:45:54 AM Interpretation:6.7 Performing Lab: Notes/Report: Test performed by [facility] [address] [place] [address] , [address], [place] [address] Alfonso Bran MD, Market Analysis Director CLIA: [id number] Uric Acid 6.7 3.4-8.0 mg/dL REASON FOR VISIT checkup with fasting labs and AWV Medications Medication SIG (Take, Route, Frequency, Duration) Notes Start Date End Date Status Furosemide 20 MG 1 tab(s) orally Ever y other day Active Reglan 10 MG 1 tab(s) orally QIDA CHS prn Active Levothyroxine Sodium 50 MCG 1 tab(s) ora lly once a day; Duration: 30 days Active Colchicine 0.6 MG 1 tablet Orally once daily; Duration: 30 days Active traMADol HCl 50 MG 1 tab(s) Orally q6h prn pain 01/16/2024 Active traZODone HCl 50 MG 1/2-1 tab(s) orally qhs prn sleep Active Metoprolol Tartrate 50 MG 1.5 tablet wit h food Orally Twice a day Active Albuterol Sulfate HFA 108 (90 Base) MCG/ACT INHALE 2 PUFFS BY MOUTH FOUR TIMES A DAY NEEDED; Duration: 25 Active Doxycycline Hyclate 100 MG 1 capsule Ora lly Two times a day 09/24/2024 Active Famciclovir 500 MG 1 tablet Orally Thre e times a day 12/17/2024 Active Indomethacin 25 MG 1 capsule with food or milk Orally Twice a day prn 04/07/2024 Active Entresto 49-51 MG 1 tablet Orally Twic e a day Active Ursodiol 500 MG take 1 tablet by twice daily Active diazePAM 2 MG 1 tablet as needed Orally three times a day as needed 12/17/2024 Active Vital Signs Weight 172.8 lbs 12/17/2024 Blood pressure systolic 120 mm Hg 12/18/19 25 Blood pressure diastolic 70 mm Hg 025 Height 68 in 12/17/2024 BMI 26.27 kg/m2 12/17/2024 Encounters Encounter Location Date Provider Diagnosis [facility] [address] [facility] [address] [place], [place] [id number] 12/17/2024 Chelle Bird Adult general medica l examination Z00.00 ; Shingles B02.9 ; Gout M10.9 ; End stage renal disease N18.6 ; Dependence on renal dialysis Z99.2 ; HTN (hypertension) I10 ; Primary biliary cirrhosis K74.3 ; Hypothyroidism E03.9 ; HFrEF (heart failure with reduced ejection fraction) I50.20 ; Screening for prostate cancer Z12.5 ; Jerking movements of extremities R25.2 ; BMI 26.0-26.9,adult Z68.26 and Medicare annual wellness visit, subsequent Z00.00 Assessments Encounter Date Diagnosis (ICD Code) Assessment Notes Treatment Notes Treatment Clinical Notes Section Notes 12/17/2024 Adult general medical examination (ICD-10 - Z00.00) Patient instructed to return to office Annually for Annual Wellness Visits to include annual screenings of Pain assessment, Functional Ability assessment, Cognitive Ability assessment, Fall Risk assessment, Depression screening and Bladder control screening. 12/17/2024 Shingles (ICD-10 - B02.9) 12/17/2024 Gout (ICD-10 - M10.9) 12/17/2024 End stage renal disease (ICD-10 - N18.6) 12/17/2024 Dependence on renal dialysis (ICD-10 - Z99.2) 12/17/2024 HTN (hypertension) (ICD-10 - I10) 12/17/2024 Primary biliary cirrhosis (ICD-10 - K74.3) 12/17/2024 Hypothyroidism (ICD-10 - E03.9) 12/17/2024 HFrEF (heart failure with reduced ejection fraction) (ICD-10 - I50.20) 12/17/2024 Screening for prostate cancer (ICD-10 - Z12.5) 12/17/2024 Jerking movements of extremities (ICD-10 - R25.2) 12/17/2024 BMI 26.0-26.9,adult (ICD-10 - Z68.26) 12/17/2024 Medicare annual wellness visit, subsequent (ICD-10 - Z00.00) Plan Of Treatment Medication Medication Name Sig Start Date Stop Date Notes Levothyroxine Sodium 50 MCG 1 tab(s) ora lly once a day; Duration: 30 days Famciclovir 500 MG 1 tablet Orally Thre e times a day 12/17/2024 Ursodiol 500 MG take 1 tablet by twice daily diazePAM 2 MG 1 tablet as needed O rally three times a day as needed 12/17/2024 Treatment Notes Assessment Notes Adult general medical examination Patien t instructed to return to office Annually for Annual Wellness Visits to include annual screenings of Pain assessment, Functional Ability assessment, Cognitive Ability assessment, Fall Risk assessment, Depression screening and Bladder control screening. Pending Test Test Name Order Date GGT (Gamma Glutamyl Transferase) 025 Next Appt Details Follow Up: 3 Months, Reason: Medications Administered Medication Instructions Date of Administration Dosage Notes Depo- Medrol 40 mg/ml 12/17/2024 1 mL Progress Notes * DEYANIRA KWONGDOB:1945 ( 80 yo M)Acc No.[id number]:12/17/2024 Annual Wellness Visit Patient: DEYANIRA PARK Provider: Chelle Bird M.D. :1945 A ge:79 Y S ex:Male Date:12/17/2024 Address:[address] [place] [address] [id number] Subjective: * Chief Complaints: * 1 . checkup with fasting labs and AWV. * HPI: H PI: Patient is here today for a check up with fasting labs and a Medicare Annual Wellness Visit. Pt sts he is fasting today. He continues with dialysis twice weekly and has had a stable course. Denies swelling. D ermatology: Developed a painful rash over his left chest wall 2 days ago. N eurology: The episodes of muscle jerking in his extremities has been less frequent. He is still using diazepam as needed which seems to help. R heumatology: He has had a flare of left ankle pain consistent with possible gout over the past 4 days. No history of injury. * ROS: O PTHALMOLOGY: Negative for d enies vision issues. * Medical History: G ERD, Hypertension, Kidney Stones, Primary biliary cirrhosis - followed by Dr. Cruz, Osteo Arthritis, Hypothyroidism, Severe Aortic Stenosis, LT Retinal Artery Occlusion - 08/2021, Atrial Fibrillation, Chronic Kidney Disease, end stage, started dialysis December 2023, Cardiomyopathy - EF = 25 %, Preicardial effusion. * Surgical History: C holecystectomy , Cataract , EGD/[facility] 01/2017, C-scope/ [facility] 01/2017, TAVR -Dr. Moe/ [facility] 08/2021, Dialysis Port Placed 11/2023, [...] food Orally Twice a day , Taking traZODone HCl 50 MG Tablet 1/2-1 tab(s) orally qhs prn sleep , Taking Levothyroxine Sodium 50 MCG Tablet 1 tab(s) orally once a day , Taking Doxycycline Hyclate 100 MG Capsule 1 capsule Orally Two times a day , Taking diazePAM 2 MG Tablet 1 tablet as needed Orally three times a day as needed , Taking Ursodiol 500 MG Tablet TAKE 1 TABLET BY MOUTH TWICE DAILY , Medication List reviewed and reconciled with the patient * Allergies: C ephalexin: tongue swelling - Allergy. Objective: * Vitals: W t:172.8, Temp:97.5, BP:120/70, Nurse:[facility], Ht: 68, BMI:26.27. * Examination: eneral Examination: General Appearance: A lert and oriented. Flat affect.. H eart: R SR. L ungs: c lear to auscultation. A bdomen: s oft, nontender.?Skin: T here is a zoster rash on the left anterior lateral chest wall and a T4 distribution.. E xtremities: L eft ankle is mildly swollen and tender. * Physical Examination: G ENERAL: Pain Assessment: P ain level: --, on a scale of 0-10 (with 10 being extreme pain). F unctional Status Assessment: P atient response to question of how often physical health interferes with daily activities: . Occasionally Able to perform ADLs-including meal preparation, grocery shopping, housework, laundry, taking medications or handling finances. Cognitive Status: alert and oriented. Ambulation Status: Fully ambulatory . F all Risk Assessment: I ndependant in ambulation with straight cane, adequate lighting in home. Patient has NOT fallen or had trouble walking within the past 12 months. D epression Screening: Describes emotional health as: downhearted due to chronic health issues. B ladder Control Screening: D enies problems. Assessment: * Assessment: 1. A dult general medical examination - Z00.00 (Primary) 2 . S hingles - B02.9 3 . G out - M10.9 4 . E nd stage renal disease - N18.6? 5. D ependence on renal dialysis - Z99.2 6 . H TN (hypertension) - I10 7 . P rimary biliary cirrhosis - K74.3 8 . H ypothyroidism - E03.9 9 . H FrEF (heart failure with reduced ejection fraction) - I50.20 1 0. S creening for prostate cancer - Z12.5 1 1. J erking movements of extremities - R25.2 1 2. B PA 26.0-26.9,adult - Z68.26 ? 1 3. M kasi annual wellness visit, subsequent - Plan: * Treatment: 2. S hingles Start Famciclovir Tablet, 500 MG, 1 tablet, Orally, Three times a day, 21. 3. G out L AB: P-Uric Acid (Collection Date & Time - 12/17/2024 09:08 AM) 6 .7 Value Reference Range U abbey Acid 6.7 3.4-8.0 - mg/dL * Chelle Bird 12/22/2024 8 :44:44 AM >See phone encounter 4.?End stage renal disease?LAB: P-Comprehensive Metabolic Panel (CMP) (Collection Date & Time - 12/17/2024 09:08 AM)?creat 5.6 (on dialysis)* Value Reference Range A /G Ratio 1.1 1.1-2.5 - * A lbumin 3.8 3.5-5.3 - g/dL * A lkaline Phosphatase 181 H 40-129 - IU/L * A LT (SGPT) 23 <5-55 - IU/L * A ST (SGOT) 37 <5-46 - IU/L * B ilirubin, Total 0.6 <0.2-1.2 - mg/dL * B UN 52 H 8-23 - mg/dL * C alcium 9.4 8.6-10.4 - mg/dL * C hloride 101 97-108 - mmol/L * C O2 25 22-32 - mmol/L * C reatinine 5.86 H 0.70-1.30 - mg/dL * G lucose 84 65-99 - mg/dL * P otassium 5.1 3.5-5.3 - mmol/L * S odium 138 135-145 - mmol/L * P rotein 7.2 6.0-8.3 - g/dL * e GFR by Creatinine 9 L >59 - mL/min/1.73m2 * Chelle Bird 12/22/2024 8 :44:44 AM >See phone encounter ?LAB: CBC Venipuncture (in house) (Collection Date & Time - 12/17/2024)* Value Reference Range w bc 4.7 3.5 - 10 * l ymph 33.1 15 - 50 * m id 8.1 2 - 15 * g ran 58.8 35 - 80 * r bc 3.62 3.5 - 5.5 * h gb 12.6 11.5 - 16.5 * h ct 36.8 35 - 55 * m cv 101.5 75 - 100 * m ch 34.9 25 - 35 * m chc 34.4 31 - 38 * p latlet 73 100 - 400 * Chelle Bird 12/22/2024 8 :44:44 AM >See phone encounter 5.?Primary biliary cirrhosis? Refill Ursodiol Tablet, 500 MG, take 1 tablet by mouth twice daily, 60 Tablet, Refills 5.?LAB: GGT (Gamma Glutamyl Transferase) ?LAB: P-Comprehensive Metabolic Panel (CMP) (Collection Date & Time - 12/17/2024 09:08 AM)?creat 5.6 (on dialysis)* Value Reference Range A /G Ratio 1.1 1.1-2.5 - * A lbumin 3.8 3.5-5.3 - g/dL * A lkaline Phosphatase 181 H 40-129 - IU/L * A LT (SGPT) 23 <5-55 - IU/L * A ST (SGOT) 37 <5-46 - IU/L * B ilirubin, Total 0.6 <0.2-1.2 - mg/dL * B UN 52 H 8-23 - mg/dL * C alcium 9.4 8.6-10.4 - mg/dL * C hloride 101 97-108 - mmol/L * C O2 25 22-32 - mmol/L * C reatinine 5.86 H 0.70-1.30 - mg/dL * G lucose 84 65-99 - mg/dL * P otassium 5.1 3.5-5.3 - mmol/L * S odium 138 135-145 - mmol/L * P rotein 7.2 6.0-8.3 - g/dL * e GFR by Creatinine 9 L >59 - mL/min/1.73m2 * Chelle Bird 12/22/2024 8 :44:44 AM >See phone encounter 6.?Hypothyroidism? Refill Levothyroxine Sodium Tablet, 50 MCG, 1 tab(s), orally, once a day, 30 days, 30 Tablet, Refills 5.?LAB: P-TSH (Collection Date & Time - 12/17/2024 09:08 AM)?2.99* Value Reference Range T SH 2.99 0.43-5.25 - mU/L * Chelle Bird 12/22/2024 8 :44:44 AM >See phone encounter 7.?HFrEF (heart failure with reduced ejection fraction)?LAB: P-Lipid Panel (Collection Date & Time - 12/17/2024 09:08 AM)* Value Reference Range C holesterol / HDL Ratio 3.14 0.00-4.99 - Ratio * C holesterol 113 <200 - mg/dL * H DL Cholesterol 36 L >39 - mg/dL * L DL Cholesterol (Calculation) 63 <130 - mg/d L * L DL/HDL Ratio 1.8 <3.3 - Ratio * N on-HDL Cholesterol 77 <130 - mg/dL * T riglycerides 68 <150 - mg/dL * Chelle Bird 12/22/2024 8 :44:44 AM >See phone encounter 8.?Screening for prostate cancer?LAB: P-PSA (Collection Date & Time - 12/17/2024 09:08 AM)?2.05* Value Reference Range P SA 2.05 <4.00 - ng/mL * Chelle Bird 12/22/2024 8 :44:44 AM >See phone encounter 9.?Jerking movements of extremities? Refill diazePAM Tablet, 2 MG, 1 tablet as needed, Orally, three times a day as needed, 60, Refills 2.?? * Therapeutic Injections: Depo- Medrol 40 mg/ml : 1 mL (Route: Intramuscular) given by Tamara Garza MM on right gluteus (Gout) * Procedure Codes: G 0439 ANNUAL WELLNESS VST; PPS SUBSQT VST, G2211 Complex e/m visit add on, G0444 ANNUAL DEPRESSION SCREENING 15 MIN, 1090F PRES/ABSN URINE INCON ASSESS, 3288F FALL RISK ASSESSMENT DOCD, 1170F FXNL STATUS ASSESSED, 1159F MED LIST DOCD IN RCRD, 1003F LEVEL OF ACTIVITY ASSESS, 1036F TOBACCO NON-USER, 3017F COLORECTAL CA SCREEN DOC REV, 18430 CBC WITH AUTO DIFF, J1010 Inj, methylpred acetate 1 mg, 83044 ADMINISTRATION OF INJECTION, G8510 NEG SCR Depression PT NOT ELIG F/U/PLN DOC, 3074F SYST BP LT 130 MM HG, 3078F DIAST BP < 80 MM HG * Preventive Medicine: Counseling: E motional health: P atient encouraged to try connecting with family or friends to boost mood. B ladder control: M ethods of controlling or managing leakage of urine discussed. E xercise: P atient advised to start, increase or maintain level of exercise/physical activity. I njury prevention: F all prevention discussed. Discussed need for cane/walker. Potential trip hazards discussed. Immunizations: P neumococcal r ecommended. Screening / Special Tests: C olonoscopy R ecent history: 01/2017 Dr. Cruz, polyps, repeat 5 years. P SA , normal. * Follow Up: 3 Months * Images: Billing Information: * Visit Code: 84373 Office Visit, Est Pt., Level 3. Modifiers: 25 * Procedure Codes: G0439 ANNUAL WELLNESS VST; PPS SUBSQT VST. G2211 Complex e/m visit add on. G0444 ANNUAL DEPRESSION SCREENING 15 MIN. 1090F PRES/ABSN URINE INCON ASSESS. 3288F FALL RISK ASSESSMENT DOCD. 1170F FXNL STATUS ASSESSED. 1159F MED LIST DOCD IN RCRD. 1003F LEVEL OF ACTIVITY ASSESS. 1036F TOBACCO NON-USER. 3017F COLORECTAL CA SCREEN DOC REV. 13732 CBC WITH AUTO DIFF. J1010 Inj, methylpred acetate 1 mg. 78316 ADMINISTRATION OF INJECTION. G8510 NEG SCR Depression PT NOT ELIG F/U/PLN DOC. 3074F SYST BP LT 130 MM HG. 3078F DIAST BP < 80 MM HG. * Electronic signature of Chelle Bird MD on 05/03/2025 at 07:40 AM EDT Sign off status: Pending * Provider: Chelle Bird M.D. Date: 0 12/17/2024 Generated for Eleazari fuad/Mac/eTransmitting on: 0 05/03/2025 07:40 AM EDT History and Physical Notes * HPI (History of Present Illness) Category Sub-Category Detail Notes Category Not es HPI Patient is here toda y for a check up with fasting labs and a Medicare Annual Wellness Visit. Pt sts he is fasting today He continues with dialysis twice weekly and has had a stable course. Denies swelling. Physical Examination Category Sub-Category Detail Notes Section Note s GENERAL Pain Assessment: Pain level: --, on a scale of 0-10 (with 10 being extreme pain) Functional Status Assessment: Patient response to question of how often physical health interferes with daily activities: . Occasionally Able to perform ADLs-including meal preparation, grocery shopping, housework, laundry, taking medications or handling finances. Cognitive Status: alert and oriented. Ambulation Status: Fully ambulatory Fall Risk Assessment: Independant in amb ulation with straight cane, adequate lighting in home. Patient has NOT fallen or had trouble walking within the past 12 months Depression Screening: Describes [place] [facility] as: downhearted due to chronic health issues Bladder Control Screening: Denies proble ms Examination Category Sub-Category Detail Notes Category Not es General Examination Heart: RSR Lungs: clear to auscultatio n Abdomen: soft, nontender Extremities: Left ankle is mildly swollen and tender General Appearance: Alert and oriented. Flat affect. Skin: There is a zoster ra sh on the left anterior lateral chest wall and a T4 distribution.
--- OUTSIDE RECORDS SUMMARY | 2025-04-27 09:45 | XMS_ITS ---
[facility] Organization [facility] Address [address] [facility] [address] [place] [id number] Care Team Providers Care Lead Care Manager Name Role Phone Chelle Bird Primary Care Provider [phone] Allergies Allergen (clinical drug ingredient) Drug/Non Drug Allergy documented on EMR Reaction Allergy Type Onset Date Status cephalexin Cephalexin tongue swelling Drug Allergy Active REASON FOR VISIT 3 month follow up, Needs labs Medications Medication SIG (Take, Route, Frequency, Duration) Notes Start Date End Date Status traMADol HCl 50 MG 1 tab(s) Orally q6h prn pain 03/15/2025 Active diazePAM 2 MG 1 tablet as needed Orally three times a day as needed 12/17/2024 Active Doxycycline Hyclate 100 MG 1 capsule Ora lly Two times a day 09/24/2024 Not-Taking Ursodiol 500 MG take 1 tablet by sherif twice daily Active Levothyroxine Sodium 50 MCG 1 tab(s) orally once a day; Duration: 30 days Active Famciclovir 500 MG 1 tablet Orally Thre e times a day 12/17/2024 Active Entresto 49-51 MG 1 tablet Orally Twic e a day Not-Taking traZODone HCl 50 MG 1/2-1 tab(s) orally qhs prn sleep Active Indomethacin 25 MG 1 capsule with food or milk Orally Twice a day prn 04/07/2024 Active Colchicine 0.6 MG 1 tablet Orally once daily; Duration: 30 days Active Albuterol Sulfate HFA 108 (90 Base) MCG/ACT INHALE 2 PUFFS BY MOUTH FOUR TIMES A DAY NEEDED; Duration: 25 Active Furosemide 20 MG 1 tab(s) orally Ever y other day Active Reglan 10 MG 1 tab(s) orally QIDACHS prn Not-Taking Problems Problem Type SNOMED Code ICD Code Onset Dates Problem Status W/U Status Risk Notes Problem Cardiomyopathy ([id number]) Cardiomyopathy, unspecified type (I42.9) Active confirmed Vital Signs Weight 172.8 lbs 04/27/2025 Blood pressure systolic 122 mm Hg 04/27/20 25 Blood pressure diastolic 76 mm Hg 025 Heart Rate 76 /min 04/27/2025 Height 68 in 04/27/2025 BMI 26.27 kg/m2 04/27/2025 Encounters Encounter Location Date Provider Diagnosis [facility] [address] [place], [place] [phone] 04/27/2025 Chelle Bird Primary biliary cirrhosis K74.3 ; HFrEF (heart failure with reduced ejection fraction) I50.20 ; End stage renal disease N18.6 ; Dependence on renal dialysis Z99.2 ; Atrial fibrillation with RVR I48.91 ; Weakness R53.1 ; Cardiomyopathy, unspecified type I42.9 and BMI 26.0-26.9,adult Z68.26 Assessments Encounter Date Diagnosis (ICD Code) Assessment Notes Treatment Notes Treatment Clinical Notes Section Notes 04/27/2025 Primary biliary cirrhosis (ICD-10 - K74.3) 04/27/2025 HFrEF (heart failure with reduced ejection fraction) (ICD-10 - I50.20) 04/27/2025 End stage renal disease (ICD-10 - N18.6) 04/27/2025 Dependence on renal dialysis (ICD-10 - Z99.2) 04/27/2025 Atrial fibrillation with RVR (ICD-10 - I48.91) 04/27/2025 Weakness (ICD-10 - R53.1) 04/27/2025 Cardiomyopathy, unspecified type (ICD-10 - I42.9) 04/27/2025 BMI 26.0-26.9,adult (ICD-10 - Z68.26) Plan Of Treatment Pending Test Test Name Order Date Ultrasound : Abdomen limited 04/27/2025 Next Appt Details Follow Up: 2-3 months, Reaso n: Progress Notes * GEORGE KWONG:1945 ( 80 yo M)Acc No.[id number]:04/27/2025 Patient: BRENNEN PARK Provider: Chelle Bird M.D. :1945 A ge:80 Y S ex:Male Date:04/27/2025 Address:[address] [place] [address] [id number] Subjective: * Chief Complaints: * 1 . 3 month follow up. 2. Needs labs. * HPI: H PI: Brennen comes in for scheduled follow-up. Interim history is reviewed and he has had a fairly stable course. He continues on dialysis. Other than complaints of general fatigue, he reports that he has been doing fairly well. He did discontinue his metoprolol and Entresto because of hypotension. * ROS: D ERMATOLOGY: no R beckie. n o H orlin. G ASTROENTEROLOGY: no N ausea. n o V omiting. n o D iarrhea.? U ROLOGY: no B lood in urine. n o F requent urination. ? * Medical History: G ERD, Hypertension, Kidney Stones, Primary biliary cirrhosis - followed by Dr. Cruz, Osteo Arthritis, Hypothyroidism, Severe Aortic Stenosis, LT Retinal Artery Occlusion - 08/2021, Atrial Fibrillation, Chronic Kidney Disease, end stage, started dialysis December 2023, Cardiomyopathy - EF = 25 %, Preicardial effusion. * Surgical History: C holecystectomy , Cataract , EGD/[facility] 01/2017, C-scope/ [facility] 01/2017, TAVR -Dr. Moe/ [facility] 08/2021, Dialysis Port Placed 11/2023, [...] FOUR TIMES A DAY NEEDED , Taking Furosemide 20 MG Tablet 1 tab(s) orally Every other day , Taking Colchicine 0.6 MG Tablet 1 tablet Orally once daily , Taking Indomethacin 25 MG Capsule 1 capsule with food or milk Orally Twice a day prn , Taking traZODone HCl 50 MG Tablet 1/2-1 tab(s) orally qhs prn sleep , Taking Famciclovir 500 MG Tablet 1 tablet Orally Three times a day , Taking Levothyroxine Sodium 50 MCG Tablet 1 tab(s) orally once a day , Taking Ursodiol 500 MG Tablet take 1 tablet by mouth twice daily , Taking diazePAM 2 MG Tablet 1 tablet as needed Orally three times a day as needed , Taking traMADol HCl 50 MG Tablet 1 tab(s) Orally q6h prn pain , Not-Taking Reglan 10 MG Tablet 1 tab(s) orally QIDACHS prn , Not- Taking Entresto 49-51 MG Tablet 1 tablet Orally Twice a day , Not-Taking Doxycycline Hyclate 100 MG Capsule 1 capsule Orally Two times a day , Discontinued Metoprolol Tartrate 50 MG Tablet 1.5 tablet with food Orally Twice a day , Medication List reviewed and reconciled with the patient * Allergies: C ephalexin: tongue swelling - Allergy. Objective: * Vitals: W t: 172.8, Temp: 97.5, BP: 122/76, HR: 76, Nurse: caesar, Ht: 68, BMI:26.27. * Examination: G eneral Examination: General Appearance: A lert and oriented. Flat good.?Heart: R SR. L ungs: c lear to auscultation. A bdomen: s oft, nontender.? No masses. E xtremities: n o leg edema. Assessment: * Assessment: 1. P rimary biliary cirrhosis - K74.3 (Primary) 2 . H FrEF (heart failure with reduced ejection fraction) - I50.20 3 . E nd stage renal disease - N18.6? 4. D ependence on renal dialysis - Z99.2 5 . A trial fibrillation with RVR - I48.91 6 . W eakness - R53.1 7 . C ardiomyopathy, unspecified type - I42.9 8 . B MO 26.0-26.9,adult - Z68.26 Plan: * Treatment: * Procedure Codes: G 2211 Complex e/m visit add on, 1036F TOBACCO NON-USER, G8783 BP SCR PRFRM RCMDD DEFIND SCR INTVL, G8752 MOST RECENT SYSTOLIC BP < 140MM HG, G8754 MOST RECENT DIASTOLIC BP < 90MM HG, G8420 BMI<30 AND >=22 CALC & DOCU * Follow Up: 2 -3 months * Images: Billing Information: * Visit Code: 21215 Office Visit, Est Pt., Level 3. * Procedure Codes: G2211 Complex e/m visit add on. 1036F TOBACCO NON-USER. G8783 BP SCR PRFRM RCMDD DEFIND SCR INTVL. G8752 MOST RECENT SYSTOLIC BP < 140MM HG. G8754 MOST RECENT DIASTOLIC BP < 90MM HG. G8420 BMI<30 AND >=22 CALC & DOCU. * Electronic signature of Chelle Bird MD on 05/03/2025 at 07:40 AM EDT Sign off status: Pending * Provider: Chelle Bird M.D. Date: 04/27/2025 Generated for Francisco merida/Mac/Rocioitting on: 0 05/03/2025 07:40 AM EDT History and Physical Notes * HPI (History of Present Illness) Category Sub-Category Detail Notes Category Not es HPI Brennen comes in for scheduled follow-up. Interim history is reviewed and he has had a fairly stable course. He continues on dialysis. Other than complaints of general fatigue, he reports that he has been doing fairly well. He did discontinue his metoprolol and Entresto because of hypotension. Examination Category Sub-Category Detail Notes Category Not es General Examination Heart: RSR Lungs: clear to auscultatio n Abdomen: soft, nontender. No masses Extremities: no leg edema General Appearance: Alert and oriented. Flat good Skin:
--- OUTSIDE RECORDS SUMMARY | 2025-05-03 07:39 | XMS_ITS ---
Author Organization Unknown Problems Date Problem Result OnSetDate Icd10 SnomedCode Severity Cu stom 05/05/2024 00:00:00 OA (osteoarthritis) M19.90 06/05/2024 00:00:00 Allergic reaction caused by a drug Z88.9 06/15/2024 00:00:00 Dependence on renal dialysis Z99.2 [id number]
--- NOTE | 2025-05-03 07:40 | US_ITS ---
FINAL REPORT CLINICAL HISTORY: PRIMARY BILIARY CIRRHOSIS COMPARISON: None FINDINGS: Sonographic images of the right upper quadrant were obtained. The pancreas is partially obscured. The liver is nodular and hyperechoic. The gallbladder is surgically absent. There is no evidence of biliary ductal dilatation.The common duct measures 3 mm. Multiple benign-appearing cysts are noted in the right kidney. IMPRESSION: Nodular and hyperechoic liver. Reviewed, Interpreted and Dictated by Alexandru Maya MD Transcribed by Catherine Whatley Authenticated and [facility]
--- OUTSIDE RECORDS SUMMARY | 2025-05-03 07:40 | XMS_ITS | Patient Health Record ---
Author Organization [facility] Address [address] [place] [id number] Care Team Providers Care Hat Marker Name Role Phone Chelle Bird Primary Care Provider Avi Doty Unavailable [phone] Allergies Allergen (clinical drug ingredient) Drug/Non Drug Allergy documented on EMR Reaction Allergy Type Onset Date Status cephalexin Cephalexin tongue swelling Drug Allergy Active Results Component Value Reference Range Notes Urinalysis - Inhouse Reviewed date:06/16/2024 03:00:34 PM Interpretation: Performing Lab: Notes/Report: Color/Clarity yellow Leuk trace Nitrite neg Urobili 16 Protein 1+ pH 7.0 Blood 1+ Sp. Gr. 1.015 Ketone neg Bili neg Gluc neg CBC Venipuncture (in house) Reviewed date:06/22/2024 01:09:55 PM Interpretation: Performing Lab: Notes/Report: wbc 3.9 3.5 - 10 lymph 23.3 15 - 50 mid 7.2 2 - 15 gran 69.5 35 - 80 rbc 2.92 3.5 - 5.5 hgb 9.9 11.5 - 16.5 hct 30.5 35 - 55 mcv 104.3 75 - 100 mch 34.0 25 - 35 mchc 32.6 31 - 38 platlet 148 100 - 400 P-Basic Metabolic Panel (BMP ) Reviewed date:06/22/2024 01:09:55 PM Interpretation:Cr 2.26, Ca 8.3, gfr 29 Performing Lab: Notes/Report: Test performed by [facility] , [address], [place] [address] Alfonso Bran MD, Material Handler [employer] CLIA: [id number] Sodium 142 135-145 mmol/L Potassium 4.3 3.5-5.3 mmol/L Chloride 102 97-108 mmol/L CO2 30 22-32 mmol/L Glucose 88 65-99 mg/dL BUN 23 8-23 mg/dL Creatinine 2.26 0.70-1.30 mg/dL Calcium 8.3 8.6-10.4 mg/dL eGFR by Creatinine 29 >59 mL/min/1.73m2 TEN-UTI panel Reviewed date:06/22/2024 01:09:35 PM Interpretation:Negative Performing Lab: Notes/Report: Negative TEN-UTI panel Reviewed date:06/05/2024 09:48:46 AM Interpretation: Performing Lab: Notes/Report: Urinalysis - Inhouse Reviewed date:06/02/2024 03:12:51 PM Interpretation: Performing Lab: Notes/Report: Color/Clarity yellow/cloudy Leuk 1+ Nitrite neg Urobili 3.2 Protein 2+ pH 8.5 Blood 2+ Sp. Gr. 1.015 Ketone neg Bili neg Gluc neg H-TSH Reviewed date:06/12/2024 09:40:42 AM Interpretation: Performing Lab: Notes/Report: TSH 4.32 0.465-4.68 uIU/mL H-URIC ACID Reviewed date:06/12/2024 09:40:42 AM Interpretation: Performing Lab: Notes/Report: URIC 5.0 3.5-8.5 mg/dl H-CMP Reviewed date:06/12/2024 09:40:42 AM Interpretation: Performing Lab: Notes/Report: NA 139 136-145 mmol/L K 4.7 3.5-5.1 mmoL/L Delta: 3.7 on 06/11/24-1104 CL 104 98-107 mmol/L CO2 30 22.0-30.0 mmol/L GAP 9.7 5-15 mEq/L BUN 52 9-20 mg/dl CREATT 4.30 0.66-1.25 mg/dl Delta: 3.40 on 06/11/24-1104 CRITICAL RESULT Results called and read back/verified to: KENDRICK on 06/12/24 at 0654 By Cassie Bhakta CRCLE 15 50-200 mL/min GFRAA 16 >60 ML/MIN Delta: 21 on -1104 EGFR 13 >60 ml/min GLU 98 74-100 mg/dl Delta: 79 on -1104 CA 8.4 8.4-10.2 mg/dl BILIT 0.8 0.2-1.3 mg/dl AST 32 17-59 U/L ALT 13 12-78 U/L TP 6.4 6.3-8.2 g/dl ALB 3.0 3.5-5.0 g/dl GLOB 3.4 1.3-3.2 g/dL AGRATIO 0.9 1.1-1.8 ALP 100 38-126 U/L CBC Venipuncture (in house) Reviewed date:12/22/2024 08:45:54 [...] dialysis) Performing Lab: Notes/Report: Test performed by [facility] [employer] [address] [place] [address] , [address], [place] [address] Alfonso Bran MD, Material Handler [address] CLIA: [id number] Sodium 138 135-145 mmol/L Potassium 5.1 3.5-5.3 [...] Interpretation: Performing Lab: Notes/Report: Test performed by [facility] [address] [place] [address] , [address], [place] [address] Alfonso Bran MD, Material Handler [employer] CLIA: [id number] Cholesterol 113 <200 mg/dL Triglycerides 68 <150 [...] Interpretation:2.05 Performing Lab: Notes/Report: Test performed by [facility] [address] [place], [place] [address]O[address] [facility] , [place] [address] Alfonso Bran MD, Material Handler [address] CLIA: [id number] PSA 2.05 <4.00 ng/mL Please note this is an ultrasensitive PSA assay with a lower limit of detection of 0.014 ng/mL. This test is performed by the [employer]alen ECLIA methodology. Values obtained with different assay methods or kits cannot be directly compared. P-TSH Reviewed date:12/22/2024 08:45:54 AM Interpretation:2.99 Performing Lab: Notes/Report: Test performed by [facility] [address] [place] [address] , [place] [address] Alfonso Bran MD, Material Handler [employer] CLIA: [id number] TSH 2.99 0.43-5.25 mU/L P-Uric Acid Reviewed date:12/22/2024 08:45:54 AM Interpretation:6.7 Performing Lab: Notes/Report: Test performed by [facility] [address] [place] [address] , [address], [place] [address] Alfonso Bran MD, Material Handler [address] CLIA: [id number] Uric Acid 6.7 3.4-8.0 mg/dL H-TSH Reviewed date:06/09/2024 08:23:03 AM Interpretation: Performing Lab: Notes/Report: H-CBC Reviewed date:07/14/2024 11:39:52 AM Interpretation: Performing Lab: Notes/Report: H-CMP Reviewed date:07/14/2024 11:39:41 AM Interpretation: Performing Lab: Notes/Report: Medications Medication SIG (Take, Route, Frequency, Duration) Notes Start Date End Date Status Albuterol Sulfate HFA 108 (90 Base) MCG/ACT INHALE 2 PUFFS BY MOUTH FOUR TIMES A DAY NEEDED; Duration: 25 Active traMADol HCl 50 MG 1 tab(s) Orally q6h prn pain 03/15/2025 Active diazePAM 2 MG 1 tablet as needed Orally three times a day as needed 12/17/2024 Active Furosemide 20 MG 1 tab(s) orally Ever y other day Active Reglan 10 MG 1 tab(s) orally QIDACHS prn Not-Taking Doxycycline Hyclate 100 MG 1 capsule Ora lly Two times a day 09/24/2024 Not-Taking Ursodiol 500 MG take 1 tablet by twice daily Active Levothyroxine Sodium 50 MCG 1 tab(s) orally once a day; Duration: 30 days Active Famciclovir 500 MG 1 tablet Orally Thre e times a day 12/17/2024 Active Entresto 49-51 MG 1 tablet Orally Twic e a day Not-Taking Colchicine 0.6 MG 1 tablet Orally once daily; Duration: 30 days Active traZODone HCl 50 MG 1/2-1 tab(s) orally qhs prn sleep Active Indomethacin 25 MG 1 capsule with food or milk Orally Twice a day prn 04/07/2024 Active Immunizations Vaccine Route Administration Date Status Comme nts tuberculin (ppd) ID Intradermal 04/25/2005 Administered Prevnar (PCV13) IM Intramuscular 06/21/2015 Administered PNEUMOVAX 23 VACCINE IM Intramuscular 02/17/2010 Administe red Hepatitis B (20 and more) IM Intramuscular 07/09/2014 Admi nistered Hepatitis B (20 and more) IM Intramuscular 08/10/2014 Admi nistered Hepatitis B (20 and more) IM Intramuscular 12/31/2014 Admi nistered Hep A- Pediatric Unknown 09/12/2018 Administered Fluzone High Dose (65yr and older) IM Intramuscular 07/09/2014 Administered Fluzone High Dose (65yr and older) IM Intramuscular 06/30/2015 Administered Fluzone High Dose (65yr and older) IM Intramuscular 06/12/2016 Administered Fluzone High Dose (65yr and older) IM Intramuscular 06/07/2017 Administered Fluzone High Dose (65yr and older) IM Intramuscular 06/06/2018 Administered Fluzone High Dose (65yr and older) IM Intramuscular 06/12/2019 Administered Fluzone High Dose (65yr and older) IM Intramuscular 06/17/2020 Administered Fluzone High Dose (65yr and older) IM Intramuscular 06/13/2021 Administered Fluzone High Dose (65yr and older) IM Intramuscular 06/26/2022 Administered Fluzone High Dose (65yr and older) IM Intramuscular 06/20/2023 Administered COVID 19 Moderna IM Intramuscular 11/09/2020 Administered COVID 19 Moderna IM Intramuscular 12/07/2020 Administered COVID 19 Moderna Unknown 06/28/2021 Administered COVID 19 Moderna Unknown 02/15/2022 Administered Problems Problem Type SNOMED Code ICD Code Onset Dates Problem Status W/U Status Risk Notes Problem Gastroesophageal reflux disease (677618474) GERD (gastroesophageal reflux disease) (K21.9) Active confirmed Problem Essential hypertension (82460064) Essential (primary) hypertension (I10) Active confirmed Problem Hypertension (60203385) HTN (hypertension) (I10) Active confirmed Problem Gout (26407574) Gout (M10.9) Active confirmed Problem Gout attack (120946415) Gout attack (M10.9) Active confirmed Problem Pancytopenia (057827667) Pancytopenia (D61.818) Active confirmed Problem Renal mass (668197707) Renal mass (N28.89) Active confirmed Problem Paroxysmal atrial fibrillation (956867358) Paroxysmal atrial fibrillation (I48.0) Active confirmed Problem Allergic reaction caused by drug (835669234) Allergic reaction caused by a drug (Z88.9) Active confirmed Problem Congestive heart failure (16905242) CHF (congestive heart failure) (I50.9) Active confirmed Problem Primary insomnia (1710601) Primary insomnia (F51.01) Active confirmed Problem Primary biliary cirrhosis (36663151) Primary biliary cirrhosis (K74.3) Active confirmed Problem End stage renal disease (90690651) End stage renal disease (N18.6) Active confirmed Problem Dependence on renal dialysis (293713138) Dependence on renal dialysis (Z99.2) Active confirmed Problem 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0) Active confirmed Problem Atrial fibrillation (60051193) Atrial fibrillation with RVR (I48.91) Active confirmed Problem Osteoarthritis (638671219) OA (osteoarthritis) (M19.90) Active confirmed Problem Chronic kidney disease stage 4 (595950659) Chronic kidney disease (CKD), stage IV (severe) (N18.4) Active confirmed Problem 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 (347688037963918) Atherosclerosis of [place] de[place]' coronary artery without angina pectoris, unspecified whether [place]a de[place]ni' or transplanted heart (I25.10) Active confirmed Problem Cardiomyopathy (32524675) Cardiomyopathy, unspecified type (I42.9) Active confirmed Problem Retinal artery occlusion (687487155) Retinal artery occlusion (H34.9) Active confirmed Problem Arterial retinal branch occlusion (24178579) Retinal artery occlusion, branch, left (H34.232) Active confirmed Problem Aortic valve disorder (7633782) Aortic valve stenosis, etiology of cardiac valve disease unspecified (I35.0) Active confirmed Problem History of heart valve repair with prosthesis (205190253875652) S/P TAVR (transcatheter aortic valve replacement) (Z95.2) Active confirmed Problem Hyperlipidemia (20869388) Other hyperlipidemia (E78.49) Active confirmed Problem Systolic heart failure (103938985) HFrEF (heart failure with reduced ejection fraction) (I50.20) Active confirmed Problem End stage renal disease (44814371) ESRD (end stage renal disease) (N18.6) Active confirmed Vital Signs Heart Rate 76 /min 04/27/2025 Blood pressure diastolic 76 mm Hg 04/27/2025 Height 68 in 04/27/2025 Blood pressure systolic 122 mm Hg 04/27/2025 Weight 172.8 lbs 04/27/2025 BMI 26.27 kg/m2 04/27/2025 Encounters Encounter Location Date Provider Diagnosis [facility] [address] [place] [id number] 05/05/2024 R Solo Bird OA (osteoarthritis) M19.90 and Cough R05.9 [facility] [address] [place] [id number] 06/02/2024 R Solo Bird Primary biliary cirrhosis K74.3 ; UTI (lower urinary tract infection) N39.0 and Hypothyroidism E03.9 [facility] [address] [place] [id number] 06/04/2024 R Solo Bird Allergic reaction ca used by a drug Z88.9 and UTI (lower urinary tract infection) N39.0 [facility] [address] [place] [id number] 06/16/2024 R Solo Bird Pericardial effusion without cardiac tamponade I31.39 ; HFrEF (heart failure with reduced ejection fraction) I50.20 ; End stage renal disease N18.6 ; Dependence on renal dialysis Z99.2 and UTI (lower urinary tract infection) N39.0 [facility] [address] [place] [id number] 07/10/2024 Avi Hobart Jerking movements of extremities R25.2 [facility] [address] [place] [id number] 09/24/2024 R Solo Bird Acute sinusitis J01. 90 and Jerking movements of extremities R25.2 [facility] [address] [place] [id number] 12/17/2024 R Solo Bird Adult general medica l examination Z00.00 [...] and Medicare annual wellness visit, subsequent Z00.00 [facility] [address] [facility] [address] [place], [place] [id number] 04/27/2025 R Solo Marge Primary biliary cirrhosis K74.3 ; HFrEF (heart failure with reduced ejection fraction) I50.20 ; End stage renal disease N18.6 ; Dependence on renal dialysis Z99.2 ; Atrial fibrillation with RVR I48.91 ; Weakness R53.1 ; Cardiomyopathy, unspecified type I42.9 and BMI 26.0-26.9,adult Z68.26 [facility] [address] [facility] [address] [place], [place] [id number] 06/05/2024 R Solo Marge [facility] [address] [facility] [address] [place], [place] [id number] 06/22/2024 R Solo Marge [facility] [address] [facility] [address] [place], [place] [id number] 08/31/2024 R Solo Marge [facility] [address] [facility] [address] [place], [place] [id number] 12/22/2024 R Solo Marge [facility] [address] [facility] [address] [place], [place] [id number] 03/15/2025 R Solo Marge Pain in left foot M79.672 Assessments Encounter Date Diagnosis (ICD Code) Assessment Notes Treatment Notes Treatment Clinical Notes Section Notes 03/15/2025 Pain in left foot (ICD-10 - M79.672) 12/17/2024 Shingles (ICD-10 - B02.9) 12/17/2024 Adult general medical examination (ICD-10 - Z00.00) Patient instructed to return to office Annually for Annual Wellness Visits to include annual screenings of Pain assessment, Functional Ability assessment, Cognitive Ability assessment, Fall Risk assessment, Depression screening and Bladder control screening. 09/24/2024 Acute sinusitis (ICD-10 - J01.90) 09/24/2024 Jerking movements of extremities (ICD-10 - R25.2) 07/10/2024 Jerking movements of extremities (ICD-10 - R25.2) 05/05/2024 OA (osteoarthritis) (ICD-10 - M19.90) Continue Tylenol and Aspercreme 05/05/2024 Cough (ICD-10 - R05.9) Trial of OTC Delsym 06/02/2024 UTI (lower urinary tract infection) (ICD-10 - N39.0) 06/02/2024 Primary biliary cirrhosis (ICD-10 - K74.3) 06/04/2024 UTI (lower urinary tract infection) (ICD-10 - N39.0) Awaiting final culture results 06/04/2024 Allergic reaction caused by a drug (ICD-10 - Z88.9) 06/16/2024 HFrEF (heart failure with reduced ejection fraction) (ICD-10 - I50.20) 06/16/2024 Pericardial effusion without cardiac tamponade (ICD-10 - I31.39) 04/27/2025 Primary biliary cirrhosis (ICD-10 - K74.3) 04/27/2025 HFrEF (heart failure with reduced ejection fraction) (ICD-10 - I50.20) 04/27/2025 End stage renal disease (ICD-10 - N18.6) 06/16/2024 End stage renal disease (ICD-10 - N18.6) 06/02/2024 Hypothyroidism (ICD-10 - E03.9) 12/17/2024 Gout (ICD-10 - M10.9) 12/17/2024 End stage renal disease (ICD-10 - N18.6) 06/16/2024 Dependence on renal dialysis (ICD-10 - Z99.2) 04/27/2025 Dependence on renal dialysis (ICD-10 - Z99.2) 04/27/2025 Atrial fibrillation with RVR (ICD-10 - I48.91) 06/16/2024 UTI (lower urinary tract infection) (ICD-10 - N39.0) Awaiting final culture results 12/17/2024 Dependence on renal dialysis (ICD-10 - Z99.2) 12/17/2024 HTN (hypertension) (ICD-10 - I10) 04/27/2025 Weakness (ICD-10 - R53.1) 04/27/2025 Cardiomyopathy, unspecified type (ICD-10 - I42.9) 12/17/2024 Primary biliary cirrhosis (ICD-10 - K74.3) 12/17/2024 Hypothyroidism (ICD-10 - E03.9) 04/27/2025 BMI 26.0-26.9,adult (ICD-10 - Z68.26) 12/17/2024 HFrEF (heart failure with reduced ejection fraction) (ICD-10 - I50.20) 12/17/2024 Screening for prostate cancer (ICD-10 - Z12.5) 12/17/2024 Jerking movements of extremities (ICD-10 - R25.2) 12/17/2024 BMI 26.0-26.9,adult (ICD-10 - Z68.26) 12/17/2024 Medicare annual wellness visit, subsequent (ICD-10 - Z00.00) Plan Of Treatment Pending Test Test Name Order Date GGT (Gamma Glutamyl Transferase) 025 Ultrasound : Abdomen limited 04/27/2025 Insurance Providers Payer Name Payer Address Payer Phone Subscriber Number Group Number Insured Name Patient Relationship to Insured Coverage Start Date Coverage End Date [employer] [address] [address] [place] [address] [id number] DEYANIRA KWONG Self - patient is the insured Medications Administered Medication Instructions Date of Administration Dosage Notes Depo- Medrol 40 mg/ml 06/05/2011 1.5 mL Depo- Medrol 40 mg/ml 03/05/2017 1.5 mL Depo- Medrol 40 mg/ml 06/07/2017 1.5 mL Depo- Medrol 40 mg/ml 10/15/2017 1.5 mL Depo- Medrol 40 mg/ml 05/26/2018 1.5 mL Depo- Medrol 40 mg/ml 05/29/2018 1 mL Depo- Medrol 40 mg/ml 08/22/2018 1 mL Depo- Medrol 40 mg/ml 02/03/2022 1.5 mL Depo- Medrol 40 mg/ml 06/13/2023 1 mL Depo- Medrol 40 mg/ml 05/05/2024 1.5 mL Depo- Medrol 40 mg/ml 12/17/2024 1 mL Dexamethasone 10/11/2017 1 mL Dexamethasone 09/24/2024 1 mL Medical (General) History Medical History History ICD Code GERD Hypertension Kidney Stones Primary biliary cirrhosis - followed by Dr. Cruz Osteo Arthritis Hypothyroidism Severe Aortic Stenosis LT Retinal Artery Occlusion - 08/2021 Atrial Fibrillation Chronic Kidney Disease, end stage, start ed dialysis December 2023 Cardiomyopathy - EF = 25 % Preicardial effusion Surgical History Surgery Date(Month/Year) Cholecystectomy Cataract EGD/[facility] 01/2017 C-scope/ [facility] 01/2017 TAVR -Dr. Moe/ [facility] 08/2021 Dialysis Port Placed 11/2023 Pericardiocentesis/ 900 ml/ Dr. Lopez 05/2024 Hospitalization History Reason Date(Month/Year) [facility] - Pericardial Effusion 06/11/2024
--- OUTSIDE RECORDS SUMMARY | 2025-05-03 07:40 | XMS_ITS | Referral Summary ---
Author Organization [facility] ([place], [place], [place], [place]) Address [address] [place] [address] Care Team Providers Care [employer] Name Role Phone Unavailable Primary Care Provider Unavailabl e Social History Tobacco Use Types Packs/Day Years Used Date Smoking Tobacco: Never Assessed Sex and Gender Information Value Date Recorded Sex Assigned at Not on file Legal Sex Male 4:07 PM CDT Gender Identity Not on file Sexual Orientation Not on file Plan of Treatment Not on file
--- OUTSIDE RECORDS SUMMARY | 2025-05-03 07:41 | XMS_ITS | Clinical Summary ---
Author Organization [facility] Address [address] [place] [address] Care Team Providers Care Tinner Automatic Name Role Phone Lorenzo Bird MD Primary Care Provider [phone] Alejandro Moe MD Unavailable [phone] Franck Lopez MD Unavailable [phone] Allergies Active Allergy Reactions Criticality Noted Date Comments Aspirin GI bleeding High 11/18/2023 Medications metoclopramide (Reglan) 10 MG tablet Take 1 tablet (10 mg) by mouth 2 (two) times a day if needed. 4 Active ursodiol (Actigall) 500 MG tablet Take 1 tablet (500 mg) by mouth 2 (two) times a day. 1 Active psyllium (Metamucil) 58.6 % packet Take 1 packet by mouth 1 (one) time each day. Active Multiple Vitamins-Minera ls (multivitamin with minerals) tablet Take 1 tablet by mouth 1 (one) time each day. Active apixaban (Eliquis) 5 MG tablet Take 1 tablet (5 mg total) by mouth 2 (two) times a day. 60 tablet 11 2 Active furosemide (Lasix) 20 MG tablet Take by mouth if needed. prn Active aspirin 81 MG EC tablet Take 1 tablet (81 mg) by mouth 1 (one) time each day. Active levothyroxine (Synthroid, Levoxyl) 50 MCG tablet 3 Active cyclobenzaprine (Flexeril) 10 MG tablet 3 Active nabumetone (Relafen) 500 MG tablet 3 Active traMADol (Ultram) 50 MG tablet 3 Active sacubitril-vals jesus (Entresto) 24-26 MG tablet Take 1 tablet by mouth 2 (two) times a day. 3 Active carvedilol (Coreg) 6.25 MG tablet Take 2 tablets (12.5 mg) by mouth 2 (two) times a day with meals. 3 Active metOLazone (Zaroxolyn) 2.5 MG tablet 4 Active metoprolol succinate XL (Toprol-XL) 50 MG 24 hr tablet 4 Active Insulin Syringe 31G X 02/12 1 ML miscIndications :Anemia due to stage 5 chronic kidney disease, not on chronic dialysis 1 each every 14 (fourteen) days. 2 each 4 Active Additional Information Patient not taking.Reported on 02/17/2024 Active Problems Problem Noted Date Diagnosed Date Anemia in stage 4 chronic kidney disease 024 Gross hematuria 11/08/2021 S/P TAVR (transcatheter aortic valve replacement ) 10/11/2021 Atrial fibrillation 10/11/2021 Fair tolerance for activity 09/06/2021 GERD (gastroesophageal reflux disease) 1 Renal insufficiency 09/06/2021 Hypothyroidism 09/06/2021 Chest pain 07/25/2021 SOB (shortness of breath) on exertion 07/25/2021 Aortic stenosis 07/25/2021 CAD (coronary artery disease) 07/25/2021 Essential hypertension 07/25/2021 Bradycardia 07/25/2021 Dizziness 07/25/2021 Cirrhosis, nonalcoholic 01/11/2014 Primary biliary cholangitis 01/11/2014 Immunizations Immunization Administration Dates Next Due Hep A, ped/adol, 2 dose 09/12/2018 Influenza, high-dose, quadrivalent 06/26,06/17/2020,06/12/2019,2017,06/07/2017 Moderna COVID-19 Vaccine Biv alent 6months+ 06/13/2022 Moderna Covid-19 Vaccine 12y +, Greg Protein, Preservative free 07/24/2023 Family History Medical History Relation Name Comments Hypertension Father Relation Name Status Comments Father Social History Tobacco Use Types Packs/Day Years Used Date Smoking Tobacco: Former Cigarettes 0.3 20 1 960 - 1980 Passive Smoke Exposure: Past Smokeless Tobacco: Former Tobacco Cessation:Counseling Given: Not Answered Comments:Quit 30 plus years ago Alcohol Use Standard Drinks/Week Comments No 0 (1 standard drink = 0.6 oz pur e alcohol) PHQ-2 Answer Date Recorded Patient Health Questionnaire-2 Score 0 02/17/2024 Sex and Gender Information Value Date Recorded Sex Assigned at Not on file Legal Sex Male 8:16 PM EDT Gender Identity Not on file Sexual Orientation Not on file Last Filed Vital Signs Vital Sign Reading Time Taken Comments Blood Pressure 115/81 02/17/2024 8:19 AM EDT Pulse 80 02/17/2024 8:19 AM EDT Temperature 36.3 C (97.3 F) 02/17/2024 8:19 AM EDT Respiratory Rate 16 12/30/2023 12:43 PM EDT Oxygen Saturation 96% 02/17/2024 8:19 AM EDT Inhaled Oxygen Concentration - - Weight 76.2 kg (168 lb) 02/17/2024 8:19 AM EDT Height 177.8 cm (5' 10 ) 11/18/2023 8:29 AM EST Body Mass Index 24.11 11/18/2023 8:29 AM EST Plan of Treatment Health Maintenance Due Date Last Done Comments [facility]Medicare Annual Wellness (AWV) 1945 [facility]-/Child/Adol SDOH Screenings 1945 [facility]- SDOH Screenings 01/18/1962 [facility]-Adult SDOH Screenings 01/18/1962 [facility]-DTaP,Tdap,and Td Vaccines (1 - Tdap) 01/18/1963 [facility]-Hepatitis A Vaccines (1 of 2 - Risk 2-dose series) 01/18/1963 09/12/2018 [facility]-Zoster Vaccines (1 of 2) 01/18/1994 [facility]-RSV Vaccine: 60+ Years or (1 - 1-dose 75+ series) 01/18/2019 [id number]-80 Vaccine ( season) 2024 07/24/2023, 06/13/2022, 02/15/2022, Additional history exists [facility]-Depression Screening 02/16/2025 02/17/2024 [facility]-Influenza Vaccine (#1) 05/31/202506/26, 06/17/2020, 06/12/2019, Additional history exists [facility]-Pneumococcal Vaccine: 50+ Years Completed 06/21/2015, 02/17/2010 HPV Vaccines Aged Out No longer eligi ble based on patient's age to complete this topic [facility]-HIB Vaccines Aged Out No longer e ligible based on patient's age to complete this topic [facility]-IPV Vaccines Aged Out No longer e ligible based on patient's age to complete this topic [facility]-Rotavirus Vaccines Aged Out No lo nger eligible based on patient's age to complete this topic Medical Devices Implanted Type Area Pipe [employer]itter [employer] Device Identifier Shelf Expiration Date Model / Serial / Lot Valve Kit Nicky 3 Ultra Tavr 26mm - [id number] - [id number] Implanted:Qty: 1 on 09/07/2021 by Alejandro Moe MD at [facility] N/A: Heart [facility]-[id number] 04/20/2023 [id number] / [id number] Insurance E [facility] [place] [address] [facility] MEDICARE Care Teams Tinner Automatic Relationship Specialty Start Date End Date Lorenzo Bird MD [address] [place] [address] [place]rí[place] [id number] PCP - General 02/10/21 Alejandro Moe MD [address] [place] [phone] Referring Physician Interventional Cardiology 08/14/21 Franck Lopez MD [address] [place] [id number] Referring Physician 08/14/21
--- OUTSIDE RECORDS SUMMARY | 2025-05-03 07:41 | XMS_ITS | Clinical Summary ---
Author Organization [facility] ([place], [place], [place], [place]) Address [address] [place] [id number] Care Team Providers Care Dice Table Person Name Role Phone Unavailable Primary Care Provider [...]
--- OUTSIDE RECORDS SUMMARY | 2025-05-03 07:41 | XMS_ITS ---
Author Organization [facility]ames ([facility]) Address [address] [place] [id number] Care Team Providers Care Mosaic Layer Name Role Phone Unavailable Unavailable Unavailable Allergies, Adverse Reactions, Alerts Allergy Name Allergy Type Status Severity Reaction(s) Onset Date Inactive Date Treating Clinician Comments Cephalexin Allergy Active Moderate Allergy Shortness of Breath 06-11 04:00: 00 Aspirin Allergy Active Intolerance GI Bleeding 01-05 16:42: 36 Medications Ordered Medication Name Filled Medication Name Start Date Stop Date Current Medication? Ordering Clinician Indication Dosage Frequency Signature (SIG) Comments Components calcitriol 04-19 18:15: 58 Yes [id number] Number of Repeats Allowed: Frequency: Two times a week Mircera 03-12 14:43: 31 Yes [id number] Number of Repeats Allowed: Frequency: MONIQUE dosing, every four weeks ONS [facility] 01-27 13:16: 49 Yes [id number] Number of Repeats Allowed: Frequency: Every Dialysis Treatment Venofer 01-15 15:47: 25 Yes [id number] Number of Repeats Allowed: Frequency: One time a weekDosesO rdered: Maintenanc e Dose 50 Milligram Route: Intravenou s Problems This patient has no known problems. Procedures Procedure Date / Time Performed Performing Clinician Pamela ce Details Central Venous Catheter (CVC) 2023-12-25 04:00:00 Access Site Chest (Right) Access Use Start Date 2024-01-07 00:00:0 0 DIALYSIS TREATMENT INFORMATION Conventional Hemodialysis Date Type Treatment Start Date Treatment End Date Pre-Treatment Vitals Post-Treatment Vitals Weight Gain BFR DFR Actual UF Dialysis Access Augus t 2024 In-Ce nter Hemod ialys is Treat ment 2025-05-01 T09:24:03. 000Z 2025-05-01 T12:31:14. 000Z BP Sitting (Pre-Dialysis) 135/86 mmHg BP Sitting (Post-D ialysis ) 107/ 62 mmHg BP Standing (Pre-Dialysis) 144/95 mmHg BP Standing (P ost-Dialysis) 111/69 mmHg Sitting Heart Rate Pre-Dialysis 77 BPM Sitting Heart Rate Post-Dialysis 66 BPM Standing Heart Rate Pre-Dialysis 80 BPM Standing Heart Rate Post-Dialysis 62 BPM Temperature Pre-Dialysis 97.3 degF Temperature Post -Dialysis 97.3 degF April 27, 2025 In-Center Hemodialysis Treatment 8528-79-48W21:21:31.000Z 9310-95-44Y91:35:16.000Z BP Sitting (Pre-Dialysis) 130/78 mmHg BP Sitting (Post-Dialysis) 118/79 mmHg Concurrent Access: falseCentral Venous Catheter (CVC) Chest (Right) Arterial BP Standing (Pre-Dialysis) 140/92 mmHg Sitti ng Heart Rate Post-Dialysis 60 BPM Sitting Heart Rate Pre-Dialysis 62 BPM Temperatu re Post-Dialysis 97.9 degF Standing Heart Rate Pre-Dialysis 85 BPM Temperature Pre-Dialysis 97.4 degF April 24, 2025 In-Center Hemodialysis Treatment 4907-84-97O10:36:26.000Z 2906-95-93B74:41:15.000Z BP Sitting (Pre-Dialysis) 139/92 mmHg BP Sitting (Post-Dialysis) 110/81 mmHg Concurrent Access: falseCentral Venous Catheter (CVC) Chest (Right) Arterial BP Standing (Pre-Dialysis) 119/86 mmHg BP Standing (P ost-Dialysis) 109/78 mmHg Sitting Heart Rate Pre-Dialysis 82 BPM Sitting Heart Rate Post-Dialysis 60 BPM Standing Heart Rate Pre-Dialysis 85 BPM Standing Heart Rate Post-Dialysis 80 BPM Temperature Pre-Dialysis 97.5 degF Temperature Post -Dialysis 97.9 degF April 20, 2025 In-Center Hemodialysis Treatment 9941-66-05B28:22:33.000Z 4217-49-19B19:25:33.000Z BP Sitting (Pre-Dialysis) 147/108 mmHg BP Sitting (Post-Dialysis) 137/98 mmHg Concurrent Access: falseCentral Venous Catheter (CVC) Chest (Right) Arterial BP Standing (Pre-Dialysis) 157/106 mmHg BP Standing (P ost-Dialysis) 146/88 mmHg Sitting Heart Rate Pre-Dialysis 86 BPM Sitting Heart Rate Post-Dialysis 74 BPM Standing Heart Rate Pre-Dialysis 60 BPM Standing Heart Rate Post-Dialysis 85 BPM Temperature Pre-Dialysis 97.6 degF Temperature Post -Dialysis 97.9 degF April 17, 2025 In-Center Hemodialysis Treatment 4537-07-92U74:20:45.000Z 7568-37-08M04:23:32.000Z BP Sitting (Pre-Dialysis) 131/86 mmHg BP Sitting (Post-Dialysis) 121/83 mmHg Concurrent Access: falseCentral Venous Catheter (CVC) Chest (Right) Arterial Sitting Heart Rate Pre-Dialysis 85 BPM BP Standing (Post-Dialysis) 104/71 mmHg Temperature Pre-Dialysis 98.4 degF Sitting Heart Ra te Post-Dialysis 71 BPM Standing Heart Rate Post-Mile lysis 80 BPM Temperature Post-Dialysis 97 .3 degF April 13, 2025 In-Center Hemodialysis Treatment 1248-78-15A12:17:58.000Z 8812-45-14Y37:24:22.000Z BP Sitting (Pre-Dialysis) 141/91 mmHg BP Sitting (Post-Dialysis) 117/78 mmHg Concurrent Access: falseCentral Venous Catheter (CVC) Chest (Right) Arterial BP Standing (Pre-Dialysis) 133/88 mmHg BP Standing (P ost-Dialysis) 107/85 mmHg Sitting Heart Rate Pre-Dialysis 80 BPM Sitting Heart Rate Post-Dialysis 60 BPM Standing Heart Rate Pre-Dialysis 74 BPM Standing Heart Rate Post-Dialysis 46 BPM Temperature Pre-Dialysis 98.4 degF Temperature Post -Dialysis 97.8 degF April 10, 2025 In-Center Hemodialysis Treatment 8267-53-43W70:24:29.000Z 6880-04-05M20:28:15.000Z BP Sitting (Pre-Dialysis) 142/92 mmHg BP Sitting (Post-Dialysis) 132/89 mmHg Concurrent Access: falseCentral Venous Catheter (CVC) Chest (Right) Arterial Sitting Heart Rate Pre-Dialysis 82 BPM BP Standing (Post-Dialysis) 125/89 mmHg Temperature Pre-Dialysis 97.9 degF Sitting Heart Ra te Post-Dialysis 77 BPM Standing Heart Rate Post-Mile lysis 76 BPM Temperature Post-Dialysis 97 .3 degF April 06, 2025 In-Center Hemodialysis Treatment [id number]:18:05.000Z 8999-44-63G78:17:55.000Z BP Sitting (Pre-Dialysis) 139/91 mmHg BP Sitting (Post-Dialysis) 112/72 mmHg Concurrent Access: falseCentral Venous Catheter (CVC) Chest (Right) Arterial BP Standing (Pre-Dialysis) 127/79 mmHg BP Standing (P ost-Dialysis) 105/69 mmHg Sitting Heart Rate Pre-Dialysis 77 BPM Sitting Heart Rate Post-Dialysis 68 BPM Standing Heart Rate Pre-Dialysis 80 BPM Standing Heart Rate Post-Dialysis 60 BPM Temperature Pre-Dialysis 97.2 degF Temperature Post -Dialysis 98.1 degF April 03, 2025 In-Center Hemodialysis Treatment 6600-34-63B30:25:12.000Z 5693-47-70J46:23:41.000Z BP Sitting (Pre-Dialysis) 136/92 mmHg BP Sitting (Post-Dialysis) 108/72 mmHg Concurrent Access: falseCentral Venous Catheter (CVC) Chest (Right) Arterial BP Standing (Pre-Dialysis) 128/74 mmHg BP Standing (P ost-Dialysis) 118/80 mmHg Sitting Heart Rate Pre-Dialysis 71 BPM Sitting Heart Rate Post-Dialysis 74 BPM Standing Heart Rate Pre-Dialysis 74 BPM Standing Heart Rate Post-Dialysis 87 BPM Temperature Pre-Dialysis 97.4 degF Temperature Post -Dialysis 97.3 degF March 30, 2025 In-Center Hemodialysis Treatment 5228-31-51P26:33:39.000Z 4277-72-16E89:37:19.000Z BP Sitting (Pre-Dialysis) 126/85 mmHg BP Sitting (Post-Dialysis) 112/77 mmHg Concurrent Access: falseCentral Venous Catheter (CVC) Chest (Right) Arterial BP Standing (Pre-Dialysis) 124/66 mmHg BP Standing (P ost-Dialysis) 116/69 mmHg Sitting Heart Rate Pre-Dialysis 73 BPM Sitting Heart Rate Post-Dialysis 91 BPM Standing Heart Rate Pre-Dialysis 54 BPM Standing Heart Rate Post-Dialysis 80 BPM Temperature Pre-Dialysis 98.1 degF Temperature Post -Dialysis 98.1 degF March 27, 2025 In-Center Hemodialysis Treatment 7026-43-67E49:14:15.000Z 4739-64-30C62:18:44.000Z BP Sitting (Pre-Dialysis) 136/84 mmHg BP Sitting (Post-Dialysis) 107/77 mmHg Concurrent Access: falseCentral Venous Catheter (CVC) Chest (Right) Arterial Sitting Heart Rate Pre-Dialysis 81 BPM BP Standing (Post-Dialysis) 109/82 mmHg Temperature Pre-Dialysis 97.3 degF Sitting Heart Ra te Post-Dialysis 82 BPM Standing Heart Rate Post-Mile lysis 60 BPM Temperature Post-Dialysis 98 .1 degF March 23, 2025 In-Center Hemodialysis Treatment 8140-66-00V63:17:00.000Z 2569-22-62H24:21:32.000Z BP Sitting (Pre-Dialysis) 131/80 mmHg BP Sitting (Post-Dialysis) 106/70 mmHg Concurrent Access: falseCentral Venous Catheter (CVC) Chest (Right) Arterial BP Standing (Pre-Dialysis) 145/75 mmHg Sitti ng Heart Rate Post-Dialysis 52 BPM Sitting Heart Rate Pre-Dialysis 80 BPM Temperatu re Post-Dialysis 97.3 degF Standing Heart Rate Pre-Dialysis 104 BPM Temperature Pre-Dialysis 97.3 degF March 20, 2025 In-Center Hemodialysis Treatment 6939-86-70T99:24:07.000Z 6668-25-13H55:28:07.000Z BP Sitting (Pre-Dialysis) 144/90 mmHg BP Sitting (Post-Dialysis) 112/71 mmHg Concurrent Access: falseCentral Venous Catheter (CVC) Chest (Right) Arterial BP Standing (Pre-Dialysis) 148/94 mmHg BP Standing (P ost-Dialysis) 111/78 mmHg Sitting Heart Rate Pre-Dialysis 88 BPM Sitting Heart Rate Post-Dialysis 62 BPM Standing Heart Rate Pre-Dialysis 84 BPM Standing Heart Rate Post-Dialysis 77 BPM Temperature Pre-Dialysis 97.7 degF Temperature Post -Dialysis 97.6 degF March 16, 2025 In-Center Hemodialysis Treatment 9438-13-11A66:38:08.000Z 3276-18-72G25:43:39.000Z BP Sitting (Pre-Dialysis) 131/87 mmHg BP Sitting (Post-Dialysis) 118/77 mmHg Concurrent Access: falseCentral Venous Catheter (CVC) Chest (Right) Arterial Sitting Heart Rate Pre-Dialysis 74 BPM Sitting H eart Rate Post-Dialysis 67 BPM Temperature Pre-Dialysis 97.4 degF Temperature Post -Dialysis 97.3 degF March 13, 2025 In-Center Hemodialysis Treatment 4225-63-84C79:28:15.000Z 6343-01-77I67:28:10.000Z BP Sitting (Pre-Dialysis) 121/82 mmHg BP Sitting (Post-Dialysis) 114/72 mmHg Concurrent Access: falseCentral Venous Catheter (CVC) Chest (Right) Arterial Sitting Heart Rate Pre-Dialysis 70 BPM BP Standing (Post-Dialysis) 110/65 mmHg Temperature Pre-Dialysis 98.1 degF Sitting Heart Ra te Post-Dialysis 60 BPM Standing Heart Rate Post-Mile lysis 60 BPM Temperature Post-Dialysis 97 .2 degF March 09, 2025 In-Center Hemodialysis Treatment 6965-03-15M15:34:34.000Z 3003-70-14G82:28:19.000Z BP Sitting (Pre-Dialysis) 112/82 mmHg BP Sitting (Post-Dialysis) 117/78 mmHg Concurrent Access: falseCentral Venous Catheter (CVC) Chest (Right) Arterial Sitting Heart Rate Pre-Dialysis 70 BPM BP Standing (Post-Dialysis) 110/78 mmHg Temperature Pre-Dialysis 98.1 degF Sitting Heart Ra te Post-Dialysis 60 BPM Standing Heart Rate Post-Mile lysis 85 BPM Temperature Post-Dialysis 98 .1 degF March 06, 2025 In-Center Hemodialysis Treatment 0559-77-60K15:24:52.000Z 8163-52-25N12:28:22.000Z BP Sitting (Pre-Dialysis) 126/85 mmHg BP Sitting (Post-Dialysis) 112/66 mmHg Concurrent Access: falseCentral Venous Catheter (CVC) Chest (Right) Arterial BP Standing (Pre-Dialysis) 126/90 mmHg BP Standing (P ost-Dialysis) 112/62 mmHg Sitting Heart Rate Pre-Dialysis 80 BPM Sitting Heart Rate Post-Dialysis 87 BPM Standing Heart Rate Pre-Dialysis 80 BPM Standing Heart Rate Post-Dialysis 79 BPM Temperature Pre-Dialysis 97.5 degF Temperature Post -Dialysis 97.3 degF March 02, 2025 In-Center Hemodialysis Treatment 5656-08-07X09:16:55.000Z 4303-39-85F35:17:56.000Z BP Sitting (Pre-Dialysis) 136/91 mmHg BP Sitting (Post-Dialysis) 122/80 mmHg Concurrent Access: falseCentral Venous Catheter (CVC) Chest (Right) Arterial Sitting Heart Rate Pre-Dialysis 81 BPM BP Standing (Post-Dialysis) 106/68 mmHg Temperature Pre-Dialysis 98.1 degF Sitting Heart Ra te Post-Dialysis 74 BPM Standing Heart Rate Post-Mile lysis 113 BPM Temperature Post-Dialysis 98 .1 degF February 27, 2025 In-Center Hemodialysis Treatment 3508-45-15L45:30:06.000Z 1491-31-02O57:30:46.000Z BP Sitting (Pre-Dialysis) 130/82 mmHg BP Sitting (Post-Dialysis) 119/78 mmHg Concurrent Access: falseCentral Venous Catheter (CVC) Chest (Right) Arterial BP Standing (Pre-Dialysis) 138/80 mmHg BP Standing (P ost-Dialysis) 107/59 mmHg Sitting Heart Rate Pre-Dialysis 86 BPM Sitting Heart Rate Post-Dialysis 60 BPM Standing Heart Rate Pre-Dialysis 94 BPM Standing Heart Rate Post-Dialysis 80 BPM Temperature Pre-Dialysis 98 degF Temperature Post -Dialysis 97.3 degF February 23, 2025 In-Center Hemodialysis Treatment 4259-92-19L99:21:55.000Z 4913-06-70T14:24:56.000Z BP Sitting (Pre-Dialysis) 128/92 mmHg BP Sitting (Post-Dialysis) 114/70 mmHg Concurrent Access: falseCentral Venous Catheter (CVC) Chest (Right) Arterial BP Standing (Pre-Dialysis) 145/87 mmHg Sitti ng Heart Rate Post-Dialysis 66 BPM Sitting Heart Rate Pre-Dialysis 54 BPM Temperatu re Post-Dialysis 97.6 degF Standing Heart Rate Pre-Dialysis 86 BPM Temperature Pre-Dialysis 97.3 degF February 20, 2025 In-Center Hemodialysis Treatment 4274-35-15R25:20:43.000Z 9429-14-57S92:23:18.000Z BP Sitting (Pre-Dialysis) 125/86 mmHg BP Sitting (Post-Dialysis) 119/79 mmHg Concurrent Access: falseCentral Venous Catheter (CVC) Chest (Right) Arterial BP Standing (Pre-Dialysis) 142/75 mmHg BP Standing (P ost-Dialysis) 136/90 mmHg Sitting Heart Rate Pre-Dialysis 67 BPM Sitting Heart Rate Post-Dialysis 77 BPM Standing Heart Rate Pre-Dialysis 80 BPM Standing Heart Rate Post-Dialysis 78 BPM Temperature Pre-Dialysis 97.3 degF Temperature Post -Dialysis 97.4 degF February 16, 2025 In-Center Hemodialysis Treatment 0779-64-14L35:20:35.000Z 9357-05-06Z02:18:10.000Z BP Sitting (Pre-Dialysis) 134/88 mmHg BP Sitting (Post-Dialysis) 125/73 mmHg Concurrent Access: falseCentral Venous Catheter (CVC) Chest (Right) Arterial BP Standing (Pre-Dialysis) 145/95 mmHg BP Standing (P ost-Dialysis) 113/83 mmHg Sitting Heart Rate Pre-Dialysis 80 BPM Sitting Heart Rate Post-Dialysis 80 BPM Standing Heart Rate Pre-Dialysis 80 BPM Standing Heart Rate Post-Dialysis 80 BPM Temperature Pre-Dialysis 97.9 degF Temperature Post -Dialysis 97.6 degF February 13, 2025 In-Center Hemodialysis Treatment 3573-02-76O46:40:56.000Z 4861-43-71X83:44:16.000Z BP Sitting (Pre-Dialysis) 134/87 mmHg BP Sitting (Post-Dialysis) 103/61 mmHg Concurrent Access: falseCentral Venous Catheter (CVC) Chest (Right) Arterial BP Standing (Pre-Dialysis) 132/85 mmHg BP Standing (P ost-Dialysis) 110/87 mmHg Sitting Heart Rate Pre-Dialysis 77 BPM Sitting Heart Rate Post-Dialysis 85 BPM Standing Heart Rate Pre-Dialysis 81 BPM Standing Heart Rate Post-Dialysis 99 BPM Temperature Pre-Dialysis 97.6 degF Temperature Post -Dialysis 97.3 degF February 09, 2025 In-Center Hemodialysis Treatment 5018-56-59W66:23:49.000Z 3253-08-18V28:28:39.000Z BP Sitting (Pre-Dialysis) 117/88 mmHg BP Sitting (Post-Dialysis) 169/87 mmHg Concurrent Access: falseCentral Venous Catheter (CVC) Chest (Right) Arterial BP Standing (Pre-Dialysis) 141/82 mmHg BP Standing (P ost-Dialysis) 120/81 mmHg Sitting Heart Rate Pre-Dialysis 74 BPM Sitting Heart Rate Post-Dialysis 68 BPM Standing Heart Rate Pre-Dialysis 80 BPM Standing Heart Rate Post-Dialysis 73 BPM Temperature Pre-Dialysis 97.4 degF Temperature Post -Dialysis 97.3 degF February 06, 2025 In-Center Hemodialysis Treatment 1421-70-28V01:19:45.000Z 8021-70-38D53:25:37.000Z BP Sitting (Pre-Dialysis) 125/54 mmHg BP Sitting (Post-Dialysis) 122/83 mmHg Concurrent Access: falseCentral Venous Catheter (CVC) Chest (Right) Arterial BP Standing (Pre-Dialysis) 127/67 mmHg BP Standing (P ost-Dialysis) 123/86 mmHg Sitting Heart Rate Pre-Dialysis 80 BPM Sitting Heart Rate Post-Dialysis 68 BPM Standing Heart Rate Pre-Dialysis 80 BPM Standing Heart Rate Post-Dialysis 80 BPM Temperature Pre-Dialysis 97.6 degF Temperature Post -Dialysis 97.4 degF February 02, 2025 In-Center Hemodialysis Treatment 6357-21-85R96:21:18.000Z 9967-12-90W69:24:34.000Z BP Sitting (Pre-Dialysis) 135/90 mmHg BP Sitting (Post-Dialysis) 118/81 mmHg Concurrent Access: falseCentral Venous Catheter (CVC) Chest (Right) Arterial BP Standing (Pre-Dialysis) 125/80 mmHg BP Standing (P ost-Dialysis) 119/75 mmHg Sitting Heart Rate Pre-Dialysis 62 BPM Sitting Heart Rate Post-Dialysis 74 BPM Standing Heart Rate Pre-Dialysis 80 BPM Standing Heart Rate Post-Dialysis 80 BPM Temperature Pre-Dialysis 97.5 degF Temperature Post -Dialysis 97.2 degF January 30, 2025 In-Center Hemodialysis Treatment 5045-38-27Y47:23:28.000Z 9378-07-05Q15:28:43.000Z BP Sitting (Pre-Dialysis) 126/85 mmHg BP Sitting (Post-Dialysis) 105/69 mmHg Concurrent Access: falseCentral Venous Catheter (CVC) Chest (Right) Arterial Sitting Heart Rate Pre-Dialysis 80 BPM BP Standing (Post-Dialysis) 119/92 mmHg Temperature Pre-Dialysis 97.5 degF Sitting Heart Ra te Post-Dialysis 80 BPM Standing Heart Rate Post-Mile lysis 80 BPM Temperature Post-Dialysis 97 .8 degF January 26, 2025 In-Center Hemodialysis Treatment 6105-43-03T75:18:52.000Z 1855-17-18C71:21:42.000Z BP Sitting (Pre-Dialysis) 126/81 mmHg BP Sitting (Post-Dialysis) 122/78 mmHg Concurrent Access: falseCentral Venous Catheter (CVC) Chest (Right) Arterial BP Standing (Pre-Dialysis) 112/72 mmHg BP Standing (P ost-Dialysis) 116/86 mmHg Sitting Heart Rate Pre-Dialysis 66 BPM Sitting Heart Rate Post-Dialysis 80 BPM Standing Heart Rate Pre-Dialysis 97 BPM Standing Heart Rate Post-Dialysis 62 BPM Temperature Pre-Dialysis 97.3 degF Temperature Post -Dialysis 97.2 degF January 23, 2025 In-Center Hemodialysis Treatment 1226-07-91A58:28:05.000Z 0163-93-37Z43:33:45.000Z BP Sitting (Pre-Dialysis) 122/80 mmHg BP Sitting (Post-Dialysis) 113/64 mmHg Concurrent Access: falseCentral Venous Catheter (CVC) Chest (Right) Arterial BP Standing (Pre-Dialysis) 106/70 mmHg Sitti ng Heart Rate Post-Dialysis 72 BPM Sitting Heart Rate Pre-Dialysis 80 BPM Temperatu re Post-Dialysis 97.9 degF Standing Heart Rate Pre-Dialysis 85 BPM Temperature Pre-Dialysis 97.4 degF 2025 In-Center Hemodialysis Treatment 4264-92-35D42:18:47.000Z 5578-18-82O23:21:57.000Z BP Sitting (Pre-Dialysis) 134/91 mmHg BP Sitting (Post-Dialysis) 118/79 mmHg Concurrent Access: falseCentral Venous Catheter (CVC) Chest (Right) Arterial BP Standing (Pre-Dialysis) 117/83 mmHg Sitting Heart Rate Post-Dialysis 80 BPM Sitting Heart Rate Pre-Dialysis 74 BPM Temperatu re Post-Dialysis 98 degF Standing Heart Rate Pre-Dialysis 87 BPM Temperature Pre-Dialysis 97.9 degF January 16, 2025 In-Center Hemodialysis Treatment 2850-44-64Q32:40:00.000Z 6022-07-93X37:51:17.000Z BP Sitting (Pre-Dialysis) 109/74 mmHg BP Sitting (Post-Dialysis) 107/77 mmHg Concurrent Access: falseCentral Venous Catheter (CVC) Chest (Right) Arterial Sitting Heart Rate Pre-Dialysis 69 BPM BP Standing (Post-Dialysis) 113/63 mmHg Temperature Pre-Dialysis 98.5 degF Sitting Heart Ra te Post-Dialysis 72 BPM Standing Heart Rate Post-Mile lysis 99 BPM Temperature Post-Dialysis 97 .3 degF January 12, 2025 In-Center Hemodialysis Treatment 2429-57-60U24:25:01.000Z 4611-67-09I18:29:41.000Z BP Sitting (Pre-Dialysis) 109/77 mmHg BP Sitting (Post-Dialysis) 120/77 mmHg Concurrent Access: falseCentral Venous Catheter (CVC) Chest (Right) Arterial BP Standing (Pre-Dialysis) 120/83 mmHg BP Standing (P ost-Dialysis) 119/78 mmHg Sitting Heart Rate Pre-Dialysis 72 BPM Sitting Heart Rate Post-Dialysis 67 BPM Standing Heart Rate Pre-Dialysis 77 BPM Standing Heart Rate Post-Dialysis 82 BPM Temperature Pre-Dialysis 97.7 degF Temperature Post -Dialysis 97.1 degF January 09, 2025 In-Center Hemodialysis Treatment 2393-92-12E97:18:21.000Z 7764-12-01J10:31:41.000Z BP Sitting (Pre-Dialysis) 141/81 mmHg Concurrent Access: falseCentral Venous Catheter (CVC) Chest (Right) Arterial BP Standing (Pre-Dialysis) 135/78 mmHg Sitting Heart Rate Pre-Dialysis 68 BPM Standing Heart Rate Pre-Dialysis 80 BPM Temperature Pre-Dialysis 97.9 degF January 05, 2025 In-Center Hemodialysis Treatment 5522-15-10F45:37:15.000Z 2490-04-04V18:39:50.000Z BP Sitting (Pre-Dialysis) 128/89 mmHg BP Sitting (Post-Dialysis) 102/69 mmHg Concurrent Access: falseCentral Venous Catheter (CVC) Chest (Right) Arterial Sitting Heart Rate Pre-Dialysis 80 BPM BP Standing (Post-Dialysis) 121/88 mmHg Temperature Pre-Dialysis 97.8 degF Sitting Heart Ra te Post-Dialysis 48 BPM Standing Heart Rate Post-Mile lysis 110 BPM Temperature Post-Dialysis 98 .1 degF January 02, 2025 In-Center Hemodialysis Treatment 6486-35-29H34:36:47.000Z 4370-82-90X13:40:23.000Z BP Sitting (Pre-Dialysis) 140/90 mmHg BP Sitting (Post-Dialysis) 112/69 mmHg Concurrent Access: falseCentral Venous Catheter (CVC) Chest (Right) Arterial Sitting Heart Rate Pre-Dialysis 73 BPM Sitting H eart Rate Post-Dialysis 50 BPM Temperature Pre-Dialysis 97.8 degF Temperature Post -Dialysis 97.7 degF December 29, 2024 In-Center Hemodialysis Treatment 0218-25-11G04:30:48.000Z 2077-33-27I60:33:48.000Z BP Sitting (Pre-Dialysis) 120/83 mmHg BP Sitting (Post-Dialysis) 113/68 mmHg Concurrent Access: falseCentral Venous Catheter (CVC) Chest (Right) Arterial BP Standing (Pre-Dialysis) 121/81 mmHg BP Standing (P ost-Dialysis) 123/79 mmHg Sitting Heart Rate Pre-Dialysis 67 BPM Sitting Heart Rate Post-Dialysis 50 BPM Standing Heart Rate Pre-Dialysis 80 BPM Standing Heart Rate Post-Dialysis 65 BPM Temperature Pre-Dialysis 97.3 degF Temperature Post -Dialysis 97.1 degF December 26, 2024 In-Center Hemodialysis Treatment 7194-01-94X18:26:25.000Z 9555-01-84O19:27:40.000Z BP Sitting (Pre-Dialysis) 115/71 mmHg BP Sitting (Post-Dialysis) 115/71 mmHg Concurrent Access: falseCentral Venous Catheter (CVC) Chest (Right) Arterial Sitting Heart Rate Pre-Dialysis 80 BPM BP Standing (Post-Dialysis) 107/71 mmHg Temperature Pre-Dialysis 97.6 degF Sitting Heart Ra te Post-Dialysis 67 BPM Standing Heart Rate Post-Mile lysis 68 BPM Temperature Post-Dialysis 97 .9 degF December 22, 2024 In-Center Hemodialysis Treatment 2342-24-18E09:27:36.000Z 1991-53-46P11:29:57.000Z BP Sitting (Pre-Dialysis) 114/77 mmHg BP Sitting (Post-Dialysis) 112/77 mmHg Concurrent Access: falseCentral Venous Catheter (CVC) Chest (Right) Arterial BP Standing (Pre-Dialysis) 128/74 mmHg BP Standing (P ost-Dialysis) 119/91 mmHg Sitting Heart Rate Pre-Dialysis 80 BPM Sitting Heart Rate Post-Dialysis 66 BPM Standing Heart Rate Pre-Dialysis 80 BPM Standing Heart Rate Post-Dialysis 80 BPM Temperature Pre-Dialysis 97.3 degF Temperature Post -Dialysis 97.3 degF December 19, 2024 In-Center Hemodialysis Treatment 9198-93-51P59:35:00.000Z 8539-62-04L65:48:15.000Z BP Sitting (Pre-Dialysis) 111/69 mmHg BP Sitting (Post-Dialysis) 122/79 mmHg Concurrent Access: falseCentral Venous Catheter (CVC) Chest (Right) Arterial BP Standing (Pre-Dialysis) 122/77 mmHg BP Standing (P ost-Dialysis) 144/77 mmHg Sitting Heart Rate Pre-Dialysis 80 BPM Sitting Heart Rate Post-Dialysis 65 BPM Standing Heart Rate Pre-Dialysis 70 BPM Standing Heart Rate Post-Dialysis 71 BPM Temperature Pre-Dialysis 97.9 degF Temperature Post -Dialysis 98 degF December 15, 2024 In-Center Hemodialysis Treatment 6574-89-74V00:45:05.000Z 6024-85-58T50:49:20.000Z BP Sitting (Pre-Dialysis) 105/67 mmHg BP Sitting (Post-Dialysis) 116/81 mmHg Concurrent Access: falseCentral Venous Catheter (CVC) Chest (Right) Arterial BP Standing (Pre-Dialysis) 122/88 mmHg BP Standing (P ost-Dialysis) 100/65 mmHg Sitting Heart Rate Pre-Dialysis 66 BPM Sitting Heart Rate Post-Dialysis 66 BPM Standing Heart Rate Pre-Dialysis 68 BPM Standing Heart Rate Post-Dialysis 65 BPM Temperature Pre-Dialysis 97.9 degF Temperature Post -Dialysis 97.5 degF December 12, 2024 In-Center Hemodialysis Treatment 8749-39-51S35:33:06.000Z 3077-12-31S15:39:51.000Z BP Sitting (Pre-Dialysis) 120/78 mmHg BP Sitting (Post-Dialysis) 103/59 mmHg Concurrent Access: falseCentral Venous Catheter (CVC) Chest (Right) Arterial Sitting Heart Rate Pre-Dialysis 82 BPM BP Standing (Post-Dialysis) 141/66 mmHg Temperature Pre-Dialysis 97.2 degF Sitting Heart Ra te Post-Dialysis 60 BPM Standing Heart Rate Post-Mile lysis 73 BPM Temperature Post-Dialysis 98 .1 degF December 08, 2024 In-Center Hemodialysis Treatment 7688-50-02G43:27:42.000Z 5018-03-98Y07:40:00.000Z BP Sitting (Pre-Dialysis) 112/72 mmHg BP Sitting (Post-Dialysis) 103/68 mmHg Concurrent Access: falseCentral Venous Catheter (CVC) Chest (Right) Arterial BP Standing (Pre-Dialysis) 122/69 mmHg BP Standing (P ost-Dialysis) 100/68 mmHg Sitting Heart Rate Pre-Dialysis 77 BPM Sitting Heart Rate Post-Dialysis 60 BPM Standing Heart Rate Pre-Dialysis 80 BPM Standing Heart Rate Post-Dialysis 107 BPM Temperature Pre-Dialysis 97.3 degF Temperature Post -Dialysis 97.4 degF December 05, 2024 In-Center Hemodialysis Treatment 1013-20-53D26:21:27.000Z 0395-62-47A34:18:12.000Z BP Sitting (Pre-Dialysis) 133/75 mmHg BP Sitting (Post-Dialysis) 112/76 mmHg Concurrent Access: falseCentral Venous Catheter (CVC) Chest (Right) Arterial Sitting Heart Rate Pre-Dialysis 77 BPM BP Standing (Post-Dialysis) 117/82 mmHg Temperature Pre-Dialysis 97.3 degF Sitting Heart Ra te Post-Dialysis 70 BPM Standing Heart Rate Post-Mile lysis 71 BPM Temperature Post-Dialysis 97 .4 degF December 01, 2024 In-Center Hemodialysis Treatment [id number]:23:19.000Z 2407-55-62W56:25:19.000Z BP Sitting (Pre-Dialysis) 130/80 mmHg BP Sitting (Post-Dialysis) 112/75 mmHg Concurrent Access: falseCentral Venous Catheter (CVC) Chest (Right) Arterial BP Standing (Pre-Dialysis) 121/71 mmHg BP Standing (P ost-Dialysis) 118/81 mmHg Sitting Heart Rate Pre-Dialysis 80 BPM Sitting Heart Rate Post-Dialysis 65 BPM Standing Heart Rate Pre-Dialysis 65 BPM Standing Heart Rate Post-Dialysis 66 BPM Temperature Pre-Dialysis 97.5 degF Temperature Post -Dialysis 97.3 degF November 28, 2024 In-Center Hemodialysis Treatment [id number]:23:39.000Z [id number]:30:49.000Z BP Sitting (Pre-Dialysis) 120/77 mmHg BP Sitting (Post-Dialysis) 106/72 mmHg Concurrent Access: falseCentral Venous Catheter (CVC) Chest (Right) Arterial BP Standing (Pre-Dialysis) 128/74 mmHg BP Standing (P ost-Dialysis) 101/63 mmHg Sitting Heart Rate Pre-Dialysis 77 BPM Sitting Heart Rate Post-Dialysis 70 BPM Standing Heart Rate Pre-Dialysis 72 BPM Standing Heart Rate Post-Dialysis 67 BPM Temperature Pre-Dialysis 97.5 degF Temperature Post -Dialysis 97.3 degF November 24, 2024 In-Center Hemodialysis Treatment 4301-00-07S32:26:22.000Z [id number]:37:25.000Z BP Sitting (Pre-Dialysis) 133/86 mmHg BP Sitting (Post-Dialysis) 120/65 mmHg Concurrent Access: falseCentral Venous Catheter (CVC) Chest (Right) Arterial BP Standing (Pre-Dialysis) 126/68 mmHg Sitti ng Heart Rate Post-Dialysis 80 BPM Sitting Heart Rate Pre-Dialysis 74 BPM Temperatu re Post-Dialysis 97.8 degF Standing Heart Rate Pre-Dialysis 60 BPM Temperature Pre-Dialysis 98 degF November 21, 2024 In-Center Hemodialysis Treatment [id number]:42:16.000Z 7513-93-69P24:46:42.000Z BP Sitting (Pre-Dialysis) 118/79 mmHg BP Sitting (Post-Dialysis) 108/72 mmHg Concurrent Access: falseCentral Venous Catheter (CVC) Chest (Right) Arterial BP Standing (Pre-Dialysis) 106/87 mmHg Sitti ng Heart Rate Post-Dialysis 72 BPM Sitting Heart Rate Pre-Dialysis 62 BPM Temperatu re Post-Dialysis 97.3 degF Standing Heart Rate Pre-Dialysis 67 BPM Temperature Pre-Dialysis 97.3 degF November 17, 2024 In-Center Hemodialysis Treatment [id number]:27:35.000Z 7021-66-74Y94:38:00.000Z BP Sitting (Pre-Dialysis) 130/88 mmHg BP Sitting (Post-Dialysis) 123/70 mmHg Concurrent Access: falseCentral Venous Catheter (CVC) Chest (Right) Arterial BP Standing (Pre-Dialysis) 144/97 mmHg Sitting Heart Rate Post-Dialysis 80 BPM Sitting Heart Rate Pre-Dialysis 65 BPM Temperatu re Post-Dialysis 98 degF Standing Heart Rate Pre-Dialysis 71 BPM Temperature Pre-Dialysis 97.4 degF November 14, 2024 In-Center Hemodialysis Treatment [id number]:21:54.000Z 1715-09-22Q76:38:00.000Z BP Sitting (Pre-Dialysis) 150/68 mmHg BP Sitting (Post-Dialysis) 100/56 mmHg Concurrent Access: falseCentral Venous Catheter (CVC) Chest (Right) Arterial Sitting Heart Rate Pre-Dialysis 70 BPM BP Standing (Post-Dialysis) 100/67 mmHg Temperature Pre-Dialysis 97.6 degF Sitting Heart Ra te Post-Dialysis 82 BPM Standing Heart Rate Post-Mile lysis 87 BPM Temperature Post-Dialysis 97 .9 degF November 10, 2024 In-Center Hemodialysis Treatment [id number]:26:28.000Z [id number]:38:39.000Z BP Sitting (Pre-Dialysis) 110/74 mmHg BP Sitting (Post-Dialysis) 108/72 mmHg Concurrent Access: falseCentral Venous Catheter (CVC) Chest (Right) Arterial BP Standing (Pre-Dialysis) 123/82 mmHg BP Standing (P ost-Dialysis) 107/69 mmHg Sitting Heart Rate Pre-Dialysis 74 BPM Sitting Heart Rate Post-Dialysis 60 BPM Standing Heart Rate Pre-Dialysis 72 BPM Standing Heart Rate Post-Dialysis 73 BPM Temperature Pre-Dialysis 97.3 degF Temperature Post -Dialysis 97.3 degF November 07, 2024 In-Center Hemodialysis Treatment 4513-48-80P57:21:01.000Z 9201-44-84E47:30:01.000Z BP Sitting (Pre-Dialysis) 119/79 mmHg BP Sitting (Post-Dialysis) 110/59 mmHg Concurrent Access: falseCentral Venous Catheter (CVC) Chest (Right) Arterial BP Standing (Pre-Dialysis) 133/81 mmHg Sitti ng Heart Rate Post-Dialysis 80 BPM Sitting Heart Rate Pre-Dialysis 55 BPM Temperatu re Post-Dialysis 97.3 degF Standing Heart Rate Pre-Dialysis 74 BPM Temperature Pre-Dialysis 97.3 degF November 03, 2024 In-Center Hemodialysis Treatment [id number]:16:00.000Z 9442-89-05D77:33:40.000Z BP Sitting (Pre-Dialysis) 122/80 mmHg BP Sitting (Post-Dialysis) 102/70 mmHg Concurrent Access: falseCentral Venous Catheter (CVC) Chest (Right) Arterial BP Standing (Pre-Dialysis) 136/90 mmHg Sitting Heart Rate Post-Dialysis 71 BPM Sitting Heart Rate Pre-Dialysis 80 BPM Temperatu re Post-Dialysis 98 degF Standing Heart Rate Pre-Dialysis 80 BPM Temperature Pre-Dialysis 97.8 degF October 31, 2024 In-Center Hemodialysis Treatment [id number]:35:43.000Z 6501-98-35Q46:52:37.000Z BP Sitting (Pre-Dialysis) 111/73 mmHg BP Sitting (Post-Dialysis) 108/74 mmHg Concurrent Access: falseCentral Venous Catheter (CVC) Chest (Right) Arterial BP Standing (Pre-Dialysis) 119/79 mmHg Sitti ng Heart Rate Post-Dialysis 55 BPM Sitting Heart Rate Pre-Dialysis 67 BPM Temperatu re Post-Dialysis 97.6 degF Standing Heart Rate Pre-Dialysis 80 BPM Temperature Pre-Dialysis 97.6 degF October 27, 2024 In-Center Hemodialysis Treatment 1333-23-10H68:27:45.000Z 6981-74-49O88:31:23.000Z BP Sitting (Pre-Dialysis) 123/72 mmHg BP Sitting (Post-Dialysis) 188/79 mmHg Concurrent Access: falseCentral Venous Catheter (CVC) Chest (Right) Arterial BP Standing (Pre-Dialysis) 144/80 mmHg BP Standing (P ost-Dialysis) 118/78 mmHg Sitting Heart Rate Pre-Dialysis 70 BPM Sitting Heart Rate Post-Dialysis 59 BPM Standing Heart Rate Pre-Dialysis 98 BPM Standing Heart Rate Post-Dialysis 65 BPM Temperature Pre-Dialysis 97.4 degF Temperature Post -Dialysis 97.3 degF October 24, 2024 In-Center Hemodialysis Treatment 8075-22-61C65:19:16.000Z 8973-89-63Q67:25:36.000Z BP Sitting (Pre-Dialysis) 141/98 mmHg BP Sitting (Post-Dialysis) 120/79 mmHg Concurrent Access: falseCentral Venous Catheter (CVC) Chest (Right) Arterial Sitting Heart Rate Pre-Dialysis 86 BPM BP Standing (Post-Dialysis) 130/88 mmHg Temperature Pre-Dialysis 97.3 degF Sitting Heart Ra te Post-Dialysis 55 BPM Standing Heart Rate Post-Mile lysis 70 BPM Temperature Post-Dialysis 98 degF October 20, 2024 In-Center Hemodialysis Treatment [id number]:28:21.000Z 6610-90-39S34:46:52.000Z BP Sitting (Pre-Dialysis) 121/78 mmHg BP Sitting (Post-Dialysis) 106/68 mmHg Concurrent Access: falseCentral Venous Catheter (CVC) Chest (Right) Arterial BP Standing (Pre-Dialysis) 121/80 mmHg Sitti ng Heart Rate Post-Dialysis 67 BPM Sitting Heart Rate Pre-Dialysis 80 BPM Temperatu re Post-Dialysis 97.6 degF Standing Heart Rate Pre-Dialysis 73 BPM Temperature Pre-Dialysis 97.2 degF October 17, 2024 In-Center Hemodialysis Treatment 1261-67-20P16:35:43.000Z 2067-53-40R58:49:47.000Z BP Sitting (Pre-Dialysis) 101/74 mmHg BP Sitting (Post-Dialysis) 108/63 mmHg Concurrent Access: falseCentral Venous Catheter (CVC) Chest (Right) Arterial BP Standing (Pre-Dialysis) 107/78 mmHg BP Standing (P ost-Dialysis) 105/83 mmHg Sitting Heart Rate Pre-Dialysis 60 BPM Sitting Heart Rate Post-Dialysis 70 BPM Standing Heart Rate Pre-Dialysis 80 BPM Standing Heart Rate Post-Dialysis 80 BPM Temperature Pre-Dialysis 97.5 degF Temperature Post -Dialysis 97.6 degF October 13, 2024 In-Center Hemodialysis Treatment 0000-22-26C02:29:34.000Z 8705-39-34Z18:43:14.000Z BP Sitting (Pre-Dialysis) 106/68 mmHg BP Sitting (Post-Dialysis) 110/74 mmHg Concurrent Access: falseCentral Venous Catheter (CVC) Chest (Right) Arterial BP Standing (Pre-Dialysis) 109/55 mmHg BP Standing (P ost-Dialysis) 104/73 mmHg Sitting Heart Rate Pre-Dialysis 68 BPM Sitting Heart Rate Post-Dialysis 66 BPM Standing Heart Rate Pre-Dialysis 55 BPM Standing Heart Rate Post-Dialysis 74 BPM Temperature Pre-Dialysis 97.3 degF Temperature Post -Dialysis 97.3 degF October 10, 2024 In-Center Hemodialysis Treatment 6710-46-79H09:25:14.000Z 8877-95-34Z61:32:24.000Z BP Sitting (Pre-Dialysis) 140/98 mmHg BP Sitting (Post-Dialysis) 102/63 mmHg Concurrent Access: falseCentral Venous Catheter (CVC) Chest (Right) Arterial BP Standing (Pre-Dialysis) 139/90 mmHg BP Standing (P ost-Dialysis) 100/62 mmHg Sitting Heart Rate Pre-Dialysis 73 BPM Sitting Heart Rate Post-Dialysis 60 BPM Standing Heart Rate Pre-Dialysis 80 BPM Standing Heart Rate Post-Dialysis 80 BPM Temperature Pre-Dialysis 98.1 degF Temperature Post -Dialysis 97.3 degF October 06, 2024 In-Center Hemodialysis Treatment 7376-75-09Z97:22:07.000Z 7874-58-96Q90:26:27.000Z BP Sitting (Pre-Dialysis) 120/78 mmHg BP Sitting (Post-Dialysis) 117/76 mmHg Concurrent Access: falseCentral Venous Catheter (CVC) Chest (Right) Arterial BP Standing (Pre-Dialysis) 117/77 mmHg BP Standing (P ost-Dialysis) 119/81 mmHg Sitting Heart Rate Pre-Dialysis 81 BPM Sitting Heart Rate Post-Dialysis 88 BPM Standing Heart Rate Pre-Dialysis 74 BPM Standing Heart Rate Post-Dialysis 80 BPM Temperature Pre-Dialysis 97.3 degF Temperature Post -Dialysis 97.8 degF October 03, 2024 In-Center Hemodialysis Treatment 9751-12-10U25:49:05.000Z 1020-60-34A85:48:30.000Z BP Sitting (Pre-Dialysis) 136/90 mmHg BP Sitting (Post-Dialysis) 124/78 mmHg Concurrent Access: falseCentral Venous Catheter (CVC) Chest (Right) Arterial BP Standing (Pre-Dialysis) 154/89 mmHg Sitting Heart Rate Post-Dialysis 60 BPM Sitting Heart Rate Pre-Dialysis 60 BPM Temperatu re Post-Dialysis 98 degF Standing Heart Rate Pre-Dialysis 69 BPM Temperature Pre-Dialysis 97.9 degF September 29, 2024 In-Center Hemodialysis Treatment [id number]:35:00.000Z 4190-81-27W39:50:48.000Z BP Sitting (Pre-Dialysis) 128/76 mmHg BP Sitting (Post-Dialysis) 118/69 mmHg Concurrent Access: falseCentral Venous Catheter (CVC) Chest (Right) Arterial BP Standing (Pre-Dialysis) 126/82 mmHg Sitting Heart Rate Post-Dialysis 66 BPM Sitting Heart Rate Pre-Dialysis 65 BPM Standing Heart Rate Pre-Dialysis 65 BPM Temperature Pre-Dialysis 97.3 degF September 26, 2024 In-Center Hemodialysis Treatment 3944-15-66V66:34:55.000Z 9498-23-04L85:47:00.000Z BP Sitting (Pre-Dialysis) 120/83 mmHg BP Sitting (Post-Dialysis) 103/69 mmHg Concurrent Access: falseCentral Venous Catheter (CVC) Chest (Right) Arterial Sitting Heart Rate Pre-Dialysis 66 BPM BP Standing (Post-Dialysis) 115/63 mmHg Temperature Pre-Dialysis 97.5 degF Sitting Heart Ra te Post-Dialysis 66 BPM Standing Heart Rate Post-Mile lysis 85 BPM Temperature Post-Dialysis 97 degF September 22, 2024 In-Center Hemodialysis Treatment [id number]:28:00.000Z 8841-90-81Q27:27:01.000Z BP Sitting (Pre-Dialysis) 133/81 mmHg BP Sitting (Post-Dialysis) 110/85 mmHg Concurrent Access: falseCentral Venous Catheter (CVC) Chest (Right) Arterial BP Standing (Pre-Dialysis) 137/81 mmHg Sitti ng Heart Rate Post-Dialysis 80 BPM Sitting Heart Rate Pre-Dialysis 80 BPM Temperatu re Post-Dialysis 98.1 degF Standing Heart Rate Pre-Dialysis 66 BPM Temperature Pre-Dialysis 97.6 degF September 19, 2024 In-Center Hemodialysis Treatment 7295-13-14W55:39:57.000Z 3273-07-78D60:53:58.000Z BP Sitting (Pre-Dialysis) 118/86 mmHg BP Sitting (Post-Dialysis) 109/76 mmHg Concurrent Access: falseCentral Venous Catheter (CVC) Chest (Right) Arterial BP Standing (Pre-Dialysis) 141/65 mmHg Sitti ng Heart Rate Post-Dialysis 60 BPM Sitting Heart Rate Pre-Dialysis 60 BPM Temperatu re Post-Dialysis 97.3 degF Standing Heart Rate Pre-Dialysis 88 BPM Temperature Pre-Dialysis 97.3 degF September 15, 2024 In-Center Hemodialysis Treatment 2330-63-87Z04:49:31.000Z 1401-25-99C46:00:36.000Z BP Sitting (Pre-Dialysis) 121/81 mmHg BP Sitting (Post-Dialysis) 119/79 mmHg Concurrent Access: falseCentral Venous Catheter (CVC) Chest (Right) Arterial BP Standing (Pre-Dialysis) 167/86 mmHg BP Standing (P ost-Dialysis) 117/83 mmHg Sitting Heart Rate Pre-Dialysis 80 BPM Sitting Heart Rate Post-Dialysis 80 BPM Standing Heart Rate Pre-Dialysis 73 BPM Standing Heart Rate Post-Dialysis 69 BPM Temperature Pre-Dialysis 97.3 degF Temperature Post -Dialysis 97.3 degF September 12, 2024 In-Center Hemodialysis Treatment 2708-19-70C21:32:04.000Z 1625-30-71N05:44:07.000Z BP Sitting (Pre-Dialysis) 139/87 mmHg BP Sitting (Post-Dialysis) 101/70 mmHg Concurrent Access: falseCentral Venous Catheter (CVC) Chest (Right) Arterial Sitting Heart Rate Pre-Dialysis 80 BPM BP Standing (Post-Dialysis) 107/77 mmHg Temperature Pre-Dialysis 97.5 degF Sitting Heart Ra te Post-Dialysis 70 BPM Standing Heart Rate Post-Mile lysis 74 BPM Temperature Post-Dialysis 97 .6 degF September 08, 2024 In-Center Hemodialysis Treatment [id number]:36:28.000Z 6557-27-97Q54:48:51.000Z BP Sitting (Pre-Dialysis) 150/92 mmHg BP Sitting (Post-Dialysis) 123/96 mmHg Concurrent Access: falseCentral Venous Catheter (CVC) Chest (Right) Arterial BP Standing (Pre-Dialysis) 138/89 mmHg BP Standing (P ost-Dialysis) 101/81 mmHg Sitting Heart Rate Pre-Dialysis 82 BPM Sitting Heart Rate Post-Dialysis 60 BPM Standing Heart Rate Pre-Dialysis 81 BPM Standing Heart Rate Post-Dialysis 102 BPM Temperature Pre-Dialysis 97.6 degF Temperature Post -Dialysis 98 degF September 05, 2024 In-Center Hemodialysis Treatment 5488-20-34H96:40:18.000Z 2632-50-52D65:52:22.000Z BP Sitting (Pre-Dialysis) 138/77 mmHg BP Sitting (Post-Dialysis) 123/85 mmHg Concurrent Access: falseCentral Venous Catheter (CVC) Chest (Right) Arterial BP Standing (Pre-Dialysis) 143/82 mmHg Sitti ng Heart Rate Post-Dialysis 74 BPM Sitting Heart Rate Pre-Dialysis 65 BPM Temperatu re Post-Dialysis 97.3 degF Standing Heart Rate Pre-Dialysis 65 BPM Temperature Pre-Dialysis 97.3 degF September 01, 2024 In-Center Hemodialysis Treatment 9933-17-43C29:35:31.000Z 8222-71-98R75:52:49.000Z BP Sitting (Pre-Dialysis) 118/80 mmHg BP Sitting (Post-Dialysis) 118/78 mmHg Concurrent Access: falseCentral Venous Catheter (CVC) Chest (Right) Arterial BP Standing (Pre-Dialysis) 121/76 mmHg Sitti ng Heart Rate Post-Dialysis 80 BPM Sitting Heart Rate Pre-Dialysis 68 BPM Temperatu re Post-Dialysis 97.3 degF Standing Heart Rate Pre-Dialysis 71 BPM Temperature Pre-Dialysis 97.1 degF August 26, 2024 In-Center Hemodialysis Treatment 1570-90-95O04:37:59.000Z 4872-19-46O97:40:50.000Z BP Sitting (Pre-Dialysis) 134/82 mmHg BP Sitting (Post-Dialysis) 116/94 mmHg Concurrent Access: falseCentral Venous Catheter (CVC) Chest (Right) Arterial Sitting Heart Rate Pre-Dialysis 73 BPM Sitting H eart Rate Post-Dialysis 67 BPM Temperature Pre-Dialysis 97.5 degF Temperature Post -Dialysis 98 degF August 22, 2024 In-Center Hemodialysis Treatment 5183-87-12F50:51:10.000Z 9122-65-25S70:54:10.000Z BP Sitting (Pre-Dialysis) 120/71 mmHg BP Sitting (Post-Dialysis) 98/57 mmHg Concurrent Access: falseCentral Venous Catheter (CVC) Chest (Right) Arterial Sitting Heart Rate Pre-Dialysis 82 BPM BP Standing (Post-Dialysis) 113/62 mmHg Temperature Pre-Dialysis 97.2 degF Sitting Heart Ra te Post-Dialysis 76 BPM Standing Heart Rate Post-Mile lysis 73 BPM Temperature Post-Dialysis 97 .9 degF August 18, 2024 In-Center Hemodialysis Treatment [id number]:33:22.000Z 0998-75-84A74:58:38.000Z BP Sitting (Pre-Dialysis) 116/86 mmHg BP Sitting (Post-Dialysis) 100/64 mmHg Concurrent Access: falseCentral Venous Catheter (CVC) Chest (Right) Arterial BP Standing (Pre-Dialysis) 122/86 mmHg BP Standing (P ost-Dialysis) 118/80 mmHg Sitting Heart Rate Pre-Dialysis 113 BPM Sitting Heart Rate Post-Dialysis 77 BPM Standing Heart Rate Pre-Dialysis 67 BPM Standing Heart Rate Post-Dialysis 108 BPM Temperature Pre-Dialysis 97.3 degF Temperature Post -Dialysis 97.7 degF August 15, 2024 In-Center Hemodialysis Treatment 1641-78-66W39:36:47.000Z 4082-97-88G24:56:32.000Z BP Sitting (Pre-Dialysis) 118/79 mmHg BP Sitting (Post-Dialysis) 124/94 mmHg Concurrent Access: falseCentral Venous Catheter (CVC) Chest (Right) Arterial Sitting Heart Rate Pre-Dialysis 66 BPM Sitting H eart Rate Post-Dialysis 82 BPM Temperature Pre-Dialysis 98 degF Temperature Post -Dialysis 97.6 degF August 11, 2024 In-Center Hemodialysis Treatment 9394-41-26O94:35:06.000Z 4209-62-48O71:55:47.000Z BP Sitting (Pre-Dialysis) 140/95 mmHg BP Sitting (Post-Dialysis) 109/65 mmHg Concurrent Access: falseCentral Venous Catheter (CVC) Chest (Right) Arterial BP Standing (Pre-Dialysis) 142/93 mmHg BP Standing (P ost-Dialysis) 118/81 mmHg Sitting Heart Rate Pre-Dialysis 65 BPM Sitting Heart Rate Post-Dialysis 67 BPM Standing Heart Rate Pre-Dialysis 65 BPM Standing Heart Rate Post-Dialysis 65 BPM Temperature Pre-Dialysis 98 degF Temperature Post -Dialysis 98 degF August 08, 2024 In-Center Hemodialysis Treatment 3317-57-94W40:31:35.000Z 5268-03-35M44:50:30.000Z BP Sitting (Pre-Dialysis) 131/84 mmHg BP Sitting (Post-Dialysis) 108/71 mmHg Concurrent Access: falseCentral Venous Catheter (CVC) Chest (Right) Arterial BP Standing (Pre-Dialysis) 127/79 mmHg BP Standing (P ost-Dialysis) 108/61 mmHg Sitting Heart Rate Pre-Dialysis 87 BPM Sitting Heart Rate Post-Dialysis 80 BPM Standing Heart Rate Pre-Dialysis 91 BPM Standing Heart Rate Post-Dialysis 77 BPM Temperature Pre-Dialysis 97.5 degF Temperature Post -Dialysis 97.3 degF August 04, 2024 In-Center Hemodialysis Treatment 2055-47-23Y40:30:42.000Z 6658-86-74F18:49:51.000Z BP Sitting (Pre-Dialysis) 144/82 mmHg BP Sitting (Post-Dialysis) 105/87 mmHg Concurrent Access: falseCentral Venous Catheter (CVC) Chest (Right) Arterial BP Standing (Pre-Dialysis) 137/83 mmHg BP Standing (P ost-Dialysis) 110/71 mmHg Sitting Heart Rate Pre-Dialysis 60 BPM Sitting Heart Rate Post-Dialysis 94 BPM Standing Heart Rate Pre-Dialysis 86 BPM Standing Heart Rate Post-Dialysis 90 BPM Temperature Pre-Dialysis 97.8 degF Temperature Post -Dialysis 97.9 degF August 01, 2024 In-Center Hemodialysis Treatment 1853-98-32W15:32:05.000Z 7895-76-27B14:43:00.000Z BP Sitting (Pre-Dialysis) 129/90 mmHg BP Sitting (Post-Dialysis) 108/70 mmHg Concurrent Access: falseCentral Venous Catheter (CVC) Chest (Right) Arterial Sitting Heart Rate Pre-Dialysis 80 BPM BP Standi ng (Post-Dialysis) 95/78 mmHg Temperature Pre-Dialysis 97.5 degF Sitting Heart Ra te Post-Dialysis 77 BPM Standing Heart Rate Post-Mile lysis 93 BPM Temperature Post-Dialysis 98 .3 degF July 28, 2024 In-Center Hemodialysis Treatment [id number]:37:29.000Z 2920-25-33B20:59:31.000Z BP Sitting (Pre-Dialysis) 118/80 mmHg BP Sitting (Post-Dialysis) 111/54 mmHg Concurrent Access: falseCentral Venous Catheter (CVC) Chest (Right) Arterial Sitting Heart Rate Pre-Dialysis 70 BPM BP Standing (Post-Dialysis) 120/74 mmHg Temperature Pre-Dialysis 97.7 degF Sitting Heart Ra te Post-Dialysis 83 BPM Standing Heart Rate Post-Mile lysis 61 BPM Temperature Post-Dialysis 98 .3 degF July 25, 2024 In-Center Hemodialysis Treatment 0619-45-01G21:39:28.000Z 5083-10-09I52:56:49.000Z BP Sitting (Pre-Dialysis) 121/91 mmHg BP Sitting (Post-Dialysis) 110/64 mmHg Concurrent Access: falseCentral Venous Catheter (CVC) Chest (Right) Arterial Sitting Heart Rate Pre-Dialysis 65 BPM BP Standing (Post-Dialysis) 108/80 mmHg Temperature Pre-Dialysis 97.8 degF Sitting Heart Ra te Post-Dialysis 80 BPM Standing Heart Rate Post-Mile lysis 62 BPM Temperature Post-Dialysis 97 .9 degF July 21, 2024 In-Center Hemodialysis Treatment [id number]:27:41.000Z 9683-02-73S63:48:16.000Z BP Sitting (Pre-Dialysis) 120/81 mmHg BP Sitting (Post-Dialysis) 119/79 mmHg Concurrent Access: falseCentral Venous Catheter (CVC) Chest (Right) Arterial BP Standing (Pre-Dialysis) 120/81 mmHg BP Standing (P ost-Dialysis) 111/68 mmHg Sitting Heart Rate Pre-Dialysis 102 BPM Sitting Heart Rate Post-Dialysis 82 BPM Standing Heart Rate Pre-Dialysis 102 BPM Standing Heart Rate Post-Dialysis 69 BPM Temperature Pre-Dialysis 98 degF Temperature Post -Dialysis 98 degF July 18, 2024 In-Center Hemodialysis Treatment [id number]:38:36.000Z 0147-65-17W56:58:07.000Z BP Sitting (Pre-Dialysis) 140/92 mmHg BP Sitting (Post-Dialysis) 120/80 mmHg Concurrent Access: falseCentral Venous Catheter (CVC) Chest (Right) Arterial Sitting Heart Rate Pre-Dialysis 71 BPM BP Standi ng (Post-Dialysis) 100/43 mmHg Temperature Pre-Dialysis 98 degF Sitting Heart Ra te Post-Dialysis 80 BPM Standing Heart Rate Post-Mile lysis 80 BPM Temperature Post-Dialysis 98 degF July 14, 2024 In-Center Hemodialysis Treatment [id number]:26:58.000Z 4967-25-70N46:44:48.000Z BP Sitting (Pre-Dialysis) 106/81 mmHg BP Sitting (Post-Dialysis) 123/89 mmHg Concurrent Access: falseCentral Venous Catheter (CVC) Chest (Right) Arterial BP Standing (Pre-Dialysis) 140/88 mmHg BP Standing (P ost-Dialysis) 121/95 mmHg Sitting Heart Rate Pre-Dialysis 62 BPM Sitting Heart Rate Post-Dialysis 85 BPM Standing Heart Rate Pre-Dialysis 82 BPM Standing Heart Rate Post-Dialysis 90 BPM Temperature Pre-Dialysis 98.1 degF Temperature Post -Dialysis 97.2 degF July 11, 2024 In-Center Hemodialysis Treatment 8050-88-97J97:27:38.000Z 3742-28-05Y29:45:38.000Z BP Sitting (Pre-Dialysis) 124/87 mmHg BP Sitting (Post-Dialysis) 108/79 mmHg Concurrent Access: falseCentral Venous Catheter (CVC) Chest (Right) Arterial Sitting Heart Rate Pre-Dialysis 82 BPM BP Standing (Post-Dialysis) 108/91 mmHg Temperature Pre-Dialysis 98.1 degF Sitting Heart Ra te Post-Dialysis 92 BPM Standing Heart Rate Post-Mile lysis 95 BPM Temperature Post-Dialysis 97 .5 degF July 07, 2024 In-Center Hemodialysis Treatment 6740-03-12J87:36:17.000Z 5109-96-25N35:52:47.000Z BP Sitting (Pre-Dialysis) 117/91 mmHg BP Sitting (Post-Dialysis) 120/79 mmHg Concurrent Access: falseCentral Venous Catheter (CVC) Chest (Right) Arterial BP Standing (Pre-Dialysis) 134/97 mmHg Sitti ng Heart Rate Post-Dialysis 68 BPM Sitting Heart Rate Pre-Dialysis 82 BPM Temperatu re Post-Dialysis 97.5 degF Standing Heart Rate Pre-Dialysis 93 BPM Temperature Pre-Dialysis 97.7 degF July 04, 2024 In-Center Hemodialysis Treatment 2503-45-37N89:27:57.000Z 0998-92-78H51:46:27.000Z BP Sitting (Pre-Dialysis) 157/107 mmHg BP Sitting (Post-Dialysis) 141/102 mmHg Concurrent Access: falseCentral Venous Catheter (CVC) Chest (Right) Arterial BP Standing (Pre-Dialysis) 170/103 mmHg BP Standing (P ost-Dialysis) 111/83 mmHg Sitting Heart Rate Pre-Dialysis 88 BPM Sitting Heart Rate Post-Dialysis 85 BPM Standing Heart Rate Pre-Dialysis 80 BPM Standing Heart Rate Post-Dialysis 99 BPM Temperature Pre-Dialysis 97.7 degF Temperature Post -Dialysis 97.6 degF June 30, 2024 In-Center Hemodialysis Treatment [id number]:41:52.000Z 7659-41-40H26:01:57.000Z BP Sitting (Pre-Dialysis) 105/83 mmHg BP Sitting (Post-Dialysis) 127/95 mmHg Concurrent Access: falseCentral Venous Catheter (CVC) Chest (Right) Arterial BP Standing (Pre-Dialysis) 147/107 mmHg BP Standing (P ost-Dialysis) 114/97 mmHg Sitting Heart Rate Pre-Dialysis 80 BPM Sitting Heart Rate Post-Dialysis 80 BPM Standing Heart Rate Pre-Dialysis 95 BPM Standing Heart Rate Post-Dialysis 97 BPM Temperature Pre-Dialysis 97.5 degF Temperature Post -Dialysis 97.9 degF June 27, 2024 In-Center Hemodialysis Treatment 4730-16-73K23:17:38.000Z 6058-01-22C58:30:00.000Z BP Sitting (Pre-Dialysis) 134/96 mmHg BP Sitting (Post-Dialysis) 132/97 mmHg Concurrent Access: falseCentral Venous Catheter (CVC) Chest (Right) Arterial BP Standing (Pre-Dialysis) 135/90 mmHg BP Standing (P ost-Dialysis) 128/88 mmHg Sitting Heart Rate Pre-Dialysis 85 BPM Sitting Heart Rate Post-Dialysis 77 BPM Standing Heart Rate Pre-Dialysis 66 BPM Standing Heart Rate Post-Dialysis 77 BPM Temperature Pre-Dialysis 97.5 degF Temperature Post -Dialysis 98.1 degF June 23, 2024 In-Center Hemodialysis Treatment 8918-29-33L27:41:50.000Z 4921-34-98W71:45:15.000Z BP Sitting (Pre-Dialysis) 151/106 mmHg BP Sitting (Post-Dialysis) 137/90 mmHg Concurrent Access: falseCentral Venous Catheter (CVC) Chest (Right) Arterial BP Standing (Pre-Dialysis) 138/100 mmHg BP Standing (P ost-Dialysis) 117/91 mmHg Sitting Heart Rate Pre-Dialysis 80 BPM Sitting Heart Rate Post-Dialysis 73 BPM Standing Heart Rate Pre-Dialysis 82 BPM Standing Heart Rate Post-Dialysis 107 BPM Temperature Pre-Dialysis 97 degF Temperature Post -Dialysis 97.8 degF June 20, 2024 In-Center Hemodialysis Treatment [id number]:45:34.000Z 4453-56-62S11:46:26.000Z BP Sitting (Pre-Dialysis) 143/96 mmHg BP Sitting (Post-Dialysis) 145/67 mmHg Concurrent Access: falseCentral Venous Catheter (CVC) Chest (Right) Arterial Sitting Heart Rate Pre-Dialysis 80 BPM BP Standi ng (Post-Dialysis) 100/70 mmHg Temperature Pre-Dialysis 97 degF Sitting Heart Ra te Post-Dialysis 77 BPM Standing Heart Rate Post-Mile lysis 70 BPM Temperature Post-Dialysis 97 .8 degF June 16, 2024 In-Center Hemodialysis Treatment [id number]:42:23.000Z [id number]:47:08.000Z BP Sitting (Pre-Dialysis) 132/90 mmHg BP Sitting (Post-Dialysis) 128/86 mmHg Concurrent Access: falseCentral Venous Catheter (CVC) Chest (Right) Arterial BP Standing (Pre-Dialysis) 137/90 mmHg BP Standing (P ost-Dialysis) 135/98 mmHg Sitting Heart Rate Pre-Dialysis 82 BPM Sitting Heart Rate Post-Dialysis 80 BPM Standing Heart Rate Pre-Dialysis 87 BPM Standing Heart Rate Post-Dialysis 86 BPM Temperature Pre-Dialysis 97.5 degF Temperature Post -Dialysis 97.4 degF June 13, 2024 In-Center Hemodialysis Treatment [id number]:09:17.000Z 3070-45-13E07:21:18.000Z BP Sitting (Pre-Dialysis) 122/78 mmHg BP Sitting (Post-Dialysis) 118/80 mmHg Concurrent Access: falseCentral Venous Catheter (CVC) Chest (Right) Arterial BP Standing (Pre-Dialysis) 111/74 mmHg BP Standing (P ost-Dialysis) 118/61 mmHg Sitting Heart Rate Pre-Dialysis 80 BPM Sitting Heart Rate Post-Dialysis 99 BPM Standing Heart Rate Pre-Dialysis 86 BPM Standing Heart Rate Post-Dialysis 99 BPM Temperature Pre-Dialysis 97.5 degF Temperature Post -Dialysis 97.4 degF June 09, 2024 In-Center Hemodialysis Treatment [id number]:35:44.000Z [id number]:37:27.000Z BP Sitting (Pre-Dialysis) 160/106 mmHg BP Sitting (Post-Dialysis) 137/79 mmHg Concurrent Access: falseCentral Venous Catheter (CVC) Chest (Right) Arterial BP Standing (Pre-Dialysis) 172/102 mmHg BP Standing (P ost-Dialysis) 135/89 mmHg Sitting Heart Rate Pre-Dialysis 77 BPM Sitting Heart Rate Post-Dialysis 80 BPM Standing Heart Rate Pre-Dialysis 120 BPM Standing Heart Rate Post-Dialysis 98 BPM Temperature Pre-Dialysis 98.3 degF Temperature Post -Dialysis 97.6 degF June 06, 2024 In-Center Hemodialysis Treatment [id number]:33:00.000Z [id number]:33:40.000Z BP Sitting (Pre-Dialysis) 143/106 mmHg BP Sitting (Post-Dialysis) 137/99 mmHg Concurrent Access: falseCentral Venous Catheter (CVC) Chest (Right) Arterial Sitting Heart Rate Pre-Dialysis 100 BPM BP Standing (Post-Dialysis) 139/83 mmHg Temperature Pre-Dialysis 97.2 degF Sitting Heart Ra te Post-Dialysis 80 BPM Standing Heart Rate Post-Mile lysis 100 BPM Temperature Post-Dialysis 97 .6 degF June 02, 2024 In-Center Hemodialysis Treatment [id number]:28:13.000Z 6824-50-90G29:28:29.000Z BP Sitting (Pre-Dialysis) 117/77 mmHg BP Sitting (Post-Dialysis) 139/100 mmHg Concurrent Access: falseCentral Venous Catheter (CVC) Chest (Right) Arterial Sitting Heart Rate Pre-Dialysis 92 BPM BP Standing (Post-Dialysis) 137/93 mmHg Temperature Pre-Dialysis 97.7 degF Sitting Heart Ra te Post-Dialysis 70 BPM Standing Heart Rate Post-Mile lysis 72 BPM Temperature Post-Dialysis 98 .3 degF May 30, 2024 In-Center Hemodialysis Treatment [id number]:25:00.000Z 8083-64-37W19:28:35.000Z BP Sitting (Pre-Dialysis) 138/107 mmHg BP Sitting (Post-Dialysis) 146/99 mmHg Concurrent Access: falseCentral Venous Catheter (CVC) Chest (Right) Arterial BP Standing (Pre-Dialysis) 144/104 mmHg BP Standing (P ost-Dialysis) 128/88 mmHg Sitting Heart Rate Pre-Dialysis 120 BPM Sitting Heart Rate Post-Dialysis 80 BPM Standing Heart Rate Pre-Dialysis 120 BPM Standing Heart Rate Post-Dialysis 80 BPM Temperature Pre-Dialysis 98.1 degF Temperature Post -Dialysis 97.9 degF May 26, 2024 In-Center Hemodialysis Treatment [id number]:34:00.000Z 3163-85-13I09:40:19.000Z BP Sitting (Pre-Dialysis) 150/106 mmHg BP Sitting (Post-Dialysis) 136/97 mmHg Concurrent Access: falseCentral Venous Catheter (CVC) Chest (Right) Arterial BP Standing (Pre-Dialysis) 152/89 mmHg BP Standing (P ost-Dialysis) 136/88 mmHg Sitting Heart Rate Pre-Dialysis 96 BPM Sitting Heart Rate Post-Dialysis 87 BPM Standing Heart Rate Pre-Dialysis 94 BPM Standing Heart Rate Post-Dialysis 80 BPM Temperature Pre-Dialysis 98.6 degF Temperature Post -Dialysis 98.3 degF May 23, 2024 In-Center Hemodialysis Treatment [id number]:52:00.000Z 0239-45-46W24:50:58.000Z BP Sitting (Pre-Dialysis) 133/88 mmHg BP Sitting (Post-Dialysis) 133/91 mmHg Concurrent Access: falseCentral Venous Catheter (CVC) Chest (Right) Arterial Sitting Heart Rate Pre-Dialysis 80 BPM BP Standi ng (Post-Dialysis) 106/65 mmHg Temperature Pre-Dialysis 97 degF Sitting Heart Ra te Post-Dialysis 80 BPM Standing Heart Rate Post-Mile lysis 92 BPM Temperature Post-Dialysis 97 degF May 19, 2024 In-Center Hemodialysis Treatment [id number]:28:00.000Z 0321-53-77Z83:33:55.000Z BP Sitting (Pre-Dialysis) 153/101 mmHg BP Sitting (Post-Dialysis) 149/99 mmHg Concurrent Access: falseCentral Venous Catheter (CVC) Chest (Right) Arterial BP Standing (Pre-Dialysis) 148/103 mmHg BP Standing (P ost-Dialysis) 126/91 mmHg Sitting Heart Rate Pre-Dialysis 80 BPM Sitting Heart Rate Post-Dialysis 101 BPM Standing Heart Rate Pre-Dialysis 96 BPM Standing Heart Rate Post-Dialysis 87 BPM Temperature Pre-Dialysis 97.3 degF Temperature Post -Dialysis 97.6 degF May 16, 2024 In-Center Hemodialysis Treatment 5614-20-63N32:42:00.000Z 6688-28-99L79:41:06.000Z BP Sitting (Pre-Dialysis) 142/95 mmHg BP Sitting (Post-Dialysis) 113/98 mmHg Concurrent Access: falseCentral Venous Catheter (CVC) Chest (Right) Arterial Sitting Heart Rate Pre-Dialysis 80 BPM Sitting H eart Rate Post-Dialysis 66 BPM Temperature Pre-Dialysis 97.3 degF Temperature Post -Dialysis 98.6 degF May 12, 2024 In-Center Hemodialysis Treatment 8330-00-56Y92:43:00.000Z 6510-87-23X61:44:48.000Z BP Sitting (Pre-Dialysis) 147/85 mmHg BP Sitting (Post-Dialysis) 138/88 mmHg Concurrent Access: falseCentral Venous Catheter (CVC) Chest (Right) Arterial BP Standing (Pre-Dialysis) 148/99 mmHg BP Standing (P ost-Dialysis) 125/85 mmHg Sitting Heart Rate Pre-Dialysis 85 BPM Sitting Heart Rate Post-Dialysis 80 BPM Standing Heart Rate Pre-Dialysis 86 BPM Standing Heart Rate Post-Dialysis 80 BPM Temperature Pre-Dialysis 97.6 degF Temperature Post -Dialysis 97.5 degF May 09, 2024 In-Center Hemodialysis Treatment [id number]:29:00.000Z 8798-38-09F24:31:06.000Z BP Sitting (Pre-Dialysis) 137/89 mmHg BP Sitting (Post-Dialysis) 131/88 mmHg Concurrent Access: falseCentral Venous Catheter (CVC) Chest (Right) Arterial BP Standing (Pre-Dialysis) 171/107 mmHg Sitti ng Heart Rate Post-Dialysis 80 BPM Sitting Heart Rate Pre-Dialysis 110 BPM Temperatu re Post-Dialysis 97.6 degF Standing Heart Rate Pre-Dialysis 95 BPM Temperature Pre-Dialysis 97.6 degF May 05, 2024 In-Center Hemodialysis Treatment [id number]:33:00.000Z 3430-23-29C78:30:13.000Z BP Sitting (Pre-Dialysis) 136/105 mmHg BP Sitting (Post-Dialysis) 134/87 mmHg Concurrent Access: falseCentral Venous Catheter (CVC) Chest (Right) Arterial BP Standing (Pre-Dialysis) 151/104 mmHg BP Standing (P ost-Dialysis) 131/97 mmHg Sitting Heart Rate Pre-Dialysis 107 BPM Sitting Heart Rate Post-Dialysis 87 BPM Standing Heart Rate Pre-Dialysis 95 BPM Standing Heart Rate Post-Dialysis 98 BPM Temperature Pre-Dialysis 97.9 degF Temperature Post -Dialysis 98.6 degF May 02, 2024 In-Center Hemodialysis Treatment [id number]:42:00.000Z 1600-57-68Z84:47:33.000Z BP Sitting (Pre-Dialysis) 129/86 mmHg BP Sitting (Post-Dialysis) 133/98 mmHg Concurrent Access: falseCentral Venous Catheter (CVC) Chest (Right) Arterial Sitting Heart Rate Pre-Dialysis 104 BPM BP Standi ng (Post-Dialysis) 35/96 mmHg Temperature Pre-Dialysis 97.9 degF Sitting Heart Ra te Post-Dialysis 91 BPM Standing Heart Rate Post-Mile lysis 103 BPM Temperature Post-Dialysis 97 .4 degF April 28, 2024 In-Center Hemodialysis Treatment [id number]:37:00.000Z 9504-63-89X90:35:08.000Z BP Sitting (Pre-Dialysis) 147/94 mmHg BP Sitting (Post-Dialysis) 126/78 mmHg Concurrent Access: falseCentral Venous Catheter (CVC) Chest (Right) Arterial BP Standing (Pre-Dialysis) 118/79 mmHg BP Standing (P ost-Dialysis) 157/82 mmHg Sitting Heart Rate Pre-Dialysis 95 BPM Sitting Heart Rate Post-Dialysis 95 BPM Standing Heart Rate Pre-Dialysis 96 BPM Standing Heart Rate Post-Dialysis 80 BPM Temperature Pre-Dialysis 97.8 degF Temperature Post -Dialysis 97.6 degF April 25, 2024 In-Center Hemodialysis Treatment 8974-21-17M27:55:00.000Z 7525-58-69W51:55:52.000Z BP Sitting (Pre-Dialysis) 136/97 mmHg BP Sitting (Post-Dialysis) 125/77 mmHg Concurrent Access: falseCentral Venous Catheter (CVC) Chest (Right) Arterial BP Standing (Pre-Dialysis) 140/98 mmHg Sitti ng Heart Rate Post-Dialysis 87 BPM Sitting Heart Rate Pre-Dialysis 95 BPM Temperatu re Post-Dialysis 97.9 degF Standing Heart Rate Pre-Dialysis 97 BPM Temperature Pre-Dialysis 97.6 degF April 21, 2024 In-Center Hemodialysis Treatment [id number]:43:00.000Z 0468-80-93Z04:47:05.000Z BP Sitting (Pre-Dialysis) 129/94 mmHg BP Sitting (Post-Dialysis) 133/81 mmHg Concurrent Access: falseCentral Venous Catheter (CVC) Chest (Right) Arterial BP Standing (Pre-Dialysis) 129/94 mmHg BP Standing (P ost-Dialysis) 137/95 mmHg Sitting Heart Rate Pre-Dialysis 88 BPM Sitting Heart Rate Post-Dialysis 74 BPM Standing Heart Rate Pre-Dialysis 88 BPM Standing Heart Rate Post-Dialysis 86 BPM Temperature Pre-Dialysis 97.8 degF Temperature Post -Dialysis 97.9 degF April 18, 2024 In-Center Hemodialysis Treatment [id number]:57:00.000Z 6860-68-27M97:59:50.000Z BP Sitting (Pre-Dialysis) 139/96 mmHg BP Sitting (Post-Dialysis) 140/92 mmHg Concurrent Access: falseCentral Venous Catheter (CVC) Chest (Right) Arterial BP Standing (Pre-Dialysis) 138/105 mmHg BP Standing (P ost-Dialysis) 125/88 mmHg Sitting Heart Rate Pre-Dialysis 104 BPM Sitting Heart Rate Post-Dialysis 80 BPM Standing Heart Rate Pre-Dialysis 95 BPM Standing Heart Rate Post-Dialysis 80 BPM Temperature Pre-Dialysis 97.8 degF Temperature Post -Dialysis 97.1 degF April 14, 2024 In-Center Hemodialysis Treatment [id number]:42:00.000Z [id number]:50:19.000Z BP Sitting (Pre-Dialysis) 129/96 mmHg BP Sitting (Post-Dialysis) 135/90 mmHg Concurrent Access: falseCentral Venous Catheter (CVC) Chest (Right) Arterial Sitting Heart Rate Pre-Dialysis 120 BPM BP Standing (Post-Dialysis) 132/100 mmHg Temperature Pre-Dialysis 97.4 degF Sitting Heart Ra te Post-Dialysis 89 BPM Standing Heart R ate Post-Dialysis 80 BPM Temperature Post-Dialysis 98 .1 degF April 11, 2024 In-Center Hemodialysis Treatment 7604-98-16H88:38:00.000Z 1862-05-11S96:42:06.000Z BP Sitting (Pre-Dialysis) 143/96 mmHg BP Sitting (Post-Dialysis) 119/80 mmHg Concurrent Access: falseCentral Venous Catheter (CVC) Chest (Right) Arterial BP Standing (Pre-Dialysis) 139/94 mmHg BP Standing (P ost-Dialysis) 126/89 mmHg Sitting Heart Rate Pre-Dialysis 91 BPM Sitting Heart Rate Post-Dialysis 92 BPM Standing Heart Rate Pre-Dialysis 80 BPM Standing Heart Rate Post-Dialysis 87 BPM Temperature Pre-Dialysis 97.6 degF Temperature Post -Dialysis 98.3 degF April 07, 2024 In-Center Hemodialysis Treatment 6213-75-63A92:14:00.000Z 3042-17-27L70:22:09.000Z BP Sitting (Pre-Dialysis) 114/73 mmHg BP Sitting (Post-Dialysis) 125/80 mmHg Concurrent Access: falseCentral Venous Catheter (CVC) Chest (Right) Arterial Sitting Heart Rate Pre-Dialysis 80 BPM BP Standi ng (Post-Dialysis) 109/72 mmHg Temperature Pre-Dialysis 98 degF Sitting Heart Ra te Post-Dialysis 80 BPM Standing Heart Rate Post-Mile lysis 85 BPM Temperature Post-Dialysis 98 .3 degF April 04, 2024 In-Center Hemodialysis Treatment 8330-93-50B16:53:00.000Z 0218-75-13J08:58:10.000Z BP Sitting (Pre-Dialysis) 130/94 mmHg BP Sitting (Post-Dialysis) 130/91 mmHg Concurrent Access: falseCentral Venous Catheter (CVC) Chest (Right) Arterial BP Standing (Pre-Dialysis) 122/94 mmHg BP Standing (P ost-Dialysis) 111/80 mmHg Sitting Heart Rate Pre-Dialysis 77 BPM Sitting Heart Rate Post-Dialysis 80 BPM Standing Heart Rate Pre-Dialysis 92 BPM Standing Heart Rate Post-Dialysis 99 BPM Temperature Pre-Dialysis 97.5 degF Temperature Post -Dialysis 97.5 degF March 31, 2024 In-Center Hemodialysis Treatment 2382-30-20S85:51:00.000Z 5522-23-10Q42:53:02.000Z BP Sitting (Pre-Dialysis) 146/85 mmHg BP Sitting (Post-Dialysis) 124/83 mmHg Concurrent Access: falseCentral Venous Catheter (CVC) Chest (Right) Arterial Sitting Heart Rate Pre-Dialysis 80 BPM BP Standi ng (Post-Dialysis) 132/90 mmHg Temperature Pre-Dialysis 98 degF Sitting Heart Ra te Post-Dialysis 86 BPM Standing Heart Rate Post-Mile lysis 99 BPM Temperature Post-Dialysis 97 .8 degF March 28, 2024 In-Center Hemodialysis Treatment 8422-26-55C23:26:00.000Z 5116-70-09Y37:31:36.000Z BP Sitting (Pre-Dialysis) 126/73 mmHg BP Sitting (Post-Dialysis) 14/70 mmHg Concurrent Access: falseCentral Venous Catheter (CVC) Chest (Right) Arterial BP Standing (Pre-Dialysis) 125/78 mmHg Sitti ng Heart Rate Post-Dialysis 79 BPM Sitting Heart Rate Pre-Dialysis 80 BPM Temperatu re Post-Dialysis 97.8 degF Standing Heart Rate Pre-Dialysis 87 BPM Temperature Pre-Dialysis 97.5 degF March 24, 2024 In-Center Hemodialysis Treatment [id number]:46:00.000Z 4057-70-53E06:51:17.000Z BP Sitting (Pre-Dialysis) 141/91 mmHg BP Sitting (Post-Dialysis) 118/92 mmHg Concurrent Access: falseCentral Venous Catheter (CVC) Chest (Right) Arterial BP Standing (Pre-Dialysis) 140/97 mmHg BP Standing (P ost-Dialysis) 130/77 mmHg Sitting Heart Rate Pre-Dialysis 94 BPM Sitting Heart Rate Post-Dialysis 95 BPM Standing Heart Rate Pre-Dialysis 81 BPM Standing Heart Rate Post-Dialysis 99 BPM Temperature Pre-Dialysis 98.6 degF Temperature Post -Dialysis 97.8 degF March 21, 2024 In-Center Hemodialysis Treatment 4873-84-97S32:37:00.000Z 3507-56-60K88:40:28.000Z BP Sitting (Pre-Dialysis) 131/96 mmHg BP Sitting (Post-Dialysis) 126/86 mmHg Concurrent Access: falseCentral Venous Catheter (CVC) Chest (Right) Arterial BP Standing (Pre-Dialysis) 146/100 mmHg BP Standing (P ost-Dialysis) 128/81 mmHg Sitting Heart Rate Pre-Dialysis 86 BPM Sitting Heart Rate Post-Dialysis 77 BPM Standing Heart Rate Pre-Dialysis 97 BPM Standing Heart Rate Post-Dialysis 77 BPM Temperature Pre-Dialysis 98 degF Temperature Post -Dialysis 97.6 degF March 17, 2024 In-Center Hemodialysis Treatment [id number]:43:00.000Z 9280-26-63Z78:47:55.000Z BP Sitting (Pre-Dialysis) 142/98 mmHg BP Sitting (Post-Dialysis) 132/94 mmHg Concurrent Access: falseCentral Venous Catheter (CVC) Chest (Right) Arterial BP Standing (Pre-Dialysis) 143/99 mmHg Sitti ng Heart Rate Post-Dialysis 97 BPM Sitting Heart Rate Pre-Dialysis 86 BPM Temperatu re Post-Dialysis 98.3 degF Standing Heart Rate Pre-Dialysis 80 BPM Temperature Pre-Dialysis 97.6 degF March 14, 2024 In-Center Hemodialysis Treatment [id number]:41:00.000Z 3185-34-83C36:41:41.000Z BP Sitting (Pre-Dialysis) 147/58 mmHg BP Sitting (Post-Dialysis) 121/98 mmHg Concurrent Access: falseCentral Venous Catheter (CVC) Chest (Right) Arterial Sitting Heart Rate Pre-Dialysis 80 BPM BP Standing (Post-Dialysis) 104/82 mmHg Temperature Pre-Dialysis 97.5 degF Sitting Heart Ra te Post-Dialysis 101 BPM Standing Heart Rate Post-Mile lysis 94 BPM Temperature Post-Dialysis 97 .4 degF March 10, 2024 In-Center Hemodialysis Treatment 5715-85-79G44:39:00.000Z 1470-53-30K17:44:46.000Z BP Sitting (Pre-Dialysis) 129/90 mmHg BP Sitting (Post-Dialysis) 108/66 mmHg Concurrent Access: falseCentral Venous Catheter (CVC) Chest (Right) Arterial BP Standing (Pre-Dialysis) 130/96 mmHg BP Standing (P ost-Dialysis) 119/80 mmHg Sitting Heart Rate Pre-Dialysis 80 BPM Sitting Heart Rate Post-Dialysis 111 BPM Standing Heart Rate Pre-Dialysis 98 BPM Standing Heart Rate Post-Dialysis 111 BPM Temperature Pre-Dialysis 97.6 degF Temperature Post -Dialysis 97.6 degF March 07, 2024 In-Center Hemodialysis Treatment [id number]:53:00.000Z 0429-76-62R53:54:06.000Z BP Sitting (Pre-Dialysis) 132/87 mmHg BP Sitting (Post-Dialysis) 122/79 mmHg Concurrent Access: falseCentral Venous Catheter (CVC) Chest (Right) Arterial BP Standing (Pre-Dialysis) 121/93 mmHg BP Standing (P ost-Dialysis) 122/91 mmHg Sitting Heart Rate Pre-Dialysis 85 BPM Sitting Heart Rate Post-Dialysis 80 BPM Standing Heart Rate Pre-Dialysis 74 BPM Standing Heart Rate Post-Dialysis 80 BPM Temperature Pre-Dialysis 97.6 degF Temperature Post -Dialysis 97.6 degF March 03, 2024 In-Center Hemodialysis Treatment [id number]:54:00.000Z 5117-55-85B39:56:18.000Z BP Sitting (Pre-Dialysis) 112/76 mmHg BP Sitting (Post-Dialysis) 140/92 mmHg Concurrent Access: falseCentral Venous Catheter (CVC) Chest (Right) Arterial Sitting Heart Rate Pre-Dialysis 103 BPM BP Standing (Post-Dialysis) 119/89 mmHg Temperature Pre-Dialysis 97.5 degF Sitting Heart Ra te Post-Dialysis 96 BPM Standing Heart Rate Post-Mile lysis 108 BPM Temperature Post-Dialysis 97 .6 degF February 29, 2024 In-Center Hemodialysis Treatment [id number]:41:00.000Z 1052-96-42W16:39:00.000Z BP Sitting (Pre-Dialysis) 125/90 mmHg BP Sitting (Post-Dialysis) 135/81 mmHg Concurrent Access: falseCentral Venous Catheter (CVC) Chest (Right) Arterial BP Standing (Pre-Dialysis) 121/81 mmHg BP Standing (P ost-Dialysis) 130/85 mmHg Sitting Heart Rate Pre-Dialysis 105 BPM Sitting Heart Rate Post-Dialysis 72 BPM Standing Heart Rate Pre-Dialysis 103 BPM Standing Heart Rate Post-Dialysis 98 BPM Temperature Pre-Dialysis 97.3 degF Temperature Post -Dialysis 97.7 degF February 25, 2024 In-Center Hemodialysis Treatment 9725-55-98H22:34:00.000Z 5117-84-76H10:37:52.000Z BP Sitting (Pre-Dialysis) 141/90 mmHg BP Sitting (Post-Dialysis) 117/81 mmHg Concurrent Access: falseCentral Venous Catheter (CVC) Chest (Right) Arterial BP Standing (Pre-Dialysis) 121/89 mmHg Sitti ng Heart Rate Post-Dialysis 112 BPM Sitting Heart Rate Pre-Dialysis 110 BPM Temperatu re Post-Dialysis 97.6 degF Standing Heart Rate Pre-Dialysis 114 BPM Temperature Pre-Dialysis 97.6 degF February 22, 2024 In-Center Hemodialysis Treatment [id number]:33:00.000Z 8568-44-17P26:34:04.000Z BP Sitting (Pre-Dialysis) 132/93 mmHg BP Sitting (Post-Dialysis) 124/87 mmHg Concurrent Access: falseCentral Venous Catheter (CVC) Chest (Right) Arterial BP Standing (Pre-Dialysis) 122/95 mmHg BP Standing (P ost-Dialysis) 123/81 mmHg Sitting Heart Rate Pre-Dialysis 105 BPM Sitting Heart Rate Post-Dialysis 86 BPM Standing Heart Rate Pre-Dialysis 108 BPM Standing Heart Rate Post-Dialysis 80 BPM Temperature Pre-Dialysis 98 degF Temperature Post -Dialysis 97.6 degF February 18, 2024 In-Center Hemodialysis Treatment [id number]:48:00.000Z 2360-15-01L96:52:38.000Z BP Sitting (Pre-Dialysis) 121/99 mmHg BP Sitting (Post-Dialysis) 133/95 mmHg Concurrent Access: falseCentral Venous Catheter (CVC) Chest (Right) Arterial BP Standing (Pre-Dialysis) 126/84 mmHg Sitti ng Heart Rate Post-Dialysis 85 BPM Sitting Heart Rate Pre-Dialysis 104 BPM Temperatu re Post-Dialysis 97.5 degF Standing Heart Rate Pre-Dialysis 80 BPM Temperature Pre-Dialysis 97.5 degF February 15, 2024 In-Center Hemodialysis Treatment [id number]:50:00.000Z 6670-13-57E03:51:59.000Z BP Sitting (Pre-Dialysis) 128/75 mmHg BP Sitting (Post-Dialysis) 121/68 mmHg Concurrent Access: falseCentral Venous Catheter (CVC) Chest (Right) Arterial BP Standing (Pre-Dialysis) 120/90 mmHg BP Standing (P ost-Dialysis) 115/79 mmHg Sitting Heart Rate Pre-Dialysis 82 BPM Sitting Heart Rate Post-Dialysis 89 BPM Standing Heart Rate Pre-Dialysis 97 BPM Standing Heart Rate Post-Dialysis 86 BPM Temperature Pre-Dialysis 97.6 degF Temperature Post -Dialysis 97.7 degF February 11, 2024 In-Center Hemodialysis Treatment [id number]:05:00.000Z 4849-81-03E08:06:19.000Z BP Sitting (Pre-Dialysis) 126/92 mmHg BP Sitting (Post-Dialysis) 123/95 mmHg Concurrent Access: falseCentral Venous Catheter (CVC) Chest (Right) Arterial BP Standing (Pre-Dialysis) 131/87 mmHg BP Standing (P ost-Dialysis) 118/77 mmHg Sitting Heart Rate Pre-Dialysis 82 BPM Sitting Heart Rate Post-Dialysis 62 BPM Standing Heart Rate Pre-Dialysis 80 BPM Standing Heart Rate Post-Dialysis 109 BPM Temperature Pre-Dialysis 97.6 degF Temperature Post -Dialysis 97.6 degF February 08, 2024 In-Center Hemodialysis Treatment 0623-33-16U40:27:00.000Z 6317-52-23E04:23:45.000Z BP Sitting (Pre-Dialysis) 130/71 mmHg BP Sitting (Post-Dialysis) 116/90 mmHg Concurrent Access: falseCentral Venous Catheter (CVC) Chest (Right) Arterial BP Standing (Pre-Dialysis) 131/84 mmHg Sitti ng Heart Rate Post-Dialysis 108 BPM Sitting Heart Rate Pre-Dialysis 111 BPM Temperatu re Post-Dialysis 97.3 degF Standing Heart Rate Pre-Dialysis 113 BPM Temperature Pre-Dialysis 97.6 degF February 04, 2024 In-Center Hemodialysis Treatment [id number]:49:00.000Z 1129-34-97B77:52:58.000Z BP Sitting (Pre-Dialysis) 126/88 mmHg BP Sitting (Post-Dialysis) 119/92 mmHg Concurrent Access: falseCentral Venous Catheter (CVC) Chest (Right) Arterial BP Standing (Pre-Dialysis) 132/97 mmHg BP Standing (P ost-Dialysis) 101/70 mmHg Sitting Heart Rate Pre-Dialysis 80 BPM Sitting Heart Rate Post-Dialysis 99 BPM Standing Heart Rate Pre-Dialysis 80 BPM Standing Heart Rate Post-Dialysis 98 BPM Temperature Pre-Dialysis 97.3 degF Temperature Post -Dialysis 97.6 degF January 28, 2024 In-Center Hemodialysis Treatment 6668-46-84F39:50:00.000Z 8413-90-54Y75:51:17.000Z BP Sitting (Pre-Dialysis) 103/72 mmHg BP Sitting (Post-Dialysis) 106/68 mmHg Concurrent Access: falseCentral Venous Catheter (CVC) Chest (Right) Arterial BP Standing (Pre-Dialysis) 100/72 mmHg Sitti ng Heart Rate Post-Dialysis 101 BPM Sitting Heart Rate Pre-Dialysis 86 BPM Temperatu re Post-Dialysis 98.3 degF Standing Heart Rate Pre-Dialysis 95 BPM Temperature Pre-Dialysis 97.3 degF January 25, 2024 In-Center Hemodialysis Treatment 5607-48-57F20:45:00.000Z 2603-87-35Q55:46:44.000Z BP Sitting (Pre-Dialysis) 138/82 mmHg BP Sitting (Post-Dialysis) 136/98 mmHg Concurrent Access: falseCentral Venous Catheter (CVC) Chest (Right) Arterial BP Standing (Pre-Dialysis) 131/92 mmHg BP Standing (P ost-Dialysis) 110/93 mmHg Sitting Heart Rate Pre-Dialysis 89 BPM Sitting Heart Rate Post-Dialysis 100 BPM Standing Heart Rate Pre-Dialysis 89 BPM Standing Heart Rate Post-Dialysis 100 BPM Temperature Pre-Dialysis 98.3 degF Temperature Post -Dialysis 97.6 degF January 21, 2024 In-Center Hemodialysis Treatment [id number]:49:00.000Z [id number]:55:21.000Z BP Sitting (Pre-Dialysis) 133/86 mmHg BP Sitting (Post-Dialysis) 112/77 mmHg Concurrent Access: falseCentral Venous Catheter (CVC) Chest (Right) Arterial BP Standing (Pre-Dialysis) 152/94 mmHg BP Standing (P ost-Dialysis) 133/42 mmHg Sitting Heart Rate Pre-Dialysis 87 BPM Sitting Heart Rate Post-Dialysis 65 BPM Standing Heart Rate Pre-Dialysis 93 BPM Standing Heart Rate Post-Dialysis 45 BPM Temperature Pre-Dialysis 97.3 degF Temperature Post -Dialysis 97.8 degF January 18, 2024 In-Center Hemodialysis Treatment 1844-07-44O49:38:00.000Z 4186-73-78I57:44:30.000Z BP Sitting (Pre-Dialysis) 115/74 mmHg BP Sitting (Post-Dialysis) 120/90 mmHg Concurrent Access: falseCentral Venous Catheter (CVC) Chest (Right) Arterial BP Standing (Pre-Dialysis) 121/95 mmHg BP Standing (P ost-Dialysis) 119/80 mmHg Sitting Heart Rate Pre-Dialysis 92 BPM Sitting Heart Rate Post-Dialysis 82 BPM Standing Heart Rate Pre-Dialysis 90 BPM Standing Heart Rate Post-Dialysis 80 BPM Temperature Pre-Dialysis 97.5 degF Temperature Post -Dialysis 97.7 degF January 14, 2024 In-Center Hemodialysis Treatment [id number]:21:00.000Z 5316-21-00P41:24:33.000Z BP Sitting (Pre-Dialysis) 124/86 mmHg BP Sitting (Post-Dialysis) 131/72 mmHg Concurrent Access: falseCentral Venous Catheter (CVC) Chest (Right) Arterial BP Standing (Pre-Dialysis) 124/91 mmHg Sitti ng Heart Rate Post-Dialysis 95 BPM Sitting Heart Rate Pre-Dialysis 110 BPM Temperatu re Post-Dialysis 97.6 degF Standing Heart Rate Pre-Dialysis 89 BPM Temperature Pre-Dialysis 97.6 degF January 11, 2024 In-Center Hemodialysis Treatment [id number]:54:00.000Z 7813-57-69O04:01:31.000Z BP Sitting (Pre-Dialysis) 102/83 mmHg BP Sitting (Post-Dialysis) 130/84 mmHg Concurrent Access: falseCentral Venous Catheter (CVC) Chest (Right) Arterial BP Standing (Pre-Dialysis) 119/89 mmHg Sitti ng Heart Rate Post-Dialysis 65 BPM Sitting Heart Rate Pre-Dialysis 80 BPM Temperatu re Post-Dialysis 97.6 degF Standing Heart Rate Pre-Dialysis 105 BPM Temperature Pre-Dialysis 98 degF January 07, 2024 In-Center Hemodialysis Treatment [id number] BP Sitting (Pre-Dialysis) 143/90 mmHg BP Sitting (Post-Dialysis) 131/90 mmHg Concurrent Access: falseCentral Venous Catheter (CVC) Chest (Right) Arterial BP Standing (Pre-Dialysis) 132/96 mmHg BP Standing (P ost-Dialysis) 130/91 mmHg Sitting Heart Rate Pre-Dialysis 90 BPM Sitting Heart Rate Post-Dialysis 120 BPM Standing Heart Rate Pre-Dialysis 93 BPM Standing Heart Rate Post-Dialysis 120 BPM Temperature Pre-Dialysis 97.6 degF Temperature Post -Dialysis 97.3 degF DIALYSIS ORDER Dialysis Procedure Orders Type of Dialysis Procedure Order Order Date/Time Observations In-Center Hemodialysis Treatment March Target Weight 78.5 kg Dialysate Flow Rate 600 mL/min Blood Flow Rate 400 mL/min Treatment Time 180 min(total) Max UF Rate 13 mL/kg/hr Base Sodium Dialysate Base Sodium 138 mE q/L dialysate_temp 37 C BiCarb Dialysate BiCarbonate 32 mEq/L Access Concurrent No Arterial Access Central Venous Fany ter (CVC) (Chest (Right)) Venous Access Central Venous Fany ter (CVC) (Chest (Right)) Dialyzer [employer] Optiflux F 180NR [id number] [email or web address] Dialysate Bath Potassium Potassium 2 mEq /L Dialysate Bath Calcium Calcium 2.5 mEq/L Results Adequacy Description Draw Date Result/Unit Status Ref Range Result Comments KT/V PRESCRIBED 2025-04-14 22:41:12 1.56 F VT (KT/V TX VOL) 2025-04-14 22:41:12 33 L F BSA AUDRA 2025-04-14 22:41:12 1.94 sq m F URR% 2025-04-14 22:41:12 75 % F stdKt/V (DIAL) 2025-04-14 22:41:12 N/A F TBW ([facility]) 2025-04-14 22:41:12 39.99 Liters F VM (KT/V MEAN VOL) 2025-04-14 22:41:12 33.8 F nPCR 2025-04-14 22:41:12 0.83 G/KG/D F stdKT/V Total 2025-04-14 22:41:12 N/A F eKt/V 2025-04-14 22:41:12 1.28 F spKt/V 2025-04-14 22:41:12 1.53 F Total Kt/V 2025-04-14 22:41:12 1.53 F CURRENT KRU 2025-04-14 22:41:12 F Unable to calculate: Post BUN lab result is unknown Residual kt/v 2025-04-14 22:41:12 F Unable to calculate: Post BUN lab result is unknown Std Renal KT/V 2025-04-14 22:41:12 N/A F BLOOD FLOW-QWB 2025-04-14 22:41:12 375 F HEIGHT IN INCHES 2025-04-14 22:41:12 69 Inches F DIALYZER FLOW-QD 2025-04-14 22:41:12 608 mL/min F AMPUTATE FACTOR 2025-04-14 22:41:12 0 F WEIGHT - POST DAY 1 2025-04-14 22:41:12 78.6 kg F PRESCRIBED DAYS/WEEK 2025-04-14 22:41:12 2 Day/Wk F PATIENT AGE 2025-04-14 22:41:12 80 Years F LENGTH OF DIALYSIS 2025-04-14 22:41:12 187 min F Dialyzer DAI 2025-04-14 22:41:12 1218 Calc F WEIGHT - PRE DAY 1 2025-04-14 22:41:12 80 kg F WEIGHT (KG) 2025-04-14 22:41:12 78.5 kg F TOTAL HOURS/WEEK DIALYSIS 2025-04-14 22:41:12 5 hrs F Urea nitrogen [Mass/volume] in Serum or Plasma --post dialysis 2025-04-14 22:39:20 15 mg/dL F 9.0-23.0 Creatinine [Mass/volume] in Serum or Plasma 2025-04-14 22:14:25 5.82 mg/dL F 0.7-1.3 Urea nitrogen [Mass/volume] in Serum or Plasma 2025-04-14 22:14:25 60 mg/dL F 9.0-23.0 KT/V PRESCRIBED 2025-03-11 06:15:14 1.44 F Residual kt/v 2025-03-11 06:15:14 F Unable to calculate: Post BUN lab result is unknown URR% 2025-03-11 06:15:14 73 % F VT (KT/V TX VOL) 2025-03-11 06:15:14 32.8 L F Dialyzer DAI 2025-03-11 06:15:14 1218 Calc F AMPUTATE FACTOR 2025-03-11 06:15:14 0 F BSA AUDRA 2025-03-11 06:15:14 1.94 sq m F TOTAL HOURS/WEEK DIALYSIS 2025-03-11 06:15:14 6 hrs F VM (KT/V MEAN VOL) 2025-03-11 06:15:14 34.1 F WEIGHT - POST DAY 1 2025-03-11 06:15:14 78.1 kg F Std Renal KT/V 2025-03-11 06:15:14 N/A F CURRENT KRU 2025-03-11 06:15:14 F Unable to calculate: Post BUN lab result is unknown spKt/V 2025-03-11 06:15:14 1.43 F stdKt/V (DIAL) 2025-03-11 06:15:14 N/A F LENGTH OF DIALYSIS 2025-03-11 06:15:14 172 min F WEIGHT (KG) 2025-03-11 06:15:14 78 kg F HEIGHT IN INCHES 2025-03-11 06:15:14 69 Inches F PATIENT AGE 2025-03-11 06:15:14 80 Years F BLOOD FLOW-QWB 2025-03-11 06:15:14 380 F nPCR 2025-03-11 06:15:14 0.75 G/KG/D F TBW ([facility]) 2025-03-11 06:15:14 39.82 Liters F Total Kt/V 2025-03-11 06:15:14 1.43 F WEIGHT - PRE DAY 1 2025-03-11 06:15:14 79 kg F eKt/V 2025-03-11 06:15:14 1.18 F DIALYZER FLOW-QD 2025-03-11 06:15:14 602 mL/min F PRESCRIBED DAYS/WEEK 2025-03-11 06:15:14 2 Day/Wk F stdKT/V Total 2025-03-11 06:15:14 N/A F Urea nitrogen [Mass/volume] in Serum or Plasma --post dialysis 2025-03-11 06:13:17 15 mg/dL F 9.0-23.0 Creatinine [Mass/volume] in Serum or Plasma 2025-03-11 00:34:14 5.78 mg/dL F 0.7-1.3 Urea nitrogen [Mass/volume] in Serum or Plasma 2025-03-11 00:34:14 56 mg/dL F 9.0-23.0 VM (KT/V MEAN VOL) 2025-02-02 20:11:32 34.6 F PATIENT AGE 2025-02-02 20:11:32 80 Years F LENGTH OF DIALYSIS 2025-02-02 20:11:32 183 min F nPCR 2025-02-02 20:11:32 0.71 G/KG/D F DIALYZER FLOW-QD 2025-02-02 20:11:32 596 mL/min F Dialyzer DAI 2025-02-02 20:11:32 1218 Calc F PRESCRIBED DAYS/WEEK 2025-02-02 20:11:32 2 Day/Wk F CURRENT KRU 2025-02-02 20:11:32 F Unable to calculate: Pre BUN lab result is unknown VT (KT/V TX VOL) 2025-02-02 20:11:32 35.4 L F BSA AUDRA 2025-02-02 20:11:32 1.93 sq m F HEIGHT IN INCHES 2025-02-02 20:11:32 69 Inches F Residual kt/v 2025-02-02 20:11:32 F Unable to calculate: Pre BUN lab result is unknown WEIGHT - POST DAY 1 2025-02-02 20:11:32 78 kg F stdKT/V Total 2025-02-02 20:11:32 N/A F Std Renal KT/V 2025-02-02 20:11:32 N/A F TBW ([facility]) 2025-02-02 20:11:32 39.79 Liters F WEIGHT (KG) 2025-02-02 20:11:32 77.5 kg F KT/V PRESCRIBED 2025-02-02 20:11:32 1.54 F AMPUTATE FACTOR 2025-02-02 20:11:32 0 F spKt/V 2025-02-02 20:11:32 1.41 F TOTAL HOURS/WEEK DIALYSIS 2025-02-02 20:11:32 5 hrs F URR% 2025-02-02 20:11:32 73 % F Total Kt/V 2025-02-02 20:11:32 1.41 F stdKt/V (DIAL) 2025-02-02 20:11:32 N/A F BLOOD FLOW-QWB 2025-02-02 20:11:32 383 F eKt/V 2025-02-02 20:11:32 1.18 F WEIGHT - PRE DAY 1 2025-02-02 20:11:32 78.9 kg F Urea nitrogen [Mass/volume] in Serum or Plasma 2025-02-02 15:37:26 63 mg/dL F 9.0-23.0 Creatinine [Mass/volume] in Serum or Plasma 2025-02-02 15:37:24 5.79 mg/dL F 0.7-1.3 Urea nitrogen [Mass/volume] in Serum or Plasma --post dialysis 2025-02-02 14:24:22 17 mg/dL F 9.0-23.0 stdKt/V (DIAL) 2025-01-26 16:14:58 N/A F KT/V PRESCRIBED 2025-01-26 16:14:58 1.53 F AMPUTATE FACTOR 2025-01-26 16:14:58 0 F eKt/V 2025-01-26 16:14:58 1.14 F WEIGHT (KG) 2025-01-26 16:14:58 77.5 kg F URR% 2025-01-26 16:14:58 71 % F Residual kt/v 2025-01-26 16:14:58 F TOTAL HOURS/WEEK DIALYSIS 2025-01-26 16:14:58 6 hrs F VT (KT/V TX VOL) 2025-01-26 16:14:58 35.9 L F PRESCRIBED DAYS/WEEK 2025-01-26 16:14:58 2 Day/Wk F stdKT/V Total 2025-01-26 16:14:58 N/A F Dialyzer DAI 2025-01-26 16:14:58 1218 Calc F Total Kt/V 2025-01-26 16:14:58 1.37 F nPCR 2025-01-26 16:14:58 0.65 G/KG/D F PATIENT AGE 2025-01-26 16:14:58 80 Years F BLOOD FLOW-QWB 2025-01-26 16:14:58 378 F LENGTH OF DIALYSIS 2025-01-26 16:14:58 181 min F VM (KT/V MEAN VOL) 2025-01-26 16:14:58 34.3 F Std Renal KT/V 2025-01-26 16:14:58 N/A F spKt/V 2025-01-26 16:14:58 1.37 F TBW ([facility]) 2025-01-26 16:14:58 39.58 Liters F HEIGHT IN INCHES 2025-01-26 16:14:58 69 Inches F WEIGHT - PRE DAY 1 2025-01-26 16:14:58 78.7 kg F BSA AUDRA 2025-01-26 16:14:58 1.93 sq m F WEIGHT - POST DAY 1 2025-01-26 16:14:58 77.4 kg F CURRENT KRU 2025-01-26 16:14:58 F DIALYZER FLOW-QD 2025-01-26 16:14:58 591 mL/min F Urea nitrogen [Mass/volume] in Serum or Plasma 2025-01-25 16:32:00 16 mg/dL F 7-18 Urea nitrogen [Mass/volume] in Serum or Plasma 2025-01-25 16:32:00 56 mg/dL F 7-18 Urea nitrogen [Mass/volume] in Serum or Plasma --post dialysis 2025-01-24 03:59:59 16 mg/dL F 923 Urea nitrogen [Mass/volume] in Serum or Plasma 2025-01-24 03:59:59 56 mg/dL F 9- Anemia Description Draw Date Result/Unit Status Ref Range Result Comments HCT CALC HGBX3 2025-04-29 03:36:53 35.1 % F 42.0-52.0 Hemoglobin [Mass/volume] in Blood 2025-04-29 03:36:07 11.7 g/dL F 14.0-18.0 HCT CALC HGBX3 2025-04-14 22:32:15 35.7 % F 42.0-52.0 Erythrocyte distribution width [Ratio] by Automated count 2025-04-14 22:31:07 12.9 % F 11.0-15.0 Hemoglobin [Mass/volume] in Blood 2025-04-14 22:31:07 11.9 g/dL F 14.0-18.0 Platelets [#/volume] in Blood by Automated count 2025-04-14 22:31:07 81 x 10^3 cells/uL F 140.0-450.0 MCH [Entitic mass] by Automated count 2025-04-14 22:31:07 35.6 pg F 25.9-34.2 MCHC [Mass/volume] by Automated count 2025-04-14 22:31:07 33.5 g/dL F 29.6-35.3 Erythrocytes [#/volume] in Blood by Automated count 2025-04-14 22:31:07 3.33 x 10^6 cells/uL F 4.6-6.2 Hematocrit [Volume Fraction] of Blood by Automated count 2025-04-14 22:31:07 35.5 % F 41.0-53.0 MCV [Entitic volume] by Automated count 2025-04-14 22:31:07 106.4 fL F 80.0-100.0 Transferrin [Mass/volume] in Serum or Plasma 2025-04-14 22:14:25 170 mg/dL F 215.0-365.0 HCT CALC HGBX3 2025-03-24 17:37:23 33 % F 42.0-52.0 Hemoglobin [Mass/volume] in Blood 2025-03-24 17:36:17 11 g/dL F 14.0-18.0 HCT CALC HGBX3 2025-03-11 17:38:57 34.8 % F 42.0-52.0 Erythrocyte distribution width [Ratio] by Automated count 2025-03-11 17:38:14 13.3 % F 11.0-15.0 Hemoglobin [Mass/volume] in Blood 2025-03-11 17:38:14 11.6 g/dL F 14.0-18.0 Platelets [#/volume] in Blood by Automated count 2025-03-11 17:38:14 89 x 10^3 cells/uL F 140.0-450.0 MCH [Entitic mass] by Automated count 2025-03-11 17:38:14 33.7 pg F 25.9-34.2 MCHC [Mass/volume] by Automated count 2025-03-11 17:38:14 30.9 g/dL F 29.6-35.3 Erythrocytes [#/volume] in Blood by Automated count 2025-03-11 17:38:14 3.45 x 10^6 cells/uL F 4.6-6.2 Hematocrit [Volume Fraction] of Blood by Automated count 2025-03-11 17:38:14 37.6 % F 41.0-53.0 MCV [Entitic volume] by Automated count 2025-03-11 17:38:14 109 fL F 80.0-100.0 Transferrin [Mass/volume] in Serum or Plasma 2025-03-11 00:34:14 163 mg/dL F 215.0-365.0 HCT CALC HGBX3 2025-02-25 02:32:04 35.1 % F 42.0-52.0 Hemoglobin [Mass/volume] in Blood 2025-02-25 02:31:09 11.7 g/dL F 14.0-18.0 HCT CALC HGBX3 2025-02-10 17:09:04 35.7 % F 42.0-52.0 Erythrocyte distribution width [Ratio] by Automated count 2025-02-10 17:08:19 13.7 % F 11.0-15.0 Hemoglobin [Mass/volume] in Blood 2025-02-10 17:08:19 11.9 g/dL F 14.0-18.0 Platelets [#/volume] in Blood by Automated count 2025-02-10 17:08:19 93 x 10^3 cells/uL F 140.0-450.0 MCH [Entitic mass] by Automated count 2025-02-10 17:08:19 35.3 pg F 25.9-34.2 MCHC [Mass/volume] by Automated count 2025-02-10 17:08:19 33.4 g/dL F 29.6-35.3 Erythrocytes [#/volume] in Blood by Automated count 2025-02-10 17:08:19 3.38 x 10^6 cells/uL F 4.6-6.2 Hematocrit [Volume Fraction] of Blood by Automated count 2025-02-10 17:08:19 35.7 % F 41.0-53.0 MCV [Entitic volume] by Automated count 2025-02-10 17:08:19 105.7 fL F 80.0-100.0 HCT CALC HGBX3 2025-02-02 21:52:21 F Unable to Calculate.,RECOL LECT - OUTDATED SPECIMEN Hemoglobin [Mass/volume] in Blood 2025-02-02 21:50:53 F RECOLLECT - OUTDATED SPECIMEN Hematocrit [Volume Fraction] of Blood by Automated count 2025-02-02 21:50:53 F RECOLLECT - OUTDATED SPECIMEN MCV [Entitic volume] by Automated count 2025-02-02 21:50:53 F NOTE: MCV may be falsely elevated in aged samples (approximately 72 hours).,RECOLLEC T - OUTDATED SPECIMEN Erythrocyte distribution width [Ratio] by Automated count 2025-02-02 21:50:53 F RECOLLECT - OUTDATED SPECIMEN MCHC [Mass/volume] by Automated count 2025-02-02 21:50:53 F RECOLLECT - OUTDATED SPECIMEN MCH [Entitic mass] by Automated count 2025-02-02 21:50:53 F RECOLLECT - OUTDATED SPECIMEN Platelets [#/volume] in Blood by Automated count 2025-02-02 21:50:53 F RECOLLECT - OUTDATED SPECIMEN Erythrocytes [#/volume] in Blood by Automated count 2025-02-02 21:50:53 F RECOLLECT - OUTDATED SPECIMEN Transferrin [Mass/volume] in Serum or Plasma 2025-02-02 15:37:26 170 mg/dL F 215.0-365.0 FluidBP Description Draw Date Result/Unit Status Ref Range Result Comments Sodium [Moles/volume] in Serum or Plasma 2025-04-15 06:00:47 140 mEq/L F 132.0-146.0 Sodium [Moles/volume] in Serum or Plasma 2025-03-11 03:50:15 140 mEq/L F 132.0-146.0 Sodium [Moles/volume] in Serum or Plasma 2025-02-02 20:32:43 141 mEq/L F 132.0-146.0 General Description Draw Date Result/Unit Status Ref Range Result Comments Chloride [Moles/volume] in Serum or Plasma 2025-04-15 06:00:47 105 mEq/L F 99.0-109.0 Aspartate aminotransferase [Enzymatic activity/volume] in Serum or Plasma 2025-04-14 22:14:25 23 U/L F 0.0-33.0 Alanine aminotransferase [Enzymatic activity/volume] in Serum or Plasma 2025-04-14 22:14:25 16 U/L F 10.0-49.0 Chloride [Moles/volume] in Serum or Plasma 2025-03-11 03:50:15 104 mEq/L F 99.0-109.0 Aspartate aminotransferase [Enzymatic activity/volume] in Serum or Plasma 2025-03-11 00:34:14 20 U/L F 0.0-33.0 Alanine aminotransferase [Enzymatic activity/volume] in Serum or Plasma 2025-03-11 00:34:14 15 U/L F 10.0-49.0 Chloride [Moles/volume] in Serum or Plasma 2025-02-10 22:12:35 106 mEq/L F 99.0-109.0 Aspartate aminotransferase [Enzymatic activity/volume] in Serum or Plasma 2025-02-10 17:21:26 20 U/L F 0.0-33.0 Chloride [Moles/volume] in Serum or Plasma 2025-02-02 20:32:43 106 mEq/L F 99.0-109.0 Alanine aminotransferase [Enzymatic activity/volume] in Serum or Plasma 2025-02-02 15:37:26 15 U/L F 10.0-49.0 Aspartate aminotransferase [Enzymatic activity/volume] in Serum or Plasma 2025-02-02 15:37:24 22 U/L F 0.0-33.0 InfectionVaccination Description Draw Date Result/Unit Status Ref Range Result Comments Lymphocytes/100 leukocytes in Blood by Automated count 2025-04-14 22:31:07 35.6 % F Neutrophils/100 leukocytes in Blood by Automated count 2025-04-14 22:31:07 53.8 % F Monocytes/100 leukocytes in Blood by Automated count 2025-04-14 22:31:07 6.5 % F Eosinophils/100 leukocytes in Blood by Automated count 2025-04-14 22:31:07 3.5 % F Basophils/100 leukocytes in Blood by Automated count 2025-04-14 22:31:07 0.6 % F Monocytes [#/volume] in Blood by Automated count 2025-04-14 22:31:07 319 Cells/uL F 0.0-1100.0 Basophils [#/volume] in Blood by Automated count 2025-04-14 22:31:07 29 Cells/uL F 0.0-400.0 Eosinophils [#/volume] in Blood by Automated count 2025-04-14 22:31:07 172 Cells/uL F 0.0-700.0 Neutrophils [#/volume] in Blood by Automated count 2025-04-14 22:31:07 2642 Cells/uL F 2000.0-8800. 0 Leukocytes [#/volume] in Blood by Automated count 2025-04-14 22:31:07 4.9 x 10^3 cells/uL F 4.0-11.0 Lymphocytes [#/volume] in Blood by Automated count 2025-04-14 22:31:07 1748 Cells/uL F 620.0-3660.0 Eosinophils/100 leukocytes in Blood by Automated count 2025-03-11 17:38:14 3.9 % F Neutrophils/100 leukocytes in Blood by Automated count 2025-03-11 17:38:14 46.1 % F Monocytes/100 leukocytes in Blood by Automated count 2025-03-11 17:38:14 6.4 % F Basophils/100 leukocytes in Blood by Automated count 2025-03-11 17:38:14 0.7 % F Lymphocytes/100 leukocytes in Blood by Automated count 2025-03-11 17:38:14 42.9 % F Monocytes [#/volume] in Blood by Automated count 2025-03-11 17:38:14 238 Cells/uL F 0.0-1100.0 Basophils [#/volume] in Blood by Automated count 2025-03-11 17:38:14 26 Cells/uL F 0.0-400.0 Eosinophils [#/volume] in Blood by Automated count 2025-03-11 17:38:14 145 Cells/uL F 0.0-700.0 Neutrophils [#/volume] in Blood by Automated count 2025-03-11 17:38:14 1715 Cells/uL F 2000.0-8800. 0 Leukocytes [#/volume] in Blood by Automated count 2025-03-11 17:38:14 3.7 x 10^3 cells/uL F 4.0-11.0 Lymphocytes [#/volume] in Blood by Automated count 2025-03-11 17:38:14 1596 Cells/uL F 620.0-3660.0 Basophils/100 leukocytes in Blood by Automated count 2025-02-10 17:08:19 0.7 % F Eosinophils/100 leukocytes in Blood by Automated count 2025-02-10 17:08:19 4.8 % F Monocytes/100 leukocytes in Blood by Automated count 2025-02-10 17:08:19 5.7 % F Lymphocytes/100 leukocytes in Blood by Automated count 2025-02-10 17:08:19 37.2 % F Neutrophils/100 leukocytes in Blood by Automated count 2025-02-10 17:08:19 51.6 % F Monocytes [#/volume] in Blood by Automated count 2025-02-10 17:08:19 221 Cells/uL F 0.0-1100.0 Basophils [#/volume] in Blood by Automated count 2025-02-10 17:08:19 27 Cells/uL F 0.0-400.0 Eosinophils [#/volume] in Blood by Automated count 2025-02-10 17:08:19 186 Cells/uL F 0.0-700.0 Neutrophils [#/volume] in Blood by Automated count 2025-02-10 17:08:19 1997 Cells/uL F 2000.0-8800. 0 Leukocytes [#/volume] in Blood by Automated count 2025-02-10 17:08:19 3.9 x 10^3 cells/uL F 4.0-11.0 Lymphocytes [#/volume] in Blood by Automated count 2025-02-10 17:08:19 1440 Cells/uL F 620.0-3660.0 Basophils/100 leukocytes in Blood by Automated count 2025-02-02 21:50:53 F RECOLLECT - OUTDATED SPECIMEN Monocytes [#/volume] in Blood by Automated count 2025-02-02 21:50:53 F RECOLLECT - OUTDATED SPECIMEN Basophils [#/volume] in Blood by Automated count 2025-02-02 21:50:53 F RECOLLECT - OUTDATED SPECIMEN Eosinophils/100 leukocytes in Blood by Automated count 2025-02-02 21:50:53 F RECOLLECT - OUTDATED SPECIMEN Lymphocytes/100 leukocytes in Blood by Automated count 2025-02-02 21:50:53 F RECOLLECT - OUTDATED SPECIMEN Lymphocytes [#/volume] in Blood by Automated count 2025-02-02 21:50:53 F RECOLLECT - OUTDATED SPECIMEN Neutrophils [#/volume] in Blood by Automated count 2025-02-02 21:50:53 F RECOLLECT - OUTDATED SPECIMEN Monocytes/100 leukocytes in Blood by Automated count 2025-02-02 21:50:53 F RECOLLECT - OUTDATED SPECIMEN Eosinophils [#/volume] in Blood by Automated count 2025-02-02 21:50:53 F RECOLLECT - OUTDATED SPECIMEN Leukocytes [#/volume] in Blood by Automated count 2025-02-02 21:50:53 F RECOLLECT - OUTDATED SPECIMEN Neutrophils/100 leukocytes in Blood by Automated count 2025-02-02 21:50:53 F WBC differential count percentage results will continue to be reported without reference ranges per [employer] guidelines and will not be flagged Normal of Abnormal. Refer to Absolute Differential counts for reference ranges.,RECOLLECT - OUTDATED SPECIMEN MineralBone Disorder Description Draw Date Result/Unit Status Ref Range Result Comments CA CORRECTED 2025-04-15 06:08:47 9 mg/dL F CA/PHOS PRODUCT 2025-04-15 06:06:46 48.5 Calc F 21.0-53.0 CA*PO4 CORRCTD 2025-04-15 06:06:46 51.2 Calc F 21.0-53.0 Calcium [Mass/volume] in Serum or Plasma 2025-04-15 06:00:47 8.5 mg/dL F 8.7-10.4 Parathyrin.intact [Mass/volume] in Serum or Plasma 2025-04-14 23:01:18 433 pg/mL F 18.0-80.0 Phosphate [Mass/volume] in Serum or Plasma 2025-04-14 22:14:25 5.7 mg/dL F 2.4-5.1 Alkaline phosphatase [Enzymatic activity/volume] in Serum or Plasma 2025-04-14 22:14:25 144 U/L F 46.0-116.0 Parathyrin.intact [Mass/volume] in Serum or Plasma 2025-03-11 18:06:14 292 pg/mL F 18.0-80.0 CA CORRECTED 2025-03-11 03:58:36 9.5 mg/dL F CA*PO4 CORRCTD 2025-03-11 03:56:46 51.1 Calc F 21.0-53.0 CA/PHOS PRODUCT 2025-03-11 03:56:46 48.1 Calc F 21.0-53.0 Calcium [Mass/volume] in Serum or Plasma 2025-03-11 03:50:15 8.9 mg/dL F 8.7-10.4 Phosphate [Mass/volume] in Serum or Plasma 2025-03-11 00:34:14 5.4 mg/dL F 2.4-5.1 Alkaline phosphatase [Enzymatic activity/volume] in Serum or Plasma 2025-03-11 00:34:14 120 U/L F 46.0-116.0 Parathyrin.intact [Mass/volume] in Serum or Plasma 2025-02-17 19:49:39 543 pg/mL F 18.0-80.0 Alkaline phosphatase [Enzymatic activity/volume] in Serum or Plasma 2025-02-10 17:21:26 129 U/L F 46.0-116.0 CA CORRECTED 2025-02-02 21:03:13 8.5 mg/dL F CA*PO4 CORRCTD 2025-02-02 21:00:50 47 Calc F 21.0-53.0 CA/PHOS PRODUCT 2025-02-02 21:00:50 43.5 Calc F 21.0-53.0 Phosphate [Mass/volume] in Serum or Plasma 2025-02-02 20:32:43 5.5 mg/dL F 2.4-5.1 Calcium [Mass/volume] in Serum or Plasma 2025-02-02 20:32:43 7.9 mg/dL F 8.7-10.4 Alkaline phosphatase [Enzymatic activity/volume] in Serum or Plasma 2025-02-02 15:37:24 126 U/L F 46.0-116.0 Parathyrin.intact [Mass/volume] in Serum or Plasma 2025-02-02 13:29:16 F CANCELED - TEST CANCELED Nutrition Description Draw Date Result/Unit Status Ref Range Result Comments Potassium [Moles/volume] in Serum or Plasma 2025-04-15 06:00:47 4.6 mEq/L F 3.5-5.5 GLOBULIN 2025-04-14 22:15:35 3.1 g/dL F 0.9-5.0 A/G RATIO 2025-04-14 22:15:35 1.1 Calc F 1.0-2.5 Lactate dehydrogenase [Enzymatic activity/volume] in Serum or Plasma 2025-04-14 22:14:25 245 U/L F 120.0-246.0 Bicarbonate [Moles/volume] in Serum or Plasma 2025-04-14 22:14:25 28 mEq/L F 20.0-31.0 Albumin [Mass/volume] in Serum or Plasma by Bromocresol green (BCG) dye binding method 2025-04-14 22:14:25 3.4 g/dL F 3.4-4.8 Protein [Mass/volume] in Serum or Plasma 2025-04-14 22:14:25 6.5 g/dL F 5.7-8.2 Potassium [Moles/volume] in Serum or Plasma 2025-03-11 03:50:15 4 mEq/L F 3.5-5.5 GLOBULIN 2025-03-11 00:35:16 2.9 g/dL F 0.9-5.0 A/G RATIO 2025-03-11 00:35:16 1.1 Calc F 1.0-2.5 Lactate dehydrogenase [Enzymatic activity/volume] in Serum or Plasma 2025-03-11 00:34:14 211 U/L F 120.0-246.0 Bicarbonate [Moles/volume] in Serum or Plasma 2025-03-11 00:34:14 25 mEq/L F 20.0-31.0 Albumin [Mass/volume] in Serum or Plasma by Bromocresol green (BCG) dye binding method 2025-03-11 00:34:14 3.3 g/dL F 3.4-4.8 Protein [Mass/volume] in Serum or Plasma 2025-03-11 00:34:14 6.2 g/dL F 5.7-8.2 Potassium [Moles/volume] in Serum or Plasma 2025-02-10 22:12:35 4.4 mEq/L F 3.5-5.5 GLOBULIN 2025-02-10 17:22:16 3 g/dL F 0.9-5.0 A/G RATIO 2025-02-10 17:22:16 1.1 Calc F 1.0-2.5 Lactate dehydrogenase [Enzymatic activity/volume] in Serum or Plasma 2025-02-10 17:21:26 221 U/L F 120.0-246.0 Bicarbonate [Moles/volume] in Serum or Plasma 2025-02-10 17:21:26 25 mEq/L F 20.0-31.0 Albumin [Mass/volume] in Serum or Plasma by Bromocresol green (BCG) dye binding method 2025-02-10 17:21:26 3.4 g/dL F 3.4-4.8 Protein [Mass/volume] in Serum or Plasma 2025-02-10 17:21:26 6.4 g/dL F 5.7-8.2 Potassium [Moles/volume] in Serum or Plasma 2025-02-02 20:32:43 4.1 mEq/L F 3.5-5.5 GLOBULIN 2025-02-02 15:38:02 3 g/dL F 0.9-5.0 A/G RATIO 2025-02-02 15:38:02 1.1 Calc F 1.0-2.5 Lactate dehydrogenase [Enzymatic activity/volume] in Serum or Plasma 2025-02-02 15:37:26 217 U/L F 120.0-246.0 Albumin [Mass/volume] in Serum or Plasma by Bromocresol green (BCG) dye binding method 2025-02-02 15:37:26 3.2 g/dL F 3.4-4.8 Bicarbonate [Moles/volume] in Serum or Plasma 2025-02-02 15:37:24 23 mEq/L F 20.0-31.0 Protein [Mass/volume] in Serum or Plasma 2025-02-02 15:37:24 6.2 g/dL F 5.7-8.2 Encounters No encounter information to report Immunizations Ordered Immunization Name Filled Immunization Name Date Status Comments Refusal Reason Hep B, adult 2025-02-06 10:13:08 TST-PPD intradermal 2025-01-12 10:15:09 Hep B, adult 2024-11-10 11:50:10 Hep B, adult 2024-10-13 11:52:51 Hep B, adult 2024-09-08 11:43:44 Hep B, adult 2024-07-14 10:15:52 Influenza, high-dose, quadrivalent, PF 2024-07-04 10:37:16 Hep B, adult 2024-04-07 11:14:25 Hep B, adult 2024-03-10 10:38:40 Hep B, adult 2024-02-11 12:00:00 TST-PPD intradermal 2024-01-21 10:46:43 Pneumococcal conjugate PCV20, polysaccharide [id number] conjugate, adjuvant, PF 2024-01-11 10:15:34 TST-PPD intradermal 2024-01-07 11:15:18 TB RAQ 2024-01-07 04:00:00 Covid-19 Vaccination 2023-07-24 04:00:00 Influenza Vaccination 2023-06-20 04:00:00 Influenza Vaccination 2022-06-26 04:00:00 Covid-19 Vaccination 2022-02-15 04:00:00 Covid-19 Vaccination 2021-06-28 04:00:00 Influenza Vaccination 2021-06-13 04:00:00 Covid-19 Vaccination 2020-12-07 05:00:00 Covid-19 Vaccination 2020-11-09 05:00:00 Influenza Vaccination 2020-06-17 04:00:00 Pneumococcal conjugate PCV 13 2015-06-21 04:00:00 Hepatitis B Vaccination 2014-12-31 04:00:00 Hepatitis B Vaccination 2014-08-10 05:00:00 Hepatitis B Vaccination 2014-07-09 04:00:00 pneumococcal polysaccharide PPV23 2010-02-17 04:00:00 Plan of Treatment Planned Activity Provider Planned Date Details Commen ts Diagnostic Test Pending [facility] 2025-01-01 05:33:07 Hemoglobin [Mass/volume] in Blood [code = 718-7] Diagnostic Test Pending [facility] 2024-08-08 13:19:08 Aluminum [Mass/volume] in Serum or Plasma [code = 5574-9] Diagnostic Test Pending [facility] 2024-08-08 13:17:28 Cobalamin (Vitamin B12) [Mass/volume] in Serum or Plasma [code = 2132-9] Diagnostic Test Pending [facility] 2024-01-29 05:41:04 Ferritin [Mass/volume] in Serum or Plasma [code = 2276-4] Diagnostic Test Pending [facility] 2024-01-29 04:00:00 Parathyrin.intact [Mass/volume] in Serum or Plasma [code = 2731-8] Diagnostic Test Pending [facility] 2024-01-07 04:00:00 Creatinine [Mass/volume] in Serum or Plasma [code = 2160-0] Diagnostic Test Pending [facility] 2024-01-07 04:00:00 Folate [Mass/volume] in Serum or Plasma [code = 2284-8] Diagnostic Test Pending [facility] 2024-01-07 04:00:00 Sodium [Moles/volume] in Serum or Plasma [code = 2951-2] Diagnostic Test Pending [facility] 2024-01-07 04:00:00 25-Hydroxyvitamin D3+25-Hydroxyvitamin D2 [Mass/volume] in Serum or Plasma [code = 77815-7] Diagnostic Test Pending [facility] 2024-01-07 04:00:00 Transferrin [Mass/volume] in Serum or Plasma [code = 3034-6] Diagnostic Test Pending [facility] 2024-01-07 04:00:00 Potassium [Moles/volume] in Serum or Plasma [code = 2823-3] Diagnostic Test Pending [facility] 2024-01-12 05:46:28 Alanine aminotransferase [Enzymatic activity/volume] in Serum or Plasma [code = 1742-6] Diagnostic Test Pending [facility] 2025-04-15 18:41:49 In-Center Hemodialysis Treatment [code = YTM869] Diet Order [facility] May 12, 2024 Diet Calorie 30 kcal/kg Fluid Value 1200 mL/d Phosphorus Value 1000 mg/d Potassium Value 2000 mg/d Protein Value 1.4 gm/kg Sodium Value 2000 mg/d Calculated Weight 77 [facility] 04:00:00Engerix-B [code = 82381]
== END 2025-05-03 23:59 | disposition home or self-care (01) ==
LOC: RAD 07:38
PROVIDERS: PCP Family Medicine; Visit Provider Family Medicine
DX: K74.3 Primary biliary cirrhosis (principal); N28.1 Cyst of kidney, acquired; Z90.49 Acquired absence of other specified parts of digestive tract
CPT/HCPCS: 76705

== ENCOUNTER 2025-09-06 09:38 | Day surgery (SDC) | payer MEDICARE, SELFPAY ==
--- NOTE | 2025-09-06 07:27 | IR_ITS ---
APPROVED REPORT Patient Location: Outpatient PROCEDURES Removal of chronic indwelling dialysis tunneled catheter Left internal jugular vein access Placement of indwelling tunneled dialysis catheter into the left internal jugular vein INDICATION Dysfunctional/thrombosed right IJ dialysis tunnel catheter, Chronic renal failure requiring hemodialysis Informed consent was obtained prior to the procedure. COMPLICATIONS none Estimated Blood Loss: less than 10ml TECHNIQUE 1% lidocaine was used to anesthetize the access going into the tunnel catheter. Hemostats were placed inside the tunnel and used to open and dissect away the cuff which had fibrosed into the subcutaneous tissue. A scalpel was used to make an incision over the right internal jugular vein at the access point. Hemostats were used to dissect and remove the fibrin Around the sheath. An advantage wire was advanced and the sheath/tunneled catheter was removed in 1 unit. Manual pressure was applied. Dermabond was used to close both surgical incision access areas. 1% lidocaine was used to anesthetize the left internal jugular vein access area. The left internal jugular vein was accessed via the Salinger technique and a wire was placed in the left internal jugular vein. A tunnel was created and a tunnel catheter was then placed along the mid left clavicular line and then inserted into the left internal jugular vein with the appropriate sized peel-away sheath. Both ports were aspirated and flushed and worked appropriately. There was a sharp angulation under fluoroscopy which was radiographically unsatisfactory however the catheter was appropriately flushing and removing blood therefore it was decided to suture in place and determine if this was appropriate when continue working. The apparatus was sterilely prepped sutured into place patient transferred to the postop already in stable condition IMPRESSION Successful removal of chronic indwelling hemodialysis tunneled catheter from the right internal jugular vein Successful placement of a fresh indwelling hemodialysis tunnel catheter into the left internal jugular vein PLAN 1. Proceed with dialysis tomorrow. 2. If the catheter continues working no further adjustments will be made however should the catheter not be adequate he will be brought back to the [facility] and will undergo repeat placement with less angulation. Electronically signed by : Franck Lopez MD 09/06/2025 17:10:43
[2025-09-06 09:40] VITALS: BMI 26.7
[2025-09-06 09:59] LABS: Hematocrit 37.2 % (42.0-52.0); Hemoglobin 12.5 g/dL (14.1-18.0); Immature Granulocytes % 0.3 %; Mean Corpuscular HGB Conc 33.6 g/dL (31.8-35.4); Mean Corpuscular Hemoglobin 34.4 pg (27.0-31.2); Mean Corpuscular Volume 102.5 fl (80-94); Nucleated Red Blood Cells % 0 %; Platelet Count 112 K/mm3 (142-424); Red Blood Count 3.63 M/mm3 (4.60-6.20); Red Cell Distribution Width-SD 44.1 fL; White Blood Count 6.4 K/mm3 (4.8-10.8)
[2025-09-06 10:00] LABS: Chloride 101 mmol/L (98-107); Potassium 4.8 mmoL/L (3.5-5.1); Sodium 142 mmol/L (136-145)
[2025-09-06 10:03] LABS: Anion Gap 19.8 mEq/L (5-15); Blood Urea Nitrogen 62 mg/dl (9-20); Carbon Dioxide 26 mmol/L (22.0-30.0); Creatinine Clearance Estimated 12 mL/min (50-200); Estimated Glomerular Filt Rate 10 ml/min (>60); GFR (African American) 12 ML/MIN (>60)
[2025-09-06 10:04] LABS: Calcium 8.8 mg/dl (8.4-10.2); Glucose 86 mg/dl (74-100)
[2025-09-06 10:10] LABS: Creatinine,Serum 5.70 mg/dl (0.66-1.25)
[2025-09-06 13:12] VITALS: PULSE 73
[2025-09-06] MEDS: HEPARIN 1,000 UNITS/500ML NS (CATH LAB) 1000 UNIT IV (14:55)
[2025-09-06] MEDS: 0.9 % SODIUM CHLORIDE 1000ML 1,000 ML 25 ML IV (14:56)
[2025-09-06] MEDS: LIDOCAINE 1% W/EPI 1:100,000 20ML VIAL 20 ML SQ (14:59)
[2025-09-06] MEDS: FENTANYL 100MCG/2ML VIAL 50 MCG IV ×2 (15:05→15:48)
[2025-09-06] MEDS: MIDAZOLAM HCL 1MG/ML 5ML VIAL 1 MG IV (15:05)
[2025-09-06] MEDS: HEPARIN SODIUM 5,000 UNIT/ML VIAL 10000 UNIT IV (15:37)
[2025-09-06] MEDS: MIDAZOLAM 2MG/2ML VIAL 1 MG IV ×2 (15:47→16:05)
[2025-09-06 16:28] VITALS: BP 157/100; PULSE 103; PULSE 89; RESP 20; O2SAT 96
[2025-09-06 16:30] VITALS: BP 153/89; PULSE 85; RESP 18; O2SAT 97
[2025-09-06 16:48] VITALS: BP 139/94; PULSE 82; RESP 20; O2SAT 96
== END 2025-09-06 17:07 | disposition home or self-care (01) ==
PROVIDERS: PCP Family Medicine; Visit Provider Internal Medicine
DX: T82.868A Thrombosis due to vascular prosthetic devices, implants and grafts, initial encounter (principal); E11.22 Type 2 diabetes mellitus with diabetic chronic kidney disease; I13.2 Hypertensive heart and chronic kidney disease with heart failure and with stage 5 chronic kidney disease, or end stage renal disease; I50.23 Acute on chronic systolic (congestive) heart failure; D63.1 Anemia in chronic kidney disease; N18.6 End stage renal disease; I25.10 Atherosclerotic heart disease of native coronary artery without angina pectoris; I48.19 Other persistent atrial fibrillation; E03.9 Hypothyroidism, unspecified; I31.39 Other pericardial effusion (noninflammatory); E78.2 Mixed hyperlipidemia; Z99.2 Dependence on renal dialysis; Z95.2 Presence of prosthetic heart valve; Z79.890 Hormone replacement therapy; Z79.899 Other long term (current) drug therapy; Z88.8 Allergy status to other drugs, medicaments and biological substances; Z82.49 Family history of ischemic heart disease and other diseases of the circulatory system; Y84.8 Other medical procedures as the cause of abnormal reaction of the patient, or of later complication, without mention of misadventure at the time of the procedure
CPT/HCPCS: 36415; 36558; 36589; 80048; 85025; 99152; 99153; C1750; C1769; J1642; J1644; J2004; J2250; J3010; J7030

== ENCOUNTER 2025-09-13 10:51 | Day surgery (SDC) | payer MEDICARE, SELFPAY ==
[2025-09-13] VITALS (7 sets, daily range): BP systolic 144–168; BP diastolic 75–100; PULSE 80–108; RESP 14–20; O2SAT 92–98; BMI 26.7
[2025-09-13 11:19] LABS: Hematocrit 33.4 % (42.0-52.0); Hemoglobin 11.2 g/dL (14.1-18.0); Immature Granulocytes % 0.3 %; Mean Corpuscular HGB Conc 33.5 g/dL (31.8-35.4); Mean Corpuscular Hemoglobin 35.1 pg (27.0-31.2); Mean Corpuscular Volume 104.7 fl (80-94); Nucleated Red Blood Cells % 0 %; Platelet Count 163 K/mm3 (142-424); Red Blood Count 3.19 M/mm3 (4.60-6.20); Red Cell Distribution Width-SD 47.4 fL; White Blood Count 5.9 K/mm3 (4.8-10.8)
[2025-09-13 11:26] LABS: Anion Gap 19.0 mEq/L (5-15); Blood Urea Nitrogen 73 mg/dl (9-20); Calcium 8.7 mg/dl (8.4-10.2); Carbon Dioxide 22 mmol/L (22.0-30.0); Chloride 104 mmol/L (98-107); Creatinine Clearance Estimated 11 mL/min (50-200); Estimated Glomerular Filt Rate 9 ml/min (>60); GFR (African American) 11 ML/MIN (>60); Glucose 72 mg/dl (74-100); Potassium 4.0 mmoL/L (3.5-5.1); Sodium 141 mmol/L (136-145)
[2025-09-13 11:34] LABS: Creatinine,Serum 5.90 mg/dl (0.66-1.25)
--- NOTE | 2025-09-13 12:12 | IR_ITS ---
APPROVED REPORT Patient Location: Outpatient [employer]: NIMESH Villa RT (R) PROCEDURES Removal of existing permanent dialysis tunnel catheter from the left internal jugular vein Placement of a new permanent tunneled dialysis catheter into the right internal jugular vein INDICATION Chronic renal failure, Nonfunctioning dialysis catheter in the left internal jugular vein, Patient requiring hemodialysis Informed consent was obtained prior to the procedure. COMPLICATIONS NONE Estimated Blood Loss: LESS THAN 10 ML TECHNIQUE 1% lidocaine used anesthetize the right anterior aspect of the chest and into the right anterior lateral aspect of the neck. Right internal jugular vein was accessed via the Salinger technique and a wire was placed into the internal jugular vein and into the inferior vena cava under fluoroscopic guidance. An incision was made in the midclavicular line on the right side of the chest and the tunnel catheter was then placed through the subcutaneous tissue and into the right internal jugular vein superficial area. The wire was then used to exit the internal jugular vein cutaneous site. The tunneled catheter was then pulled through and sheaths were placed into the right internal jugular vein and slowly upsized until an 11 Stateless sheath was placed in the right internal jugular vein. The dialysis catheter was introduced into the sheath and the 11 Stateless sheath was then peeled away. Following this Dermabond was used to close the cutaneous site at the internal jugular access area. 1-0 silk was used to secure the dialysis ports to the epidermal exterior skin. Following this the left internal jugular vein dialysis catheter was removed and good hemostasis was achieved using manual pressure. Patient was transferred to the postop holding in stable condition IMPRESSION Successful removal of a chronic dialysis tunnel catheter from the left internal jugular vein Successful placement of a new dialysis tunnel catheter into the right internal jugular vein PLAN 1. Postoperative care 2. Okay to proceed with dialysis use tomorrow Electronically signed by : Franck Lopez MD 09/14/2025 11:32:45
[2025-09-13] MEDS: HEPARIN 1,000 UNITS/500ML NS (CATH LAB) 1000 UNIT IV (12:21)
[2025-09-13] MEDS: 0.9 % SODIUM CHLORIDE 1000ML 1,000 ML 25 ML IV (12:22)
[2025-09-13] MEDS: CLINDAMYCIN PHOSPHATE/D5W 900 MG/50 ML PIGGYBACK 100 MG IV (12:22)
[2025-09-13] MEDS: FENTANYL 100MCG/2ML VIAL 50 MCG IV (12:23)
[2025-09-13] MEDS: LIDOCAINE 1% W/EPI 1:100,000 20ML VIAL 20 ML SQ (12:23)
[2025-09-13] MEDS: MIDAZOLAM HCL 1MG/ML 5ML VIAL 1 MG IV (12:23)
[2025-09-13] MEDS: HEPARIN SODIUM 5,000 UNIT/ML VIAL 10000 UNIT IV (13:07)
== END 2025-09-13 14:31 | disposition home or self-care (01) ==
PROVIDERS: PCP Family Medicine; Visit Provider Internal Medicine
DX: T82.9XXA Unspecified complication of cardiac and vascular prosthetic device, implant and graft, initial encounter (principal); N18.6 End stage renal disease; I13.2 Hypertensive heart and chronic kidney disease with heart failure and with stage 5 chronic kidney disease, or end stage renal disease; I50.21 Acute systolic (congestive) heart failure; D63.1 Anemia in chronic kidney disease; Z99.2 Dependence on renal dialysis; I48.0 Paroxysmal atrial fibrillation; I31.39 Other pericardial effusion (noninflammatory); I25.119 Atherosclerotic heart disease of native coronary artery with unspecified angina pectoris; I27.20 Pulmonary hypertension, unspecified; E03.9 Hypothyroidism, unspecified; E78.2 Mixed hyperlipidemia; Z95.2 Presence of prosthetic heart valve; Z82.49 Family history of ischemic heart disease and other diseases of the circulatory system; Z79.890 Hormone replacement therapy; Z79.899 Other long term (current) drug therapy; Z88.1 Allergy status to other antibiotic agents; Z88.8 Allergy status to other drugs, medicaments and biological substances; Y84.8 Other medical procedures as the cause of abnormal reaction of the patient, or of later complication, without mention of misadventure at the time of the procedure
CPT/HCPCS: 36558; 36589; 80048; 85025; 99152; C1750; J0736; J1644; J2004; J3010; J7030